=== PATIENT | female | born 1965 | race Two or more races ===

== ENCOUNTER → 2020-05-25 10:06 | Outpatient (BNVA) | payer OTHER, SELFPAY | PROVIDERS: PCP Internal Medicine; Visit Provider Internal Medicine | DX: Z95.2 Presence of prosthetic heart valve (principal); Z51.81 Encounter for therapeutic drug level monitoring; Z79.01 Long term (current) use of anticoagulants | CPT/HCPCS: 85610; 99211 ==

== ENCOUNTER → 2020-06-15 10:48 | Outpatient (BNVA) | payer OTHER, SELFPAY | PROVIDERS: PCP Internal Medicine; Visit Provider Internal Medicine | DX: Z95.2 Presence of prosthetic heart valve (principal); Z51.81 Encounter for therapeutic drug level monitoring; Z79.01 Long term (current) use of anticoagulants | CPT/HCPCS: 85610; 99211 ==

== ENCOUNTER → 2020-07-06 10:58 | Outpatient (BNVA) | payer OTHER, SELFPAY | PROVIDERS: PCP Internal Medicine; Visit Provider Internal Medicine | DX: Z95.2 Presence of prosthetic heart valve (principal); Z51.81 Encounter for therapeutic drug level monitoring; Z79.01 Long term (current) use of anticoagulants | CPT/HCPCS: 85610; 99211 ==

== ENCOUNTER → 2020-07-21 11:15 | Outpatient (BNVA) | payer OTHER, SELFPAY | PROVIDERS: PCP Internal Medicine; Visit Provider Internal Medicine | DX: Z95.2 Presence of prosthetic heart valve (principal); Z51.81 Encounter for therapeutic drug level monitoring; Z79.01 Long term (current) use of anticoagulants | CPT/HCPCS: 85610; 99211 ==

== ENCOUNTER → 2020-08-11 11:09 | Outpatient (BNVA) | payer OTHER, SELFPAY | PROVIDERS: PCP Internal Medicine; Visit Provider Internal Medicine | DX: Z95.2 Presence of prosthetic heart valve (principal); Z51.81 Encounter for therapeutic drug level monitoring; Z79.01 Long term (current) use of anticoagulants | CPT/HCPCS: 85610; 99211 ==

== ENCOUNTER → 2020-09-01 11:08 | Outpatient (BNVA) | payer OTHER, SELFPAY | PROVIDERS: PCP Internal Medicine; Visit Provider Internal Medicine | DX: Z95.2 Presence of prosthetic heart valve (principal); Z79.01 Long term (current) use of anticoagulants; Z51.81 Encounter for therapeutic drug level monitoring | CPT/HCPCS: 85610; 99211 ==

== ENCOUNTER → 2020-09-10 12:54 | Outpatient (BNVA) | payer OTHER, SELFPAY | PROVIDERS: PCP Internal Medicine; Visit Provider Internal Medicine | DX: E66.01 Morbid (severe) obesity due to excess calories (principal); G47.33 Obstructive sleep apnea (adult) (pediatric); J44.9 Chronic obstructive pulmonary disease, unspecified; J98.4 Other disorders of lung; Z99.89 Dependence on other enabling machines and devices | CPT/HCPCS: 99212 ==

== ENCOUNTER → 2020-09-11 09:11 | Outpatient (BNV) | payer OTHER, SELFPAY | PROVIDERS: PCP Internal Medicine; Visit Provider Internal Medicine Medical Oncology | DX: C50.912 Malignant neoplasm of unspecified site of left female breast (principal) | CPT/HCPCS: 99212; 99213; 99214 ==

== ENCOUNTER 2020-09-18 13:06 | Outpatient (REF) | payer OTHER, SELFPAY ==
--- NOTE | 2020-09-18 13:11 | MM_ITS ---
EXAMINATION: MM SCREENING DIGITAL BREAST TOMOSYNTHESIS, BILATERAL CLINICAL INFORMATION: Screening. Asymptomatic. Status post left breast lumpectomy. COMPARISON: Mammography: 05/08/2018 and studies dating back to 06/26/2014 TECHNIQUE: Digital breast tomosynthesis is performed in both the craniocaudal and mediolateral oblique views along with computer-aided detection (CAD). Synthesized 2D images are generated from the tomosynthesis. FINDINGS: There are scattered areas of fibroglandular density (ACR BI-RADS breast composition Category b). Stable architectural distortion from previous left breast lumpectomy is present. Pacemaker powerpack is seen within the left axilla. Within the superior aspect of the right breast, approximately 8 cm from the nipple, there is a somewhat irregularly marginated density which was not evident prior to study of 05/08/2018 and was smaller at that time. There is also noted to be some retroareolar densities not previously noted with question of calcification. Recommend spot magnification views of the right breast in craniocaudal and 90 degree mediolateral views. MM/MM tomosynthesis screening BI IMPRESSION: Right breast findings as described for further evaluation. ASSESSMENT: BI-RADS 0: Incomplete - Need Additional Imaging Evaluation RECOMMENDATION: 1. Additional views of the right breast. 2. Targeted ultrasound if warranted after review of the additional views. 3. Radiology department staff will contact the patient for additional imaging. This patient's information was entered into a reminder system with a target due date for their next mammogram.
--- NOTE | 2020-09-18 13:11 | MM_ITS ---
EXAMINATION: BONE DENSITOMETRY CLINICAL INDICATION: Osteoporosis. Breast cancer COMPARISON: Previous BD dated 05/08/2018 and baseline BD dated 05/19/2008. TECHNIQUE: Using a Two[employer] DXA System (software version: 13.1) manufactured by [employer], dual-energy x-ray absorptiometry was performed of the lumbar spine and left hip. The images are of good technical quality. Summary results are attached. FINDINGS: AP SPINE L1-L4: Current: BMD 0.869 g/cm2, Z-score -2.8, T-score -2.6, osteoporosis, 0.1% decrease from previous, 9.7% decrease from baseline (<5% change is not significant). Prior: BMD 0.870 g/cm2. Baseline: BMD 0.962 g/cm2. LEFT FEMUR, NECK: Current: BMD 0.671 g/cm2, Z-score -2.3, T-score -2.6, osteoporosis. Prior: BMD 0.694 g/cm2. Baseline: BMD 0.736 g/cm2. LEFT FEMUR, TOTAL: Current: BMD 0.757 g/cm2, Z-score -2.1, T-score -2.0, osteopenia, 2.8% decrease from previous, 15.1% decrease from baseline (<5% change is not significant). Prior: BMD 0.779 g/cm2. Baseline: BMD 0.892 g/cm2. IDENTIFIED RISK FACTORS: Early menopause, secondary osteoporosis. HISTORY OF FRACTURE: None listed. MEDICATIONS: Calcium/multivitamin. MM/XR DEXA axial skeleton IMPRESSION: 1. DIAGNOSIS: Osteoporosis based on the lowest T-score value of -2.6 in the femur neck and lumbar spine applying World Health Organization criteria. 2. 10-YEAR FRACTURE RISK PREDICTION, FRAX: Major osteoporotic fracture (clinical spine, forearm, hip or shoulder) 4.4%. Hip fracture 0.8%. 3. Treatment Recommendations: NOF guidelines recommend consideration for treatment in postmenopausal women and men age 50 and older presenting with the following: -A hip or vertebral (clinical or morphometric) fracture. -T-score less than or equal to -2.5 at the femoral neck or spine after appropriate evaluation to exclude secondary causes. -Low bone mass at the hip or spine and a 10-year fracture probability by FRAX of greater than or equal to 3% for hip fracture or greater than or equal to 20% for major osteoporotic fracture based on the [place] adapted WHO algorithm. 4. Other Recommendations: All treatment decisions require clinical judgment and consideration of individual patient factors, including patient preferences, comorbidities, previous drug use, risk factors not captured in the FRAX model (e.g. frailty, falls, vitamin D deficiency, increased bone turnover, interval significant decline in bone density) and possible under or overestimation of fracture risk by FRAX. Additional medical evaluation for secondary cause of low bone mineral density may be appropriate. FUTURE SCAN RECOMMENDATION: People with diagnosed cases of osteoporosis or at high risk for fracture should have regular bone mineral density tests. For patients eligible for Medicare, routine testing is allowed once every 2 years. The testing frequency can be increased to one year for patients who have rapidly progressing disease, those who are receiving or discontinuing medical therapy to restore bone mass, or have additional risk factors.
== END 2020-09-18 13:07 | disposition home or self-care (01) ==
LOC: HO.MAMMO 13:06
PROVIDERS: PCP Internal Medicine; Visit Provider Internal Medicine
DX: C50.912 Malignant neoplasm of unspecified site of left female breast (principal); M81.0 Age-related osteoporosis without current pathological fracture; Z78.0 Asymptomatic menopausal state; Z79.899 Other long term (current) drug therapy
CPT/HCPCS: 77063; 77067; 77080

== ENCOUNTER → 2020-09-23 10:59 | Outpatient (BNVA) | payer OTHER, SELFPAY | PROVIDERS: PCP Internal Medicine; Visit Provider Internal Medicine | DX: Z95.2 Presence of prosthetic heart valve (principal); Z51.81 Encounter for therapeutic drug level monitoring; Z79.01 Long term (current) use of anticoagulants | CPT/HCPCS: 85610; 99211 ==

== ENCOUNTER 2020-10-21 08:37 | Outpatient (REF) | payer OTHER, SELFPAY ==
--- NOTE | ~2020-10-21 | MM_ITS ---
EXAMINATION: MM DIAGNOSTIC DIGITAL MAMMOGRAPHY, RIGHT CLINICAL INFORMATION: Recall from screening for question of developing density and calcifications right breast. COMPARISON: Mammography: 09/18/2020, 05/08/2018 TECHNIQUE: Digital mammography is performed in the following views: Spot magnification CC, magnification ML x2 FINDINGS: The breasts are almost entirely fatty (ACR BI-RADS breast composition Category a). There are shifting stable background stromal and fibroglandular densities in the areas of recent mammographic interest similar to prior mammography 2018. There is no developing density or interval mass or architectural abnormality. No abnormal calcifications. No significant changes. Results are discussed with the patient at time of visit. MM/MM added views RT IMPRESSION: Additional views show no developing density, mass, or or abnormal calcifications. No significant changes from mammography 2018. ASSESSMENT: BI-RADS 2: Benign RECOMMENDATION: Routine annual mammography screening. This patient's information was entered into a reminder system with a target due date for their next mammogram.
== END 2020-10-21 08:38 | disposition home or self-care (01) ==
LOC: HO.MAMMO 08:37
PROVIDERS: PCP Internal Medicine; Visit Provider Internal Medicine Medical Oncology
DX: R92.2 Inconclusive mammogram (principal); R92.1 Mammographic calcification found on diagnostic imaging of breast
CPT/HCPCS: 77065

== ENCOUNTER → 2020-10-22 14:07 | Outpatient (BNVA) | payer OTHER, SELFPAY | PROVIDERS: PCP Internal Medicine; Visit Provider Internal Medicine | DX: Z95.2 Presence of prosthetic heart valve (principal); Z51.81 Encounter for therapeutic drug level monitoring; Z79.01 Long term (current) use of anticoagulants | CPT/HCPCS: 85610; 99211 ==

== ENCOUNTER → 2020-10-26 10:40 | Outpatient (BNVA) | payer OTHER, SELFPAY | PROVIDERS: PCP Internal Medicine; Visit Provider Internal Medicine | DX: Z95.2 Presence of prosthetic heart valve (principal); Z51.81 Encounter for therapeutic drug level monitoring; Z79.01 Long term (current) use of anticoagulants | CPT/HCPCS: 85610; 99211 ==

== ENCOUNTER → 2020-11-02 11:04 | Outpatient (BNVA) | payer OTHER, SELFPAY | PROVIDERS: PCP Internal Medicine; Visit Provider Internal Medicine | DX: Z95.2 Presence of prosthetic heart valve (principal); Z51.81 Encounter for therapeutic drug level monitoring; Z79.01 Long term (current) use of anticoagulants | CPT/HCPCS: 85610; 99211 ==

== ENCOUNTER → 2020-11-16 10:35 | Outpatient (BNVA) | payer OTHER, SELFPAY | PROVIDERS: PCP Internal Medicine; Visit Provider Internal Medicine | DX: Z95.2 Presence of prosthetic heart valve (principal); Z51.81 Encounter for therapeutic drug level monitoring; Z79.01 Long term (current) use of anticoagulants | CPT/HCPCS: 85610; 99211 ==

== ENCOUNTER → 2020-11-20 14:03 | Outpatient (BNVA) | payer OTHER, SELFPAY | PROVIDERS: PCP Internal Medicine; Visit Provider Internal Medicine | DX: Z95.2 Presence of prosthetic heart valve (principal); Z79.01 Long term (current) use of anticoagulants; Z51.81 Encounter for therapeutic drug level monitoring | CPT/HCPCS: 85610; 99211 ==

== ENCOUNTER → 2020-11-26 10:07 | Outpatient (BNVA) | payer OTHER, SELFPAY | PROVIDERS: PCP Internal Medicine; Visit Provider Internal Medicine | DX: Z95.2 Presence of prosthetic heart valve (principal); Z79.01 Long term (current) use of anticoagulants; Z51.81 Encounter for therapeutic drug level monitoring | CPT/HCPCS: 85610; 99211 ==

== ENCOUNTER → 2020-12-03 13:42 | Outpatient (BNVA) | payer OTHER, SELFPAY | PROVIDERS: PCP Internal Medicine; Visit Provider Internal Medicine | DX: Z95.2 Presence of prosthetic heart valve (principal); Z79.01 Long term (current) use of anticoagulants; Z51.81 Encounter for therapeutic drug level monitoring | CPT/HCPCS: 85610; 99211 ==

== ENCOUNTER → 2020-12-11 14:12 | Outpatient (BNVA) | payer OTHER, SELFPAY | PROVIDERS: PCP Internal Medicine; Visit Provider Internal Medicine | DX: Z95.2 Presence of prosthetic heart valve (principal); Z79.01 Long term (current) use of anticoagulants; Z51.81 Encounter for therapeutic drug level monitoring | CPT/HCPCS: 85610; 99211 ==

== ENCOUNTER 2020-12-18 16:04 | Emergency (ER) | payer OTHER, SELFPAY ==
--- NOTE | 2020-12-18 15:00 | CA_ITS ---
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 Moderately dilated left ventricle with markedly reduced LV ejection fraction with LVEF of less than 10% with grade 2 diastolic dysfunction 2. Normally functioning mechanical mitral valve with mean gradient of 1.5 mm of mercury 3. No gross pericardial effusion Findings Left Ventricle Moderately increased left ventricular cavity size. There is normal left ventricular wall thickness. The left ventricular systolic function is severely decreased. The visually estimated ejection fraction is <10%. There is severe global hypokinesis. Spectral Doppler is indicative of a restrictive filling pattern. E/E prime ratio is >15, consistent with elevated filling pressures. Evidence suggests grade III (severe) diastolic dysfunction. Right Ventricle Normal right ventricular cavity size. There is borderline right ventricular systolic function. There is an ICD wire seen in the right ventricle. Atria The left atrium was not well visualized. Interatrial shunt cannot be excluded. The right atrium is normal in size. Aortic Valve Normal aortic valve structure and function. There is no aortic valve stenosis. There is no aortic valve regurgitation. Mitral Valve A mechanical prosthetic mitral valve is present. The prosthetic mitral valve appears to be functioning normally. The mean mitral valve gradient is 1.40 mmHg. Pulmonic Valve The pulmonic valve was not well visualized. Tricuspid Valve Likely normal tricuspid valve structure and function. The right ventricular systolic pressure is not calculated. Great Vessels All visible segments of the aorta are normal in size. The pulmonary artery was not well visualized. Venous The inferior vena cava was not well visualized. The inferior vena cava collapses greater than 50% with inspiration. Pericardium/Pleural There is no evidence of pericardial effusion. Prior Study Comparison Changes noted compared to prior study dated: 12/25/2019. LV systolic function appears to be further reduced Measurements M-Mode Liner Measurements Normals - Women/Men AOV Cusps: 1.70 1.5-2.6 cm/m2 2D Linear Measurements IVSd: 0.66 0.6-0.9/0.6-1.0 cm LVIDd: 6.25 3.9-5.3/4.2-5.9 cm LVIDd Index: 3.51 2.4-3.2/2.2-3.1 cm/m2 LVIDs: 6.30 2.0-3.6 cm LVPWd: 0.64 0.7-1.1 cm Ao Root: 2.50 2.1-3.5 cm LA Diam: 4.20 2.7-3.8/3.0-4.0 cm LAIDs Index: 2.36 1.5-2.3 cm/m2 LV Mass: 193.14 67-162/88-224 g LV Mass Index: 108.51 43-95/49-115 g/m2 LVOT Diam: 1.40 3.0+(-)1.3 cm 2D Systolic Function EF 4C: 10.90 >55% EF 2C: 4.55 >55% EF BiP: 9.55 >55% Mitral Valve MV Pk E: 1.28 MV Decel Time: 179.00 E'Lateral: 3.81 E'Medial: 4.79 E/E' Med: 26.70 E/E' Lat: 33.60 PHT: 52.00 MVA PHT: 4.23 Decel Harris: 7.16 Aortic Valve AoV Pk Jayson: 1.64 AoV Mn Jayson: 1.21 AoV VTI: 0.31 AoV Pk Grad: 11.00 Aov Mn Grad: 6.00 TRAVIS Cont.VTI: 0.31 LVOT LVOT Pk Jayson: 0.37 LVOT Mn Jayson: 0.26 LVOT VTI: 0.06 LVOT Pk Grad: 1.00 LVOT Mn Grad: 0.00 LVOT Diam: 1.40 LVOT Area: 1.54 Diastolic Function MV Pk E: 1.28 E'Medial: 4.79 E/E' Med: 26.70 E' Laterial: 3.81 E/E' Lat: 33.60 Great Vessels Aorta Ao Root-2D: 2.50 2.0-3.7 cm Ao Asc: 2.60 2.1-3.4 cm Ao Arch: 2.10 Pulmonary Valve PV Pk Jayson: 1.26 Peak PV Grad: 6.00 Updated in Other Vendor System with Status of Final Cholo Delgadillo MD electronically signed on 12/19/2020 11:47:52 AM with status of Final
[2020-12-18 16:17] VITALS: BP 122/88; PULSE 71; RESP 22; TEMP 36.8; O2SAT 97
[2020-12-18 16:51] VITALS: BP 116/63; PULSE 72; RESP 16; TEMP 36.8; O2SAT 96; BMI 51.3
--- NOTE | 2020-12-18 16:55 | ED_ITS ---
HPI - General Adult General Chief complaint: Dizziness Stated complaint: sent from cardiology Time Seen by Provider: 12/18/20 16:54 Source: patient Mode of arrival: ambulatory Limitations: no limitations History of Present Illness HPI narrative: Patient's history of COPD obstructive sleep apnea on CPAP morbid obesity ischemic cardiomyopathy, CHF ejection fraction 15-20% was at cardiology office getting alk echo done which showed 15-20% ejection fraction while getting up from the table patient felt dizzy lightheaded, Slightly off balance sat down and felt better patient does have his dizziness off and on in the past. No chest pain no palpitation no shortness of breath this time patient denies any complaints no headache no nausea no vomiting no tinnitus Related Data Home Medications Medication Instructions Recorded Confirmed ascorbic acid (vitamin C) 500 mg 250 mg PO BID cap 09/10/20 11/20/20 capsule calcium carbonate 500 mg calcium 600 mg PO BID tab 09/10/20 11/20/20 (1,250 mg) tablet carvedilol 3.125 mg tablet 3.125 mg PO BID 09/10/20 11/20/20 ferrous sulfate 325 mg (65 mg 325 mg PO BID 09/10/20 11/20/20 iron) tablet furosemide 40 mg tablet 40 mg PO BID 09/10/20 11/20/20 sacubitril 24 mg-valsartan 26 mg 1 tab PO BID 09/10/20 11/20/20 tablet aspirin 81 mg tablet,delayed 81 mg PO DAILY 09/23/20 11/20/20 release atorvastatin 20 mg tablet 20 mg PO QAM 09/23/20 11/20/20 metolazone 2.5 mg tablet 2.5 mg PO DAILY 09/23/20 11/20/20 albuterol sulfate 90 mcg/actuation 0 mcg INHALATION 11/20/20 11/20/20 aerosol inhaler fluoxetine 20 mg capsule 20 mg PO DAILY 11/20/20 11/20/20 fluticasone 500 mcg-salmeterol 50 1 ea INHALATION BID 11/20/20 11/20/20 mcg/dose blistr powdr for inhalation ipratropium 0.5 mg-albuterol 3 mg ml INHALATION 11/20/20 11/20/20 (2.5 mg base)/3 mL nebulization soln mexiletine 150 mg capsule 0 mg PO 11/20/20 11/20/20 montelukast 10 mg tablet 10 mg PO BEDTIME 11/20/20 11/20/20 spironolactone 25 mg tablet 25 mg PO QAM 11/20/20 11/20/20 Previous Rx's Medication Instructions Recorded warfarin 2.5 mg tablet See Rx Instructions .ROUTE 05/25/20 .COMPLEX #90 tab Allergies Allergy/AdvReac Type Severity Reaction Status Date / Time codeine Allergy Mild RASH Verified 12/11/20 14:36 Review of Systems Review of Systems: Constitutional : No Weight loss, No Fever, No Chills ENT/Mouth : No sore throat, No Rhinorrhea Eyes: No Eye Pain, No Swelling Cardiovascular : No Chest Pain, no palpitations Respiratory : No Cough, No Sputum, no shortness of breath Gastrointestinal : no Nausea, No Vomiting, No Diarrhea, No abdominal Pain, no black stools Genitourinary : No Dysuria, No Urinary Frequency Musculoskeletal : No joint pain, No Myalgias, No Joint Swelling Skin : No Skin Lesions, No rash Neuro : No Weakness, No Numbness, + Dizziness, No Headache Psych : No Anxiety/Panic, No Depression Heme/Lymph: No Bruising, No Lymphadenopathy Endocrine : No Polyuria, No Polydipsia All other systems reviewed and are negative [facility] Past Medical History Medical History COPD (chronic obstructive pulmonary disease) Current use of anticoagulant therapy Morbid obesity HANS on CPAP Pacemaker Restrictive lung disease Surgical History History of prosthetic mitral valve Hx of section Hx of heart bypass surgery Family History Family History Mother Diabetes Heart disease Father Diabetes Heart attack Maternal Aunt Diabetes Maternal Uncle Diabetes Maternal Grandfather Diabetes Maternal Grandmother Diabetes Paternal Grandfather Heart disease Paternal Grandmother Heart disease Daughter Bipolar 1 disorder Social History Social History Alcohol intake: never Smoking Status: Former smoker Packs Per Day: 1 Smoked in Last 30 Days: No Use of substances other than those prescribed or required for medical reasons: No Physical Exam Vital Signs: Vital Signs: Last Vital Signs Temp 98.2 F 12/18/20 16:51 Pulse 80 12/18/20 17:37 Resp 16 12/18/20 16:51 BP 135/91 H 12/18/20 17:37 Pulse Ox 96 12/18/20 16:51 Body Mass Index 51.3 Appearance: Alert. Oriented X3. No acute distress. Eyes: PERRLA, No Nystagmus ENT: Pharynx normal. Oral Mucosa moist Neck: Normal inspection. Neck supple. CVS: Normal heart rate and rhythm. Pulses normal. Respiratory: No respiratory distress. Equal air entry bilateral, no wheezing/rales/rhonchi Abdomen: Soft and nontender. Bowel sounds are present, no mass palpable, no CVA tenderness Skin: Skin warm and dry. Normal skin color. Normal skin turgor. Extremities: No lower extremity edema. No calf tenderness Neuro: Oriented X 3. No motor deficit. 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, symptoms likely from vasovagal near-syncope Discharge Plan Discharge Clinical Impression: Vasovagal near syncope Patient Disposition: Home, Self-Care Instructions: Lightheadedness (ED) Additional Instructions: Continue your medications and follow up with your PCP Prescriptions: No Action warfarin 2.5 mg tablet See Rx Instructions mg .ROUTE .COMPLEX Qty: 90 RF: 0 furosemide 40 mg tablet 40 mg PO BID RF: 0 Entresto 24-26 mg tablet 1 tab PO BID RF: 0 carvedilol 3.125 mg tablet 3.125 mg PO BID RF: 0 ferrous sulfate 325 mg (65 mg iron) tablet 325 mg PO BID RF: 0 ascorbic acid (vitamin C) 500 mg capsule 250 mg PO BID RF: 0 calcium carbonate [Calcium 500] 500 mg calcium (1,250 mg) tablet 600 mg PO BID RF: 0 metolazone 2.5 mg tablet 2.5 mg PO DAILY RF: 0 aspirin 81 mg tablet,delayed release (DR/EC) 81 mg PO DAILY RF: 0 atorvastatin 20 mg tablet 20 mg PO QAM RF: 0 albuterol sulfate 90 mcg/actuation HFA aerosol inhaler 0 mcg inhalation RF: 0 ipratropium-albuterol 0.5 mg-3 mg(2.5 mg base)/3 mL solution for nebulization inhalation RF: 0 mexiletine 150 mg capsule 0 mg PO RF: 0 fluoxetine 20 mg capsule 20 mg PO DAILY RF: 0 montelukast 10 mg tablet 10 mg PO BEDTIME RF: 0 fluticasone propion-salmeterol 500-50 mcg/dose blister with device 1 ea inhalation BID RF: 0 spironolactone 25 mg tablet 25 mg PO QAM RF: 0 Interventions: ED Discharge Assessment Last Done: 12/18/20 17:53 Discharge Date/Time: 12/18/20 17:54
[2020-12-18 17:28] VITALS: BP 113/67; PULSE 69
[2020-12-18 17:36] VITALS: BP 119/81; PULSE 78
[2020-12-18 17:37] VITALS: BP 135/91; PULSE 80
== END 2020-12-18 17:54 | disposition home or self-care (01) ==
LOC: HO.ED 16:04
PROVIDERS: Emergency Provider Internal Medicine; Visit Provider Internal Medicine Cardiovascular Disease
DX: R55 Syncope and collapse (principal); E66.01 Morbid (severe) obesity due to excess calories; J44.9 Chronic obstructive pulmonary disease, unspecified; I50.9 Heart failure, unspecified; Z95.0 Presence of cardiac pacemaker; Z79.01 Long term (current) use of anticoagulants; Z79.02 Long term (current) use of antithrombotics/antiplatelets; Z79.82 Long term (current) use of aspirin; Z79.899 Other long term (current) drug therapy; Z85.3 Personal history of malignant neoplasm of breast
CPT/HCPCS: 93306; 99283; 99284; 99285; Q9957

== ENCOUNTER → 2020-12-25 14:21 | Outpatient (BNVA) | payer OTHER, SELFPAY | PROVIDERS: PCP Internal Medicine; Visit Provider Internal Medicine | DX: Z95.2 Presence of prosthetic heart valve (principal); Z79.01 Long term (current) use of anticoagulants; Z51.81 Encounter for therapeutic drug level monitoring | CPT/HCPCS: 85610; 99211 ==

== ENCOUNTER → 2020-12-31 14:16 | Outpatient (BNVA) | payer OTHER, SELFPAY | PROVIDERS: PCP Internal Medicine; Visit Provider Internal Medicine | DX: Z95.2 Presence of prosthetic heart valve (principal); Z51.81 Encounter for therapeutic drug level monitoring; Z79.01 Long term (current) use of anticoagulants | CPT/HCPCS: 85610; 99211 ==

== ENCOUNTER → 2021-01-07 09:47 | Outpatient (BNVA) | payer OTHER, SELFPAY | PROVIDERS: PCP Internal Medicine; Visit Provider Internal Medicine | DX: Z95.2 Presence of prosthetic heart valve (principal); Z51.81 Encounter for therapeutic drug level monitoring; Z79.01 Long term (current) use of anticoagulants | CPT/HCPCS: 85610; 99211 ==

== ENCOUNTER → 2021-01-11 10:48 | Outpatient (BNVA) | payer OTHER, SELFPAY | PROVIDERS: PCP Internal Medicine; Visit Provider Internal Medicine | DX: Z95.2 Presence of prosthetic heart valve (principal); Z51.81 Encounter for therapeutic drug level monitoring; Z79.01 Long term (current) use of anticoagulants | CPT/HCPCS: 85610; 99211 ==

== ENCOUNTER → 2021-01-21 11:08 | Outpatient (BNVA) | payer OTHER, SELFPAY | PROVIDERS: PCP Internal Medicine; Visit Provider Internal Medicine | DX: Z95.2 Presence of prosthetic heart valve (principal); Z51.81 Encounter for therapeutic drug level monitoring; Z79.01 Long term (current) use of anticoagulants | CPT/HCPCS: 85610; 99211 ==

== ENCOUNTER → 2021-02-04 14:27 | Outpatient (BNVA) | payer OTHER, SELFPAY | PROVIDERS: PCP Internal Medicine; Visit Provider Internal Medicine | DX: Z95.2 Presence of prosthetic heart valve (principal); Z51.81 Encounter for therapeutic drug level monitoring; Z79.01 Long term (current) use of anticoagulants | CPT/HCPCS: 85610; 99211 ==

== ENCOUNTER → 2021-02-12 14:20 | Outpatient (BNVA) | payer OTHER, SELFPAY | PROVIDERS: PCP Internal Medicine; Visit Provider Internal Medicine | DX: Z95.2 Presence of prosthetic heart valve (principal); Z51.81 Encounter for therapeutic drug level monitoring; Z79.01 Long term (current) use of anticoagulants | CPT/HCPCS: 85610; 99211 ==

== ENCOUNTER 2021-02-23 21:07 | Emergency (ER) | payer OTHER, SELFPAY ==
--- NOTE | ~2021-02-23 | CT_ITS ---
EXAMINATION: CT ABDOMEN AND PELVIS WITHOUT CONTRAST CLINICAL INFORMATION: Left flank pain COMPARISON: 03/03/2019 TECHNIQUE: Multidetector volumetric imaging was performed from the superior aspect of the liver through the pubic symphysis. Sagittal and coronal reformatted images were obtained on the technologist's workstation. This CT examination was performed using dose optimization techniques as appropriate, variously including the following: *Automated exposure control *Adjustment of mA and/or kV according to patient size (this includes techniques or standardized protocols for targeted exams where dose is matched to indication/reason for exam; i.e. extremities or head) *Use of iterative reconstruction technique DLP: 762 mGy-cm FINDINGS: LUNG BASES: The visualized lung bases are unremarkable. LIVER, GALLBLADDER, AND BILIARY TREE: Liver normal in size, contour and morphology. Mild diffuse hepatic steatosis. No focal liver lesions. Cholelithiasis present, including a 4.0 cm stone within the gallbladder neck. Gallbladder distended to 10 cm. Mild pericholecystic fat stranding. PANCREAS: Unremarkable. SPLEEN: Unremarkable. ADRENAL GLANDS: Unremarkable. KIDNEYS AND URETERS: The kidneys are normal in size, shape, and attenuation. No hydronephrosis, hydroureter, or calculi seen. There is a 1.0 cm simple cyst lower pole right kidney. No perinephric stranding. BLADDER: Unremarkable. GASTROINTESTINAL TRACT: The small and large bowel are unremarkable. The appendix is unremarkable. ABDOMINAL WALL: No significant hernia is appreciated. LYMPH NODES: Normal. VASCULAR: Unremarkable. PELVIC VISCERA: Uterus and ovaries unremarkable. OSSEOUS STRUCTURES: No acute or suspicious osseous abnormalities. CT/CT abdomen pelvis wo con IMPRESSION: * There is cholelithiasis including a 4 cm stone within the gallbladder neck, associated with gallbladder distention and mild pericholecystic fat stranding. These findings could be compatible with acute cholecystitis. Recommend right upper quadrant ultrasound for further evaluation. * Minimal hepatic steatosis.
[2021-02-23 21:13] VITALS: BP 96/58; PULSE 74; RESP 16; TEMP 36.9; O2SAT 94; BMI 52.0
[2021-02-23 22:00] VITALS: BP 104/62; PULSE 74; RESP 16; TEMP 36.9; O2SAT 95
--- NOTE | 2021-02-23 22:25 | ED.ABDPAIN ---
HPI - Abdominal Pain General Chief Complaint: Abdominal Pain Stated Complaint: left flank pain Time Seen by Provider: 02/23/21 22:00 Source: patient Mode of arrival: EMS Limitations: no limitations History of Present Illness HPI narrative: patient comes emergency room complaining of left-sided flank pain. Patient states she has been having left flank pain for several months, but starting hurting more approximately 1 week ago. Patient denies dysuria or hematuria, complaining of nausea, no vomiting or diarrhea, denies chest pain, no shortness of breath. Patient states she went to see her primary care physician this week, and that she was giving a suppository to treat muscle spasms Related Data Home Medications Medication Instructions Recorded Confirmed ascorbic acid (vitamin C) 500 mg 250 mg PO BID cap 09/10/20 02/12/21 capsule calcium carbonate 500 mg calcium 600 mg PO BID tab 09/10/20 02/12/21 (1,250 mg) tablet carvedilol 3.125 mg tablet 3.125 mg PO BID 09/10/20 02/12/21 ferrous sulfate 325 mg (65 mg 325 mg PO BID 09/10/20 02/12/21 iron) tablet furosemide 40 mg tablet 40 mg PO BID 09/10/20 02/12/21 sacubitril 24 mg-valsartan 26 mg 1 tab PO BID 09/10/20 02/12/21 tablet aspirin 81 mg tablet,delayed 81 mg PO DAILY 09/23/20 02/12/21 release atorvastatin 20 mg tablet 20 mg PO QAM 09/23/20 02/12/21 metolazone 2.5 mg tablet 2.5 mg PO DAILY 09/23/20 02/12/21 albuterol sulfate 90 mcg/actuation 0 mcg INHALATION 11/20/20 02/12/21 aerosol inhaler fluoxetine 20 mg capsule 20 mg PO DAILY 11/20/20 02/12/21 fluticasone 500 mcg-salmeterol 50 1 ea INHALATION BID 11/20/20 02/12/21 mcg/dose blistr powdr for inhalation ipratropium 0.5 mg-albuterol 3 mg ml INHALATION 11/20/20 02/12/21 (2.5 mg base)/3 mL nebulization soln mexiletine 150 mg capsule 0 mg PO 11/20/20 02/12/21 montelukast 10 mg tablet 10 mg PO BEDTIME 11/20/20 02/12/21 spironolactone 25 mg tablet 25 mg PO QAM 11/20/20 02/12/21 ascorbic acid (vitamin C) 250 mg 0 mg PO 12/31/20 02/12/21 tablet calcium carbonate 600 mg calcium 600 mg PO BID 12/31/20 02/12/21 (1,500 mg) tablet docusate sodium 100 mg capsule 100 mg PO BID 12/31/20 02/12/21 Previous Rx's Medication Instructions Recorded warfarin 2.5 mg tablet See Rx Instructions .ROUTE 05/25/20 .COMPLEX #90 tab Allergies Allergy/AdvReac Type Severity Reaction Status Date / Time codeine Allergy Mild RASH Verified 02/04/21 14:38 Review of Systems Review of Systems Constitutional : No Weight loss, No Fever, No Chills, No Night Sweats, No Fatigue, No Malaise ENT/Mouth : No Hearing loss, No Ear Pain, No Nasal Congestion, No Sinus Pain, No Hoarseness, No sore throat, No Rhinorrhea, No Swallowing Difficulty Eyes: No Eye Pain, No Swelling, No Redness, No Foreign Body, No Discharge, No Vision Changes Cardiovascular : No Chest Pain, No SOB, No Dyspnea on Exertion, No Orthopnea, No Edema, No Palpitations Respiratory : No Cough, No Sputum, No Wheezing, No Smoke Exposure, No Dyspnea Gastrointestinal : Complaining of mild Nausea, No Vomiting, No Diarrhea, No Constipation, complaining of left abdominal pain, radiating from the left flank, No Hematochezia, No Melena Genitourinary : no irregular bleeding, No Dysuria, No Urinary Frequency, No Hematuria, No Urinary Incontinence, No Urgency, No Flank Pain, No Urinary Flow Changes, No Hesitancy Musculoskeletal : No joint pain, No Myalgias, No Joint Swelling Skin : No Skin Lesions, No rash Neuro : No Weakness, No Numbness, No Paresthesias, No Loss of Consciousness, No Dizziness, No Headache Psych : No Anxiety/Panic, No Depression, No SI/HI/AH/VH, No Social Issues, Heme/Lymph: No Bruising, No Bleeding,No Lymphadenopathy Endocrine : No Polyuria, No Polydipsia, No Temperature Intolerance Physical Exam Vital Signs: Vital Signs: Last Vital Signs Temp 98.4 F 02/23/21 22:00 Pulse 74 02/23/21 22:00 Resp 16 02/23/21 22:00 BP 104/62 02/23/21 22:00 Pulse Ox 95 02/23/21 22:00 Body Mass Index 52.0 Appearance: Alert. Oriented X3. No acute distress. Eyes: Pupils equal, round and reactive to light. ENT: Pharynx normal. Neck: Normal inspection. Neck supple. No lymph nodes noted. No crepitus CVS: Normal heart rate and rhythm. Pulses normal. Normal S1 and S2 Respiratory: No respiratory distress. Breath sounds normal. No Wheezing. No rales Abdomen: Soft , no rigidity, mild distension, discomfort to palpation over the left lower quadrant and left flank Skin: Skin warm and dry. Normal skin color. Normal skin turgor. Extremities: No lower extremity edema. No lower extremity edema. No Lacerations. No Rash Neuro: Oriented X 3. No motor deficit. No sensory deficit. Moving all extermities. No slurred speech. Course Course Course Narrative: patient has left flank pain is likely musculoskeletal, no renal stones or ureterolithiasis identified. Incidentally, patient does have a large 4 cm gallbladder stone. However, the patient has not had any pain in the right upper quadrant , epigastric or right flank, does not have any discomfort with meals, no nausea vomiting, LFTs are within normal limits. At this time, acute cholecystitis is not suspected. the above findings are incidental. Patient will be given a referral for outpatient surgery. I re-evaluated the patient multiple times, did several abdominal checks, patient does not have any abdominal pain I also discussed with the patient that she has blood in the urine, seems to be chronic. Patient states she is aware. Patient was giving a referral for Urology. Also discussed the patient's blood pressure, patient states that she is not to have low blood pressure, as low as 80s sometimes. Patient is asymptomatic. Patient states she has a cardiology appointment in 2 days. Patient denies chest pain, no shortness of breath. also discussed with the patient that her INR is 4.0, instructed to skip a dose of her medication, and call her primary care physician Or the INR clinic MDM - Abdominal Pain Lab Data Result diagrams: 02/23/21 23:34 02/23/21 23:34 Labs: Lab Results 02/23/21 02/23/21 02/23/21 Range/Units 23:34 23:34 23:34 WBC 11.7 H (4.8-10.8) X10*3/uL RBC 4.85 (4.20-5.50) X10*6/uL Hgb 14.6 (12.0-16.0) g/dl Hct 43.8 (37-47) % MCV 90.3 (80-98) fL MCH 30.1 (27.0-33.0) pg MCHC 33.3 (31.0-35.0) g/dl RDW 13.5 (11.0-16.0) % Plt Count 312 (160-400) X10*3/uL MPV 10.7 (9.4-12.3) fL Immature Gran % (Auto) 0.4 (0.0-0.4) % Neut % (Auto) 80.1 H (45-73) % Lymph % (Auto) 10.0 L (20-40) % [place] % (Auto) 7.6 (2-11) % Eos % (Auto) 1.4 (0-4) % Baso % (Auto) 0.5 (0-2) % Lymph # (Auto) 1.2 (1.2-4.9) X10*3/uL [place] # (Auto) 0.9 (0.1-1.2) X10*3/uL Eos # (Auto) 0.2 (0.0-0.4) X10*3/uL Baso # (Auto) 0.1 (0.0-0.2) X10*3/uL Abs Immat Gran (auto) 0.05 H (0.00-0.03) X10*3/uL Absolute Neuts (auto) 9.3 H (2.0-8.3) X10*3/uL Absolute Nucleated RBC 0.000 (0.0-0.012) X10*3/uL Nucleated RBC % (auto) 0.0 (0.0-0.2) /100WBC PT 46.5 H (9.9-13.0) SEC INR 4.0 H (0.9-1.1) Sodium 138 (135-145) mmol/L Potassium 4.2 (3.3-5.1) mmol/L Chloride 98 (96-108) mmol/L Carbon Dioxide 30 H (22-29) mmol/L Anion Gap 14 (12-20) BUN 15 (9-16) mg/dL Creatinine 1.12 (0.5-1.4) mg/dL Estim Creat Clear Calc 52.1 Estimated GFR 51 Random Glucose 121 H (60-115) mg/dL Calcium 9.1 (8.4-10.2) mg/dL Total Bilirubin 0.5 (0.0-1.0) mg/dL Direct Bilirubin 0.2 (0.0-0.5) mg/dL AST 19 (5-31) U/L ALT 17 (0-31) U/L Alkaline Phosphatase 113 (39-117) U/L Total Protein 7.7 (6.5-8.0) g/dL Albumin 3.9 (3.5-5.0) g/dL Lipase 15 (8-78) U/L Urine Color Urine Appearance Urine pH (5.0-8.0) Ur Specific [place] (1.005-1.025) Urine Protein (NEG-TRACE) MG/DL Urine Glucose (UA) (NEG) MG/DL Urine Ketones (NEG) MG/DL Urine Blood (NEG) Urine Nitrite (NEG) Ur Leukocyte Esterase (NEG) Urine RBC (0) /HPF Urine WBC (0-4) /HPF Ur Squamous Epith Cells /LPF Urine Bacteria /LPF Urine Mucus /LPF /02/08 Range/Units 23:44 WBC (4.8-10.8) X10*3/uL RBC (4.20-5.50) X10*6/uL Hgb (12.0-16.0) g/dl Hct (37-47) % MCV (80-98) fL MCH (27.0-33.0) pg MCHC (31.0-35.0) g/dl RDW (11.0-16.0) % Plt Count (160-400) X10*3/uL MPV (9.4-12.3) fL Immature Gran % (Auto) (0.0-0.4) % Neut % (Auto) (45-73) % Lymph % (Auto) (20-40) % [place] % (Auto) (2-11) % Eos % (Auto) (0-4) % Baso % (Auto) (0-2) % Lymph # (Auto) (1.2-4.9) X10*3/uL [place] # (Auto) (0.1-1.2) X10*3/uL Eos # (Auto) (0.0-0.4) X10*3/uL Baso # (Auto) (0.0-0.2) X10*3/uL Abs Immat Gran (auto) (0.00-0.03) X10*3/uL Absolute Neuts (auto) (2.0-8.3) X10*3/uL Absolute Nucleated RBC (0.0-0.012) X10*3/uL Nucleated RBC % (auto) (0.0-0.2) /100WBC PT (9.9-13.0) SEC INR (0.9-1.1) Sodium (135-145) mmol/L Potassium (3.3-5.1) mmol/L Chloride (96-108) mmol/L Carbon Dioxide (22-29) mmol/L Anion Gap (12-20) BUN (9-16) mg/dL Creatinine (0.5-1.4) mg/dL Estim Creat Clear Calc Estimated GFR Random Glucose (60-115) mg/dL Calcium (8.4-10.2) mg/dL Total Bilirubin (0.0-1.0) mg/dL Direct Bilirubin (0.0-0.5) mg/dL AST (5-31) U/L ALT (0-31) U/L Alkaline Phosphatase (39-117) U/L Total Protein (6.5-8.0) g/dL Albumin (3.5-5.0) g/dL Lipase (8-78) U/L Urine Color YELLOW Urine Appearance CLEAR Urine pH 6.0 (5.0-8.0) Ur Specific [place] 1.015 (1.005-1.025) Urine Protein TRACE (NEG-TRACE) MG/DL Urine Glucose (UA) NEG (NEG) MG/DL Urine Ketones NEG (NEG) MG/DL Urine Blood 2+ H (NEG) Urine Nitrite NEG (NEG) Ur Leukocyte Esterase NEG (NEG) Urine RBC 5-9 H (0) /HPF Urine WBC 0-2 (0-4) /HPF Ur Squamous Epith Cells 2+ /LPF Urine Bacteria 1+ /LPF Urine Mucus TRACE /LPF Imaging Data CT scan - abdomen: Radiologist's impression: FINDINGS: LUNG BASES: The visualized lung bases are unremarkable. LIVER, GALLBLADDER, AND BILIARY TREE: Liver normal in size, contour and morphology. Mild diffuse hepatic steatosis. No focal liver lesions. Cholelithiasis present, including a 4.0 cm stone within the gallbladder neck. Gallbladder distended to 10 cm. Mild pericholecystic fat stranding. PANCREAS: Unremarkable. SPLEEN: Unremarkable. ADRENAL GLANDS: Unremarkable. KIDNEYS AND URETERS: The kidneys are normal in size, shape, and attenuation. No hydronephrosis, hydroureter, or calculi seen. There is a 1.0 cm simple cyst lower pole right kidney. No perinephric stranding. BLADDER: Unremarkable. GASTROINTESTINAL TRACT: The small and large bowel are unremarkable. The appendix is unremarkable. ABDOMINAL WALL: No significant hernia is appreciated. LYMPH NODES: Normal. VASCULAR: Unremarkable. PELVIC VISCERA: Uterus and ovaries unremarkable. OSSEOUS STRUCTURES: No acute or suspicious osseous abnormalities. CT/CT abdomen pelvis wo con IMPRESSION: * There is cholelithiasis including a 4 cm stone within the gallbladder neck, associated with gallbladder distention and mild pericholecystic fat stranding. These findings could be compatible with acute cholecystitis. Recommend right upper quadrant ultrasound for further evaluation. * Minimal hepatic steatosis. ECG Data Attestation: I personally reviewed and interpreted this ECG as follows: ( heart rate 81, [address] segment elevation in lead 3 and AVF, atrial paced, QTC 557, no EKG changes since August 2019) Discharge Plan Discharge Clinical Impression: Acute left flank pain Cholelithiasis Qualifiers: Cholelithiasis location: gallbladder Cholecystitis acuity: unspecified acuity Biliary obstruction: without biliary obstruction Patient Disposition: Home, Self-Care Instructions: Flank Pain (ED) Additional Instructions: please skip 1 dose of Coumadin and follow up with her primary care physician and your INR clinic. Please follow-up with your primary care physician tomorrow. If you have any worsening or new symptoms, please return to the emergency room or call 911 Prescriptions: No Action warfarin 2.5 mg tablet See Rx Instructions mg .ROUTE .COMPLEX Qty: 90 RF: 0 furosemide 40 mg tablet 40 mg PO BID RF: 0 Entresto 24-26 mg tablet 1 tab PO BID RF: 0 carvedilol 3.125 mg tablet 3.125 mg PO BID RF: 0 ferrous sulfate 325 mg (65 mg iron) tablet 325 mg PO BID RF: 0 ascorbic acid (vitamin C) 500 mg capsule 250 mg PO BID RF: 0 calcium carbonate [Calcium 500] 500 mg calcium (1,250 mg) tablet 600 mg PO BID RF: 0 docusate sodium 100 mg capsule 100 mg PO BID RF: 0 ascorbic acid (vitamin C) 250 mg tablet 0 mg PO RF: 0 calcium carbonate 600 mg calcium (1,500 mg) tablet 600 mg PO BID RF: 0 metolazone 2.5 mg tablet 2.5 mg PO DAILY RF: 0 aspirin 81 mg tablet,delayed release (DR/EC) 81 mg PO DAILY RF: 0 atorvastatin 20 mg tablet 20 mg PO QAM RF: 0 albuterol sulfate 90 mcg/actuation HFA aerosol inhaler 0 mcg inhalation RF: 0 ipratropium-albuterol 0.5 mg-3 mg(2.5 mg base)/3 mL solution for nebulization inhalation RF: 0 mexiletine 150 mg capsule 0 mg PO RF: 0 fluoxetine 20 mg capsule 20 mg PO DAILY RF: 0 montelukast 10 mg tablet 10 mg PO BEDTIME RF: 0 fluticasone propion-salmeterol 500-50 mcg/dose blister with device 1 ea inhalation BID RF: 0 spironolactone 25 mg tablet 25 mg PO QAM RF: 0 Referrals: Ady Fernandez MD [Physician] - 2 days Elijah Mcdonald MD [Physician] - 1 day [facility] Past Medical History Medical History COPD (chronic obstructive pulmonary disease) Current use of anticoagulant therapy Morbid obesity HANS on CPAP Pacemaker Restrictive lung disease Surgical History History of prosthetic mitral valve Hx of section Hx of heart bypass surgery Family History Family History Mother Diabetes Heart disease Father Diabetes Heart attack Maternal Aunt Diabetes Maternal Uncle Diabetes Maternal Grandfather Diabetes Maternal Grandmother Diabetes Paternal Grandfather Heart disease Paternal Grandmother Heart disease Daughter Bipolar 1 disorder Social History Social History Alcohol intake: never Cigarette Packs Per Day: 1 Advance Directives: No Advance Directives Information Provided: Yes Patient : No
--- NOTE | 2021-02-23 22:28 | ECG_ITS ---
Test Reason : PAIN Blood Pressure : / mmHG Vent. Rate : 081 BPM Atrial Rate : 076 BPM P-R Int : 192 ms QRS Dur : 156 ms QT Int : 480 ms P-R-T Axes : 049 235 086 degrees QTc Int : 557 ms Normal sinus rhythm Non-specific intra-ventricular conduction block Ventricular-paced rhythm in parts of EKG Abnormal ECG When compared with ECG of 02-SEP-2019 09:40, Rhythm change Referred By: Nubia Whipple Electronically Signed By:ROSIE KEENAN
[2021-02-23] MEDS: Acetaminophen 325 MG TABLET 650 MG PO (22:52)
[2021-02-23 23:38] LABS: Basophils Absolute Auto 0.1 X10*3/uL (0.0-0.2); Basophils Percent Auto 0.5 % (0-2); Eosinophils Absolute Auto 0.2 X10*3/uL (0.0-0.4); Eosinophils Percent Auto 1.4 % (0-4); Hematocrit 43.8 % (37-47); Hemoglobin 14.6 g/dl (12.0-16.0); Imm Gran Abs Auto 0.05 X10*3/uL (0.00-0.03); Imm Gran Pct Auto 0.4 % (0.0-0.4); Lymphocytes Absolute Auto 1.2 X10*3/uL (1.2-4.9); MANUAL DIFF FLAG NO; Mean Corpuscular HGB Conc 33.3 g/dl (31.0-35.0); Mean Corpuscular Hemoglobin 30.1 pg (27.0-33.0); Mean Corpuscular Volume 90.3 fL (80-98); Mean Platelet Volume 10.7 fL (9.4-12.3); Monocytes Absolute Auto 0.9 X10*3/uL (0.1-1.2); Monocytes Percent Auto 7.6 % (2-11); Neutrophils Absolute Auto 9.3 X10*3/uL (2.0-8.3); Neutrophils Percent Auto 80.1 % (45-73); Platelet Count 312 X10*3/uL (160-400); Red Blood Count 4.85 X10*6/uL (4.20-5.50); Red Cell Distribution Width 13.5 % (11.0-16.0); White Blood Count 11.7 X10*3/uL (4.8-10.8)
[2021-02-23 23:43] LABS: Prothrombin Time 46.5 SEC (9.9-13.0)
[2021-02-24 00:23] LABS: Alanine Aminotransferase 17 U/L (0-31); Albumin Level 3.9 g/dL (3.5-5.0); Alkaline Phosphatase 113 U/L (39-117); Anion Gap 14 (12-20); Aspartate Amino Transferase 19 U/L (5-31); Bilirubin Direct 0.2 mg/dL (0.0-0.5); Bilirubin Total 0.5 mg/dL (0.0-1.0); Blood Urea Nitrogen 15 mg/dL (9-16); Calcium 9.1 mg/dL (8.4-10.2); Carbon Dioxide 30 mmol/L (22-29); Chloride 98 mmol/L (96-108); Creatinine Clr Calc Pharmacy 52.1; Estimated Glomerular Filt Rate 51; Glucose Random 121 mg/dL (60-115); Lipase 15 U/L (8-78); Potassium 4.2 mmol/L (3.3-5.1); Sodium 138 mmol/L (135-145); Total Protein 7.7 g/dL (6.5-8.0)
[2021-02-24 00:32] LABS: Glucose Urine UA NEG (NEG); Leukocyte Esterase Urine NEG (NEG); Nitrite Urine NEG (NEG); Specific Gravity - Urine 1.015 (1.005-1.025); Urine Blood 2+ (NEG); Urine Ketones NEG (NEG); Urine Protein TRACE MG/DL (NEG-TRACE)
[2021-02-24 00:33] LABS: Appearance Urine CLEAR; Color Urine YELLOW
[2021-02-24 00:40] LABS: Bacteria Urine 1+ /LPF; Squamous Epithelial Cell Urine 2+ /LPF; WBC Urine 0-2 /HPF (0-4)
[2021-02-24 00:41] LABS: Mucus Urine TRACE /LPF
== END 2021-02-24 01:34 | disposition home or self-care (01) ==
PROVIDERS: Emergency Provider Emergency Medicine; PCP Internal Medicine
DX: R10.9 Unspecified abdominal pain (principal); K80.20 Calculus of gallbladder without cholecystitis without obstruction; J44.9 Chronic obstructive pulmonary disease, unspecified; Z79.01 Long term (current) use of anticoagulants; Z79.899 Other long term (current) drug therapy; Z95.0 Presence of cardiac pacemaker; Z95.2 Presence of prosthetic heart valve
CPT/HCPCS: 36415; 74176; 80048; 80076; 81001; 83690; 85025; 85610; 93005; 99284

== ENCOUNTER → 2021-02-26 14:14 | Outpatient (BNVA) | payer OTHER, SELFPAY | PROVIDERS: PCP Internal Medicine; Visit Provider Internal Medicine | DX: Z95.2 Presence of prosthetic heart valve (principal); Z51.81 Encounter for therapeutic drug level monitoring; Z79.01 Long term (current) use of anticoagulants | CPT/HCPCS: 85610; 99211 ==

== ENCOUNTER 2021-03-03 09:46 | Outpatient (REF) | payer OTHER, SELFPAY ==
--- NOTE | ~2021-03-03 | US_ITS ---
EXAMINATION: US ABDOMEN COMPLETE CLINICAL INFORMATION: Abdominal pain. COMPARISON: CT abdomen and pelvis 02/23/2021. TECHNIQUE: Real-time imaging of the abdominal viscera. Technically difficult study secondary to body habitus. FINDINGS: PANCREAS: The pancreas is obscured by overlying gas. ABDOMINAL AORTA: The abdominal aorta is not visualized due to overlying gas. INFERIOR VENA CAVA: Visualized portions are normal. LIVER: The liver is normal in size. The liver contour is normal. The liver is diffusely echogenic No focal hepatic lesion. There is no intrahepatic biliary duct dilatation seen. GALLBLADDER: The gallbladder wall thickness is 0.26 cm. The gallbladder is physiologically distended. Multiple mobile gallstones are present. The largest echogenic stone is 4 cm. No evidence of gallbladder wall thickening or pericholecystic fluid. COMMON BILE DUCT: Normal in caliber measuring 0.3 cm in diameter. RIGHT KIDNEY: Normal. No hydronephrosis. No renal calculi or focal parenchymal lesions. The kidney measures 10.5 cm in maximum dimension. LEFT KIDNEY: Normal. No hydronephrosis. No renal calculi or focal parenchymal lesions. The kidney measures 9.5 cm in maximum dimension. SPLEEN: Normal. The spleen measures 8.8 cm in maximum dimension. FREE FLUID: None. US/US abdomen complete IMPRESSION: Multiple echogenic gallstones with shadowing. The largest stone measures 4 cm. No gallbladder wall thickening seen. Diffusely echogenic liver. No focal lesion seen. The pancreas and abdominal aorta are not visualized due to overlying gas.
== END 2021-03-03 09:47 | disposition home or self-care (01) ==
LOC: HO.US 09:46
PROVIDERS: PCP Internal Medicine; Visit Provider Registered Nurse
DX: R10.9 Unspecified abdominal pain (principal)
CPT/HCPCS: 76700

== ENCOUNTER → 2021-03-05 14:14 | Outpatient (BNVA) | payer OTHER, SELFPAY | PROVIDERS: PCP Internal Medicine; Visit Provider Internal Medicine | DX: Z95.2 Presence of prosthetic heart valve (principal); Z51.81 Encounter for therapeutic drug level monitoring; Z79.01 Long term (current) use of anticoagulants | CPT/HCPCS: 85610; 99211 ==

== ENCOUNTER → 2021-03-12 13:56 | Outpatient (BNVA) | payer OTHER, SELFPAY | PROVIDERS: PCP Internal Medicine; Visit Provider Internal Medicine | DX: Z95.2 Presence of prosthetic heart valve (principal); Z51.81 Encounter for therapeutic drug level monitoring; Z79.01 Long term (current) use of anticoagulants | CPT/HCPCS: 85610; 99211 ==

== ENCOUNTER → 2021-03-15 14:50 | Outpatient (BNVA) | payer OTHER, SELFPAY | PROVIDERS: PCP Internal Medicine; Visit Provider Internal Medicine | DX: J44.9 Chronic obstructive pulmonary disease, unspecified (principal); J98.4 Other disorders of lung; G47.33 Obstructive sleep apnea (adult) (pediatric); E66.01 Morbid (severe) obesity due to excess calories; Z99.89 Dependence on other enabling machines and devices; Z68.43 Body mass index [BMI] 50.0-59.9, adult; Z71.3 Dietary counseling and surveillance; Z79.899 Other long term (current) drug therapy | CPT/HCPCS: 99212 ==

== ENCOUNTER → 2021-03-19 10:05 | Outpatient (BNVA) | payer OTHER, SELFPAY | PROVIDERS: PCP Internal Medicine; Visit Provider Internal Medicine | DX: Z95.2 Presence of prosthetic heart valve (principal); Z51.81 Encounter for therapeutic drug level monitoring; Z79.01 Long term (current) use of anticoagulants | CPT/HCPCS: 85610; 99211 ==

== ENCOUNTER → 2021-03-25 14:32 | Outpatient (BNVA) | payer OTHER, SELFPAY | PROVIDERS: PCP Internal Medicine; Referring Provider Internal Medicine; Visit Provider Surgery | DX: K80.20 Calculus of gallbladder without cholecystitis without obstruction (principal); K59.00 Constipation, unspecified; K62.5 Hemorrhage of anus and rectum | CPT/HCPCS: 99202 ==

== ENCOUNTER → 2021-04-02 13:33 | Outpatient (BNVA) | payer OTHER, SELFPAY | PROVIDERS: PCP Internal Medicine; Visit Provider Internal Medicine | DX: Z95.2 Presence of prosthetic heart valve (principal); Z51.81 Encounter for therapeutic drug level monitoring; Z79.01 Long term (current) use of anticoagulants | CPT/HCPCS: 85610; 99211 ==

== ENCOUNTER → 2021-04-16 14:50 | Outpatient (BNVA) | payer OTHER, SELFPAY | PROVIDERS: PCP Internal Medicine; Visit Provider Internal Medicine | DX: Z95.2 Presence of prosthetic heart valve (principal); Z51.81 Encounter for therapeutic drug level monitoring; Z79.01 Long term (current) use of anticoagulants | CPT/HCPCS: 85610; 99211 ==

== ENCOUNTER → 2021-05-07 14:35 | Outpatient (BNVA) | payer OTHER, SELFPAY | PROVIDERS: PCP Internal Medicine; Visit Provider Internal Medicine | DX: Z95.2 Presence of prosthetic heart valve (principal); Z51.81 Encounter for therapeutic drug level monitoring; Z79.1 Long term (current) use of non-steroidal anti-inflammatories (NSAID) | CPT/HCPCS: 85610; 99211 ==

== ENCOUNTER → 2021-05-11 14:26 | Outpatient (BNVA) | payer OTHER, SELFPAY | PROVIDERS: PCP Internal Medicine; Visit Provider Internal Medicine | DX: Z95.2 Presence of prosthetic heart valve (principal); Z51.81 Encounter for therapeutic drug level monitoring; Z79.01 Long term (current) use of anticoagulants | CPT/HCPCS: 85610; 99211 ==

== ENCOUNTER → 2021-05-20 14:26 | Outpatient (BNVA) | payer OTHER, SELFPAY | PROVIDERS: PCP Internal Medicine; Visit Provider Internal Medicine | DX: Z95.2 Presence of prosthetic heart valve (principal); Z51.81 Encounter for therapeutic drug level monitoring; Z79.01 Long term (current) use of anticoagulants | CPT/HCPCS: 85610; 99211 ==

== ENCOUNTER → 2021-06-03 14:29 | Outpatient (BNVA) | payer OTHER, SELFPAY | PROVIDERS: PCP Internal Medicine; Visit Provider Internal Medicine | DX: Z95.2 Presence of prosthetic heart valve (principal); Z51.81 Encounter for therapeutic drug level monitoring; Z79.01 Long term (current) use of anticoagulants | CPT/HCPCS: 85610; 99212 ==

== ENCOUNTER → 2021-06-11 14:28 | Outpatient (BNVA) | payer OTHER, SELFPAY | PROVIDERS: PCP Internal Medicine; Visit Provider Internal Medicine | DX: Z95.2 Presence of prosthetic heart valve (principal); Z51.81 Encounter for therapeutic drug level monitoring; Z79.01 Long term (current) use of anticoagulants | CPT/HCPCS: 85610; 99211 ==

== ENCOUNTER → 2021-06-18 14:48 | Outpatient (BNVA) | payer OTHER, SELFPAY | PROVIDERS: PCP Internal Medicine; Visit Provider Internal Medicine | DX: Z95.2 Presence of prosthetic heart valve (principal); Z51.81 Encounter for therapeutic drug level monitoring; Z79.01 Long term (current) use of anticoagulants | CPT/HCPCS: 85610; 99211 ==

== ENCOUNTER → 2021-07-02 09:39 | Outpatient (BNVA) | payer OTHER, SELFPAY | PROVIDERS: PCP Internal Medicine; Visit Provider Internal Medicine | DX: Z95.2 Presence of prosthetic heart valve (principal); Z51.81 Encounter for therapeutic drug level monitoring; Z79.01 Long term (current) use of anticoagulants | CPT/HCPCS: 85610; 99211 ==

== ENCOUNTER → 2021-07-05 09:35 | Outpatient (BNVA) | payer OTHER, SELFPAY | PROVIDERS: PCP Internal Medicine; Referring Provider Internal Medicine; Visit Provider Nurse Practitioner Family | DX: Z01.810 Encounter for preprocedural cardiovascular examination (principal); K62.5 Hemorrhage of anus and rectum; K59.04 Chronic idiopathic constipation; R14.0 Abdominal distension (gaseous); R10.33 Periumbilical pain; I10 Essential (primary) hypertension; E78.5 Hyperlipidemia, unspecified; E66.01 Morbid (severe) obesity due to excess calories; D64.9 Anemia, unspecified; J44.9 Chronic obstructive pulmonary disease, unspecified; G47.33 Obstructive sleep apnea (adult) (pediatric); F17.210 Nicotine dependence, cigarettes, uncomplicated; Z68.43 Body mass index [BMI] 50.0-59.9, adult; Z95.0 Presence of cardiac pacemaker; Z95.2 Presence of prosthetic heart valve; Z83.3 Family history of diabetes mellitus; Z82.49 Family history of ischemic heart disease and other diseases of the circulatory system; Z88.6 Allergy status to analgesic agent; Z99.89 Dependence on other enabling machines and devices; Z79.01 Long term (current) use of anticoagulants | CPT/HCPCS: 99202 ==

== ENCOUNTER → 2021-07-19 13:58 | Outpatient (BNVA) | payer OTHER, SELFPAY | PROVIDERS: PCP Internal Medicine; Visit Provider Internal Medicine | DX: Z95.2 Presence of prosthetic heart valve (principal); Z51.81 Encounter for therapeutic drug level monitoring; Z79.01 Long term (current) use of anticoagulants | CPT/HCPCS: 85610; 99211 ==

== ENCOUNTER → 2021-08-03 14:39 | Outpatient (BNVA) | payer OTHER, SELFPAY | PROVIDERS: PCP Internal Medicine; Visit Provider Internal Medicine | DX: Z95.2 Presence of prosthetic heart valve (principal); Z51.81 Encounter for therapeutic drug level monitoring; Z79.01 Long term (current) use of anticoagulants | CPT/HCPCS: 85610; 99211 ==

== ENCOUNTER → 2021-08-24 09:38 | Outpatient (BNVA) | payer OTHER, SELFPAY | PROVIDERS: PCP Internal Medicine; Visit Provider Internal Medicine | DX: Z95.2 Presence of prosthetic heart valve (principal); Z51.81 Encounter for therapeutic drug level monitoring; Z79.01 Long term (current) use of anticoagulants | CPT/HCPCS: 85610; 99211 ==

== ENCOUNTER → 2021-09-14 09:50 | Outpatient (BNVA) | payer OTHER, SELFPAY | PROVIDERS: PCP Internal Medicine; Visit Provider Internal Medicine | DX: Z95.2 Presence of prosthetic heart valve (principal); Z51.81 Encounter for therapeutic drug level monitoring; Z79.01 Long term (current) use of anticoagulants | CPT/HCPCS: 85610; 99211 ==

== ENCOUNTER → 2021-10-05 10:09 | Outpatient (BNVA) | payer OTHER, SELFPAY | PROVIDERS: PCP Internal Medicine; Visit Provider Internal Medicine | DX: Z95.2 Presence of prosthetic heart valve (principal); Z51.81 Encounter for therapeutic drug level monitoring; Z79.01 Long term (current) use of anticoagulants | CPT/HCPCS: 85610; 99211 ==

== ENCOUNTER → 2021-10-13 09:43 | Outpatient (BNVA) | payer OTHER, SELFPAY | PROVIDERS: PCP Internal Medicine; Visit Provider Internal Medicine | DX: J44.9 Chronic obstructive pulmonary disease, unspecified (principal); J98.4 Other disorders of lung; J30.9 Allergic rhinitis, unspecified; G47.33 Obstructive sleep apnea (adult) (pediatric); E66.01 Morbid (severe) obesity due to excess calories; Z99.89 Dependence on other enabling machines and devices; Z68.43 Body mass index [BMI] 50.0-59.9, adult | CPT/HCPCS: 99212 ==

== ENCOUNTER → 2021-10-26 10:13 | Outpatient (BNVA) | payer OTHER, SELFPAY | PROVIDERS: PCP Internal Medicine; Visit Provider Internal Medicine | DX: Z95.2 Presence of prosthetic heart valve (principal); Z51.81 Encounter for therapeutic drug level monitoring; Z79.01 Long term (current) use of anticoagulants | CPT/HCPCS: 85610; 99211; Q3014 ==

== ENCOUNTER 2021-11-15 09:52 | Outpatient (REF) | payer OTHER, SELFPAY ==
--- NOTE | 2021-11-15 13:55 | PFT_ITS ---
Forced vital capacity is 46%, FEV1 47%. FEV1/FVC ratio is 80. [id number] 35% and MVV 44%. After bronchodilator therapy, there is a slight positive response in [id number]. Total lung capacity 71%. Residual volume 93%. Diffusion capacity 81% CONCLUSION: Mild restrictive pulmonary disorder. The patient probably has [id number] obstructive airway disorder with only minimal positive response to bronchodilator therapy. Clinical correlation is recommended. MD JAMIE Anne/MODL / [id number]
== END 2021-11-15 09:53 | disposition home or self-care (01) ==
LOC: HO.RESP 09:52
PROVIDERS: PCP Internal Medicine; Visit Provider Internal Medicine
DX: J44.9 Chronic obstructive pulmonary disease, unspecified (principal); J98.4 Other disorders of lung; E66.01 Morbid (severe) obesity due to excess calories; G47.33 Obstructive sleep apnea (adult) (pediatric); J30.9 Allergic rhinitis, unspecified; Z99.89 Dependence on other enabling machines and devices; Z87.891 Personal history of nicotine dependence
CPT/HCPCS: 94060; 94727; 94729; 99212

== ENCOUNTER → 2021-11-16 09:48 | Outpatient (BNVA) | payer OTHER, SELFPAY | PROVIDERS: PCP Internal Medicine; Visit Provider Internal Medicine | DX: Z95.2 Presence of prosthetic heart valve (principal); Z51.81 Encounter for therapeutic drug level monitoring; Z79.01 Long term (current) use of anticoagulants | CPT/HCPCS: 85610; 99211 ==

== ENCOUNTER → 2021-12-01 09:51 | Outpatient (BNVA) | payer OTHER, SELFPAY | PROVIDERS: PCP Internal Medicine; Visit Provider Internal Medicine | DX: Z95.2 Presence of prosthetic heart valve (principal); Z79.01 Long term (current) use of anticoagulants; Z51.81 Encounter for therapeutic drug level monitoring | CPT/HCPCS: 85610; 99211 ==

== ENCOUNTER → 2021-12-21 09:55 | Outpatient (REF) | payer OTHER, SELFPAY | LOC: HO.SL 09:55 | PROVIDERS: PCP Internal Medicine; Visit Provider Internal Medicine | DX: Z13.89 Encounter for screening for other disorder (principal) ==

== ENCOUNTER → 2021-12-22 10:22 | Outpatient (BNVA) | payer OTHER, SELFPAY | PROVIDERS: PCP Internal Medicine; Visit Provider Internal Medicine | DX: Z95.2 Presence of prosthetic heart valve (principal); Z79.01 Long term (current) use of anticoagulants; Z51.81 Encounter for therapeutic drug level monitoring | CPT/HCPCS: 85610; 99211 ==

== ENCOUNTER → 2021-12-31 09:49 | Outpatient (BNVA) | payer OTHER, SELFPAY | PROVIDERS: PCP Internal Medicine; Visit Provider Internal Medicine | DX: Z95.2 Presence of prosthetic heart valve (principal); Z79.01 Long term (current) use of anticoagulants; Z51.81 Encounter for therapeutic drug level monitoring | CPT/HCPCS: 85610; 99211 ==

== ENCOUNTER → 2022-01-11 14:19 | Outpatient (REF) | payer OTHER, SELFPAY | LOC: HO.SL 14:19 | PROVIDERS: PCP Internal Medicine; Visit Provider Internal Medicine | DX: G47.33 Obstructive sleep apnea (adult) (pediatric) (principal); E66.01 Morbid (severe) obesity due to excess calories; Z99.89 Dependence on other enabling machines and devices | CPT/HCPCS: 95806 ==

== ENCOUNTER → 2022-01-14 09:31 | Outpatient (BNVA) | payer OTHER, SELFPAY | PROVIDERS: PCP Internal Medicine; Visit Provider Internal Medicine | DX: Z95.2 Presence of prosthetic heart valve (principal); Z79.01 Long term (current) use of anticoagulants; Z51.81 Encounter for therapeutic drug level monitoring | CPT/HCPCS: 85610; 99211 ==

== ENCOUNTER → 2022-01-20 10:23 | Outpatient (BNVA) | payer OTHER, SELFPAY | PROVIDERS: PCP Internal Medicine; Visit Provider Internal Medicine | DX: J44.9 Chronic obstructive pulmonary disease, unspecified (principal); J98.4 Other disorders of lung; G47.33 Obstructive sleep apnea (adult) (pediatric); E66.01 Morbid (severe) obesity due to excess calories; Z68.43 Body mass index [BMI] 50.0-59.9, adult | CPT/HCPCS: 99212 ==

== ENCOUNTER → 2022-02-01 10:10 | Outpatient (BNVA) | payer OTHER, SELFPAY | PROVIDERS: PCP Internal Medicine; Visit Provider Internal Medicine | DX: Z95.2 Presence of prosthetic heart valve (principal); Z79.01 Long term (current) use of anticoagulants; Z51.81 Encounter for therapeutic drug level monitoring | CPT/HCPCS: 85610; 99211 ==

== ENCOUNTER → 2022-02-11 09:56 | Outpatient (BNVA) | payer OTHER, SELFPAY | PROVIDERS: PCP Internal Medicine; Visit Provider Internal Medicine | DX: Z95.2 Presence of prosthetic heart valve (principal); Z79.01 Long term (current) use of anticoagulants; Z51.81 Encounter for therapeutic drug level monitoring | CPT/HCPCS: 85610; 99211 ==

== ENCOUNTER → 2022-02-16 09:36 | Outpatient (BNVA) | payer OTHER, SELFPAY | PROVIDERS: PCP Internal Medicine; Visit Provider Internal Medicine | DX: Z95.2 Presence of prosthetic heart valve (principal); Z79.01 Long term (current) use of anticoagulants; Z51.81 Encounter for therapeutic drug level monitoring | CPT/HCPCS: 85610; 99211 ==

== ENCOUNTER 2022-02-17 10:28 | Outpatient (REF) | payer OTHER, SELFPAY ==
--- NOTE | ~2022-02-17 | US_ITS ---
EXAMINATION: US PELVIS CLINICAL INFORMATION: Postmenopausal bleeding. COMPARISON: None TECHNIQUE: Ultrasound of the pelvis is performed using both transabdominal and transvaginal transducers along with Doppler. Transvaginal imaging is performed due to inadequate visualization transabdominally. FINDINGS: The transabdominal exam is limited, as the bladder is not full. Transvaginal exam is limited due to patient's body habitus. Uterus: The uterus is anteverted and measures 8.5 cm in length, 3.6 cm in AP, and 5.1 cm in transverse dimension. The double wall endometrial thickness is 0.8 cm. The uterus is smooth in contour and has normal myometrial echogenicity. No visible fibroid. Adnexa: Right ovary is visualized on transabdominal view only. There is normal color flow to the adnexa. There is no ovarian torsion. There is no pelvic ascites or fluid collection. Right ovary measures 2.0 x 1.2 x 1.0 cm and volume 1.3 mL. No focal lesion seen. Previously right ovary measured 3.1 x 1.0 x 1.5 cm. Left ovary is not visualized. US/US pelvic and transvaginal IMPRESSION: Unremarkable uterus and right ovary.
== END 2022-02-17 10:29 | disposition home or self-care (01) ==
LOC: HO.US 10:28
PROVIDERS: Visit Provider Advanced Practice Midwife
DX: N95.0 Postmenopausal bleeding (principal)
CPT/HCPCS: 76830; 76856

== ENCOUNTER → 2022-02-28 09:52 | Outpatient (BNVA) | payer OTHER, SELFPAY | PROVIDERS: PCP Internal Medicine; Visit Provider Internal Medicine | DX: Z95.2 Presence of prosthetic heart valve (principal); Z79.01 Long term (current) use of anticoagulants; Z51.81 Encounter for therapeutic drug level monitoring | CPT/HCPCS: 85610; 99211 ==

== ENCOUNTER → 2022-03-11 10:02 | Outpatient (BNVA) | payer OTHER, SELFPAY | PROVIDERS: PCP Internal Medicine; Visit Provider Internal Medicine | DX: Z95.2 Presence of prosthetic heart valve (principal); Z79.01 Long term (current) use of anticoagulants; Z51.81 Encounter for therapeutic drug level monitoring | CPT/HCPCS: 85610; 99211 ==

== ENCOUNTER → 2022-03-21 09:08 | Outpatient (BNVA) | payer OTHER, SELFPAY | PROVIDERS: PCP Internal Medicine; Visit Provider Internal Medicine | DX: J44.9 Chronic obstructive pulmonary disease, unspecified (principal); G47.33 Obstructive sleep apnea (adult) (pediatric); J98.4 Other disorders of lung; E66.01 Morbid (severe) obesity due to excess calories; Z68.42 Body mass index [BMI] 45.0-49.9, adult | CPT/HCPCS: 99212 ==

== ENCOUNTER 2022-03-22 09:22 | Outpatient (REF) | payer OTHER, SELFPAY ==
--- NOTE | ~2022-03-22 | MM_ITS ---
EXAMINATION: MM SCREENING DIGITAL BREAST TOMOSYNTHESIS, BILATERAL CLINICAL INFORMATION: Screening. Asymptomatic. Left lumpectomy for breast cancer, 2006. COMPARISON: Mammography: 10/21/2020, 09/18/2020, 05/08/2018, 04/26/2017 TECHNIQUE: Digital breast tomosynthesis is performed in both the craniocaudal and mediolateral oblique views along with computer-aided detection (CAD). Synthesized 2D images are generated from the tomosynthesis. Additional bilateral MLO views and left cleavage view are provided. FINDINGS: The breasts are almost entirely fatty (ACR BI-RADS breast composition Category a). Background stromal and fibroglandular densities are similar to prior studies. There is no interval mass or architectural abnormality or developing density. There are again post therapy changes on the left with reduced breast size and scarring and dystrophic calcification in the scar. Pacemaker general overlies and partly obscures the left axilla on MLO view. No significant changes. MM/MM tomosynthesis screening BI IMPRESSION: -No mammographic evidence of malignancy. -Post therapy changes left breast. ASSESSMENT: BI-RADS 2: Benign RECOMMENDATION: Routine annual mammography screening. This patient's information was entered into a reminder system with a target due date for their next mammogram.
== END 2022-03-22 09:23 | disposition home or self-care (01) ==
LOC: HO.MAMMO 09:22
PROVIDERS: Visit Provider Internal Medicine Medical Oncology
DX: Z12.31 Encounter for screening mammogram for malignant neoplasm of breast (principal)
CPT/HCPCS: 77063; 77067

== ENCOUNTER → 2022-03-25 09:49 | Outpatient (BNVA) | payer OTHER, SELFPAY | PROVIDERS: PCP Internal Medicine; Visit Provider Internal Medicine | DX: Z95.2 Presence of prosthetic heart valve (principal); Z79.01 Long term (current) use of anticoagulants; Z51.81 Encounter for therapeutic drug level monitoring | CPT/HCPCS: 85610; 99211 ==

== ENCOUNTER → 2022-04-08 09:43 | Outpatient (BNVA) | payer OTHER, SELFPAY | PROVIDERS: PCP Internal Medicine; Visit Provider Internal Medicine | DX: Z95.2 Presence of prosthetic heart valve (principal); Z79.01 Long term (current) use of anticoagulants; Z51.81 Encounter for therapeutic drug level monitoring | CPT/HCPCS: 85610; 99211 ==

== ENCOUNTER → 2022-04-13 10:13 | Outpatient (BNVA) | payer OTHER, SELFPAY | PROVIDERS: PCP Internal Medicine; Visit Provider Internal Medicine | DX: Z95.2 Presence of prosthetic heart valve (principal); Z79.01 Long term (current) use of anticoagulants; Z51.81 Encounter for therapeutic drug level monitoring | CPT/HCPCS: 85610; 99211 ==

== ENCOUNTER → 2022-04-28 09:55 | Outpatient (BNVA) | payer OTHER, SELFPAY | PROVIDERS: PCP Internal Medicine; Visit Provider Internal Medicine | DX: Z95.2 Presence of prosthetic heart valve (principal); Z79.01 Long term (current) use of anticoagulants; Z51.81 Encounter for therapeutic drug level monitoring | CPT/HCPCS: 85610; 99211 ==

== ENCOUNTER 2022-05-11 14:01 | Emergency (ER) | payer OTHER, SELFPAY ==
--- NOTE | ~2022-05-11 | XR_ITS ---
EXAMINATION: XR CHEST CLINICAL INFORMATION: Cough and pain. COMPARISON: Chest radiograph dated from 09/02/2019. TECHNIQUE: 2 views of the chest were obtained. FINDINGS: Left-sided pacer/AICD with leads in similar positioning to prior. Sternal wires. Mitral annuloplasty ring. Stable prominence of the cardiomediastinal silhouette. No new focal airspace opacities, pleural effusions or pneumothorax. No acute osseous abnormalities. XR/XR chest 2V IMPRESSION: No acute cardiopulmonary findings.
[2022-05-11 14:12] VITALS: BP 88/55; PULSE 73; RESP 18; TEMP 36.1; O2SAT 95; BMI 49.4
[2022-05-11 14:51] LABS: MANUAL DIFF FLAG NO
[2022-05-11 14:56] LABS: Basophils Percent Auto 0.6 % (0-2); Eosinophils Absolute Auto 0.2 X10*3/uL (0.0-0.4); Hematocrit 45.6 % (37.0-47.0); Hemoglobin 15.1 g/dl (12.0-16.0); Imm Gran Abs Auto 0.03 X10*3/uL (0.00-0.03); Imm Gran Pct Auto 0.5 % (0.0-0.4); Lymphocytes Absolute Auto 1.2 X10*3/uL (1.2-4.9); Lymphocytes Percent Auto 18.1 % (20-40); Mean Corpuscular HGB Conc 33.1 g/dl (31.0-35.0); Mean Corpuscular Hemoglobin 29.9 pg (27.0-33.0); Mean Corpuscular Volume 90.3 fL (80.0-98.0); Monocytes Absolute Auto 0.9 X10*3/uL (0.1-1.2); Monocytes Percent Auto 12.8 % (2-11); Neutrophils Absolute Auto 4.3 x10*3/uL (2.0-8.3); Platelet Count 283 X10*3/uL (160-400); Red Blood Count 5.05 X10*6/uL (4.20-5.50); Red Cell Distribution Width 13.7 % (11.0-16.0); White Blood Count 6.6 X10*3/uL (4.8-10.8)
[2022-05-11 15:06] LABS: COVID-19 Test Positive (Negative); IDNOW Serial# 9DB6401D
[2022-05-11 15:09] LABS: Alanine Aminotransferase 26 U/L (0-31); Albumin Level 4.1 g/dL (3.5-5.0); Alkaline Phosphatase 88 U/L (39-117); Anion Gap 16 (12-20); Aspartate Amino Transferase 23 U/L (5-31); Bilirubin Total 0.5 mg/dL (0.0-1.0); Blood Urea Nitrogen 13 mg/dL (9-16); Calcium 9.1 mg/dL (8.4-10.2); Carbon Dioxide 33 mmol/L (22-29); Chloride 96 mmol/L (96-108); Estimated Glomerular Filt Rate > 60; Glucose Random 113 mg/dL (60-115); Potassium 4.1 mmol/L (3.3-5.1); Sodium 141 mmol/L (135-145); Total Protein 7.6 g/dL (6.5-8.0)
[2022-05-11 16:07] VITALS: BP 102/59; PULSE 71; RESP 22; TEMP 36.7; O2SAT 97
--- NOTE | 2022-05-11 16:28 | ED.URI ---
HPI - URI/Sore Throat General Chief Complaint: Upper Respiratory Symptoms Stated Complaint: lung pain Time Seen by Provider: 05/11/22 15:49 Source: patient Mode of arrival: ambulatory Limitations: no limitations History of Present Illness HPI Narrative: Patient comes to the emergency room complaining of long pain. It has been 3 days the patient has been coughing cough all meds. Patient is here to chest. Denies shortness of breath, chest pain, nausea vomiting or diarrhea, fever. Patient has no known sick contacts. Patient is not immunized for COVID-19. Patient has no lower extremity edema, no calf pain Related Data Home Medications Medication Instructions Recorded Confirmed carvedilol 3.125 mg tablet 3.125 mg PO BID 09/10/20 04/28/22 furosemide 40 mg tablet 40 mg PO BID 09/10/20 04/28/22 sacubitril 24 mg-valsartan 26 mg 1 tab PO BID 09/10/20 04/28/22 tablet (Entresto) aspirin 81 mg tablet,delayed 81 mg PO DAILY 09/23/20 04/28/22 release atorvastatin 20 mg tablet 20 mg PO QAM 09/23/20 04/28/22 fluoxetine 20 mg capsule 20 mg PO DAILY 11/20/20 04/28/22 ipratropium 0.5 mg-albuterol 3 mg 3 ml inhalation BEDTIME 11/20/20 04/28/22 (2.5 mg base)/3 mL nebulization soln montelukast 10 mg tablet 10 mg PO BEDTIME 11/20/20 04/28/22 (Singulair) ascorbic acid (vitamin C) 250 mg 250 mg PO DAILY 12/31/20 04/28/22 tablet calcium carbonate 600 mg calcium 600 mg PO BID 12/31/20 04/28/22 (1,500 mg) tablet nebulizers (Sidestream misc) #1 ea 10/05/21 03/10/22 ferrous sulfate 325 mg (65 mg 325 mg PO DAILY 12/22/21 04/28/22 iron) tablet (FeroSul) Previous Rx's Medication Instructions Recorded warfarin 2.5 mg tablet See Rx Instructions .Route 05/25/20 .COMPLEX #90 tabs albuterol sulfate 90 mcg/actuation 2 puff inhalation Q4-6H PRN 03/15/21 aerosol inhaler (ProAir HFA) shortness of breath or wheezing 30 days #8.5 grams cholecalciferol (vitamin D3) 50 50 mcg PO DAILY #90 caps 09/10/21 mcg (2,000 unit) capsule (Vitamin D3) fluticasone 250 mcg-salmeterol 50 1 inh inhalation BID COPD 30 days 11/15/21 mcg/dose blistr powdr for #60 ea inhalation (Advair Diskus) Allergies Allergy/AdvReac Type Severity Reaction Status Date / Time codeine Allergy Mild RASH Verified 04/28/22 09:57 Review of Systems Review of Systems: Constitutional : No Weight loss, No Fever, No Chills, No Night Sweats, No Fatigue, No Malaise ENT/Mouth : No Hearing loss, No Ear Pain, No Nasal Congestion, No Sinus Pain, No Hoarseness, No sore throat, No Rhinorrhea, No Swallowing Difficulty Eyes: No Eye Pain, No Swelling, No Redness, No Foreign Body, No Discharge, No Vision Changes Cardiovascular : No Chest Pain, No SOB, No Dyspnea on Exertion, No Orthopnea, No Edema, No Palpitations Respiratory : Complaining of cough, burning sensation in the lungs, no dyspnea Gastrointestinal : No Nausea, No Vomiting, No Diarrhea, No Constipation, No abdominal Pain, No Hematochezia, No Melena Genitourinary : no irregular bleeding, No Dysuria, No Urinary Frequency, No Hematuria, No Urinary Incontinence, No Urgency, No Flank Pain, No Urinary Flow Changes, No Hesitancy Musculoskeletal : No joint pain, No Myalgias, No Joint Swelling Skin : No Skin Lesions, No rash Neuro : No Weakness, No Numbness, No Paresthesias, No Loss of Consciousness, No Dizziness, No Headache Psych : No Anxiety/Panic, No Depression, No SI/HI/AH/VH, No Social Issues, Heme/Lymph: No Bruising, No Bleeding,No Lymphadenopathy Endocrine : No Polyuria, No Polydipsia, No Temperature Intolerance [facility] Past Medical History Medical History COPD (chronic obstructive pulmonary disease) Current use of anticoagulant therapy Morbid obesity HANS (obstructive sleep apnea) HANS on CPAP Pacemaker Restrictive lung disease Surgical History History of prosthetic mitral valve Hx of section Hx of heart bypass surgery Family History Family History Mother Diabetes Heart disease Father Diabetes Heart attack Maternal Aunt Diabetes Maternal Uncle Diabetes Maternal Grandfather Diabetes Maternal Grandmother Diabetes Paternal Grandfather Heart disease Paternal Grandmother Heart disease Daughter Bipolar 1 disorder Brother Lung cancer Maternal Uncle Lung cancer Social History Social History Household Members: Family Housing: Apartment Are you a primary caregivers homecare to a significant other at home: Yes (Grandkids) Do you presently have visiting nurse or other home services: Yes (cone machine feeder) Alcohol intake: never Patient Tobacco Use Status: Former Tobacco user Cigarette Packs Per Day: 1 Advance Directives: No Advance Directives Information Provided: No service: No Current occupational status: retired and disabled Physical Exam Vital Signs: Vital Signs: Last Vital Signs Temp 98.1 F 05/11/22 16:07 Pulse 77 05/11/22 16:39 Resp 22 H 05/11/22 16:07 BP 110/61 05/11/22 16:39 Pulse Ox 98 05/11/22 16:36 O2 Del Method 05/11/22 16:36 BMI result Body Mass Index 49.4 Const: Other: Appearance: Alert. Oriented X3. No acute distress. Well-appearing Eyes: Pupils equal, round and reactive to light. ENT: Pharynx normal. Neck: Normal inspection. Neck supple. No lymph nodes noted. No crepitus CVS: Normal heart rate and rhythm. Pulses normal. Normal S1 and S2 Respiratory: No respiratory distress. Breath sounds normal. No Wheezing. No rales Abdomen: Soft and nontender. No rigidity. No distention. Skin: Skin warm and dry. Normal skin color. Normal skin turgor. Extremities: No lower extremity edema. No Lacerations. No Rash Neuro: Oriented X 3. No motor deficit. No sensory deficit. Moving all extremities. No slurred speech. CN 2 through 12 grossly intact Psych: calm, cooperative, normal affect Course Course Course Narrative: Patient tested positive for COVID-19. On physical exam, patient has no wheezing, no respiratory distress, oxygen saturation 98% on room air, orthostatic vitals negative. Reviewing patient's records, patient runs low blood pressures in the 90s. Currently, blood pressure is 110/61 Patient able to ambulate in her room, no shortness of breath, no chest pain. I discussed with the patient that due to her comorbidities, she qualifies for the monoclonal antibody treatment. Patient agrees. Referral has been sent MDM - URI/Sore Throat Lab Data Result diagrams: 05/11/22 14:47 05/11/22 14:47 Labs: Lab Results 05/11/22 05/11/22 05/11/22 Range/Units 14:47 14:47 14:47 WBC 6.6 (4.8-10.8) X10*3/uL RBC 5.05 (4.20-5.50) X10*6/uL Hgb 15.1 (12.0-16.0) g/dl Hct 45.6 (37.0-47.0) % MCV 90.3 (80.0-98.0) fL MCH 29.9 (27.0-33.0) pg MCHC 33.1 (31.0-35.0) g/dl RDW 13.7 (11.0-16.0) % Plt Count 283 (160-400) X10*3/uL MPV 11.0 (9.4-12.3) fL Immature Gran % (Auto) 0.5 H (0.0-0.4) % Neut % (Auto) 65.0 (45-73) % Lymph % (Auto) 18.1 L (20-40) % Woodson % (Auto) 12.8 H (2-11) % Eos % (Auto) 3.0 (0-4) % Baso % (Auto) 0.6 (0-2) % Lymph # (Auto) 1.2 (1.2-4.9) X10*3/uL Woodson # (Auto) 0.9 (0.1-1.2) X10*3/uL Eos # (Auto) 0.2 (0.0-0.4) X10*3/uL Baso # (Auto) 0.0 (0.0-0.2) X10*3/uL Abs Immat Gran (auto) 0.03 (0.00-0.03) X10*3/uL Absolute Neuts (auto) 4.3 (2.0-8.3) x10*3/uL Absolute Nucleated RBC 0.000 (0.0-0.012) X10*3/uL Nucleated RBC % (auto) 0.0 (0.0-0.2) /100WBC Sodium 141 (135-145) mmol/L Potassium 4.1 D (3.3-5.1) mmol/L Chloride 96 (96-108) mmol/L Carbon Dioxide 33 H (22-29) mmol/L Anion Gap 16 (12-20) BUN 13 (9-16) mg/dL Creatinine 0.87 (0.5-1.4) mg/dL Estim Creat Clear Calc 64.0 Estimated GFR > 60 Random Glucose 113 (60-115) mg/dL Calcium 9.1 (8.4-10.2) mg/dL Total Bilirubin 0.5 (0.0-1.0) mg/dL AST 23 (5-31) U/L ALT 26 (0-31) U/L Alkaline Phosphatase 88 (39-117) U/L Total Protein 7.6 (6.5-8.0) g/dL Albumin 4.1 (3.5-5.0) g/dL COVID-19 (STEPHEN) Positive A (Negative) COVID-19 Clin Com See Note Discharge Plan Discharge Clinical Impression: COVID-19 Patient Disposition: Home, Self-Care Instructions: COVID-19 (Coronavirus Disease 2019) (ED) Additional Instructions: You will receive a phone call from [facility], they will inform you when your monoclonal antibody appointment is. Please follow-up with your primary care physician tomorrow. If you have any worsening or new symptoms, please return to the emergency room or call 911 Prescriptions: No Action cholecalciferol (vitamin D3) [Vitamin D3] 50 mcg (2,000 unit) Capsule 50 mcg PO DAILY Qty: 90 4RF warfarin 2.5 mg tablet See Rx Instructions .ROUTE .COMPLEX Qty: 90 0RF Protocol: Dose Management Condition: Monday (Week One) Dose/Route: 5 mg Instruction: 2 x 2.5 mg tablets Condition: Monday Dose/Route: 3.75 mg Instruction: 1.5 x 2.5 mg tablets Condition: Monday Dose/Route: 3.75 mg Instruction: 1.5 x 2.5 mg tablets Condition: Monday Dose/Route: 3.75 mg Instruction: 1.5 x 2.5 mg tablets Condition: Dose/Route: 3.75 mg Instruction: 1.5 x 2.5 mg tablets Condition: Monday Dose/Route: 3.75 mg Instruction: 1.5 x 2.5 mg tablets Condition: Monday Dose/Route: 3.75 mg Instruction: 1.5 x 2.5 mg tablets Condition: Monday (Week Two) Dose/Route: 5 mg Instruction: 2 x 2.5 mg tablets Condition: Monday Dose/Route: 3.75 mg Instruction: 1.5 x 2.5 mg tablets Condition: Monday Dose/Route: 3.75 mg Instruction: 1.5 x 2.5 mg tablets Condition: Monday Dose/Route: 3.75 mg Instruction: 1.5 x 2.5 mg tablets Condition: Dose/Route: 3.75 mg Instruction: 1.5 x 2.5 mg tablets Condition: Monday Dose/Route: 3.75 mg Instruction: 1.5 x 2.5 mg tablets Condition: Monday Dose/Route: 3.75 mg Instruction: 1.5 x 2.5 mg tablets Protocol Text: Adjustment Start Date: 04/28/22 INR Value: 3.7 INR Date: 04/28/22 Recheck Date: 05/12/22 Additional Instructions: INR is just above your range continue same dosing for now add dark leafy greens today and tomorrow to lower then balance greens and reds in diet Rx Instructions: 2.5MG X2DAYS/ 3.75MG X5DAYS; furosemide 40 mg tablet 40 mg PO BID Entresto 24-26 mg tablet 1 tab PO BID carvedilol 3.125 mg tablet 3.125 mg PO BID Rx Instructions: must administer with a meal/food ascorbic acid (vitamin C) 250 mg tablet 250 mg PO DAILY calcium carbonate 600 mg calcium (1,500 mg) tablet 600 mg PO BID aspirin 81 mg tablet,delayed release (DR/EC) 81 mg PO DAILY atorvastatin 20 mg tablet 20 mg PO QAM ipratropium-albuterol 0.5 mg-3 mg(2.5 mg base)/3 mL solution for nebulization 3 ml inhalation BEDTIME fluoxetine 20 mg capsule 20 mg PO DAILY montelukast [Singulair] 10 mg tablet 10 mg PO BEDTIME albuterol sulfate [ProAir HFA] 90 mcg/actuation HFA aerosol inhaler 2 puff inhalation Q4-6H PRN (Reason: shortness of breath or wheezing) 30 Days Qty: 8.5 3RF (DME) Sidestream Misc See Rx Instructions .ROUTE DIRECTED Qty: 1 Rx Instructions: As directed fluticasone propion-salmeterol [Advair Diskus] 250-50 mcg/dose blister with device 1 inh inhalation BID 30 Days Qty: 60 5RF ferrous sulfate [FeroSul] 325 mg (65 mg iron) tablet 325 mg PO DAILY
[2022-05-11] MEDS: 0.9 % Sodium Chloride 1,000 ML 999 ML IVCONT (16:32)
[2022-05-11 16:36] VITALS: O2SAT 98
[2022-05-11 16:37] VITALS: BP 103/63; BP 96/65; PULSE 73; PULSE 76
[2022-05-11 16:39] VITALS: BP 110/61; PULSE 77
== END 2022-05-11 17:44 | disposition home or self-care (01) ==
PROVIDERS: Emergency Provider Emergency Medicine; PCP Internal Medicine
DX: U07.1 COVID-19 (principal); E66.01 Morbid (severe) obesity due to excess calories; Z68.42 Body mass index [BMI] 45.0-49.9, adult; Z95.0 Presence of cardiac pacemaker; Z87.891 Personal history of nicotine dependence; Z79.82 Long term (current) use of aspirin; Z79.899 Other long term (current) drug therapy; Z79.01 Long term (current) use of anticoagulants
CPT/HCPCS: 36415; 71046; 80053; 85025; 87635; 99283; 99284

== ENCOUNTER 2022-05-16 11:24 | Outpatient (REF) | payer OTHER, SELFPAY ==
[2022-05-20 03:52] LABS: HPV mRNA E6/E7 rflx Not Detected (Not Detected)
== END 2022-05-16 11:25 | disposition home or self-care (01) ==
LOC: HO.LNP 11:24
PROVIDERS: PCP Internal Medicine; Visit Provider Obstetrics & Gynecology
DX: N95.0 Postmenopausal bleeding (principal); R31.29 Other microscopic hematuria
CPT/HCPCS: 58100; 87086; 87624; 88142; 88305; 99202

== ENCOUNTER → 2022-05-19 09:44 | Outpatient (BNVA) | payer OTHER, SELFPAY | PROVIDERS: PCP Internal Medicine; Visit Provider Internal Medicine | DX: Z95.2 Presence of prosthetic heart valve (principal); Z51.81 Encounter for therapeutic drug level monitoring; Z79.01 Long term (current) use of anticoagulants | CPT/HCPCS: 85610; 99211 ==

== ENCOUNTER 2022-05-29 10:32 | Emergency (ER) | payer OTHER, SELFPAY ==
--- NOTE | 2022-05-29 10:45 | ECG_ITS ---
Test Reason : CP Blood Pressure : / mmHG Vent. Rate : 073 BPM Atrial Rate : 073 BPM P-R Int : 188 ms QRS Dur : 122 ms QT Int : 458 ms P-R-T Axes : 067 -86 080 degrees QTc Int : 504 ms Atrial-sensed ventricular-paced rhythm Abnormal ECG When compared with ECG of 24-FEB-2021 00:43, Vent. rate has decreased BY 8 BPM Referred By: Generic ED Physician Electronically Signed By:LEANDRO SEYMOUR MD
[2022-05-29 10:47] VITALS: BP 103/75; PULSE 77; RESP 18; TEMP 36.2; O2SAT 96; BMI 49.6
--- NOTE | 2022-05-29 11:04 | ED_ITS ---
HPI - Chest Pain General Chief Complaint: Chest Pain Stated Complaint: Chest pain 3x days Time Seen by Provider: 05/29/22 11:00 Source: patient Mode of arrival: ambulatory Limitations: no limitations History of Present Illness HPI narrative: This is a 56-year-old female past medical history significant for COPD, breast cancer, osteoporosis, current use of anticoagulation (warfarin) presenting to the emergency department with complaints of chest pain and body aches and pains. Patient tells me chest pain has been going on since Monday, 3 days ago, reports substernal nonradiating chest pain reports that the pain is intermittent in nature, stabbing. She also reports diffuse body aches and pains have been wors ening over the past few weeks. And she reports left elbow pain worse with hyperextension of elbow. Patient denies numbness or tingling. Denies shortness of breath, fevers, chills, upper respiratory symptoms, changes in bowel habits, headache, vision changes, dizziness. Patient tells me that she is currently on warfarin because she has a problem with her heart, unable to elaborate what issue she has. Related Data Home Medications Medication Instructions Recorded Confirmed carvedilol 3.125 mg tablet 3.125 mg PO BID 09/10/20 05/19/22 furosemide 40 mg tablet 40 mg PO BID 09/10/20 05/19/22 sacubitril 24 mg-valsartan 26 mg 1 tab PO BID 09/10/20 05/19/22 tablet (Entresto) aspirin 81 mg tablet,delayed 81 mg PO DAILY 09/23/20 05/19/22 release atorvastatin 20 mg tablet 20 mg PO QAM 09/23/20 05/19/22 fluoxetine 20 mg capsule 20 mg PO DAILY 11/20/20 05/19/22 ipratropium 0.5 mg-albuterol 3 mg 3 ml inhalation BEDTIME 11/20/20 05/19/22 (2.5 mg base)/3 mL nebulization soln montelukast 10 mg tablet 10 mg PO BEDTIME 11/20/20 05/19/22 (Singulair) ascorbic acid (vitamin C) 250 mg 250 mg PO DAILY 12/31/20 05/19/22 tablet calcium carbonate 600 mg calcium 600 mg PO BID 12/31/20 05/19/22 (1,500 mg) tablet nebulizers ([facility]estream [facility] [place] #1 ea 10/05/21 05/19/22 ferrous sulfate 325 mg (65 mg 325 mg PO DAILY 12/22/21 05/19/22 iron) tablet (FeroSul) Previous Rx's Medication Instructions Recorded warfarin 2.5 mg tablet See Rx Instructions .Route 05/25/20 .COMPLEX #90 tabs albuterol sulfate 90 mcg/actuation 2 puff inhalation Q4-6H PRN 03/15/21 aerosol inhaler (ProAir HFA) shortness of breath or wheezing 30 days #8.5 grams cholecalciferol (vitamin D3) 50 50 mcg PO DAILY #90 caps 09/10/21 mcg (2,000 unit) capsule (Vitamin D3) fluticasone 250 mcg-salmeterol 50 1 inh inhalation BID COPD 30 days 11/15/21 mcg/dose blistr powdr for #60 ea inhalation (Advair Diskus) Allergies Allergy/AdvReac Type Severity Reaction Status Date / Time codeine Allergy Mild RASH Verified 05/19/22 09:47 Review of Systems Review of Systems: Constitutional : No Weight loss, No Fever, No Chills, + Fatigue, No Malaise ENT/Mouth : No sore throat, No Rhinorrhea Eyes: No Eye Pain, No Swelling, No Redness Cardiovascular : + Chest Pain, No SOB, No Dyspnea on Exertion, No Orthopnea, No Edema, No Palpitations Respiratory : No Cough, No Sputum, No Wheezing Gastrointestinal : No Nausea, No Vomiting, No Diarrhea, No Constipation, No abdominal Pain, No Hematochezia, No Melena Genitourinary : No Dysuria, No Urinary Frequency, No Hematuria, Musculoskeletal : No joint pain, + Myalgias, No Joint Swelling Skin : No Skin Lesions, No rash All other systems reviewed and are negative Yes all other systems are reviewed and are negative [facility] Past Medical History Attestation statement: The following information was validated with the patient. Source: old records reviewed and nursing notes reviewed Medical History COPD (chronic obstructive pulmonary disease) Current use of anticoagulant therapy Morbid obesity HANS (obstructive sleep apnea) HANS on CPAP Pacemaker Restrictive lung disease Surgical History History of prosthetic mitral valve Hx of section Hx of heart bypass surgery Family History Family History Mother Diabetes Heart disease Father Diabetes Heart attack Maternal Aunt Diabetes Maternal Uncle Diabetes Maternal Grandfather Diabetes Maternal Grandmother Diabetes Paternal Grandfather Heart disease Paternal Grandmother Heart disease Daughter Bipolar 1 disorder Brother Lung cancer Maternal Uncle Lung cancer Social History Social History Household Members: Family Housing: Apartment Are you a primary grounds caretaker to a significant other at home: Yes (Grandkids) 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 Oriented X3.? No acute distress.? Head: Normocephalic, atraumatic, no step-offs or deformities Eyes: Pupils equal, round and reactive to light.? ENT: Pharynx normal.? Neck: Normal inspection.? Neck supple.? CVS: Normal heart rate and rhythm.? Pulses normal.? Respiratory: No respiratory distress.? Breath sounds normal.? Abdomen: Soft and nontender.? Skin: Skin warm and dry.? Normal skin color.? Normal skin turgor.? Extremities: No lower extremity edema.? No calf ttp. 5/5 strength to bilateral upper and lower extremities Full ROM to shouloder, elbow and wrist b/l. 2+ radi al pulses equal and b/l. Neuro: Oriented X 3.? No motor deficit.? No sensory deficit. CN 2-12 intact Course Reevaluation(s) Reevaluation #1: CBC within normal limits. PT and INR appear to be at patient's baseline. Chemistry within normal limits, troponin negative, EKG nonischemic unlikely ACS however will obtain 2nd trop. Chest x-ray with no acute findings, stable cardiac silhouette. Pending 2nd trop, BNP. Time: 12:32 Reevaluation #2: Second troponin negative, again EKG nonischemic, low suspicion for ACS. Patient anticoagulated unlikely that this is PE. BNP within normal limits, no signs of CHF. At this time patient will be discharged home. Advised to return with new or worsening symptoms. Educated on worrisome signs and symptoms and when to return. Time: 18:18 MDM - Chest Pain MDM Narrative Medical decision making narrative: 1115 56-year-old female presents with body aches and pains, left elbow pain, substernal nonradiating chest pain. Patient anticoagulated on warfarin. Denies trauma. Physical examination benign. No acute findings. Vital signs stable. Patient appear comfortable and in no acute distress Will rule out ACS although unlikely a suspect noncardiac related chest pain or musculoskeletal pain. Unlikely PE as patient is currently anticoagulated on warfarin, does not have a history of PE or DVT. Will rule out COVID, electrolyte abnormalities that could be contributing to patient's body aches and pains. I do not suspect rhabdo on this patient. Left elbow pain likely osteoarthritis, full range of motion, neurovascular status, no trauma, no need for imaging at this time. Unlikely fracture dislocation Plan at this time is basic labs, imaging, troponin, EKG, INR, cpk Medical Records Data Attestation: I reviewed the patient's medical records. Lab Data Attestation: I reviewed the patient's lab results. Result diagrams: 05/29/22 12:02 05/29/22 12:31 Labs: Lab Results 05/29/22 05/29/22 05/29/22 Range/Units 12:02 12:02 12:02 WBC 8.3 (4.8-10.8) X10*3/uL RBC 5.11 (4.20-5.50) X10*6/uL Hgb 15.2 (12.0-16.0) g/dl Hct 45.5 (37.0-47.0) % MCV 89.0 (80.0-98.0) fL MCH 29.7 (27.0-33.0) pg MCHC 33.4 (31.0-35.0) g/dl RDW 13.4 (11.0-16.0) % Plt Count 267 (160-400) X10*3/uL MPV 10.9 (9.4-12.3) fL Immature Gran % (Auto) 0.4 (0.0-0.4) % Neut % (Auto) 79.8 H (45-73) % Lymph % (Auto) 10.4 L (20-40) % Rolette % (Auto) 7.2 (2-11) % Eos % (Auto) 1.6 (0-4) % Baso % (Auto) 0.6 (0-2) % Lymph # (Auto) 0.9 L (1.2-4.9) X10*3/uL Rolette # (Auto) 0.6 (0.1-1.2) X10*3/uL Eos # (Auto) 0.1 (0.0-0.4) X10*3/uL Baso # (Auto) 0.1 (0.0-0.2) X10*3/uL Abs Immat Gran (auto) 0.03 (0.00-0.03) X10*3/uL Absolute Neuts (auto) 6.6 (2.0-8.3) x10*3/uL Absolute Nucleated RBC 0.000 (0.0-0.012) X10*3/uL Nucleated RBC % (auto) 0.0 (0.0-0.2) /100WBC PT 43.7 H (10.0-13.1) SEC INR 3.6 H (0.9-1.1) Sodium (135-145) mmol/L Potassium (3.3-5.1) mmol/L Chloride (96-108) mmol/L Carbon Dioxide (22-29) mmol/L Anion Gap (12-20) BUN (9-16) mg/dL Creatinine (0.5-1.4) mg/dL Estim Creat Clear Calc Estimated GFR Random Glucose (60-115) mg/dL Calcium (8.4-10.2) mg/dL Total Bilirubin (0.0-1.0) mg/dL Direct Bilirubin (0.0-0.5) mg/dL AST (5-31) U/L ALT (0-31) U/L Alkaline Phosphatase (39-117) U/L Total Creatine Kinase (26-140) U/L Troponin I High Sens 6.8 (<3.5-17.0) ng/L B-Natriuretic Peptide (<100) pg/mL Total Protein (6.5-8.0) g/dL Albumin (3.5-5.0) g/dL Lipase (8-78) U/L COVID-19 (STEPHEN) (Negative) COVID-19 Clin Com 05/29/22 05/29/22 05/29/22 Range/Units 12:02 12:31 17:47 WBC (4.8-10.8) X10*3/uL RBC (4.20-5.50) X10*6/uL Hgb (12.0-16.0) g/dl Hct (37.0-47.0) % MCV (80.0-98.0) fL MCH (27.0-33.0) pg MCHC (31.0-35.0) g/dl RDW (11.0-16.0) % Plt Count (160-400) X10*3/uL MPV (9.4-12.3) fL Immature Gran % (Auto) (0.0-0.4) % Neut % (Auto) (45-73) % Lymph % (Auto) (20-40) % Rolette % (Auto) (2-11) % Eos % (Auto) (0-4) % Baso % (Auto) (0-2) % Lymph # (Auto) (1.2-4.9) X10*3/uL Rolette # (Auto) (0.1-1.2) X10*3/uL Eos # (Auto) (0.0-0.4) X10*3/uL Baso # (Auto) (0.0-0.2) X10*3/uL Abs Immat Gran (auto) (0.00-0.03) X10*3/uL Absolute Neuts (auto) (2.0-8.3) x10*3/uL Absolute Nucleated RBC (0.0-0.012) X10*3/uL Nucleated RBC % (auto) (0.0-0.2) /100WBC PT (10.0-13.1) SEC INR (0.9-1.1) Sodium 137 (135-145) mmol/L Potassium 4.2 (3.3-5.1) mmol/L Chloride 98 (96-108) mmol/L Carbon Dioxide 29 (22-29) mmol/L Anion Gap 14 (12-20) BUN 13 (9-16) mg/dL Creatinine 0.77 (0.5-1.4) mg/dL Estim Creat Clear Calc 72.6 Estimated GFR > 60 Random Glucose 115 (60-115) mg/dL Calcium 8.9 (8.4-10.2) mg/dL Total Bilirubin 0.5 (0.0-1.0) mg/dL Direct Bilirubin 0.2 (0.0-0.5) mg/dL AST 22 (5-31) U/L ALT 25 (0-31) U/L Alkaline Phosphatase 95 (39-117) U/L Total Creatine Kinase 59 (26-140) U/L Troponin I High Sens 7.4 (<3.5-17.0) ng/L B-Natriuretic Peptide 84 (<100) pg/mL Total Protein 7.1 (6.5-8.0) g/dL Albumin 3.9 (3.5-5.0) g/dL Lipase 11 (8-78) U/L COVID-19 ([facility]PHEN) Negative (Negative) COVID-19 Clin Com See Note ECG Data ECG #1: Attestation: I personally reviewed and interpreted this ECG as follows: ECG interpretation date: 05/29/22 ECG interpretation time: 11:46 Prior ECG tracings: available for review Interpretation: Ventricular rate of 73, IN normal, QRS normal, QT/QTC normal. EKG showing an atrial sensed ventricular paced rhythm. No ST elevations or inversions concerning for ischemia. No significant changes when compared to previous Critical Care Time Critical Care Time Critical Care Time: No Discharge Plan Discharge Clinical Impression: Myalgia, Chest pain, Elbow pain Patient Disposition: Still a Patient Instructions: Chest Pain (ED), Musculoskeletal Pain (ED), Chest Wall Pain (ED), Arm Pain (ED) Additional Instructions: Take your medications as prescribed. If you were prescribed antibiotics today, it is important that you take your medication to their entirety, do not skip any doses, do not finish them early. Follow-up with your primary care provider this week. Return to the emergency department with new or worsening symptoms. Such as fevers, chills, chest pain, shortness of breath, nausea, vomiting, dizziness, headache, vision changes, lethargy In case of emergency call 911 Prescriptions: No Action cholecalciferol (vitamin D3) [Vitamin D3] 50 mcg (2,000 unit) Capsule 50 mcg PO DAILY Qty: 90 4RF warfarin 2.5 mg tablet See Rx Instructions .ROUTE .COMPLEX Qty: 90 0RF Protocol: Dose Management Condition: Monday (Week One) Dose/Route: 3.75 mg Instruction: 1.5 x 2.5 mg tablets Condition: Monday Dose/Route: 3.75 mg Instruction: 1.5 x 2.5 mg tablets Condition: Monday Dose/Route: 3.75 mg Instruction: 1.5 x 2.5 mg tablets Condition: Monday Dose/Route: 3.75 mg Instruction: 1.5 x 2.5 mg tablets Condition: Dose/Route: 2.5 mg Instruction: 1 x 2.5 mg tablet Condition: Monday Dose/Route: 3.75 mg Instruction: 1.5 x 2.5 mg tablets Condition: Monday Dose/Route: 3.75 mg Instruction: 1.5 x 2.5 mg tablets Condition: Monday (Week Two) Dose/Route: 3.75 mg Instruction: 1.5 x 2.5 mg tablets Condition: Monday Dose/Route: 3.75 mg Instruction: 1.5 x 2.5 mg tablets Condition: Monday Dose/Route: 3.75 mg Instruction: 1.5 x 2.5 mg tablets Condition: Monday Dose/Route: 3.75 mg Instruction: 1.5 x 2.5 mg tablets Condition: Dose/Route: 3.75 mg Instruction: 1.5 x 2.5 mg tablets Condition: Monday Dose/Route: 3.75 mg Instruction: 1.5 x 2.5 mg tablets Condition: Monday Dose/Route: 3.75 mg Instruction: 1.5 x 2.5 mg tablets Protocol Text: Adjustment Start Date: 05/19/22 INR Value: 3.8 INR Date: 05/19/22 Recheck Date: 06/02/22 Additional Instructions: INR is above range decrease dose today to 2.5 and then will take 3.75mg everyday ok for a green then balance greens and reds in diet Rx Instructions: 2.5MG X2DAYS/ 3.75MG X5DAYS; furosemide 40 mg tablet 40 mg PO BID Entresto 24-26 mg tablet 1 tab PO BID carvedilol 3.125 mg tablet 3.125 mg PO BID Rx Instructions: must administer with a meal/food ascorbic acid (vitamin C) 250 mg tablet 250 mg PO DAILY calcium carbonate 600 mg calcium (1,500 mg) tablet 600 mg PO BID aspirin 81 mg tablet,delayed release (DR/EC) 81 mg PO DAILY atorvastatin 20 mg tablet 20 mg PO QAM ipratropium-albuterol 0.5 mg-3 mg(2.5 mg base)/3 mL solution for nebulization 3 ml inhalation BEDTIME fluoxetine 20 mg capsule 20 mg PO DAILY montelukast [Singulair] 10 mg tablet 10 mg PO BEDTIME albuterol sulfate [ProAir HFA] 90 mcg/actuation HFA aerosol inhaler 2 puff inhalation Q4-6H PRN (Reason: shortness of breath or wheezing) 30 Days Qty: 8.5 3RF (DME) Sidestream Misc See Rx Instructions .ROUTE DIRECTED Qty: 1 Rx Instructions: As directed fluticasone propion-salmeterol [Advair Diskus] 250-50 mcg/dose blister with device 1 inh inhalation BID 30 Days Qty: 60 5RF ferrous sulfate [FeroSul] 325 mg (65 mg iron) tablet 325 mg PO DAILY Referrals: Mal De Dios MD [Primary Care Provider] - 2 days
[2022-05-29 11:29] VITALS: BP 91/43; PULSE 70; RESP 20; TEMP 36.9; O2SAT 97
[2022-05-29 12:06] LABS: MANUAL DIFF FLAG NO
--- NOTE | 2022-05-29 12:07 | PC.NURSE ---
Pt BP is low for her normal, Pt lung sounds on the lower lobes in auscultation were fine crackles. Pt has no lower extremities edema, capillary refill < 2/ and + skin turgor. Pt was connected to the telemetry and it shoes AV- paced, pt reports pacemakers was inserted 5 years ago. Pt reports having abd pain and chest pain 2/10. IV was inserted on RAC 20G and labs were drawn. will continue to monitor.
[2022-05-29 12:09] LABS: Basophils Absolute Auto 0.1 X10*3/uL (0.0-0.2); Basophils Percent Auto 0.6 % (0-2); Eosinophils Absolute Auto 0.1 X10*3/uL (0.0-0.4); Eosinophils Percent Auto 1.6 % (0-4); Hematocrit 45.5 % (37.0-47.0); Hemoglobin 15.2 g/dl (12.0-16.0); Imm Gran Abs Auto 0.03 X10*3/uL (0.00-0.03); Imm Gran Pct Auto 0.4 % (0.0-0.4); Lymphocytes Absolute Auto 0.9 X10*3/uL (1.2-4.9); Lymphocytes Percent Auto 10.4 % (20-40); Mean Corpuscular HGB Conc 33.4 g/dl (31.0-35.0); Mean Corpuscular Hemoglobin 29.7 pg (27.0-33.0); Mean Platelet Volume 10.9 fL (9.4-12.3); Monocytes Absolute Auto 0.6 X10*3/uL (0.1-1.2); Monocytes Percent Auto 7.2 % (2-11); Neutrophils Absolute Auto 6.6 x10*3/uL (2.0-8.3); Neutrophils Percent Auto 79.8 % (45-73); Platelet Count 267 X10*3/uL (160-400); Red Blood Count 5.11 X10*6/uL (4.20-5.50); Red Cell Distribution Width 13.4 % (11.0-16.0); White Blood Count 8.3 X10*3/uL (4.8-10.8)
[2022-05-29 12:20] LABS: INTERNATIONAL NORM RATIO 3.6 (0.9-1.1); Prothrombin Time 43.7 SEC (10.0-13.1)
[2022-05-29 12:23] LABS: COVID-19 Test Negative (Negative); IDNOW Serial# 55D5AD1C
[2022-05-29 12:35] LABS: Troponin-I High Sensitivity 6.8 ng/L (<3.5-17.0)
[2022-05-29] MEDS: 0.9 % Sodium Chloride 1,000 ML 999 ML IV (12:37)
--- NOTE | 2022-05-29 12:38 | PC.NURSE ---
Pt IVF are running as order by the provider.
[2022-05-29 12:59] LABS: Alanine Aminotransferase 25 U/L (0-31); Albumin Level 3.9 g/dL (3.5-5.0); Alkaline Phosphatase 95 U/L (39-117); Anion Gap 14 (12-20); Aspartate Amino Transferase 22 U/L (5-31); Bilirubin Direct 0.2 mg/dL (0.0-0.5); Bilirubin Total 0.5 mg/dL (0.0-1.0); Blood Urea Nitrogen 13 mg/dL (9-16); Calcium 8.9 mg/dL (8.4-10.2); Carbon Dioxide 29 mmol/L (22-29); Chloride 98 mmol/L (96-108); Creatinine Clr Calc Pharmacy 72.6; Estimated Glomerular Filt Rate > 60; Glucose Random 115 mg/dL (60-115); Lipase 11 U/L (8-78); Potassium 4.2 mmol/L (3.3-5.1); Sodium 137 mmol/L (135-145); Total Protein 7.1 g/dL (6.5-8.0)
[2022-05-29 14:36] VITALS: BP 97/53; PULSE 82; RESP 19; TEMP 37; O2SAT 96
[2022-05-29] MEDS: Acetaminophen 325 MG TABLET 650 MG PO (14:38)
--- NOTE | 2022-05-29 14:39 | PC.NURSE ---
Pt BP is lower than her normal, Pt pain meds were administer as order.
[2022-05-29 18:13] LABS: B Type Natriuretic Peptide 84 pg/mL (<100); Troponin-I High Sensitivity 7.4 ng/L (<3.5-17.0)
[2022-05-29 18:25] LABS: Appearance Urine Clear; Color Urine Yellow; Glucose Urine UA Negative (Negative); Leukocyte Esterase Urine Negative (Negative); Nitrite Urine Negative (Negative); PH 5.5 (5.0-9.0); UMIC TRIGGER UACC YES; Urine Blood Trace (Negative); Urine Ketones Negative (Negative); Urine Protein Negative (Neg-Trace)
[2022-05-29 18:28] VITALS: BP 91/64; PULSE 71; RESP 20; TEMP 36.7; O2SAT 96
[2022-05-29 18:30] LABS: Bacteria Urine None Seen (None Seen); Hyaline Casts Urine 0-2 /LPF (0-2); RBC Urine 0-2 /HPF (0-2); WBC Urine 0-5 /HPF (0-5)
== END 2022-05-29 18:38 | disposition still patient (30) ==
PROVIDERS: Physician Assistant; Emergency Provider Emergency Medicine; PCP Internal Medicine
DX: R07.89 Other chest pain (principal); M79.10 Myalgia, unspecified site; R06.02 Shortness of breath; Z20.822 Contact with and (suspected) exposure to COVID-19; Z79.01 Long term (current) use of anticoagulants; Z79.899 Other long term (current) drug therapy; Z87.891 Personal history of nicotine dependence
CPT/HCPCS: 36415; 71045; 80048; 80076; 81001; 82550; 83690; 83880; 84484; 85025; 85610; 87635; 93005; 99285

== ENCOUNTER → 2022-06-02 09:56 | Outpatient (BNVA) | payer OTHER, SELFPAY | PROVIDERS: PCP Internal Medicine; Visit Provider Internal Medicine | DX: Z95.2 Presence of prosthetic heart valve (principal); Z79.01 Long term (current) use of anticoagulants; Z51.81 Encounter for therapeutic drug level monitoring | CPT/HCPCS: 85610; 99211 ==

== ENCOUNTER → 2022-06-17 11:18 | Outpatient (BNVA) | payer OTHER, SELFPAY | PROVIDERS: PCP Internal Medicine; Visit Provider Internal Medicine | DX: Z95.2 Presence of prosthetic heart valve (principal); Z79.01 Long term (current) use of anticoagulants; Z51.81 Encounter for therapeutic drug level monitoring | CPT/HCPCS: 85610; 99211 ==

== ENCOUNTER → 2022-07-01 09:28 | Outpatient (BNVA) | payer OTHER, SELFPAY | PROVIDERS: PCP Internal Medicine; Visit Provider Internal Medicine | DX: Z95.2 Presence of prosthetic heart valve (principal); Z79.01 Long term (current) use of anticoagulants; Z51.81 Encounter for therapeutic drug level monitoring | CPT/HCPCS: 85610; 99211 ==

== ENCOUNTER → 2022-07-21 09:33 | Outpatient (BNVA) | payer OTHER, SELFPAY | PROVIDERS: PCP Internal Medicine; Visit Provider Internal Medicine | DX: Z95.2 Presence of prosthetic heart valve (principal); Z79.01 Long term (current) use of anticoagulants; Z51.81 Encounter for therapeutic drug level monitoring | CPT/HCPCS: 85610; 99211 ==

== ENCOUNTER → 2022-07-28 15:14 | Outpatient (BNVA) | payer OTHER, SELFPAY | PROVIDERS: Visit Provider Obstetrics & Gynecology | DX: N95.0 Postmenopausal bleeding (principal) | CPT/HCPCS: Q3014 ==

== ENCOUNTER → 2022-08-05 10:30 | Outpatient (BNVA) | payer OTHER, SELFPAY | PROVIDERS: PCP Internal Medicine; Visit Provider Internal Medicine | DX: Z95.2 Presence of prosthetic heart valve (principal); Z79.01 Long term (current) use of anticoagulants; Z51.81 Encounter for therapeutic drug level monitoring | CPT/HCPCS: 85610; 99211 ==

== ENCOUNTER → 2022-08-18 09:59 | Outpatient (BNVA) | payer OTHER, SELFPAY | PROVIDERS: PCP Internal Medicine; Visit Provider Internal Medicine | DX: Z95.2 Presence of prosthetic heart valve (principal); Z79.01 Long term (current) use of anticoagulants; Z51.81 Encounter for therapeutic drug level monitoring | CPT/HCPCS: 85610; 99212 ==

== ENCOUNTER → 2022-08-26 10:03 | Outpatient (BNVA) | payer OTHER, SELFPAY | PROVIDERS: PCP Internal Medicine; Visit Provider Internal Medicine | DX: Z95.2 Presence of prosthetic heart valve (principal); Z79.01 Long term (current) use of anticoagulants; Z51.81 Encounter for therapeutic drug level monitoring | CPT/HCPCS: 85610; 99211 ==

== ENCOUNTER → 2022-09-02 10:02 | Outpatient (BNVA) | payer OTHER, SELFPAY | PROVIDERS: PCP Internal Medicine; Visit Provider Nurse Practitioner Family | DX: K59.04 Chronic idiopathic constipation (principal); K58.2 Mixed irritable bowel syndrome; Z95.2 Presence of prosthetic heart valve; Z51.81 Encounter for therapeutic drug level monitoring; Z79.01 Long term (current) use of anticoagulants | CPT/HCPCS: 85610; 99211; 99212 ==

== ENCOUNTER → 2022-09-14 12:04 | Outpatient (BNVA) | payer OTHER, SELFPAY | PROVIDERS: PCP Internal Medicine; Visit Provider Internal Medicine | DX: Z79.01 Long term (current) use of anticoagulants (principal) ==

== ENCOUNTER → 2022-09-16 10:22 | Outpatient (BNVA) | payer OTHER, SELFPAY | PROVIDERS: PCP Internal Medicine; Visit Provider Internal Medicine | DX: Z95.2 Presence of prosthetic heart valve (principal); Z79.01 Long term (current) use of anticoagulants; Z51.81 Encounter for therapeutic drug level monitoring | CPT/HCPCS: 85610; 99211 ==

== ENCOUNTER → 2022-09-23 09:48 | Outpatient (BNVA) | payer OTHER, SELFPAY | PROVIDERS: PCP Internal Medicine; Visit Provider Internal Medicine | DX: Z95.2 Presence of prosthetic heart valve (principal); Z79.01 Long term (current) use of anticoagulants; Z51.81 Encounter for therapeutic drug level monitoring | CPT/HCPCS: 85610; 99211 ==

== ENCOUNTER → 2022-10-07 09:46 | Outpatient (BNVA) | payer OTHER, SELFPAY | PROVIDERS: PCP Internal Medicine; Visit Provider Internal Medicine | DX: Z95.2 Presence of prosthetic heart valve (principal); Z79.01 Long term (current) use of anticoagulants; Z51.81 Encounter for therapeutic drug level monitoring | CPT/HCPCS: 85610; 99211 ==

== ENCOUNTER 2022-10-09 09:32 | Observation (INO) | payer OTHER, SELFPAY ==
[2022-10-09] VITALS (10 sets, daily range): BP systolic 100–113; BP diastolic 53–62; PULSE 74–88; RESP 12–24; TEMP 36.1–36.8; O2SAT 90–100; BMI 49.4
--- NOTE | ~2022-10-09 | XR_ITS ---
EXAMINATION: XR CHEST CLINICAL INFORMATION: Reason for Exam cough/SOB COMPARISON: Chest radiograph 05/29/2022 TECHNIQUE: One view of the chest FINDINGS: Left chest wall 3-lead cardiac pacemaker/AICD. Cardiac valve prosthesis. Median sternotomy wires. Right infrahilar opacity may reflect atelectasis, aspiration or infection. No pneumothorax or pleural effusion. Unchanged cardiomediastinal silhouette. XR/XR chest 1V IMPRESSION: Right infrahilar opacity may reflect atelectasis, aspiration or infection. Recommend follow-up radiographs to ensure resolution.
--- NOTE | 2022-10-09 10:05 | ECG_ITS ---
Test Reason : DYSPNEA Blood Pressure : / mmHG Vent. Rate : 075 BPM Atrial Rate : 075 BPM P-R Int : 194 ms QRS Dur : 116 ms QT Int : 456 ms P-R-T Axes : 055 121 077 degrees QTc Int : 509 ms Atrial-sensed ventricular-paced rhythm Abnormal ECG When compared with ECG of 29-MAY-2022 10:51, No significant changes seen Referred By: Kalen Arango Electronically Signed By:ROSIE KEENAN
--- NOTE | 2022-10-09 10:10 | ED_ITS ---
HPI - SOB/Dyspnea General Chief Complaint: Dyspnea Stated Complaint: sob Time Seen by Provider: 10/09/22 09:47 Source: patient and EMS Mode of arrival: EMS History of Present Illness HPI Narrative: This is a 57 years old female brought in by ambulance with chief complaint of shortness of breath she has history of COPD, she has history of coronary artery disease, she is anticoagulated with warfarin. Denies any fever MD elicited complaint: shortness of breath and cough Pertinent past history: COPD Onset (ago): day(s) (3) Timing: constant Exacerbating factors: nothing Related Data Home Medications Medication Instructions Recorded Confirmed furosemide 40 mg tablet 40 mg PO BID 09/10/20 10/09/22 aspirin 81 mg tablet,delayed 81 mg PO DAILY 09/23/20 10/09/22 release atorvastatin 20 mg tablet 20 mg PO QAM 09/23/20 10/09/22 fluoxetine 20 mg capsule 20 mg PO DAILY 11/20/20 10/09/22 ipratropium 0.5 mg-albuterol 3 mg 3 ml inhalation QID PRN Shortness 11/20/20 10/09/22 (2.5 mg base)/3 mL nebulization Of Breath Or Wheezing soln montelukast 10 mg tablet 10 mg PO BEDTIME 11/20/20 10/09/22 (Singulair) ascorbic acid (vitamin C) 250 mg 250 mg PO DAILY 12/31/20 10/09/22 tablet nebulizers (Sidestream misc) #1 ea 10/05/21 10/07/22 ferrous sulfate 325 mg (65 mg 325 mg PO DAILY 12/22/21 10/09/22 iron) tablet (FeroSul) mexiletine 150 mg capsule 150 mg PO BID 09/02/22 10/09/22 spironolactone 25 mg tablet 25 mg PO DAILY 09/02/22 10/09/22 calcium carbonate 200 mg calcium 500 mg PO DAILY 10/07/22 10/09/22 (500 mg) chewable tablet (Calcium Antacid) empagliflozin 10 mg tablet 10 mg PO DAILY 10/07/22 10/09/22 (Jardiance) lisinopril 10 mg tablet 10 mg PO DAILY 10/07/22 10/09/22 metoprolol succinate 50 mg 50 mg PO DAILY 10/07/22 10/09/22 tablet,extended release 24 hr albuterol sulfate 90 mcg/actuation 2 puff inhalation Q4H PRN 10/09/22 10/09/22 aerosol inhaler (ProAir HFA) shortness of breath or wheezing fluticasone 250 mcg-salmeterol 50 1 inh PO BID 10/09/22 10/09/22 mcg/dose blistr powdr for inhalation warfarin 2.5 mg tablet 3.75 mg PO DAILY@1800 10/09/22 10/09/22 Previous Rx's Medication Instructions Recorded cholecalciferol (vitamin D3) 50 50 mcg PO DAILY #90 caps 09/10/21 mcg (2,000 unit) capsule (Vitamin D3) sennosides 8.6 mg tablet (Natural 8.6 mg PO BEDTIME constipation #90 09/02/22 Senna Laxative) tabs Allergies Allergy/AdvReac Type Severity Reaction Status Date / Time codeine Allergy Mild RASH Verified 10/07/22 10:03 Review of Systems Constitutional: Constitutional: Reports no additional constitutional complaints Cardiovascular: Cardiovascular: Reports no additional cardiovascular complaints Gastrointestinal: Gastrointestinal: Reports no additional gastrointestinal complaints [facility] Past Medical History Medical History (Updated 10/09/22 @ 14:45 by Lindsey Burgos NP) COPD (chronic obstructive pulmonary disease) Morbid obesity HANS (obstructive sleep apnea) Pacemaker Restrictive lung disease Surgical History History of prosthetic mitral valve Hx of section Hx of heart bypass surgery Family History Family History Mother Diabetes Heart disease Father Diabetes Heart attack Maternal Aunt Diabetes Maternal Uncle Diabetes Maternal Grandfather Diabetes Maternal Grandmother Diabetes Paternal Grandfather Heart disease Paternal Grandmother Heart disease Daughter Bipolar 1 disorder Brother Lung cancer Maternal Uncle Lung cancer Social History Social History Household Members: Family Housing: Apartment Are you a primary wound care technician to a significant other at home: Yes (Grandkids) Do you presently have 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) Alcohol intake: former Patient Tobacco Use Status: Former Tobacco user Cigarette Packs Per Day: 1 Smoked in Last 30 Days: No Advance Directives: No Advance Directives Information Provided: Yes service: No Current occupational status: retired and disabled Physical Exam Vital Signs: Vital Signs: Last Vital Signs Temp 98.2 F 10/09/22 09:44 Pulse 85 10/09/22 14:11 Resp 24 H 10/09/22 14:11 BP 102/53 L 10/09/22 14:11 Pulse Ox 91 L 10/09/22 14:11 O2 Del Method 10/09/22 14:11 BMI result Body Mass Index 49.4 Const: General: cooperative Nutritional Appearance: average body habitus Orientation/consciousness: patient oriented x3 HEENT: Head: Yes normal to inspection General nose exam: Normal external nose present Face and sinus: Yes normal facial exam Mouth: Normal oral and palatal mucosa present Throat: Yes posterior oropharynx normal Neck: Neck: Yes normal visual inspection Chest: Chest palpation & inspection: normal inspection of the chest Resp: Auscultation: rhonchi and wheezes Cardio: Rate: regular rate Rhythm: regular rhythm GI: Inspection: Yes normal to inspection Palpation (GI): Soft to palpation, not firm, nontender and no guarding Skin: General skin exam: no rashes or lesions noted Neuro: General: patient oriented x3 Course Reevaluation(s) Reevaluation #1: Continue to complain of shortness of breath despite nebs will admit Medications Administered Generic Name Dose Route Start Last Admin Trade Name Freq PRN Reason Stop Dose Admin Doxycycline Hyclate 100 mg/ 250 mls @ 166.67 mls/hr 10/09/22 14:45 10/09/22 16:03 Sodium Chloride IV Not Given Q12H BOBO Sodium Chloride 3 ml 10/09/22 16:00 10/09/22 16:03 0.9 % Sodium Chloride Flush 3 Ml Syringe IVFLUSH Not Given QSHIFT BOBO Discontinued Medications Generic Name Dose Route Start Last Admin Trade Name Freq PRN Reason Stop Dose Admin Albuterol Sulfate 7.5 mg 10/09/22 10:06 10/09/22 10:20 Albuterol Sulfate (0.083%) 2.5 Mg/3 Ml Vial.Neb INHALE 10/09/22 10:07 7.5 mg ONCE ONE Administration Doxycycline Hyclate 100 mg/ 250 mls @ 166.67 mls/hr 10/09/22 12:45 10/09/22 14:16 Sodium Chloride IV 10/09/22 14:14 166.67 mls/hr ONCE ONE Administration Methylprednisolone Sodium Succinate 125 mg 10/09/22 10:06 10/09/22 10:39 Methylprednisolone Sod Succ 125 Mg/2 Ml Vial IVPUSH 10/09/22 10:07 125 mg ONCE ONE Administration Medical Decision Making Medical Decision Making [facility] Narrative: Patient presented with shortness of breath history of COPD, will do chest x-ray labs assessed 16:00 radiology read the chest x-ray as a question of a right lower lobe infiltrate we will go ahead and treat with antibiotic Differential Diagnosis Differential Diagnoses: The differential diagnosis associated with the presentation includes Pneumonia/COPD/pneumothorax Admission/Observation Consideration of admission/observation: Escalation of care including admission/observation considered Consult Healthcare Provider Management of the patient was discussed with: Hospitalist Lab Data [facility] Lab Attestation statement: I reviewed the patient's lab results. 10/09/22 10:20 10/09/22 11:01 Labs: Lab Results 10/09/22 10/09/22 10/09/22 Range/Units 10:20 10:20 10:20 WBC 7.2 (4.8-10.8) X10*3/uL RBC 4.98 (4.20-5.50) X10*6/uL Hgb 14.6 (12.0-16.0) g/dl Hct 44.4 (37.0-47.0) % MCV 89.2 (80.0-98.0) fL MCH 29.3 (27.0-33.0) pg MCHC 32.9 (31.0-35.0) g/dl RDW 13.2 (11.0-16.0) % Plt Count 206 (160-400) X10*3/uL MPV 10.9 (9.4-12.3) fL Immature Gran % (Auto) 0.3 (0.0-0.4) % Neut % (Auto) 74.3 H (45-73) % Lymph % (Auto) 12.7 L (20-40) % [place] % (Auto) 10.3 (2-11) % Eos % (Auto) 2.0 (0-4) % Baso % (Auto) 0.4 (0-2) % Lymph # (Auto) 0.9 L (1.2-4.9) X10*3/uL [place] # (Auto) 0.7 (0.1-1.2) X10*3/uL Eos # (Auto) 0.1 (0.0-0.4) X10*3/uL Baso # (Auto) 0.0 (0.0-0.2) X10*3/uL Abs Immat Gran (auto) 0.02 (0.00-0.03) X10*3/uL Absolute Neuts (auto) 5.3 (2.0-8.3) x10*3/uL Absolute Nucleated RBC 0.000 (0.0-0.012) X10*3/uL Nucleated RBC % (auto) 0.0 (0.0-0.2) /100WBC Sodium (135-145) mmol/L Potassium (3.3-5.1) mmol/L Chloride (96-108) mmol/L Carbon Dioxide (22-29) mmol/L Anion Gap (12-20) BUN (9-16) mg/dL Creatinine (0.5-1.4) mg/dL Estim Creat Clear Calc Estimated GFR Random Glucose (60-115) mg/dL Calcium (8.4-10.2) mg/dL Total Bilirubin (0.0-1.0) mg/dL AST (5-31) U/L ALT (0-31) U/L Alkaline Phosphatase (39-117) U/L Troponin I High Sens 22.1 H (<3.5-17.0) ng/L B-Natriuretic Peptide 163 H (<100) pg/mL Total Protein (6.5-8.0) g/dL Albumin (3.5-5.0) g/dL COVID-19 (STEPHEN) (Negative) COVID-19 Clin Com 10/09/22 10/09/22 Range/Units 10:20 11:01 WBC (4.8-10.8) X10*3/uL RBC (4.20-5.50) X10*6/uL Hgb (12.0-16.0) g/dl Hct (37.0-47.0) % MCV (80.0-98.0) fL MCH (27.0-33.0) pg MCHC (31.0-35.0) g/dl RDW (11.0-16.0) % Plt Count (160-400) X10*3/uL MPV (9.4-12.3) fL Immature Gran % (Auto) (0.0-0.4) % Neut % (Auto) (45-73) % Lymph % (Auto) (20-40) % [place] % (Auto) (2-11) % Eos % (Auto) (0-4) % Baso % (Auto) (0-2) % Lymph # (Auto) (1.2-4.9) X10*3/uL [place] # (Auto) (0.1-1.2) X10*3/uL Eos # (Auto) (0.0-0.4) X10*3/uL Baso # (Auto) (0.0-0.2) X10*3/uL Abs Immat Gran (auto) (0.00-0.03) X10*3/uL Absolute Neuts (auto) (2.0-8.3) x10*3/uL Absolute Nucleated RBC (0.0-0.012) X10*3/uL Nucleated RBC % (auto) (0.0-0.2) /100WBC Sodium 141 (135-145) mmol/L Potassium 3.6 (3.3-5.1) mmol/L Chloride 98 (96-108) mmol/L Carbon Dioxide 31 H (22-29) mmol/L Anion Gap 16 (12-20) BUN 13 (9-16) mg/dL Creatinine 0.85 (0.5-1.4) mg/dL Estim Creat Clear Calc 64.8 Estimated GFR > 60 Random Glucose 123 H (60-115) mg/dL Calcium 8.7 (8.4-10.2) mg/dL Total Bilirubin 0.7 (0.0-1.0) mg/dL AST 18 (5-31) U/L ALT 18 (0-31) U/L Alkaline Phosphatase 83 (39-117) U/L Troponin I High Sens (<3.5-17.0) ng/L B-Natriuretic Peptide (<100) pg/mL Total Protein 6.9 (6.5-8.0) g/dL Albumin 3.8 (3.5-5.0) g/dL COVID-19 (STEPHEN) Negative (Negative) COVID-19 Clin Com See Note Independent Interpretation I performed an independent interpretation of an: Plain X-Ray Interpretation: No pneumonia Radiology Impression Discussion of test interpretation with radiology: I have reviewed the radiologist's reading. Radiologist Impression: FINDINGS: Left chest wall 3-lead cardiac pacemaker/AICD. Cardiac valve prosthesis. Median sternotomy wires. ?Right infrahilar opacity may reflect atelectasis, aspiration or infection. No pneumothorax or pleural effusion. Unchanged cardiomediastinal silhouette. XR/XR chest 1V IMPRESSION: Right infrahilar opacity may reflect atelectasis, aspiration or infection. Recommend follow-up radiographs to ensure resolution. ? Dictated By: Sade Feliz MD Discharge Plan Discharge Clinical Impression: Acute exacerbation of chronic obstructive pulmonary disease Patient Disposition: Admitted As Inpatient
[2022-10-09] MEDS: Albuterol Sulfate (0.083%) 2.5 MG/3 ML VIAL.NEB 7.5 MG INHALE (10:20)
[2022-10-09 10:25] LABS: MANUAL DIFF FLAG NO
[2022-10-09 10:26] LABS: Basophils Percent Auto 0.4 % (0-2); Eosinophils Absolute Auto 0.1 X10*3/uL (0.0-0.4); Hematocrit 44.4 % (37.0-47.0); Hemoglobin 14.6 g/dl (12.0-16.0); Imm Gran Abs Auto 0.02 X10*3/uL (0.00-0.03); Imm Gran Pct Auto 0.3 % (0.0-0.4); Lymphocytes Absolute Auto 0.9 X10*3/uL (1.2-4.9); Lymphocytes Percent Auto 12.7 % (20-40); Mean Corpuscular HGB Conc 32.9 g/dl (31.0-35.0); Mean Corpuscular Hemoglobin 29.3 pg (27.0-33.0); Mean Corpuscular Volume 89.2 fL (80.0-98.0); Mean Platelet Volume 10.9 fL (9.4-12.3); Monocytes Absolute Auto 0.7 X10*3/uL (0.1-1.2); Monocytes Percent Auto 10.3 % (2-11); Neutrophils Absolute Auto 5.3 x10*3/uL (2.0-8.3); Neutrophils Percent Auto 74.3 % (45-73); Platelet Count 206 X10*3/uL (160-400); Red Blood Count 4.98 X10*6/uL (4.20-5.50); Red Cell Distribution Width 13.2 % (11.0-16.0); White Blood Count 7.2 X10*3/uL (4.8-10.8)
[2022-10-09] MEDS: methylPREDNISolone Sod Succ 125 MG/2 ML VIAL IVPUSH (10:39)
[2022-10-09 10:48] LABS: B Type Natriuretic Peptide 163 pg/mL (<100); Troponin-I High Sensitivity 22.1 ng/L (<3.5-17.0)
[2022-10-09 10:52] LABS: COVID-19 Test Negative (Negative); IDNOW Serial# 55D5AD1C
--- NOTE | 2022-10-09 11:18 | PC.NURSE ---
Alert and oriented, resp even and unlabored. Coming from home where she has been feeling sick for the past two days. States she's been using inhalers and duonebs with little relief. Audibly wheezing. IV established, medicated per the OCT.
[2022-10-09 11:37] LABS: Alanine Aminotransferase 18 U/L (0-31); Albumin Level 3.8 g/dL (3.5-5.0); Alkaline Phosphatase 83 U/L (39-117); Anion Gap 16 (12-20); Aspartate Amino Transferase 18 U/L (5-31); Bilirubin Total 0.7 mg/dL (0.0-1.0); Blood Urea Nitrogen 13 mg/dL (9-16); Calcium 8.7 mg/dL (8.4-10.2); Carbon Dioxide 31 mmol/L (22-29); Chloride 98 mmol/L (96-108); Creatinine Clr Calc Pharmacy 64.8; Estimated Glomerular Filt Rate > 60; Glucose Random 123 mg/dL (60-115); Potassium 3.6 mmol/L (3.3-5.1); Sodium 141 mmol/L (135-145); Total Protein 6.9 g/dL (6.5-8.0)
[2022-10-09] MEDS: Doxycycline Hyclate 100 MG in 0.9 % Sodium Chloride 250 ML 166.67 MG IV (14:16)
--- NOTE | 2022-10-09 14:38 | P.HPHOSP_ITS ---
History of Present Illness Date of Service: 10/09/22 Attending physician on admission: Nicolas Ahuja Chief Complaint: Shortness breath 57-year-old woman presented to the ER with complaints of worsening shortness of breath. She reports 2 days ago she started having cold-like symptoms including dry cough and stuffy nose and started having worsening shortness of breath and wheezing. She reported that her COPD has been under control and has not been hospitalized for about 2 years. She denies any recent travel, sick contacts. She did report increased shortness of breath wheezing and dry cough. She denied fever, chills, nausea, vomiting, diarrhea. She had been using her inhalers with no affect. ER chest x-ray showed possible opacity versus atelectasis. No hypoxia noted. All labs within acceptable limits. The ER she received IV steroids, DuoNebs and a dose of doxycycline. She will be placed on observation for COPD exacerbation. Review of Systems Review of Systems: Denies any recent fever chills or decrease in appetite respiratory see HPI cardiovascular denied chest pain gastrointestinal denies any dysphagia abdominal pain nausea vomiting or diarrhea genitourinary denies any dysuria frequency or hematuria musculoskeletal denies any joint pain or swelling neuropsych denies any weakness or seizures all other systems reviewed are negative [facility] Medical History (Updated 10/09/22 @ 14:45 by Lindsey Burgos NP) COPD (chronic obstructive pulmonary disease) Morbid obesity HANS (obstructive sleep apnea) Pacemaker Restrictive lung disease Family History Mother Diabetes Heart disease Father Diabetes Heart attack Maternal Aunt Diabetes Maternal Uncle Diabetes Maternal Grandfather Diabetes Maternal Grandmother Diabetes Paternal Grandfather Heart disease Paternal Grandmother Heart disease Daughter Bipolar 1 disorder Brother Lung cancer Maternal Uncle Lung cancer Surgical History History of prosthetic mitral valve Hx of section Hx of heart bypass surgery Social History Household Members: Family Housing: Apartment Are you a primary dialysis patient care technician to a significant other at home: Yes (Grandkids) Do you presently have 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) Alcohol intake: former Patient Tobacco Use Status: Former Tobacco user Cigarette Packs Per Day: 1 Smoked in Last 30 Days: No Advance Directives: No Advance Directives Information Provided: Yes service: No Current occupational status: retired and disabled Meds Allergies Allergy/AdvReac Type Severity Reaction Status Date / Time codeine Allergy Mild RASH Verified 10/07/22 10:03 Active Medications: Current Medications Acetaminophen (Acetaminophen 325 Mg Tablet) 650 mg PO Q6H PRN PRN Reason: Pain, Mild (Pain Scale 1-3) Albuterol Sulfate (Albuterol Sulfate (0.083%) 2.5 Mg/3 Ml Vial.Neb) 2.5 mg INHALE RQ4H WHILE AWAKE BOBO Enoxaparin Sodium (Enoxaparin Sodium 40 Mg/0.4 Ml Syringe) 40 mg SUBCUT Q24H SC H Doxycycline Hyclate 100 mg/ (Sodium Chloride) 250 mls @ 166.67 mls/hr IV Q12H BOBO Magnesium Hydroxide (Milk Of Magnesia 30 Ml Oral.Susp) 30 ml PO DAILY PRN PRN Reason: Constipation Methylprednisolone Sodium Succinate (Methylprednisolone Sod Succ 40 Mg/Ml Vial) 40 mg IVPUSH Q8H BOBO Ondansetron HCl (Ondansetron Hcl 4 Mg/2 Ml Vial) 4 mg IVPUSH Q8H PRN PRN Reason: Nausea and Vomiting Pharmacy Consult (Consult Rx Perform Med Rec) 1 each MISCELLANE ONCE PRN PRN Reason: Consult order Sodium Chloride (0.9 % Sodium Chloride Flush 3 Ml Syringe) 3 ml IVFLUSH QSHIFT [facility] Home Medications Medication Instructions Recorded Confirmed Last Taken Type furosemide 40 mg tablet 40 mg PO BID 09/10/20 10/07/22 Unknown History aspirin 81 mg tablet,delayed 81 mg PO DAILY 09/23/20 10/07/22 Unknown History release atorvastatin 20 mg tablet 20 mg PO QAM 09/23/20 10/07/22 Unknown History fluoxetine 20 mg capsule 20 mg PO DAILY 11/20/20 10/07/22 Unknown History ipratropium 0.5 mg-albuterol 3 mg 3 ml inhalation QID 11/20/20 10/07/22 Unknown History (2.5 mg base)/3 mL nebulization soln montelukast 10 mg tablet 10 mg PO BEDTIME 11/20/20 10/07/22 Unknown History (Singulair) ascorbic acid (vitamin C) 250 mg 250 mg PO DAILY 12/31/20 10/07/22 Unknown His tory tablet nebulizers (Sidestream misc) #1 ea 10/05/21 10/07/22 Unknown History ferrous sulfate 325 mg (65 mg 325 mg PO DAILY 12/22/21 10/07/22 Unknown History iron) tablet (FeroSul) mexiletine 150 mg capsule 150 mg PO BID 09/02/22 10/07/22 Unknown History spironolactone 25 mg tablet 25 mg PO DAILY 09/02/22 10/07/22 Unknown History calcium carbonate 200 mg calcium 0 mg PO 10/07/22 10/07/22 Unknown History (500 mg) chewable tablet (Calcium Antacid) empagliflozin 10 mg tablet 10 mg PO DAILY 10/07/22 10/07/22 Unknown History (Jardiance) lisinopril 10 mg tablet 10 mg PO DAILY 10/07/22 10/07/22 Unknown History metoprolol succinate 50 mg 50 mg PO DAILY 10/07/22 10/07/22 Unknown History tablet,extended release 24 hr albuterol sulfate 90 mcg/actuation 2 puff inhalation Q4H PRN 10/09/22 10/09/22 10/09/22 History aerosol inhaler (ProAir HFA) shortness of breath or wheezing fluticasone 250 mcg-salmeterol 50 1 inh PO BID 10/09/22 10/09/22 10/07/22 History mcg/dose blistr powdr for inhalation warfarin 2.5 mg tablet 2.5 mg PO DAILY@1800 10/09/22 Unknown History Physical Exam Vital Signs and Narrative: Vital Signs: Last Vital Signs Temp 98.2 F 10/09/22 09:44 Pulse 85 10/09/22 14:11 Resp 24 H 10/09/22 14:11 BP 102/53 L 10/09/22 14:11 Pulse Ox 91 L 10/09/22 14:11 O2 Del Method 10/09/22 14:11 BMI result Body Mass Index 49.4 Appearing in no acute distress head is normocephalic atraumatic eyes pupils are PERRLA sclera is anicteric mouth throat mucous membranes are intact and moist neck is supple no lymphadenopathy, no JVD noted lung sounds expiratory wheezing heart regular rate rhythm, clear S1, S2 positive bowel sounds, abdomen is soft, nontender neuro patient is alert x3, no focal deficits Results Labs 10/09/22 10:20 02/19/23 11:01 Labs: Laboratory Results - last 24 hr 10/09/22 10/09/22 10/09/22 10:20 10:20 10:20 MCV 89.2 MCH 29.3 MCHC 32.9 RDW 13.2 Plt Count 206 MPV 10.9 Immature Gran % (Auto) 0.3 Neut % (Auto) 74.3 H Lymph % (Auto) 12.7 L [place] % (Auto) 10.3 Eos % (Auto) 2.0 Baso % (Auto) 0.4 Lymph # (Auto) 0.9 L [place] # (Auto) 0.7 Eos # (Auto) 0.1 Baso # (Auto) 0.0 Abs Immat Gran (auto) 0.02 Absolute Neuts (auto) 5.3 Absolute Nucleated RBC 0.000 Nucleated RBC % (auto) 0.0 Anion Gap Estim Creat Clear Calc Estimated GFR Random Glucose Calcium Total Bilirubin AST ALT Alkaline Phosphatase Troponin I High Sens 22.1 H B-Natriuretic Peptide 163 H Total Protein Albumin COVID-19 (STEPHEN) COVID-Dispatch Com 10/09/22 10/09/22 10:20 11:01 MCV MCH MCHC RDW Plt Count MPV Immature Gran % (Auto) Neut % (Auto) Lymph % (Auto) [place] % (Auto) Eos % (Auto) Baso % (Auto) Lymph # (Auto) [place] # (Auto) Eos # (Auto) Baso # (Auto) Abs Immat Gran (auto) Absolute Neuts (auto) Absolute Nucleated RBC Nucleated RBC % (auto) Anion Gap 16 Estim Creat Clear Calc 64.8 Estimated GFR > 60 Random Glucose 123 H Calcium 8.7 Total Bilirubin 0.7 AST 18 ALT 18 Alkaline Phosphatase 83 Troponin I High Sens B-Natriuretic Peptide Total Protein 6.9 Albumin 3.8 COVID-19 (STEPHEN) Negative COVID-Telik See Note Imaging Radiologist's Impressions: Impressions Chest X-Ray 10/09/22 10:45 IMPRESSION: Right infrahilar opacity may reflect atelectasis, aspiration or infection. Recommend follow-up radiographs to ensure resolution. Assessment and Plan (1) Acute exacerbation of chronic obstructive pulmonary disease: Status: Acute Plan 57-year-old woman placed on observation for acute COPD exacerbation Acute on chronic COPD exacerbation Solu-Medrol, scheduled DuoNebs Doxycycline for possible bronchitis Supplemental oxygen as needed Hypertension Low blood pressures Hold antihypertensives History of prosthetic mitral valve Check PT INR daily, keep INR between 2.5 in 3.5 Continue warfarin Coronary artery disease Continue aspirin and statin Obstructive sleep apnea Continue CPAP Morbid obesity. BMI 49.9 Discussed importance of weight management as this may be contributing to worsening of other comorbidities Mental health Continue home medications DVT prophylaxis with warfarin Attending Dr. Ahuja Full code Observation Time Spent With Patient Time: Total time managing care of this patient today ____ minutes. Quality Stroke Does the patient have a stroke diagnosis?: No VTE Prior VTE?: No VTE Risk Level:: Medical - moderate - high VTE Device Contraindication: Treatment Not Indicated VTE Drug Contraindication: N/A - Med Ordered
--- NOTE | 2022-10-09 14:42 | PHA.MEDREC ---
Pharmacy Consult ? Medication Reconciliation Pharmacy has completed the medication reconciliation. Patient uses med box program. She had the med box with her so I used it to complete med rec.
[2022-10-09 15:32] LABS: INTERNATIONAL NORM RATIO 2.8 (0.9-1.1); Prothrombin Time 34.1 SEC (10.0-13.1)
[2022-10-09] MEDS: Albuterol Sulfate (0.083%) 2.5 MG/3 ML VIAL.NEB INHALE ×2 (16:54→19:44)
[2022-10-09] MEDS: methylPREDNISolone Sod Succ 40 MG/ML VIAL IVPUSH ×2 (17:16→23:38)
[2022-10-09] MEDS: Montelukast Sodium 10 MG TABLET PO (20:10)
[2022-10-09] MEDS: Warfarin Sodium 1.25 MG HALFTAB 3.75 MG PO (20:10)
[2022-10-09] MEDS: Sennosides 8.6 MG TABLET PO (20:10)
--- NOTE | 2022-10-09 20:16 | PC.NURSE ---
assumed care of patient at 1900 - patient ate all of dinner. resting comfortably on stretcher. 95% O2 RA. no current complaints or apparent distress. bed time meds given. on production control scheduler. will CTM
--- NOTE | 2022-10-09 22:45 | PC.NURSE ---
report called to medical customer service representative
[2022-10-09] MEDS: 0.9 % Sodium Chloride Flush 3 ML SYRINGE IVFLUSH (23:40)
[2022-10-10] MEDS: Albuterol Sulfate (0.083%) 2.5 MG/3 ML VIAL.NEB INHALE ×2 (00:31→10:41)
[2022-10-10 00:32] VITALS: PULSE 78; RESP 24; O2SAT 94
[2022-10-10] MEDS: Doxycycline Hyclate 100 MG in 0.9 % Sodium Chloride 250 ML 166.67 MG IV (02:51)
[2022-10-10 03:49] VITALS: BP 110/56; PULSE 64; RESP 18; TEMP 36.1; O2SAT 93
[2022-10-10] MEDS: methylPREDNISolone Sod Succ 40 MG/ML VIAL IVPUSH (05:29)
[2022-10-10 06:30] LABS: MANUAL DIFF FLAG NO
[2022-10-10 06:33] LABS: Basophils Percent Auto 0.2 % (0-2); Hematocrit 41.6 % (37.0-47.0); Hemoglobin 13.9 g/dl (12.0-16.0); Imm Gran Abs Auto 0.07 X10*3/uL (0.00-0.03); Imm Gran Pct Auto 0.7 % (0.0-0.4); Lymphocytes Absolute Auto 0.7 X10*3/uL (1.2-4.9); Mean Corpuscular HGB Conc 33.4 g/dl (31.0-35.0); Mean Corpuscular Volume 89.8 fL (80.0-98.0); Mean Platelet Volume 11.9 fL (9.4-12.3); Monocytes Absolute Auto 0.2 X10*3/uL (0.1-1.2); Monocytes Percent Auto 2.3 % (2-11); Neutrophils Absolute Auto 9.1 x10*3/uL (2.0-8.3); Neutrophils Percent Auto 89.8 % (45-73); Platelet Count 218 X10*3/uL (160-400); Red Blood Count 4.63 X10*6/uL (4.20-5.50); Red Cell Distribution Width 13.2 % (11.0-16.0); White Blood Count 10.1 X10*3/uL (4.8-10.8)
[2022-10-10 06:52] LABS: INTERNATIONAL NORM RATIO 3.3 (0.9-1.1); Prothrombin Time 40.2 SEC (10.0-13.1)
[2022-10-10 06:58] LABS: Anion Gap 16 (12-20); Blood Urea Nitrogen 13 mg/dL (9-16); Calcium 9.1 mg/dL (8.4-10.2); Carbon Dioxide 26 mmol/L (22-29); Chloride 100 mmol/L (96-108); Creatinine Clr Calc Pharmacy 74.4; Estimated Glomerular Filt Rate > 60; Glucose Random 160 mg/dL (60-115); Potassium 3.8 mmol/L (3.3-5.1); Sodium 138 mmol/L (135-145)
[2022-10-10 07:07] VITALS: BP 98/50; PULSE 61; RESP 18; TEMP 36.6; O2SAT 95
[2022-10-10] MEDS: Metoprolol Succinate ER 50 MG TAB.ER.24H PO (08:48)
[2022-10-10] MEDS: Ferrous Sulfate 324 MG TABLET.DR PO (08:48)
[2022-10-10] MEDS: FLUoxetine HCl 20 MG CAPSULE PO (08:49)
[2022-10-10] MEDS: Empagliflozin 10 MG TABLET PO (08:49)
[2022-10-10] MEDS: Aspirin Enteric Coated 81 MG TABLET.DR PO (08:49)
[2022-10-10] MEDS: 0.9 % Sodium Chloride Flush 3 ML SYRINGE IVFLUSH (08:50)
[2022-10-10] MEDS: Ascorbic Acid 250 MG TABLET PO (08:50)
[2022-10-10] MEDS: Cholecalciferol (Vitamin D3) 25 MCG TABLET 50 MCG PO (08:50)
[2022-10-10] MEDS: Atorvastatin Calcium 20 MG TABLET PO (08:50)
[2022-10-10 09:01] VITALS: O2SAT 95
--- NOTE | 2022-10-10 09:11 | PM.DS ---
DS: Providers Provider Date of Service: 10/10/22 Date of admission: 10/09/22 14:30 Primary care physician: Mal De Dios MD Attending physician on discharge: Jake Damon Discharging clinician: Lindsey Burgos DS: Diagnosis Discharge Diagnosis (1) Acute exacerbation of chronic obstructive pulmonary disease: Status: Acute DS: Summary Hospital Course Hospital Course: 57-year-old woman presented to the ER with complaints of worsening shortness of breath.? She reports 2 days ago she started having cold-like symptoms including dry cough and stuffy nose and started having worsening shortness of breath and wheezing.? She reported that her COPD has been under control and has not been hospitalized for about 2 years.? She denies any recent travel, sick contacts.? She did report increased shortness of breath wheezing and dry cough.? She denied fever, chills, nausea, vomiting, diarrhea.? She had been using her inhalers with no affect.? ER chest x-ray showed possible opacity versus atelectasis.? No hypoxia noted.? All labs within acceptable limits.? The ER she received IV steroids, DuoNebs and a dose of doxycycline.? She will be placed on observation for COPD exacerbation. Acute on chronic COPD exacerbation. Treated with IV Solu-Medrol , DuoNebs and doxycycline. Home with 4 more days of prednisone and doxycycline Hypertension. Blood pressure is on the lower side. Hold blood pressure medications for 2 days and recheck blood pressure medication. Continue home medications as blood pressure allows. Follow-up with primary care provider Prosthetic mitral valve. Continue warfarin Coronary artery disease. Aspirin and statin Obstructive sleep apnea. CPAP Morbid obesity.? BMI 49.9. Discussed importance of weight management as this may be contributing to worsening of other comorbidities Mental health. Continue home medications Time Spent with Patient Time attestation: Total time managing care of this patient today ____ minutes. Discharge coordination time: Greater than 30 minutes Quality: Safe Use of Opioids Does Pt have an Active Cancer Diagnosis on the Problem List?: No Quality: Stroke Does the patient have a stroke diagnosis?: No Physical Exam Vital Signs: Vital Signs: Last Vital Signs Temp 98 F 10/10/22 07:07 Pulse 61 10/10/22 07:07 Resp 18 10/10/22 07:07 BP 98/50 L 10/10/22 07:07 Pulse Ox 95 10/10/22 07:07 O2 Del Method 10/10/22 07:07 BMI result Body Mass Index 49.4 Appearing in no acute distress head is normocephalic atraumatic eyes pupils are PERRLA sclera is anicteric mouth throat mucous membranes are intact and moist neck is supple no lymphadenopathy, no JVD noted lung sounds mild expiratory wheezing heart regular rate rhythm, clear S1, S2 positive bowel sounds, abdomen is soft, nontender neuro patient is alert x3, no focal deficits DS: Data Data Completed and Pending Labs on day of discharge: Laboratory Results - last 24 hr 10/09/22 10/09/22 10/09/22 10:20 10:20 10:20 WBC 7.2 RBC 4.98 Hgb 14.6 Hct 44.4 MCV 89.2 MCH 29.3 MCHC 32.9 RDW 13.2 Plt Count 206 MPV 10.9 Immature Gran % (Auto) 0.3 Neut % (Auto) 74.3 H Lymph % (Auto) 12.7 L Jackson % (Auto) 10.3 Eos % (Auto) 2.0 Baso % (Auto) 0.4 Lymph # (Auto) 0.9 L Jackson # (Auto) 0.7 Eos # (Auto) 0.1 Baso # (Auto) 0.0 Abs Immat Gran (auto) 0.02 Absolute Neuts (auto) 5.3 Absolute Nucleated RBC 0.000 Nucleated RBC % (auto) 0.0 PT INR Sodium Potassium Chloride Carbon Dioxide Anion Gap BUN Creatinine Estim Creat Clear Calc Estimated GFR Random Glucose Calcium Total Bilirubin AST ALT Alkaline Phosphatase Troponin I High Sens 22.1 H B-Natriuretic Peptide 163 H Total Protein Albumin COVID-19 ([facility]) COVID-19 Clin Com 10/09/22 10/09/22 10/09/22 10:20 11:01 15:21 WBC RBC Hgb Hct MCV MCH MCHC RDW Plt Count MPV Immature Gran % (Auto) Neut % (Auto) Lymph % (Auto) Jackson % (Auto) Eos % (Auto) Baso % (Auto) Lymph # (Auto) Jackson # (Auto) Eos # (Auto) Baso # (Auto) Abs Immat Gran (auto) Absolute Neuts (auto) Absolute Nucleated RBC Nucleated RBC % (auto) PT 34.1 H INR 2.8 H Sodium 141 Potassium 3.6 Chloride 98 Carbon Dioxide 31 H Anion Gap 16 BUN 13 Creatinine 0.85 Estim Creat Clear Calc 64.8 Estimated GFR > 60 Random Glucose 123 H Calcium 8.7 Total Bilirubin 0.7 AST 18 ALT 18 Alkaline Phosphatase 83 Troponin I High Sens B-Natriuretic Peptide Total Protein 6.9 Albumin 3.8 COVID-19 ([facility]) Negative COVID-19 Clin Com See Note 10/10/22 10/10/22 10/10/22 05:29 05:29 05:29 WBC 10.1 RBC 4.63 Hgb 13.9 Hct 41.6 MCV 89.8 MCH 30.0 MCHC 33.4 RDW 13.2 Plt Count 218 MPV 11.9 Immature Gran % (Auto) 0.7 H Neut % (Auto) 89.8 H Lymph % (Auto) 7.0 L Jackson % (Auto) 2.3 Eos % (Auto) 0.0 Baso % (Auto) 0.2 Lymph # (Auto) 0.7 L Jackson # (Auto) 0.2 Eos # (Auto) 0.0 Baso # (Auto) 0.0 Abs Immat Gran (auto) 0.07 H Absolute Neuts (auto) 9.1 H Absolute Nucleated RBC 0.000 Nucleated RBC % (auto) 0.0 PT 40.2 H INR 3.3 H Sodium 138 Potassium 3.8 Chloride 100 Carbon Dioxide 26 Anion Gap 16 BUN 13 Creatinine 0.74 Estim Creat Clear Calc 74.4 Estimated GFR > 60 Random Glucose 160 H Calcium 9.1 Total Bilirubin AST ALT Alkaline Phosphatase Troponin I High Sens B-Natriuretic Peptide Total Protein Albumin COVID-19 ([facility]) COVID-19 Clin Com Discharge Plan Discharge Anticipated Discharge Date/Time: 10/10/22 09:02 Patient Disposition: Home, Self-Care Discharge Diagnosis: COPD exacerbation Referrals: Mal De Dios MD [Primary Care Provider] - 1 Week Discharge Medications: New doxycycline hyclate 100 mg tablet 100 mg PO BID Qty: 8 0RF prednisone 10 mg tablet 40 mg PO DIRECTED Qty: 16 0RF Rx Instructions: see taper instructions Continued cholecalciferol (vitamin D3) [Vitamin D3] 50 mcg (2,000 unit) Capsule 50 mcg PO DAILY Qty: 90 4RF warfarin 2.5 mg tablet 3.75 mg PO DAILY@1800 Protocol: Dose Management Condition: Monday (Week One) Dose/Route: 3.75 mg Instruction: 1.5 x 2.5 mg tablets Condition: Monday Dose/Route: 3.75 mg Instruction: 1.5 x 2.5 mg tablets Condition: Monday Dose/Route: 3.75 mg Instruction: 1.5 x 2.5 mg tablets Condition: Monday Dose/Route: 3.75 mg Instruction: 1.5 x 2.5 mg tablets Condition: Dose/Route: 3.75 mg Instruction: 1.5 x 2.5 mg tablets Condition: Monday Dose/Route: 3.75 mg Instruction: 1.5 x 2.5 mg tablets Condition: Monday Dose/Route: 3.75 mg Instruction: 1.5 x 2.5 mg tablets Condition: Monday (Week Two) Dose/Route: 3.75 mg Instruction: 1.5 x 2.5 mg tablets Condition: Monday Dose/Route: 3.75 mg Instruction: 1.5 x 2.5 mg tablets Condition: Monday Dose/Route: 3.75 mg Instruction: 1.5 x 2.5 mg tablets Condition: Monday Dose/Route: 3.75 mg Instruction: 1.5 x 2.5 mg tablets Condition: Dose/Route: 3.75 mg Instruction: 1.5 x 2.5 mg tablets Condition: Monday Dose/Route: 3.75 mg Instruction: 1.5 x 2.5 mg tablets Condition: Monday Dose/Route: 3.75 mg Instruction: 1.5 x 2.5 mg tablets Protocol Text: Adjustment Start Date: Monday10/07/22 INR Value: 3.2 INR Date: 10/07/22 Recheck Date: 10/17/22 Additional Instructions: REMEMBER TO EAT GREENS WEEKLY fluticasone propion-salmeterol 250-50 mcg/dose blister with device 1 inh PO BID albuterol sulfate [ProAir HFA] 90 mcg/actuation HFA aerosol inhaler 2 puff inhalation Q4H PRN (Reason: shortness of breath or wheezing) furosemide 40 mg tablet 40 mg PO BID ascorbic acid (vitamin C) 250 mg tablet 250 mg PO DAILY aspirin 81 mg tablet,delayed release (DR/EC) 81 mg PO DAILY atorvastatin 20 mg tablet 20 mg PO QAM ipratropium-albuterol 0.5 mg-3 mg(2.5 mg base)/3 mL solution for nebulization 3 ml inhalation QID PRN (Reason: Shortness Of Breath Or Wheezing) fluoxetine 20 mg capsule 20 mg PO DAILY montelukast [Singulair] 10 mg tablet 10 mg PO BEDTIME Jardiance 10 mg tablet 10 mg PO DAILY calcium carbonate [Calcium Antacid] 200 mg calcium (500 mg) tablet,chewable 500 mg PO DAILY lisinopril 10 mg tablet 10 mg PO DAILY metoprolol succinate 50 mg tablet extended release 24 hr 50 mg PO DAILY (DME) Sidestream Misc See Rx Instructions .ROUTE DIRECTED Qty: 1 Rx Instructions: As directed ferrous sulfate [FeroSul] 325 mg (65 mg iron) tablet 325 mg PO DAILY sennosides [Natural Senna Laxative] 8.6 mg tablet 8.6 mg PO BEDTIME Qty: 90 3RF mexiletine 150 mg capsule 150 mg PO BID spironolactone 25 mg tablet 25 mg PO DAILY Diet: Advance to usual diet Activity on Discharge: As tolerated Stand Alone Forms: Patient Portal Discharge page Care Plan Goals: complete resolution of symptoms Health Concerns: COPD exacerbation Plan of Treatment: Follow-up with primary care provider as needed Take all medications as prescribed Assessment: see discharge summary
[2022-10-10 10:44] VITALS: PULSE 81; RESP 18; O2SAT 94
== END 2022-10-10 15:01 | disposition home or self-care (01) ==
LOC: HO.ED 12:47 → HO.EDOVER 14:41 → HO.S3 21:54
PROVIDERS: Admitting Provider Nurse Practitioner Acute Care; Emergency Provider Emergency Medicine; PCP Internal Medicine; Visit Provider Nurse Practitioner Acute Care
DX: J44.1 Chronic obstructive pulmonary disease with (acute) exacerbation (principal); I25.10 Atherosclerotic heart disease of native coronary artery without angina pectoris; G47.33 Obstructive sleep apnea (adult) (pediatric); E66.01 Morbid (severe) obesity due to excess calories; Z68.42 Body mass index [BMI] 45.0-49.9, adult; Z95.810 Presence of automatic (implantable) cardiac defibrillator; Z79.01 Long term (current) use of anticoagulants
CPT/HCPCS: 36415; 71045; 80048; 80053; 83880; 84484; 85025; 85610; 87635; 93005; 94640; 96365; 96366; 96375; 96376; 99221; 99285; J2920; J2930

== ENCOUNTER → 2022-10-11 12:12 | Outpatient (BNVA) | payer OTHER, SELFPAY | PROVIDERS: PCP Internal Medicine; Visit Provider Internal Medicine | DX: Z79.01 Long term (current) use of anticoagulants (principal) ==

== ENCOUNTER → 2022-10-17 12:01 | Outpatient (BNVA) | payer OTHER, SELFPAY | PROVIDERS: PCP Internal Medicine; Visit Provider Internal Medicine | DX: Z95.2 Presence of prosthetic heart valve (principal); Z79.01 Long term (current) use of anticoagulants; Z51.81 Encounter for therapeutic drug level monitoring | CPT/HCPCS: 85610; 99211 ==

== ENCOUNTER → 2022-10-21 09:46 | Outpatient (BNVA) | payer OTHER, SELFPAY | PROVIDERS: PCP Internal Medicine; Visit Provider Nurse Practitioner Family | DX: Z12.11 Encounter for screening for malignant neoplasm of colon (principal); K59.04 Chronic idiopathic constipation; K62.5 Hemorrhage of anus and rectum | CPT/HCPCS: 99212 ==

== ENCOUNTER → 2022-10-31 09:43 | Outpatient (BNVA) | payer OTHER, SELFPAY | PROVIDERS: PCP Internal Medicine; Visit Provider Obstetrics & Gynecology | DX: Z95.2 Presence of prosthetic heart valve (principal); Z79.01 Long term (current) use of anticoagulants; Z51.81 Encounter for therapeutic drug level monitoring | CPT/HCPCS: 85610; 99211 ==

== ENCOUNTER → 2022-11-02 08:58 | Outpatient (BNVA) | payer OTHER, SELFPAY | PROVIDERS: PCP Internal Medicine; Visit Provider Internal Medicine | DX: G47.33 Obstructive sleep apnea (adult) (pediatric) (principal); J98.4 Other disorders of lung; J44.9 Chronic obstructive pulmonary disease, unspecified; E66.01 Morbid (severe) obesity due to excess calories | CPT/HCPCS: Q3014 ==

== ENCOUNTER → 2022-11-07 09:50 | Outpatient (BNVA) | payer OTHER, SELFPAY | PROVIDERS: PCP Internal Medicine; Visit Provider Internal Medicine | DX: Z95.2 Presence of prosthetic heart valve (principal); Z79.01 Long term (current) use of anticoagulants; Z51.81 Encounter for therapeutic drug level monitoring | CPT/HCPCS: 85610; 99211 ==

== ENCOUNTER → 2022-11-24 10:08 | Outpatient (BNVA) | payer OTHER, SELFPAY | PROVIDERS: PCP Internal Medicine; Visit Provider Internal Medicine | DX: Z95.2 Presence of prosthetic heart valve (principal); Z79.01 Long term (current) use of anticoagulants; Z51.81 Encounter for therapeutic drug level monitoring | CPT/HCPCS: 85610; 99211 ==

== ENCOUNTER → 2022-12-15 10:11 | Outpatient (BNVA) | payer OTHER, SELFPAY | PROVIDERS: PCP Internal Medicine; Visit Provider Internal Medicine | DX: Z95.2 Presence of prosthetic heart valve (principal); Z79.01 Long term (current) use of anticoagulants; Z51.81 Encounter for therapeutic drug level monitoring | CPT/HCPCS: 85610; 99211 ==

== ENCOUNTER → 2022-12-22 09:59 | Outpatient (BNVA) | payer OTHER, SELFPAY | PROVIDERS: PCP Internal Medicine; Visit Provider Internal Medicine | DX: Z95.2 Presence of prosthetic heart valve (principal); Z79.01 Long term (current) use of anticoagulants; Z51.81 Encounter for therapeutic drug level monitoring | CPT/HCPCS: 85610; 99211 ==

== ENCOUNTER → 2022-12-28 10:22 | Outpatient (BNVA) | payer OTHER, SELFPAY | PROVIDERS: PCP Internal Medicine; Visit Provider Internal Medicine | DX: Z95.2 Presence of prosthetic heart valve (principal); Z79.01 Long term (current) use of anticoagulants; Z51.81 Encounter for therapeutic drug level monitoring | CPT/HCPCS: 85610; 99211 ==

== ENCOUNTER → 2023-01-06 09:46 | Outpatient (BNVA) | payer OTHER, SELFPAY | PROVIDERS: PCP Internal Medicine; Visit Provider Internal Medicine | DX: Z95.2 Presence of prosthetic heart valve (principal); Z79.01 Long term (current) use of anticoagulants; Z51.81 Encounter for therapeutic drug level monitoring | CPT/HCPCS: 85610; 99211 ==

== ENCOUNTER → 2023-01-20 10:17 | Outpatient (BNVA) | payer OTHER, SELFPAY | PROVIDERS: PCP Internal Medicine; Visit Provider Internal Medicine | DX: Z95.2 Presence of prosthetic heart valve (principal); Z79.01 Long term (current) use of anticoagulants; Z51.81 Encounter for therapeutic drug level monitoring | CPT/HCPCS: 85610; 99211 ==

== ENCOUNTER → 2023-02-03 09:52 | Outpatient (BNVA) | payer OTHER, SELFPAY | PROVIDERS: PCP Internal Medicine; Visit Provider Internal Medicine | DX: Z95.2 Presence of prosthetic heart valve (principal); Z79.01 Long term (current) use of anticoagulants; Z51.81 Encounter for therapeutic drug level monitoring | CPT/HCPCS: 85610; 99211 ==

== ENCOUNTER → 2023-02-16 09:54 | Outpatient (BNVA) | payer OTHER, SELFPAY | PROVIDERS: PCP Internal Medicine; Visit Provider Internal Medicine | DX: Z95.2 Presence of prosthetic heart valve (principal); Z79.01 Long term (current) use of anticoagulants; Z51.81 Encounter for therapeutic drug level monitoring | CPT/HCPCS: 85610; 99211 ==

== ENCOUNTER → 2023-02-23 09:42 | Outpatient (BNVA) | payer OTHER, SELFPAY | PROVIDERS: PCP Internal Medicine; Visit Provider Internal Medicine | DX: Z95.2 Presence of prosthetic heart valve (principal); Z79.01 Long term (current) use of anticoagulants; Z51.81 Encounter for therapeutic drug level monitoring | CPT/HCPCS: 85610; 99211 ==

== ENCOUNTER 2023-03-09 10:09 | Outpatient (AMB) | payer OTHER, SELFPAY ==
--- NOTE | 2023-03-09 10:40 | MHC.OFFVISCO ---
Intake Intake Visit Reasons: Anticoagulation Allergies codeine Allergy (Mild, Verified 03/09/23 10:33) RASH Medication List - Last Reconciled 03/09/23 by Sonja López RN albuterol sulfate 90 mcg/actuation (ProAir HFA) 2 puffs inhalation Q4H PRN ascorbic acid (vitamin C) 250 mg PO BID aspirin 81 mg PO DAILY atorvastatin 20 mg PO QAM calcium carbonate (Calcium Antacid) 600 mg PO BID cholecalciferol (vitamin D3) (Vitamin D3) 50 mcg PO DAILY empagliflozin (Jardiance) 10 mg PO DAILY ferrous sulfate (FeroSul) 325 mg PO DAILY fluoxetine 20 mg PO DAILY fluticasone propion-salmeterol 250-50 mcg/dose 1 ea PO BID furosemide 40 mg PO BID ipratropium-albuterol 0.5 mg-3 mg(2.5 mg base)/3 mL 3 mL inhalation QID PRN lisinopril 10 mg PO DAILY methylcellulose (laxative) (Fiber Laxative (methylcellulose)) 0 mg PO metoprolol succinate ER 50 mg PO DAILY mexiletine 150 mg PO BID montelukast (Singulair) 10 mg PO BEDTIME nebulizers (Sidestream misc) As directed sennosides (Natural Senna Laxative) 8.6 mg PO BEDTIME spironolactone 25 mg PO DAILY torsemide 20 mg PO DAILY warfarin 3.75 mg See Protocol PO DAILY@1800 Nursing Note Amb to [facility] using walker, feeling well Medications and supplements reviewed, message given to pt that she needs to call PCP for appointment to continue with follow up here at [facility] she spoke with them yesterday but can't remember when the appt is scheduleld- to call then today No changes in health, diet, medications, or supplements Denies any unusual signs and symptoms of bruising, bleeding Denies any new Chest pain, SOB, or clotting INR: 3.4 now in therapeutic range (after dose decrease as started on Torsemide) Nutritional guidance given: balance greens and reds in diet Dose: continue new dosing;2.5mg x 3 days and 3.75mg x 4 days F/U INR:2 weeks Patient verbalizes understanding of instructions given with accurate read back/ teach back of dosing Anti-Coag Initial Assessment Social Hx Patient Tobacco Use Status: Former Tobacco user Quit Date: 15 Smoking packs per day: 1 alcohol intake: former Alcohol intake frequency: does not drink Coding Level of Care Code Est Patient Level 1 Diagnoses Current use of anticoagulant therapy Z79.01 Time Spent (min) 15 Results AMB INR Fingerstick AMB INR Fingerstick 3.4 Last Edit by Sonja López RN on 03/09/23 10:39 interface failure Assessment & Plan Assessment & Plan (1) Current use of anticoagulant therapy: Code(s): Z79.01 - intermediate (current) use of anticoagulants Category: Medical
[2023-03-09 10:48] LABS: Prothrombin Time Whole Bld POC 40.7 sec (11.1-13.5); ~PT, ~INR - Anti Coag Clinic 3.4 (0.9-1.1)
== END 2023-03-09 11:23 | disposition home or self-care (01) ==
LOC: HO.ACS 10:09
PROVIDERS: PCP Internal Medicine; Visit Provider Internal Medicine
DX: Z79.01 Long term (current) use of anticoagulants (principal)

== ENCOUNTER → 2023-03-09 10:09 | Outpatient (BNVA) | payer OTHER, SELFPAY | PROVIDERS: PCP Internal Medicine; Visit Provider Internal Medicine | DX: Z95.2 Presence of prosthetic heart valve (principal); Z79.01 Long term (current) use of anticoagulants; Z51.81 Encounter for therapeutic drug level monitoring | CPT/HCPCS: 85610; 99211 ==

== ENCOUNTER 2023-03-27 09:43 | Outpatient (AMB) | payer OTHER, SELFPAY ==
--- NOTE | 2023-03-27 10:03 | MHC.OFFVISCO ---
Intake Intake Visit Reasons: Anticoagulation Allergies codeine Allergy (Mild, Verified 03/27/23 09:57) RASH Medication List - Last Reconciled 03/27/23 by Radha Hines RN albuterol sulfate 90 mcg/actuation (ProAir HFA) 2 puffs inhalation Q4H PRN ascorbic acid (vitamin C) 250 mg PO BID aspirin 81 mg PO DAILY atorvastatin 20 mg PO QAM calcium carbonate (Calcium Antacid) 600 mg PO BID cholecalciferol (vitamin D3) (Vitamin D3) 50 mcg PO DAILY empagliflozin (Jardiance) 10 mg PO DAILY ferrous sulfate (FeroSul) 325 mg PO DAILY fluoxetine 20 mg PO DAILY fluticasone propion-salmeterol 250-50 mcg/dose 1 ea PO BID furosemide 40 mg PO BID ipratropium-albuterol 0.5 mg-3 mg(2.5 mg base)/3 mL 3 mL inhalation QID PRN lisinopril 10 mg PO DAILY methylcellulose (laxative) (Fiber Laxative (methylcellulose)) 0 mg PO metoprolol succinate ER 50 mg PO DAILY mexiletine 150 mg PO BID montelukast (Singulair) 10 mg PO BEDTIME nebulizers (Sidestream misc) As directed sennosides (Natural Senna Laxative) 8.6 mg PO BEDTIME spironolactone 25 mg PO DAILY torsemide 10 mg PO DAILY warfarin 3.75 mg See Protocol PO DAILY@1800 Nursing Note INR 4.7-?? out of therapeutic range Medications and supplements reviewed Patient status: pt amb to [facility] with walker, states not going to her program as much. Medications or supplements: states torsemide reduced to 10mg - has not started yet pt states has lost 10 lbs after starting torsemide Diet: appetite less, has not had greens enc to report any signs and symptoms of bleeding or clotting or unusual bruising Bleeding, bruising, clotting discussed- c.o bruising- aware at risk for bleeding, avoid high risk activity Nutritional guidance given: eat greens to lower inr, no reds for 2 days Dose: hold dose today, reduce dose tomm then cont reg dosing- 2.5mg x 3, 3.75mg x 4 F/U INR Date : 1 week?? Patient verbalizing understanding of instructions given. 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
[2023-03-27 10:05] LABS: Prothrombin Time Whole Bld POC 56.8 sec (11.1-13.5); ~PT, ~INR - Anti Coag Clinic 4.7 (0.9-1.1)
== END 2023-03-27 10:18 | disposition home or self-care (01) ==
LOC: HO.ACS 09:43
PROVIDERS: PCP Internal Medicine; Visit Provider Internal Medicine
DX: Z79.01 Long term (current) use of anticoagulants (principal)

== ENCOUNTER → 2023-03-27 09:43 | Outpatient (BNVA) | payer OTHER, SELFPAY | PROVIDERS: PCP Internal Medicine; Visit Provider Internal Medicine | DX: Z95.2 Presence of prosthetic heart valve (principal); Z79.01 Long term (current) use of anticoagulants; Z51.81 Encounter for therapeutic drug level monitoring | CPT/HCPCS: 85610; 99211 ==

== ENCOUNTER 2023-04-03 09:45 | Outpatient (AMB) | payer OTHER, SELFPAY ==
--- NOTE | 2023-04-03 10:14 | MHC.OFFVISCO ---
Intake Intake Visit Reasons: Anticoagulation Allergies codeine Allergy (Mild, Verified 04/03/23 10:09) RASH Medication List - Last Reconciled 04/03/23 by Radha Hines RN albuterol sulfate 90 mcg/actuation (ProAir HFA) 2 puffs inhalation Q4H PRN ascorbic acid (vitamin C) 250 mg PO BID aspirin 81 mg PO DAILY atorvastatin 20 mg PO QAM calcium carbonate (Calcium Antacid) 600 mg PO BID cholecalciferol (vitamin D3) (Vitamin D3) 50 mcg PO DAILY empagliflozin (Jardiance) 10 mg PO DAILY ferrous sulfate (FeroSul) 325 mg PO DAILY fluoxetine 20 mg PO DAILY fluticasone propion-salmeterol 250-50 mcg/dose 1 ea PO BID furosemide 40 mg PO BID ipratropium-albuterol 0.5 mg-3 mg(2.5 mg base)/3 mL 3 mL inhalation QID PRN lisinopril 10 mg PO DAILY methylcellulose (laxative) (Fiber Laxative (methylcellulose)) 0 mg PO metoprolol succinate ER 50 mg PO DAILY mexiletine 150 mg PO BID montelukast (Singulair) 10 mg PO BEDTIME nebulizers (Sidestream misc) As directed sennosides (Natural Senna Laxative) 8.6 mg PO BEDTIME spironolactone 25 mg PO DAILY torsemide 10 mg PO DAILY warfarin 3.75 mg See Protocol PO DAILY@1800 Nursing Note INR: 3.2- in therapeutic range Medications and supplements reviewed- no changes although recent torsemide reduced to 10mg No changes in health, diet, medications, or supplements, Denies any signs and symptoms of bleeding or bruising or clotting. Bleeding, bruising, clotting discussed Nutritional guidance given Dose: 2.5mg x 3, 3.75mg x 4 F/U INR: 1 week Patient verbalizes understanding of instructions given pt amb with walker Anti-Coag Initial Assessment Social Hx Patient Tobacco Use Status: Former Tobacco user Quit Date: 15 Smoking packs per day: 1 alcohol intake: former Alcohol intake frequency: does not drink Coding Level of Care Code Est Patient Level 1 Diagnoses Current use of anticoagulant therapy Z79.01 Results AMB INR Fingerstick AMB INR Fingerstick 3.2 Last Edit by Radha Hines RN on 04/03/23 10:15 Assessment & Plan Assessment & Plan (1) Current use of anticoagulant therapy: Code(s): Z79.01 - detention (current) use of anticoagulants Category: Medical
[2023-04-03 10:16] LABS: Prothrombin Time Whole Bld POC 38.4 sec (11.1-13.5); ~PT, ~INR - Anti Coag Clinic 3.2 (0.9-1.1)
== END 2023-04-03 10:20 | disposition home or self-care (01) ==
LOC: HO.ACS 09:45
PROVIDERS: PCP Internal Medicine; Visit Provider Internal Medicine
DX: Z79.01 Long term (current) use of anticoagulants (principal)

== ENCOUNTER → 2023-04-03 09:45 | Outpatient (BNVA) | payer OTHER, SELFPAY | PROVIDERS: PCP Internal Medicine; Visit Provider Internal Medicine | DX: Z95.2 Presence of prosthetic heart valve (principal); Z79.01 Long term (current) use of anticoagulants; Z51.81 Encounter for therapeutic drug level monitoring | CPT/HCPCS: 85610; 99211 ==

== ENCOUNTER 2023-04-19 10:12 | Outpatient (AMB) | payer OTHER, SELFPAY ==
[2023-04-19 10:27] LABS: Prothrombin Time Whole Bld POC 51.8 sec (11.1-13.5); ~PT, ~INR - Anti Coag Clinic 4.3 (0.9-1.1)
--- NOTE | 2023-04-19 10:39 | MHC.OFFVISCO ---
Intake Intake Visit Reasons: Anticoagulation Allergies codeine Allergy (Mild, Verified 04/19/23 10:20) RASH Medication List - Last Reconciled 04/19/23 by Karla Moreno RN albuterol sulfate 90 mcg/actuation (ProAir HFA) 2 puffs inhalation Q4H PRN ascorbic acid (vitamin C) 250 mg PO BID aspirin 81 mg PO DAILY atorvastatin 20 mg PO QAM calcium carbonate (Calcium Antacid) 600 mg PO BID cholecalciferol (vitamin D3) (Vitamin D3) 50 mcg PO DAILY empagliflozin (Jardiance) 10 mg PO DAILY ferrous sulfate (FeroSul) 325 mg PO DAILY fluoxetine 20 mg PO DAILY fluticasone propion-salmeterol 250-50 mcg/dose 1 ea PO BID furosemide 40 mg PO BID ipratropium-albuterol 0.5 mg-3 mg(2.5 mg base)/3 mL 3 mL inhalation QID PRN lisinopril 10 mg PO DAILY methylcellulose (laxative) (Fiber Laxative (methylcellulose)) 0 mg PO metoprolol succinate ER 50 mg PO DAILY mexiletine 150 mg PO BID montelukast (Singulair) 10 mg PO BEDTIME nebulizers (Sidestream misc) As directed sennosides (Natural Senna Laxative) 8.6 mg PO BEDTIME spironolactone 25 mg PO DAILY torsemide 10 mg PO DAILY warfarin 3.75 mg See Protocol PO DAILY@1800 Nursing Note PT.HAS INCREASED STRESS OVER FAMILY SITUATIONS. NO CP,SOB,DIET/MED CHANGES,FALLS OR SX OF BLEEDING. HOLD WARFARIN TODAY THEN RESUME USUAL DOSING AND FOLLOW-UP IN 1 WEEK. GOOD UNDERSTANDING OF DOSING INSTR. Anti-Coag Initial Assessment Social Hx Patient Tobacco Use Status: Former Tobacco user Quit Date: 15 Smoking packs per day: 1 alcohol intake: former Alcohol intake frequency: does not drink Coding Level of Care Code Est Patient Level 1 Diagnoses Current use of anticoagulant therapy Z79.01 Assessment & Plan Assessment & Plan (1) Current use of anticoagulant therapy: Code(s): Z79.01 - long-term (current) use of anticoagulants Category: Medical
== END 2023-04-19 10:41 | disposition home or self-care (01) ==
LOC: HO.ACS 10:12
PROVIDERS: PCP Internal Medicine; Visit Provider Internal Medicine
DX: Z79.01 Long term (current) use of anticoagulants (principal)

== ENCOUNTER → 2023-04-19 10:12 | Outpatient (BNVA) | payer OTHER, SELFPAY | PROVIDERS: PCP Internal Medicine; Visit Provider Internal Medicine | DX: Z95.2 Presence of prosthetic heart valve (principal); Z79.01 Long term (current) use of anticoagulants; Z51.81 Encounter for therapeutic drug level monitoring | CPT/HCPCS: 85610; 99211 ==

== ENCOUNTER 2023-04-20 10:54 | Outpatient (REF) | payer OTHER, SELFPAY ==
[2023-04-20 13:27] LABS: Alanine Aminotransferase 19 U/L (0-31); Albumin Level 3.9 g/dL (3.5-5.0); Alkaline Phosphatase 84 U/L (39-117); Anion Gap 13 (12-20); Aspartate Amino Transferase 28 U/L (5-31); Bilirubin Direct 0.2 mg/dL (0.0-0.5); Bilirubin Total 0.6 mg/dL (0.0-1.0); Blood Urea Nitrogen 11 mg/dL (9-16); Calcium 9.6 mg/dL (8.4-10.2); Carbon Dioxide 31 mmol/L (22-29); Chloride 99 mmol/L (96-108); Cholesterol 169 mg/dL (<200); Estimated Glomerular Filt Rate > 60; Glucose Random 147 mg/dL (60-115); HDL Cholesterol 24 mg/dL (>40); LDL Cholesterol Calculated 98 mg/dL (<100); Sodium 139 mmol/L (135-145); Total Protein 8.4 g/dL (6.5-8.0); Triglycerides 235 mg/dL (<150)
== END 2023-04-20 10:55 | disposition home or self-care (01) ==
LOC: HO.HHCL 10:54
PROVIDERS: Visit Provider Internal Medicine
DX: I10 Essential (primary) hypertension (principal)
CPT/HCPCS: 36415; 80048; 80061; 80076

== ENCOUNTER 2023-04-27 09:39 | Outpatient (AMB) | payer OTHER, SELFPAY ==
[2023-04-27 10:19] LABS: Prothrombin Time Whole Bld POC 45.3 sec (11.1-13.5); ~PT, ~INR - Anti Coag Clinic 3.8 (0.9-1.1)
--- NOTE | 2023-04-27 10:26 | MHC.OFFVISCO ---
Intake Intake Visit Reasons: Anticoagulation Allergies codeine Allergy (Mild, Verified 04/27/23 10:14) RASH Medication List - Last Reconciled 04/27/23 by Sonja López RN albuterol sulfate 90 mcg/actuation (ProAir HFA) 2 puffs inhalation Q4H PRN ascorbic acid (vitamin C) 250 mg PO BID aspirin 81 mg PO DAILY atorvastatin 20 mg PO QAM calcium carbonate (Calcium Antacid) 600 mg PO BID cholecalciferol (vitamin D3) (Vitamin D3) 50 mcg PO DAILY empagliflozin (Jardiance) 10 mg PO DAILY ferrous sulfate (FeroSul) 325 mg PO DAILY fluoxetine 20 mg PO DAILY fluticasone propion-salmeterol 250-50 mcg/dose 1 ea PO BID furosemide 40 mg PO BID ipratropium-albuterol 0.5 mg-3 mg(2.5 mg base)/3 mL 3 mL inhalation QID PRN lisinopril 10 mg PO DAILY methylcellulose (laxative) (Fiber Laxative (methylcellulose)) 0 mg PO metoprolol succinate ER 50 mg PO DAILY mexiletine 150 mg PO BID montelukast (Singulair) 10 mg PO BEDTIME nebulizers (Sidestream misc) As directed sennosides (Natural Senna Laxative) 8.6 mg PO BEDTIME spironolactone 25 mg PO DAILY torsemide 10 mg PO DAILY warfarin 3.75 mg See Protocol PO DAILY@1800 Nursing Note Amb to [facility] using walker, feeling stressed pt not elaborating on what is current stressor Medications and supplements reviewed No other changes in health, diet, medications, or supplements Denies any unusual signs and symptoms of bruising, bleeding Denies any new Chest pain, SOB, or clotting INR: 3.8 above therapeutic range (2.5-3.5) has been elevated last few visits possibly due to stress and program food Nutritional guidance given: balance greens and reds in diet Dose: decrease weekly dosing to 3.75mg x 3 days (vs 4 days) and 2.5mg x 4 days (vs 3 days) F/U INR: 12 days Patient verbalizes understanding of instructions given with accurate read back/ teach back of dosing and sts she will follow dosing sheet, dates included on dosing sheet Anti-Coag Initial Assessment Social Hx Patient Tobacco Use Status: Former Tobacco user Quit Date: 15 Smoking packs per day: 1 alcohol intake: former Alcohol intake frequency: does not drink Coding Level of Care Code Est Patient Level 1 Diagnoses Current use of anticoagulant therapy Z79.01 Time Spent (min) 15 Assessment & Plan Assessment & Plan (1) Current use of anticoagulant therapy: 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
== END 2023-04-27 10:33 | disposition home or self-care (01) ==
LOC: HO.ACS 09:39
PROVIDERS: PCP Internal Medicine; Visit Provider Internal Medicine
DX: Z79.01 Long term (current) use of anticoagulants (principal)

== ENCOUNTER → 2023-04-27 09:39 | Outpatient (BNVA) | payer OTHER, SELFPAY | PROVIDERS: PCP Internal Medicine; Visit Provider Internal Medicine | DX: Z95.2 Presence of prosthetic heart valve (principal); Z79.01 Long term (current) use of anticoagulants; Z51.81 Encounter for therapeutic drug level monitoring | CPT/HCPCS: 85610; 99211 ==

== ENCOUNTER 2023-05-09 10:40 | Outpatient (AMB) | payer OTHER, SELFPAY ==
--- NOTE | 2023-05-09 10:57 | MHC.OFFVISCO ---
Intake Intake Visit Reasons: Anticoagulation Allergies codeine Allergy (Mild, Verified 05/09/23 10:52) RASH Medication List - Last Reconciled 05/09/23 by Radha Hines RN albuterol sulfate 90 mcg/actuation (ProAir HFA) 2 puffs inhalation Q4H PRN ascorbic acid (vitamin C) 250 mg PO BID aspirin 81 mg PO DAILY atorvastatin 20 mg PO QAM calcium carbonate (Calcium Antacid) 600 mg PO BID cholecalciferol (vitamin D3) (Vitamin D3) 50 mcg PO DAILY empagliflozin (Jardiance) 10 mg PO DAILY ferrous sulfate (FeroSul) 325 mg PO DAILY fluoxetine 20 mg PO DAILY fluticasone propion-salmeterol 250-50 mcg/dose 1 ea PO BID furosemide 40 mg PO BID ipratropium-albuterol 0.5 mg-3 mg(2.5 mg base)/3 mL 3 mL inhalation QID PRN lisinopril 10 mg PO DAILY methylcellulose (laxative) (Fiber Laxative (methylcellulose)) 0 mg PO metoprolol succinate ER 50 mg PO DAILY mexiletine 150 mg PO BID montelukast (Singulair) 10 mg PO BEDTIME nebulizers (Sidestream misc) As directed sennosides (Natural Senna Laxative) 8.6 mg PO BEDTIME spironolactone 25 mg PO DAILY torsemide 10 mg PO DAILY warfarin 3.75 mg See Protocol PO DAILY@1800 Nursing Note INR: 3.4- in therapeutic range 2.5-3.5 Medications and supplements reviewed- no changes No changes in health, diet, medications, or supplements, Denies any signs and symptoms of bleeding or bruising or clotting. Bleeding, bruising, clotting discussed Nutritional guidance given - eat a green today Dose: 3.75mg x 3, 2.5mg x 4 F/U INR: 2 weeks Patient verbalizes understanding of instructions given pt c.o lower extrem edema- enc to report to cardiology/pcp. she states has appt with cardiology on this week denies shortness of breath at this time- occ sobe- no worse than prev- enc to report to md gan Anti-Coag Initial Assessment Social Hx Patient Tobacco Use Status: Former Tobacco user Quit Date: 15 Smoking packs per day: 1 alcohol intake: former Alcohol intake frequency: does not drink Coding Level of Care Code Est Patient Level 1 Diagnoses Current use of anticoagulant therapy Z79.01 Results AMB INR Fingerstick AMB INR Fingerstick 3.4 Last Edit by Radha Hines RN on 05/09/23 11:00 Assessment & Plan Assessment & Plan (1) Current use of anticoagulant therapy: 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
[2023-05-10 08:06] LABS: Prothrombin Time Whole Bld POC 40.7 sec (11.1-13.5); ~PT, ~INR - Anti Coag Clinic 3.4 (0.9-1.1)
== END 2023-05-09 11:05 | disposition home or self-care (01) ==
LOC: HO.ACS 10:40
PROVIDERS: PCP Internal Medicine; Visit Provider Internal Medicine
DX: Z79.01 Long term (current) use of anticoagulants (principal)

== ENCOUNTER → 2023-05-09 10:40 | Outpatient (BNVA) | payer OTHER, SELFPAY | PROVIDERS: PCP Internal Medicine; Visit Provider Internal Medicine | DX: Z95.2 Presence of prosthetic heart valve (principal); Z79.01 Long term (current) use of anticoagulants; Z51.81 Encounter for therapeutic drug level monitoring | CPT/HCPCS: 85610; 99211 ==

== ENCOUNTER 2023-05-15 10:26 | Outpatient (AMB) | payer OTHER, SELFPAY ==
[2023-05-15 10:54] LABS: Prothrombin Time Whole Bld POC 33.3 sec (11.1-13.5); ~PT, ~INR - Anti Coag Clinic 2.8 (0.9-1.1)
--- NOTE | 2023-05-15 10:54 | MHC.OFFVISCO ---
Intake Intake Visit Reasons: Anticoagulation Allergies codeine Allergy (Mild, Verified 05/15/23 10:47) RASH Medication List - Last Reconciled 05/15/23 by Gregoria Caballero RN albuterol sulfate 90 mcg/actuation (ProAir HFA) 2 puffs inhalation Q4H PRN ascorbic acid (vitamin C) 250 mg PO BID aspirin 81 mg PO DAILY atorvastatin 20 mg PO QAM calcium carbonate (Calcium Antacid) 600 mg PO BID cholecalciferol (vitamin D3) (Vitamin D3) 50 mcg PO DAILY empagliflozin (Jardiance) 10 mg PO DAILY ferrous sulfate (FeroSul) 325 mg PO DAILY fluoxetine 20 mg PO DAILY fluticasone propion-salmeterol 250-50 mcg/dose 1 ea PO BID furosemide 40 mg PO BID ipratropium-albuterol 0.5 mg-3 mg(2.5 mg base)/3 mL 3 mL inhalation QID PRN lisinopril 10 mg PO DAILY methylcellulose (laxative) (Fiber Laxative (methylcellulose)) 0 mg PO metoprolol succinate ER 50 mg PO DAILY mexiletine 150 mg PO BID montelukast (Singulair) 10 mg PO BEDTIME nebulizers (Sidestream misc) As directed sennosides (Natural Senna Laxative) 8.6 mg PO BEDTIME spironolactone 25 mg PO DAILY torsemide 10 mg PO DAILY warfarin 3.75 mg See Protocol PO DAILY@1800 Nursing Note INR: 2.8 in therapeutic range Medications and supplements reviewed states no more nose bleeds , has gi upset with constipation today - she stated she is out of her bowel med, printed med list for her to ask pharmacy - will try EMR request Denies any signs and symptoms of bleeding or bruising or clotting. Bleeding, bruising, clotting discussed Nutritional guidance given - FRUITS AND VEGETABLES, PRUNE JUICE PRN CONSTIPATION Dose: 3.75mg mwf/ 2.5mg x 4 days F/U INR: 05/24/23 Patient verbalizes understanding of instructions given Anti-Coag Initial Assessment Social Hx Patient Tobacco Use Status: Former Tobacco user Quit Date: 15 Smoking packs per day: 1 alcohol intake: former Alcohol intake frequency: does not drink Coding Level of Care Code Est Patient Level 1 Diagnoses Current use of anticoagulant therapy Z79.01 Assessment & Plan Assessment & Plan (1) Current use of anticoagulant therapy: Code(s): 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
== END 2023-05-15 11:03 | disposition home or self-care (01) ==
LOC: HO.ACS 10:26
PROVIDERS: PCP Internal Medicine; Visit Provider Internal Medicine
DX: Z79.01 Long term (current) use of anticoagulants (principal)

== ENCOUNTER → 2023-05-15 10:26 | Outpatient (BNVA) | payer OTHER, SELFPAY | PROVIDERS: PCP Internal Medicine; Visit Provider Internal Medicine | DX: Z95.2 Presence of prosthetic heart valve (principal); Z79.01 Long term (current) use of anticoagulants; Z51.81 Encounter for therapeutic drug level monitoring | CPT/HCPCS: 85610; 99211 ==

== ENCOUNTER 2023-05-24 10:16 | Outpatient (AMB) | payer OTHER, SELFPAY ==
[2023-05-24 10:22] LABS: Prothrombin Time Whole Bld POC 30.4 sec (11.1-13.5); ~PT, ~INR - Anti Coag Clinic 2.5 (0.9-1.1)
--- NOTE | 2023-05-24 10:27 | MHC.OFFVISCO ---
Intake Intake Visit Reasons: Anticoagulation Allergies codeine Allergy (Mild, Verified 05/24/23 10:16) RASH Medication List - Last Reconciled 05/24/23 by Karla Moreno RN albuterol sulfate 90 mcg/actuation (ProAir HFA) 2 puffs inhalation Q4H PRN ascorbic acid (vitamin C) 250 mg PO BID aspirin 81 mg PO DAILY atorvastatin 20 mg PO QAM calcium carbonate (Calcium Antacid) 600 mg PO BID cholecalciferol (vitamin D3) (Vitamin D3) 50 mcg PO DAILY empagliflozin (Jardiance) 10 mg PO DAILY ferrous sulfate (FeroSul) 325 mg PO DAILY fluoxetine 20 mg PO DAILY fluticasone propion-salmeterol 250-50 mcg/dose 1 ea PO BID furosemide 40 mg PO BID ipratropium-albuterol 0.5 mg-3 mg(2.5 mg base)/3 mL 3 mL inhalation QID PRN lisinopril 10 mg PO DAILY methylcellulose (laxative) (Fiber Laxative (methylcellulose)) 500 mg PO DAILY metoprolol succinate ER 50 mg PO DAILY mexiletine 150 mg PO BID montelukast (Singulair) 10 mg PO BEDTIME nebulizers (Sidestream misc) As directed sennosides (Natural Senna Laxative) 8.6 mg PO BEDTIME spironolactone 25 mg PO DAILY torsemide 10 mg PO DAILY warfarin 3.75 mg See Protocol PO DAILY@1800 Nursing Note NO CP,SOB,DIET/MED CHANGES,FALLS OR SX OF BLEEDING. CONTINUE PRESENT DOSE AND FOLLOW-UP IN 2 WEEKS. GOOD UNDERSTANDING OF DOSING INSTR. 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
== END 2023-05-24 10:30 | disposition home or self-care (01) ==
LOC: HO.ACS 10:16
PROVIDERS: PCP Internal Medicine; Visit Provider Internal Medicine
DX: Z79.01 Long term (current) use of anticoagulants (principal)

== ENCOUNTER → 2023-05-24 10:16 | Outpatient (BNVA) | payer OTHER, SELFPAY | PROVIDERS: PCP Internal Medicine; Visit Provider Internal Medicine | DX: Z95.2 Presence of prosthetic heart valve (principal); Z51.81 Encounter for therapeutic drug level monitoring; Z79.01 Long term (current) use of anticoagulants | CPT/HCPCS: 85610; 99211 ==

== ENCOUNTER 2023-05-28 16:23 | Inpatient (IN) | payer OTHER, SELFPAY ==
[2023-05-28 16:42] VITALS: BP 110/72; PULSE 80; O2SAT 97
[2023-05-28 18:01] VITALS: BP 120/56; PULSE 72; RESP 20; O2SAT 98
[2023-05-28 18:04] VITALS: BP 115/84; PULSE 74; RESP 20; TEMP 36.6; O2SAT 98; BMI 48.2
[2023-05-28 18:22] LABS: MANUAL DIFF FLAG NO
[2023-05-28 18:37] LABS: Basophils Absolute Auto 0.1 X10*3/uL (0.0-0.2); Eosinophils Absolute Auto 0.1 X10*3/uL (0.0-0.4); Eosinophils Percent Auto 1.9 % (0-4); Hematocrit 47.2 % (37.0-47.0); Hemoglobin 15.2 g/dl (12.0-16.0); Imm Gran Abs Auto 0.02 X10*3/uL (0.00-0.03); Imm Gran Pct Auto 0.3 % (0.0-0.4); Lymphocytes Percent Auto 15.4 % (20-40); Mean Corpuscular HGB Conc 32.2 g/dl (31.0-35.0); Mean Corpuscular Hemoglobin 28.3 pg (27.0-33.0); Mean Corpuscular Volume 87.9 fL (80.0-98.0); Monocytes Absolute Auto 0.5 X10*3/uL (0.1-1.2); Neutrophils Percent Auto 73.4 % (45-73); Platelet Count 277 X10*3/uL (160-400); Red Blood Count 5.37 X10*6/uL (4.20-5.50); Red Cell Distribution Width 16.6 % (11.0-16.0); White Blood Count 6.8 X10*3/uL (4.8-10.8)
[2023-05-28 18:45] LABS: Alanine Aminotransferase 23 U/L (0-31); Albumin Level 4.1 g/dL (3.5-5.0); Alkaline Phosphatase 85 U/L (39-117); Anion Gap 16 (12-20); Aspartate Amino Transferase 26 U/L (5-31); Bilirubin Direct 0.3 mg/dL (0.0-0.5); Bilirubin Total 0.8 mg/dL (0.0-1.0); Blood Urea Nitrogen 16 mg/dL (9-16); Calcium 9.5 mg/dL (8.4-10.2); Carbon Dioxide 26 mmol/L (22-29); Chloride 103 mmol/L (96-108); Creatinine Clr Calc Pharmacy 61.5; Estimated Glomerular Filt Rate > 60; Glucose Random 110 mg/dL (60-115); Lipase 12 U/L (8-78); Sodium 141 mmol/L (135-145); Total Protein 8.1 g/dL (6.5-8.0)
--- NOTE | 2023-05-28 18:49 | ED.GENADULT ---
HPI - General Adult General Chief complaint: Dyspnea Stated complaint: DIZZINESS, WEAKNESS Time Seen by Provider: 05/28/23 18:14 History of Present Illness HPI narrative: Patient 57 years old with history of COPD, HANS on CPAP, morbid obesity, ischemic cardiomyopathy with ejection fraction of 15-20% with left breast carcinoma invasive ductal status post radiation chemo and low back status post prosthetic mitral valve on Coumadin comes in for increased shortness of breath and cough for last 1 week noticed saturating 87% at room air Related Data Home Medications Medication Instructions Recorded Confirmed aspirin 81 mg tablet,delayed 81 mg PO DAILY 09/23/20 05/28/23 release atorvastatin 20 mg tablet 20 mg PO QAM 09/23/20 05/28/23 fluoxetine 20 mg capsule 20 mg PO DAILY 11/20/20 05/28/23 ipratropium 0.5 mg-albuterol 3 mg 3 ml inhalation QID PRN Shortness 11/20/20 05/28/23 (2.5 mg base)/3 mL nebulization Of Breath Or Wheezing soln montelukast 10 mg tablet 10 mg PO BEDTIME 11/20/20 05/28/23 (Singulair) nebulizers (Sidestream [facility] [place]) #1 ea 10/05/21 05/22/23 ferrous sulfate 325 mg (65 mg 325 mg PO DAILY 12/22/21 05/28/23 iron) tablet (FeroSul) mexiletine 150 mg capsule 150 mg PO BID 09/02/22 05/28/23 spironolactone 25 mg tablet 25 mg PO DAILY 09/02/22 05/28/23 empagliflozin 10 mg tablet 10 mg PO DAILY 10/07/22 05/28/23 (Jardiance) lisinopril 10 mg tablet 10 mg PO DAILY 10/07/22 05/28/23 metoprolol succinate 50 mg 50 mg PO DAILY 10/07/22 05/28/23 tablet,extended release 24 hr albuterol sulfate 90 mcg/actuation 2 puff inhalation Q4H PRN 10/09/22 05/28/23 aerosol inhaler (ProAir HFA) shortness of breath or wheezing warfarin 2.5 mg tablet 3.75 mg PO DAILY@1800 10/09/22 05/28/23 ascorbic acid (vitamin C) 250 mg 250 mg PO BID 02/16/23 05/28/23 tablet calcium carbonate 200 mg calcium 600 mg PO BID 02/16/23 05/28/23 (500 mg) chewable tablet (Calcium Antacid) torsemide 20 mg tablet 10 mg PO DAILY 03/27/23 05/28/23 Previous Rx's Medication Instructions Recorded sennosides 8.6 mg tablet (Natural 8.6 mg PO BEDTIME constipation #90 09/02/22 Senna Laxative) tabs cholecalciferol (vitamin D3) 50 50 mcg PO DAILY #90 caps 11/21/22 mcg (2,000 unit) capsule (Vitamin D3) fluticasone 250 mcg-salmeterol 50 1 ea PO BID #60 ea 12/15/22 mcg/dose blistr powdr for inhalation Allergies Allergy/AdvReac Type Severity Reaction Status Date / Time codeine Allergy Mild RASH Verified 05/28/23 18:07 [facility] Past Medical History Medical History HANS (obstructive sleep apnea) Pacemaker COPD (chronic obstructive pulmonary disease) Restrictive lung disease Morbid obesity Surgical History History of prosthetic mitral valve Hx of section Hx of heart bypass surgery Family History Family History Mother Diabetes Heart disease Father Diabetes Heart attack Maternal Aunt Diabetes Maternal Uncle Diabetes Maternal Grandfather Diabetes Maternal Grandmother Diabetes Paternal Grandfather Heart disease Paternal Grandmother Heart disease Daughter Bipolar 1 disorder Brother Lung cancer Maternal Uncle Lung cancer Social History Social History Household Members: Family Housing: Apartment Are you a primary senior care manager to a significant other at home: Yes (Grandkids) 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) Alcohol intake: former Patient Tobacco Use Status: Former Tobacco user Quit Date: 15 Cigarette Packs Per Day: 1 Years Smoked: 32 Smoked in Last 30 Days: No Second Hand Smoke Exposure: Yes Use of substances other than those prescribed or required for medical reasons: No Advance Directives: No Advance Directives Information Provided: No Patient : No service: No Current occupational status: retired and disabled Physical Exam ED Vital Signs: Vital Signs - 24 hr 05/28/23 18:01 05/28/23 18:04 05/28/23 19:12 Temperature 97.8 F Pulse Rate 72 74 71 Respiratory Rate 20 20 16 Blood Pressure 120/56 L 115/84 Pulse Oximetry 98 98 Oxygen Delivery Method Room Air Room Air Oxygen Flow Rate 05/28/23 19:45 Temperature 97.8 F Pulse Rate 80 Respiratory Rate 15 Blood Pressure 113/78 Pulse Oximetry 99 Oxygen Delivery Method Room Air Oxygen Flow Rate 2 BMI result Body Mass Index 48.2 Appearance: Alert. Oriented X3. No acute distress. Eyes: PERRLA, No Nystagmus ENT: Pharynx normal. Oral Mucosa moist Neck: Normal inspection. Neck supple. CVS: Normal heart rate and rhythm. Pulses normal. Prosthetic valve click left apex Respiratory: No respiratory distress. Equal air entry bilateral, decreased air entry bilateral with fine crackles at the base Abdomen: Soft and nontender. Bowel sounds are present, no mass palpable, no CVA tenderness Skin: Skin warm and dry. Normal skin color. Normal skin turgor. Extremities: Trace lower extremity edema. No calf tenderness Neuro: Oriented X 3. No motor deficit. No sensory deficit.No cerebellar signs , cranial nerves II-XII intact Medications Administered Generic Name Dose Route Start Last Admin Trade Name Freq PRN Reason Stop Dose Admin Sodium Chloride 3 ml 05/29/23 00:00 05/29/23 00:06 0.9 % Sodium Chloride Flush 3 Ml Syringe IVFLUSH 3 ml QSHIFT BOBO Administration Discontinued Medications Generic Name Dose Route Start Last Admin Trade Name Freq PRN Reason Stop Dose Admin Albuterol Sulfate 2.5 mg/ 0 mg 05/28/23 19:03 05/28/23 19:09 Albuterol/Ipratropium 3 ml INHALE 05/28/23 19:04 5 dose ONCE ONE Administration Furosemide 20 mg 05/28/23 21:39 05/28/23 22:31 Furosemide 20 Mg/2 Ml Vial IVPUSH 05/28/23 21:40 20 mg ONCE ONE Administration Protocol Methylprednisolone Sodium Succinate 125 mg 05/28/23 19:06 05/28/23 19:41 Methylprednisolone Sod Succ 125 Mg/2 Ml Vial IVPUSH 05/28/23 19:07 125 mg ONCE ONE Administration Medical Decision Making Medical Decision Making MDM Narrative: Patient with acute on chronic shortness of breath workup showed pulmonary congestion with elevated BNP saturating 87% at room admit patient for IV diuresis. Patient taking p.o. torsemide Differential Diagnosis Differential Diagnoses: The differential diagnosis associated with the presentation includes CHF/COPD/asthma/pneumothorax/pneumonia Admission/Observation Consideration of admission/observation: Escalation of care including admission/observation considered Consult Healthcare Provider Management of the patient was discussed with: Hospitalist Lab Data MDM Lab Attestation statement: I reviewed the patient's lab results. 05/28/23 18:18 05/28/23 18:18 Labs: Lab Results 05/28/23 05/28/23 Range/Units 18:18 21:54 WBC 6.8 (4.8-10.8) X10*3/uL RBC 5.37 (4.20-5.50) X10*6/uL Hgb 15.2 (12.0-16.0) g/dl Hct 47.2 H (37.0-47.0) % MCV 87.9 (80.0-98.0) fL MCH 28.3 (27.0-33.0) pg MCHC 32.2 (31.0-35.0) g/dl RDW 16.6 H (11.0-16.0) % Plt Count 277 (160-400) X10*3/uL MPV 11.0 (9.4-12.3) fL Immature Gran % (Auto) 0.3 (0.0-0.4) % Neut % (Auto) 73.4 H (45-73) % Lymph % (Auto) 15.4 L (20-40) % Bureau % (Auto) 8.0 (2-11) % Eos % (Auto) 1.9 (0-4) % Baso % (Auto) 1.0 (0-2) % Lymph # (Auto) 1.0 L (1.2-4.9) X10*3/uL Bureau # (Auto) 0.5 (0.1-1.2) X10*3/uL Eos # (Auto) 0.1 (0.0-0.4) X10*3/uL Baso # (Auto) 0.1 (0.0-0.2) X10*3/uL Abs Immat Gran (auto) 0.02 (0.00-0.03) X10*3/uL Absolute Neuts (auto) 5.0 (2.0-8.3) x10*3/uL Absolute Nucleated RBC 0.000 (0.0-0.012) X10*3/uL Nucleated RBC % (auto) 0.0 (0.0-0.2) /100WBC Sodium 141 (135-145) mmol/L Potassium 4.0 (3.3-5.1) mmol/L Chloride 103 (96-108) mmol/L Carbon Dioxide 26 (22-29) mmol/L Anion Gap 16 (12-20) BUN 16 (9-16) mg/dL Creatinine 0.88 (0.5-1.4) mg/dL Estim Creat Clear Calc 61.5 Estimated GFR > 60 Random Glucose 110 (60-115) mg/dL Calcium 9.5 (8.4-10.2) mg/dL Total Bilirubin 0.8 (0.0-1.0) mg/dL Direct Bilirubin 0.3 (0.0-0.5) mg/dL AST 26 (5-31) U/L ALT 23 (0-31) U/L Alkaline Phosphatase 85 (39-117) U/L Troponin I High Sens 8.6 D (<3.5-17.0) ng/L B-Natriuretic Peptide 883 H (<100) pg/mL Total Protein 8.1 H (6.5-8.0) g/dL Albumin 4.1 (3.5-5.0) g/dL Lipase 12 (8-78) U/L COVID-19 (STEPHEN) Negative (Negative) COVID-19 Clin Com See Note Independent Interpretation I performed an independent interpretation of an: EKG Interpretation: Atrial sensed paced rhythm no acute ST T wave changes no acute ischemia heart rate 74 beats per minute Critical Care Time Critical Care Time Critical Care Time: Yes Total Critical Care Time: 45 Attestation: The patient was critically ill with a high probability of imminent or life threatening deterioration. I spent greater than 50 minutes of discontinuous time evaluating the patient,delivering critical care at the bedside, discussing and evaluating pertinent data with consultants. Critical care time does not include time spent performing separately billable procedures or teaching. Total time spent performing critical care was 45 minutes. Discharge Plan Discharge Clinical Impression: Acute and chronic respiratory failure with hypoxia, Acute on chronic congestive heart failure Patient Disposition: Admitted As Inpatient
[2023-05-28 19:12] VITALS: PULSE 71; RESP 16; O2SAT 99
[2023-05-28 19:45] VITALS: BP 113/78; PULSE 80; RESP 15; TEMP 36.6; O2SAT 99
--- NOTE | 2023-05-28 19:56 | PC.NURSE ---
IV line placed with no complication. Purewick place. Pt tolerated well.
[2023-05-28 20:00] LABS: B Type Natriuretic Peptide 883 pg/mL (<100)
--- NOTE | 2023-05-28 22:00 | PM.IMHP ---
History of Present Illness Date of Service: 05/28/23 Chief Complaint: sob 57-year-old female with a past medical history of ischemic cardiomyopathy with EF of about 10% status post AICD, COPD, HANS no longer using CPAP due to noncompliance, morbid obesity, breast CA, mechanical mitral valve, hypertension, mood disorder presented with shortness of breath. Patient states her shortness of breath started about 2 weeks prior to presentation, initially was social with dry cough but has since resolved. Continues to have worsening shortness of breath, orthopnea, pedal edema. Denies any fevers or chills. Reports some wheezing, did not get relief from Robitussin or nebs at home. In ED chest x-ray with some pulmonary vasculature congestion. BNP elevated. Hypoxic to 86% on room air. Review of Systems Review of Systems: Yes all other systems are reviewed and are negative [facility] Medical History HANS (obstructive sleep apnea) Pacemaker COPD (chronic obstructive pulmonary disease) Restrictive lung disease Morbid obesity Family History Mother Diabetes Heart disease Father Diabetes Heart attack Maternal Aunt Diabetes Maternal Uncle Diabetes Maternal Grandfather Diabetes Maternal Grandmother Diabetes Paternal Grandfather Heart disease Paternal Grandmother Heart disease Daughter Bipolar 1 disorder Brother Lung cancer Maternal Uncle Lung cancer Surgical History History of prosthetic mitral valve Hx of section Hx of heart bypass surgery Social History Household Members: Family Housing: Apartment Are you a primary hospice care sales consultant to a significant other at home: Yes (Grandkids) Do you presently have visiting nurse 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) Alcohol intake: former Patient Tobacco Use Status: Former Tobacco user Quit Date: 15 Cigarette Packs Per Day: 1 Years Smoked: 32 Smoked in Last 30 Days: No Second Hand Smoke Exposure: Yes Use of substances other than those prescribed or required for medical reasons: No Advance Directives: No Advance Directives Information Provided: No Patient : No service: No Current occupational status: retired and disabled Meds Allergies Allergy/AdvReac Type Severity Reaction Status Date / Time codeine Allergy Mild RASH Verified 05/28/23 18:07 Home Medications Medication Instructions Recorded Confirmed Last Taken Type aspirin 81 mg tablet,delayed 81 mg PO DAILY 09/23/20 05/28/23 10/07/22 History release atorvastatin 20 mg tablet 20 mg PO QAM 09/23/20 05/28/23 10/07/22 History fluoxetine 20 mg capsule 20 mg PO DAILY 11/20/20 05/28/23 10/07/22 History ipratropium 0.5 mg-albuterol 3 mg 3 ml inhalation QID PRN Shortness 11/20/20 05/28/23 10/08/22 History (2.5 mg base)/3 mL nebulization Of Breath Or Wheezing soln montelukast 10 mg tablet 10 mg PO BEDTIME 11/20/20 05/28/23 10/07/22 History (Singulair) nebulizers (Sidestream [facility] [place]) #1 ea 10/05/21 05/22/23 Unknown History ferrous sulfate 325 mg (65 mg 325 mg PO DAILY 12/22/21 05/28/23 10/07/22 History iron) tablet (FeroSul) mexiletine 150 mg capsule 150 mg PO BID 09/02/22 05/28/23 10/07/22 History spironolactone 25 mg tablet 25 mg PO DAILY 09/02/22 05/28/23 10/07/22 History empagliflozin 10 mg tablet 10 mg PO DAILY 10/07/22 05/28/23 10/07/22 History (Jardiance) lisinopril 10 mg tablet 10 mg PO DAILY 10/07/22 05/28/23 10/07/22 History metoprolol succinate 50 mg 50 mg PO DAILY 10/07/22 05/28/23 10/07/22 History tablet,extended release 24 hr albuterol sulfate 90 mcg/actuation 2 puff inhalation Q4H PRN 10/09/22 05/28/23 10/09/22 History aerosol inhaler (ProAir HFA) shortness of breath or wheezing warfarin 2.5 mg tablet 3.75 mg PO DAILY@1800 10/09/22 05/28/23 10/08/22 History ascorbic acid (vitamin C) 250 mg 250 mg PO BID 02/16/23 05/28/23 Unknown History tablet calcium carbonate 200 mg calcium 600 mg PO BID 02/16/23 05/28/23 Unknown History (500 mg) chewable tablet (Calcium Antacid) torsemide 20 mg tablet 10 mg PO DAILY 03/27/23 05/28/23 Unknown History Physical Exam Vital Signs and Narrative: Vital Signs: Last Vital Signs Temp 97.8 F 05/28/23 19:45 Pulse 80 05/28/23 19:45 Resp 15 05/28/23 19:45 BP 113/78 05/28/23 19:45 Pulse Ox 99 05/28/23 19:45 O2 Del Method Room Air 05/28/23 19:45 O2 Flow Rate 2 05/28/23 19:45 BMI result Body Mass Index 48.2 General: AO X 3, no acute distress Resp: Diminished with mild expiratory wheezes bilateral, no accessory muscles used CVS: S1,S2,RRR GI: soft, non tender, non distended Neuro: motor grossly intact, alert Psych: appropriate affect, appropriate insight Results Labs 05/28/23 18:18 05/28/23 18:18 Labs: Laboratory Results - last 24 hr 05/28/23 18:18 MCV 87.9 MCH 28.3 MCHC 32.2 RDW 16.6 H Plt Count 277 MPV 11.0 Immature Gran % (Auto) 0.3 Neut % (Auto) 73.4 H Lymph % (Auto) 15.4 L Bryan % (Auto) 8.0 Eos % (Auto) 1.9 Baso % (Auto) 1.0 Lymph # (Auto) 1.0 L Bryan # (Auto) 0.5 Eos # (Auto) 0.1 Baso # (Auto) 0.1 Abs Immat Gran (auto) 0.02 Absolute Neuts (auto) 5.0 Absolute Nucleated RBC 0.000 Nucleated RBC % (auto) 0.0 Anion Gap 16 Estim Creat Clear Calc 61.5 Estimated GFR > 60 Random Glucose 110 Calcium 9.5 Total Bilirubin 0.8 Direct Bilirubin 0.3 AST 26 ALT 23 Alkaline Phosphatase 85 B-Natriuretic Peptide 883 H Total Protein 8.1 H Albumin 4.1 Lipase 12 Imaging Radiologist's Impressions: Impressions Chest X-Ray 05/28/23 18:55 IMPRESSION: Cardiomegaly with mild pulmonary vascular congestion. Assessment and Plan (1) COPD (chronic obstructive pulmonary disease): Status: Acute Plan 57-year-old female with a past medical history of ischemic cardiomyopathy with EF of about 10% status post AICD, COPD, HANS no longer using CPAP due to noncompliance, morbid obesity, breast CA, mechanical mitral valve, hypertension, mood disorder presented with sob Acute hypoxic respiratory failure secondary to acute on chronic systolic CHF and COPD with acute decompensation IV Lasix, monitor electrolytes, continue neuro hormonal IV steroids, DuoNebs Wean O2 as tolerated HANS Report CPAP taken away at home due to noncompliance, will use at night here Morbid obesity Weight loss History mechanical mitral valve Coumadin, goal INR 2.5-3.5 Hypertension Continue lisinopril, Aldactone History of breast cancer In remission, follow-up oncology as outpatient Mood disorder Continue fluoxetine DVT prophylaxis - on Coumadin Full code Patient with hypoxia and significant fluid overload requiring IV diuretics and COPD exacerbation requiring O2 supplementation and IV steroids, patient high risk for further decompensation due to history of CHF, COPD, morbid obesity, therefore, expected to require at least 2 midnights inpatient Time Spent With Patient Time: Total time managing care of this patient today ____ minutes. Quality Stroke Does the patient have a stroke diagnosis?: No VTE Prior VTE?: No VTE Risk Level:: Medical - moderate - high VTE Device Contraindication: Treatment Not Indicated VTE Drug Contraindication: N/A - Med Ordered
[2023-05-28 22:23] VITALS: BP 107/76; PULSE 77; RESP 21; O2SAT 98
--- NOTE | 2023-05-28 22:37 | PC.NURSE ---
pt reported to nurse that she has a rash under L breast. has been putting desitin on it at home
--- NOTE | 2023-05-28 23:01 | PC.NURSE ---
med rec completed
[2023-05-29] VITALS (10 sets, daily range): BP systolic 87–101; BP diastolic 51–59; PULSE 62–84; RESP 13–20; TEMP 36.2–36.8; O2SAT 91–99; BMI 50.7
--- NOTE | 2023-05-29 01:47 | PC.NURSE ---
pt O2 stat from to 76%. pt asleep with NC off. assist with replacing NC. O2 back to 96%
[2023-05-29 06:27] LABS: Prothrombin Time 36.9 SEC (11.1-13.3)
[2023-05-29 06:31] LABS: Hematocrit 46.9 % (37.0-47.0); Hemoglobin 14.4 g/dl (12.0-16.0); Mean Corpuscular HGB Conc 30.7 g/dl (31.0-35.0); Mean Corpuscular Hemoglobin 27.9 pg (27.0-33.0); Mean Corpuscular Volume 90.7 fL (80.0-98.0); Mean Platelet Volume 11.5 fL (9.4-12.3); Platelet Count 233 X10*3/uL (160-400); Red Blood Count 5.17 X10*6/uL (4.20-5.50); Red Cell Distribution Width 16.4 % (11.0-16.0); White Blood Count 8.4 X10*3/uL (4.8-10.8)
[2023-05-29 06:37] LABS: Anion Gap 16 (12-20); Blood Urea Nitrogen 16 mg/dL (9-16); Calcium 8.8 mg/dL (8.4-10.2); Carbon Dioxide 27 mmol/L (22-29); Chloride 103 mmol/L (96-108); Creatinine Clr Calc Pharmacy 67.7; Estimated Glomerular Filt Rate > 60; Glucose Fasting 142 mg/dL (60-99); Magnesium 2.5 mg/dL (1.6-2.6); Potassium 4.1 mmol/L (3.3-5.1); Sodium 142 mmol/L (135-145)
--- NOTE | 2023-05-29 09:50 | PC.NURSE ---
seen by helicopter officer (torin
--- NOTE | 2023-05-29 10:33 | PC.NURSE ---
PT DESAT TO 81% ON RA WHILE SLEEPING, SHE WAS PLACED ON 2LNC IMPROVED TO 96%
--- NOTE | 2023-05-29 11:33 | PC.NURSE ---
pt's vss 87/51-77, hosp sponge clipper (sherri) aware. pt is asymptomatic. meds: mexitil, lasix, mmetorprol succ and spironlactone held.
--- NOTE | 2023-05-29 11:39 | HO.PM.IMPN ---
Subjective Subjective Date of Service: 05/29/23 Physical Exam Vital Signs: Vital Signs: Last Vital Signs Temp 97.7 F 05/29/23 10:57 Pulse 70 05/29/23 11:33 Resp 20 05/29/23 11:33 BP 87/51 L 05/29/23 10:57 Pulse Ox 98 05/29/23 10:57 O2 Del Method Nasal Cannula 05/29/23 10:57 O2 Flow Rate 2 05/29/23 10:57 BMI result Body Mass Index 48.2 Objective Data Active Medications Albuterol/Ipratropium (Albuterol/Iprat 2.5/0.5mg 3 Ml Ampul.Neb) 3 ml INHALE RQ4H WHILE AWAKE [facility] Last Admin: 05/29/23 11:32 Dose: 3 ml Documented By: WANDER Ascorbic Acid (Ascorbic Acid 250 Mg Tablet) 250 mg PO BID [facility] Last Admin: 05/29/23 11:01 Dose: 250 mg Documented By: ELZBIETA Aspirin (Aspirin Enteric Coated 81 Mg Tablet.Dr) 81 mg PO DAILY [facility] Last Admin: 05/29/23 11:02 Dose: 81 mg Documented By: ELZBIETA Atorvastatin Calcium (Atorvastatin Calcium 20 Mg Tablet) 20 mg PO DAILY [facility] Last Admin: 05/29/23 11:01 Dose: 20 mg Documented By: ELZBIETA Calcium Carbonate (Calcium Carbonate 750 Mg Tab.Chew) 750 mg PO BID [facility] Last Admin: 05/29/23 11:02 Dose: 750 mg Documented By: ELZBIETA Empagliflozin (Empagliflozin 10 Mg Tablet) 10 mg PO DAILY [facility] Last Admin: 05/29/23 11:05 Dose: 10 mg Documented By: ELZBIETA Fluoxetine HCl (Fluoxetine Hcl 20 Mg Capsule) 20 mg PO DAILY [facility] Last Admin: 05/29/23 11:35 Dose: Not Given Documented By: ELZBIETA Non-Admin Reason: Patient Refused Fluticasone/Vilanterol (Fluticasone/Vilanterol 100/25 Blst.W.Dev) 1 puff INHALE RDAILY [facility] Last Admin: 05/29/23 11:16 Dose: Not Given Documented By: WANDER Non-Admin Reason: See Note Furosemide (Furosemide 40 Mg/4 Ml Vial) 40 mg IVPUSH BID@0900,1800 [facility]; Protocol Last Admin: 05/29/23 11:30 Dose: Not Given Documented By: ELZBIETA Non-Admin Reason: 2ndary to [facility] Lisinopril (Lisinopril 10 Mg Tablet) 10 mg PO DAILY [facility]; Protocol Last Admin: 05/29/23 11:31 Dose: Not Given Documented By: ELZBIETA Non-Admin Reason: re [facility] Methylprednisolone Sodium Succinate (Methylprednisolone Sod Succ 40 Mg/Ml Vial) 40 mg IVPUSH Q12H [facility] Last Admin: 05/29/23 11:01 Dose: 40 mg Documented By: ELZBIETA Metoprolol Succinate (Metoprolol Succinate Er 50 Mg Tab.Er.24h) 50 mg PO DAILY [facility]; Protocol Last Admin: 05/29/23 11:31 Dose: Not Given Documented By: ELZBIETA Non-Admin Reason: re [facility]. Mexiletine HCl (Mexiletine Hcl 150 Mg Capsule) 150 mg PO BID [facility] Last Admin: 05/29/23 11:32 Dose: Not Given Documented By: ELZBIETA Non-Admin Reason: re [facility] Montelukast Sodium (Montelukast Sodium 10 Mg Tablet) 10 mg PO BEDTIME [facility] Nystatin (Nystatin Cream 15 Gm Tube) 1 appl TOPICAL BID [facility]; Protocol Last Admin: 05/29/23 11:03 Dose: 1 appl Documented By: ELZBIETA Senna (Sennosides 8.6 Mg Tablet) 8.6 mg PO BEDTIME [facility] Sodium Chloride (0.9 % Sodium Chloride Flush 3 Ml Syringe) 3 ml IVFLUSH QSHIFT [facility] Last Admin: 05/29/23 11:01 Dose: 3 ml Documented By: ELZBIETA Spironolactone (Spironolactone 25 Mg Tablet) 25 mg PO DAILY [facility]; Protocol Last Admin: 05/29/23 11:32 Dose: Not Given Documented By: ELZBIETA Non-Admin Reason: re [facility] Vitamin D (Cholecalciferol (Vitamin D3) 25 Mcg Tablet) 50 mcg PO DAILY [facility] Last Admin: 05/29/23 11:02 Dose: 50 mcg Documented By: ELZBIETA Warfarin Sodium (Warfarin Sodium 2.5 Mg Tablet) 2.5 mg PO SUTUTHSA@1800 [facility] Warfarin Sodium (Warfarin Sodium 1.25 Mg Halftab) 3.75 mg PO MOWEFR@1800 [facility] Labs 05/29/23 05:59 05/29/23 05:59 Labs: Laboratory Results - last 24 hr 05/28/23 05/28/23 05/29/23 18:18 21:54 05:59 MCV 87.9 90.7 MCH 28.3 27.9 MCHC 32.2 30.7 L RDW 16.6 H 16.4 H Plt Count 277 233 MPV 11.0 11.5 Immature Gran % (Auto) 0.3 Neut % (Auto) 73.4 H Lymph % (Auto) 15.4 L [place] % (Auto) 8.0 Eos % (Auto) 1.9 Baso % (Auto) 1.0 Lymph # (Auto) 1.0 L [place] # (Auto) 0.5 Eos # (Auto) 0.1 Baso # (Auto) 0.1 Abs Immat Gran (auto) 0.02 Absolute Neuts (auto) 5.0 Absolute Nucleated RBC 0.000 0.000 Nucleated RBC % (auto) 0.0 0.0 PT 36.9 H INR 3.0 H Anion Gap 16 16 Estim Creat Clear Calc 61.5 67.7 Estimated GFR > 60 > 60 Random Glucose 110 Fasting Glucose 142 H Calcium 9.5 8.8 D Magnesium 2.5 Total Bilirubin 0.8 Direct Bilirubin 0.3 AST 26 ALT 23 Alkaline Phosphatase 85 B-Natriuretic Peptide 883 H Total Protein 8.1 H Albumin 4.1 Lipase 12 COVID-19 (STEPHEN) Negative COVID-19 Clin Com See Note Assessment and Plan (1) Acute on chronic congestive heart failure: Status: Acute Plan 57-year-old female with a past medical history of ischemic cardiomyopathy with EF of about 10% status post AICD, COPD, HANS no longer using CPAP due to noncompliance, morbid obesity, breast CA, mechanical mitral valve, hypertension, mood disorder presented with sob Acute hypoxic respiratory failure secondary to acute on chronic HFrEF and COPD with acute decompensation IV Lasix IV steroids, DuoNebs Wean O2 as tolerated Hx of hypertension with Hypotension hold lisinopril, spironolactone and BB small amount of fluid. 500ml @75hr HANS Report CPAP taken away at home due to noncompliance, will use at night here Morbid obesity. BMI 48.2 Weight loss History mechanical mitral valve Coumadin, goal INR 2.5-3.5 History of breast cancer In remission, follow-up oncology as outpatient Mood disorder Continue fluoxetine DVT prophylaxis - on Coumadin Attending Dr. Saunders Full code Continued hospital stay for Patient with hypoxia and significant fluid overload requiring IV diuretics and COPD exacerbation requiring O2 supplementation and IV steroids, patient high risk for further decompensation due to history of CHF, COPD, morbid obesity. Time Spent With Patient Time: Total time managing care of this patient today ____ minutes. Quality Stroke Does the patient have a stroke diagnosis?: No VTE Prior VTE?: No VTE Risk Level:: Medical - moderate - high VTE Device Contraindication: Treatment Not Indicated VTE Drug Contraindication: N/A - Med Ordered
--- NOTE | 2023-05-29 11:54 | MHC.CM.PN ---
Patient is unavailable;CM spoke with Primary Contact/Daughter/Daja @ [phone] and addressed IMM with her (original will be mailed certified letter to Daja and a copy will be placed on the chart). Patient lives in an apartment with her Boyfriend and her Daughter and she uses a walker to assist with mobility. Patient receives 33 hours/week of [employer] services and home/resume said services is the goal. CM has initiated and will follow for dc planning. HCP is on file and PCP is Dr. De Dios.
--- NOTE | 2023-05-29 13:07 | PC.NURSE ---
ECHOCARDIAC WAS DONE AT BEDSIDE.
--- NOTE | 2023-05-29 13:42 | PC.NURSE ---
RN TO RN REPORT GIVEN TO MARY. PT AWARE OF PLAN OF CARE FOR TRANSPORT TO ROOM 487.
[2023-05-30] VITALS (13 sets, daily range): BP systolic 83–114; BP diastolic 56–68; PULSE 72–88; RESP 16–20; TEMP 36–36.6; O2SAT 90–98
[2023-05-30 06:38] LABS: Anion Gap 16 (12-20); Blood Urea Nitrogen 21 mg/dL (9-16); Calcium 8.8 mg/dL (8.4-10.2); Carbon Dioxide 29 mmol/L (22-29); Chloride 100 mmol/L (96-108); Creatinine Clr Calc Pharmacy 71.8; Estimated Glomerular Filt Rate > 60; Glucose Random 158 mg/dL (60-115); Potassium 4.2 mmol/L (3.3-5.1); Sodium 141 mmol/L (135-145)
--- NOTE | 2023-05-30 11:31 | P.PNIM_ITS ---
Subjective Subjective Date of Service: 05/30/23 <Lindsey Burgos NP - Last Filed: 05/30/23 13:03> 06/18/23 <Trino Walters MD - Last Filed: 06/18/23 10:10> Review of Systems Follow up CHF and COPD exacerabation feelling better mild sob with ambulation <Lindsey Burgos NP - Last Filed: 05/30/23 13:03> Physical Exam 2 Vital Signs: Vital Signs: Last Vital Signs Temp 97.3 F 05/30/23 08:00 Pulse 82 05/30/23 08:37 Resp 18 05/30/23 08:37 BP 111/67 05/30/23 10:30 Pulse Ox 95 05/30/23 08:00 O2 Del Method Room Air 05/30/23 08:00 O2 Flow Rate 2 05/30/23 00:00 BMI result Body Mass Index 50.7 <Lindsey Burgos NP - Last Filed: 05/30/23 13:03> Appearing in no acute distress lung sounds exp wheezing heart regular rate rhythm, clear S1, S2 positive bowel sounds, abdomen is soft, nontender neuro patient is alert x3, no focal deficits <Lindsey Burgos NP - Last Filed: 05/30/23 13:03> Objective Data Active Medications Albuterol/Ipratropium (Albuterol/Iprat 2.5/0.5mg 3 Ml Ampul.Neb) 3 ml INHALE RQ4H WHILE AWAKE [facility] Last Admin: 05/30/23 08:35 Dose: 3 ml Documented By: TRINA Ascorbic Acid (Ascorbic Acid 250 Mg Tablet) 250 mg PO BID [facility] Last Admin: 05/30/23 09:44 Dose: 250 mg Documented By: LIZBETH Aspirin (Aspirin Enteric Coated 81 Mg Tablet.) 81 mg PO DAILY [facility] Last Admin: 05/30/23 09:44 Dose: 81 mg Documented By: LIZBETH Atorvastatin Calcium (Atorvastatin Calcium 20 Mg Tablet) 20 mg PO DAILY [facility] Last Admin: 05/30/23 09:44 Dose: 20 mg Documented By: LIZBETH Calcium Carbonate (Calcium Carbonate 750 Mg Tab.Chew) 750 mg PO BID [facility] Last Admin: 05/30/23 09:45 Dose: 750 mg Documented By: LIZBETH Empagliflozin (Empagliflozin 10 Mg Tablet) 10 mg PO DAILY [facility] Last Admin: 05/30/23 09:44 Dose: 10 mg Documented By: LIZBETH Fluoxetine HCl (Fluoxetine Hcl 20 Mg Capsule) 20 mg PO DAILY [facility] Last Admin: 05/30/23 09:45 Dose: Not Given Documented By: LIZBETH Non-Admin Reason: Patient Refused Fluticasone/Vilanterol (Fluticasone/Vilanterol 100/25 Blst.W.Dev) 1 puff INHALE RDAILY [facility] Last Admin: 05/30/23 08:36 Dose: 1 puff Documented By: TRINA Furosemide (Furosemide 40 Mg/4 Ml Vial) 40 mg IVPUSH BID@0900,1800 [facility]; Protocol Last Admin: 05/30/23 09:43 Dose: 40 mg Documented By: LIZBETH Lisinopril (Lisinopril 10 Mg Tablet) 10 mg PO DAILY [facility]; Protocol Last Admin: 05/29/23 11:31 Dose: Not Given Documented By: ELZBIETA Non-Admin Reason: re vss Methylprednisolone Sodium Succinate (Methylprednisolone Sod Succ 40 Mg/Ml Vial) 40 mg IVPUSH Q12H [facility] Last Admin: 05/30/23 09:43 Dose: 40 mg Documented By: LIZBETH Metoprolol Succinate (Metoprolol Succinate Er 50 Mg Tab.Er.24h) 50 mg PO DAILY [facility]; Protocol Last Admin: 05/29/23 11:31 Dose: Not Given Documented By: ELZBIETA Non-Admin Reason: re vss. Mexiletine HCl (Mexiletine Hcl 150 Mg Capsule) 150 mg PO BID [facility] Last Admin: 05/30/23 09:43 Dose: 150 mg Documented By: LIZBETH Montelukast Sodium (Montelukast Sodium 10 Mg Tablet) 10 mg PO BEDTIME [facility] Last Admin: 05/29/23 20:52 Dose: 10 mg Documented By: PRATIK Nystatin (Nystatin Cream 15 Gm Tube) 1 appl TOPICAL BID [facility]; Protocol Last Admin: 05/30/23 09:49 Dose: 1 appl Documented By: LIZBETH Polyethylene Glycol (Polyethylene Glycol 3350 17 Gm Powd.Pack) 17 gm PO DAILY [facility] Last Admin: 05/30/23 09:47 Dose: 17 gm Documented By: LIZBETH Senna (Sennosides 8.6 Mg Tablet) 8.6 mg PO BEDTIME [facility] Last Admin: 05/29/23 20:52 Dose: 8.6 mg Documented By: PRATIK Sodium Chloride (0.9 % Sodium Chloride Flush 3 Ml Syringe) 3 ml IVFLUSH QSHIFT [facility] Last Admin: 05/30/23 09:47 Dose: 3 ml Documented By: LIZBETH Spironolactone (Spironolactone 25 Mg Tablet) 25 mg PO DAILY [facility]; Protocol Last Admin: 05/29/23 11:32 Dose: Not Given Documented By: ELZBIETA Non-Admin Reason: re vss 87/51-77 Vitamin D (Cholecalciferol (Vitamin D3) 25 Mcg Tablet) 50 mcg PO DAILY [facility] Last Admin: 05/30/23 09:44 Dose: 50 mcg Documented By: LIZBETH Warfarin Sodium (Warfarin Sodium 2.5 Mg Tablet) 2.5 mg PO SUTUTHSA@1800 [facility] Warfarin Sodium (Warfarin Sodium 1.25 Mg Halftab) 3.75 mg PO MOWEFR@1800 [facility] Last Admin: 05/29/23 17:59 Dose: 3.75 mg Documented By: NEETA <Lindsey Burgos NP - Last Filed: 05/30/23 13:03> Labs CBC & Chem 7: 06/04/23 07:04 06/02/23 06:35 <Lindsey Burgos NP - Last Filed: 05/30/23 13:03> Labs: Laboratory Results - last 24 hr 05/30/23 05:55 Hold Purple Top SEE NOTE PT 47.5 H D INR 3.9 H Anion Gap 16 Estim Creat Clear Calc 71.8 Estimated GFR > 60 Random Glucose 158 H Calcium 8.8 <Lindsey Burgos NP - Last Filed: 05/30/23 13:03> Assessment and Plan (1) Acute on chronic congestive heart failure: Status: Resolved <Lindsey Burgos NP - Last Filed: 05/30/23 13:03> Assessment and Plan: 57-year-old female with a past medical history of ischemic cardiomyopathy with EF of about 10% status post AICD, COPD, HANS no longer using CPAP due to noncompliance, morbid obesity, breast CA, mechanical mitral valve, hypertension, mood disorder presented with sob Acute hypoxic respiratory failure secondary to acute on chronic HFrEF and COPD with acute decompensation continue IV Lasix, IV steroids, DuoNebs scheduled echocardiogram EF 15-20% Discussed with cardiology> needs diuresis, increase lasix to 80mg BID, hold antihypertensives for now to avoid worsening hypotension continue jardiance Wean O2 as tolerated Hx of hypertension with Hypotension appears to be chronic hypotension hold lisinopril, spironolactone and BB for now careful administration of IV lasix HANS Report CPAP taken away at home due to noncompliance will use at night here Morbid obesity. BMI 50.7 Discussed importance of weight management as this may be contributing to worsening of other comorbidities History mechanical mitral valve INR 3.9 Coumadin, goal INR 2.5-3.5 Hold warfarin today History of breast cancer In remission, follow-up oncology as outpatient Mood disorder Continue fluoxetine DVT prophylaxis - on Coumadin Attending Dr. Walters Full code Continued hospital stay for Patient with hypoxia and significant fluid overload requiring IV diuretics and COPD exacerbation requiring O2 supplementation and IV steroids, patient high risk for further decompensation due to history of CHF, COPD, morbid obesity. <Lindsey Burgos NP - Last Filed: 05/30/23 13:03> Time Spent With Patient Time: Total time managing care of this patient today ____ minutes. <Lindsey Burgos NP - Last Filed: 05/30/23 13:03> Quality Stroke Does the patient have a stroke diagnosis?: No <BK Hernandez Last Filed: 05/30/23 13:03> VTE Prior VTE?: No <Lindsey Burgos NP - Last Filed: 05/30/23 13:03> VTE Risk Level:: Medical - moderate - high <BK Hernandez Last Filed: 05/30/23 13:03> VTE Device Contraindication: Treatment Not Indicated <BK Hernandez Last Filed: 05/30/23 13:03> VTE Drug Contraindication: N/A - Med Ordered <Lindsey Burgos NP - Last Filed: 05/30/23 13:03>
--- NOTE | 2023-05-30 12:08 | MHC.CM.PN ---
EMR REVIEWED, PT W/ACUTE RF ON HF/COPD, PT REMAINS ON IV LASIX/SOLUMEDROL BID AND PRN NEB TX'S, NO PLAN FOR D/C AT THIS TIME, NO PLAN FOR D/C AT THIS TIME, PLAN CONT'S TO BE HOME W/FAMILY SUPPORT/[employer], CM WILL CONT TO FOLLOW D/C NEEDS.
--- NOTE | 2023-05-30 13:05 | PM.CNCAR ---
History of Present Illness History of Present Illness Date of Service: 05/30/23 Requesting physician: Lindsey Burgos Chief complaint: CHF, COPD Narrative: [age] year female with known history of cardiomyopathy with severe dysfunction and previous mitral valve replacement with mechanical valve who is presenting with shortness of breath and weight gain. She also had abdominal distension. She follows up with [facility]. She has no chest discomfort but has been experiencing shortness of breath over the last few weeks. She also gained by her report 5 lb. She is saying that she collects fluid in her abdomen usually when she develops heart failure. She also had some peripheral edema. She is complaining of orthopnea and PND. She also had some hypotension with diuresis and her medications including spironolactone, lisinopril 10 mg, and that Toprol-XL 50 mg were held. No symptomatic hypertension was noticed. Echocardiography reviewed. [facility] Past Medical History Medical History HANS (obstructive sleep apnea) Pacemaker COPD (chronic obstructive pulmonary disease) Restrictive lung disease Morbid obesity Family History Family History Mother Diabetes Heart disease Father Diabetes Heart attack Maternal Aunt Diabetes Maternal Uncle Diabetes Maternal Grandfather Diabetes Maternal Grandmother Diabetes Paternal Grandfather Heart disease Paternal Grandmother Heart disease Daughter Bipolar 1 disorder Brother Lung cancer Maternal Uncle Lung cancer Surgical History Surgical History History of prosthetic mitral valve Hx of section Hx of heart bypass surgery Social History Social History Household Members: Family Housing: Apartment Are you a primary field care coordinator to a significant other at home: Yes (Grandkids) Do you presently have visiting nurse or other home services: Yes Alcohol intake: former Patient Tobacco Use Status: Former Tobacco user Quit Date: 15 Cigarette Packs Per Day: 1 Years Smoked: 32 Second Hand Smoke Exposure: Yes Advance Directives Date on File: 05/29/23 service: No Current occupational status: retired and disabled Meds Allergies Allergy/AdvReac Type Severity Reaction Status Date / Time codeine Allergy Mild RASH Verified 05/28/23 18:07 Active Medications: Current Medications Albuterol/Ipratropium (Albuterol/Iprat 2.5/0.5mg 3 Ml Ampul.Neb) 3 ml INHALE RQ4H WHILE AWAKE [facility] Last Admin: 05/30/23 12:06 Dose: 3 ml Ascorbic Acid (Ascorbic Acid 250 Mg Tablet) 250 mg PO BID [facility] Last Admin: 05/30/23 09:44 Dose: 250 mg Aspirin (Aspirin Enteric Coated 81 Mg Tablet.Dr) 81 mg PO DAILY [facility] Last Admin: 05/30/23 09:44 Dose: 81 mg Atorvastatin Calcium (Atorvastatin Calcium 20 Mg Tablet) 20 mg PO DAILY [facility] Last Admin: 05/30/23 09:44 Dose: 20 mg Calcium Carbonate (Calcium Carbonate 750 Mg Tab.Chew) 750 mg PO BID [facility] Last Admin: 05/30/23 09:45 Dose: 750 mg Empagliflozin (Empagliflozin 10 Mg Tablet) 10 mg PO DAILY [facility] Last Admin: 05/30/23 09:44 Dose: 10 mg Fluoxetine HCl (Fluoxetine Hcl 20 Mg Capsule) 20 mg PO DAILY [facility] Last Admin: 05/30/23 09:45 Dose: Not Given Fluticasone/Vilanterol (Fluticasone/Vilanterol 100/25 Blst.W.Dev) 1 puff INHALE RDAILY [facility] Last Admin: 05/30/23 08:36 Dose: 1 puff Furosemide (Furosemide 40 Mg/4 Ml Vial) 80 mg IVPUSH BID@0900,1800 [facility]; Protocol Lisinopril (Lisinopril 10 Mg Tablet) 10 mg PO DAILY [facility]; Protocol Last Admin: 05/29/23 11:31 Dose: Not Given Methylprednisolone Sodium Succinate (Methylprednisolone Sod Succ 40 Mg/Ml Vial) 40 mg IVPUSH Q12H [facility] Last Admin: 05/30/23 09:43 Dose: 40 mg Metoprolol Succinate (Metoprolol Succinate Er 50 Mg Tab.Er.24h) 50 mg PO DAILY [facility]; Protocol Last Admin: 05/29/23 11:31 Dose: Not Given Mexiletine HCl (Mexiletine Hcl 150 Mg Capsule) 150 mg PO BID [facility] Last Admin: 05/30/23 09:43 Dose: 150 mg Montelukast Sodium (Montelukast Sodium 10 Mg Tablet) 10 mg PO BEDTIME [facility] Last Admin: 05/29/23 20:52 Dose: 10 mg Nystatin (Nystatin Cream 15 Gm Tube) 1 appl TOPICAL BID [facility]; Protocol Last Admin: 05/30/23 09:49 Dose: 1 appl Polyethylene Glycol (Polyethylene Glycol 3350 17 Gm Powd.Pack) 17 gm PO DAILY [facility] Last Admin: 05/30/23 09:47 Dose: 17 gm Senna (Sennosides 8.6 Mg Tablet) 8.6 mg PO BEDTIME [facility] Last Admin: 05/29/23 20:52 Dose: 8.6 mg Sodium Chloride (0.9 % Sodium Chloride Flush 3 Ml Syringe) 3 ml IVFLUSH QSHIFT [facility] Last Admin: 05/30/23 09:47 Dose: 3 ml Spironolactone (Spironolactone 25 Mg Tablet) 25 mg PO DAILY [facility]; Protocol Last Admin: 05/29/23 11:32 Dose: Not Given Vitamin D (Cholecalciferol (Vitamin D3) 25 Mcg Tablet) 50 mcg PO DAILY [facility] Last Admin: 05/30/23 09:44 Dose: 50 mcg Warfarin Sodium (Warfarin Sodium 2.5 Mg Tablet) 2.5 mg PO SUTUTHSA@1800 [facility] Warfarin Sodium (Warfarin Sodium 1.25 Mg Halftab) 3.75 mg PO MOWEFR@1800 [facility] Last Admin: 05/29/23 17:59 Dose: 3.75 mg Home Medications Medication Instructions Recorded Confirmed Last Taken Type aspirin 81 mg tablet,delayed 81 mg PO DAILY 09/23/20 05/28/23 10/07/22 History release atorvastatin 20 mg tablet 20 mg PO QAM 09/23/20 05/28/23 10/07/22 History fluoxetine 20 mg capsule 20 mg PO DAILY 11/20/20 05/28/23 10/07/22 History ipratropium 0.5 mg-albuterol 3 mg 3 ml inhalation QID PRN Shortness 11/20/20 05/28/23 10/08/22 History (2.5 mg base)/3 mL nebulization Of Breath Or Wheezing soln montelukast 10 mg tablet 10 mg PO BEDTIME 11/20/20 05/28/23 10/07/22 History (Singulair) nebulizers (Sidestream misc) #1 ea 10/05/21 05/22/23 Unknown History ferrous sulfate 325 mg (65 mg 325 mg PO DAILY 12/22/21 05/28/23 10/07/22 History iron) tablet (FeroSul) mexiletine 150 mg capsule 150 mg PO BID 09/02/22 05/28/23 10/07/22 History spironolactone 25 mg tablet 25 mg PO DAILY 09/02/22 05/28/23 10/07/22 History empagliflozin 10 mg tablet 10 mg PO DAILY 10/07/22 05/28/23 10/07/22 History (Jardiance) lisinopril 10 mg tablet 10 mg PO DAILY 10/07/22 05/28/23 10/07/22 History metoprolol succinate 50 mg 50 mg PO DAILY 10/07/22 05/28/23 10/07/22 History tablet,extended release 24 hr albuterol sulfate 90 mcg/actuation 2 puff inhalation Q4H PRN 10/09/22 05/28/23 10/09/22 History aerosol inhaler (ProAir HFA) shortness of breath or wheezing warfarin 2.5 mg tablet 3.75 mg PO DAILY@1800 10/09/22 05/24/23 10/08/22 History ascorbic acid (vitamin C) 250 mg 250 mg PO BID 02/16/23 05/28/23 Unknown History tablet calcium carbonate 200 mg calcium 600 mg PO BID 02/16/23 05/28/23 Unknown History (500 mg) chewable tablet (Calcium Antacid) torsemide 20 mg tablet 10 mg PO DAILY 03/27/23 05/28/23 Unknown History warfarin 2.5 mg tablet 2.5 mg PO SUTUTHSA@1800 05/29/23 05/29/23 Unknown History warfarin 2.5 mg tablet 3.75 mg PO MOWEFR@1800 05/29/23 05/29/23 Unknown History Physical Exam Vital Signs: Vital Signs: Last Vital Signs Temp 97.4 F 05/30/23 12:00 Pulse 75 05/30/23 12:07 Resp 18 05/30/23 12:07 BP 99/58 L 05/30/23 12:00 Pulse Ox 94 05/30/23 12:00 O2 Del Method Room Air 05/30/23 12:00 O2 Flow Rate 2 05/30/23 00:00 BMI result Body Mass Index 50.7 GENERAL APPEARANCE: in no acute distress, pleasant. NECK: no carotid bruit, + jugular venous distention. SKIN: no suspicious lesions, warm and dry. HEART: no murmurs, regular rate and rhythm. LUNGS: clear to auscultation bilaterally. ABDOMEN: soft, nontender. EXTREMITIES: + edema. PERIPHERAL PULSES: equal. NEUROLOGIC: No gross deficits, AAO X 3 Objective Labs and Meds 05/29/23 05:59 05/30/23 05:55 Lab results: Laboratory Results - last 24 hr 05/30/23 05:55 Hold Purple Top SEE NOTE PT 47.5 H D INR 3.9 H Sodium 141 Potassium 4.2 Chloride 100 Carbon Dioxide 29 Anion Gap 16 BUN 21 H Creatinine 0.78 Estim Creat Clear Calc 71.8 Estimated GFR > 60 Random Glucose 158 H Calcium 8.8 Assessment and Plan (1) Acute on chronic congestive heart failure: Status: Acute Plan Pleasant 57 year female who is presenting with congestive heart failure. Clinically she is volume overloaded. She has history of cardiomyopathy with severe LV dysfunction and previous mitral valve replacement with mechanical valve. She has been on aspirin Coumadin. I have reviewed her angiogram from 2017 and she did not have any coronary artery disease at that time. Clinically she is volume overloaded. Agree with holding her antihypertensive therapy. Lasix 80 mg IV b.i.d.. I would continue the spironolactone though at 25 mg daily. Stop the mexiletine as it is a negative ionotropic agent and may be affecting her contractility. Continue Jardiance. She has low blood pressures but no symptomatic hypotension at this stage. I think we may have to tolerate some low blood pressures if she is asymptomatic. Coumadin should be continued with an INR target 2.5-3.5. Mechanical mitral valve is a low-flow valve and can thrombose easily if subtherapeutic. Thank you for allowing me to participate in the care of your patient. Please feel free to contact me if you have any questions. Time Spent With Patient Time: Total time managing care of this patient today ____ minutes. Procedures Date of Service Date of Service: 05/30/23
--- NOTE | 2023-05-30 17:02 | PC.NURSE ---
Patient A&OX4. Neurologically intact. YORK to command 4/5 sensation intact. Denies pain/discomfort. +pp bilat no edema noted. LSC dim bases remains on room air satting mid 90's. Denies SOB or CP, NSR with first degree HB. BS+X4 abdomen soft non-tender per pt had BM this am. Voiding without difficulty in commode. Stand by assist. Refusing bed alarm at times pt educated on need but gets frustrated when trying to sit in bed. Seen by cardiology this am. SBP soft at times TECHNICAL SOLUTIONS CONSULTANT aware. Will continue to monitor and report changes
[2023-05-31] VITALS (9 sets, daily range): BP systolic 97–110; BP diastolic 51–74; PULSE 72–86; RESP 12–18; TEMP 36.1–36.5; O2SAT 92–95
[2023-05-31 05:12] LABS: INTERNATIONAL NORM RATIO 4.5 (0.9-1.1); Prothrombin Time 55.3 SEC (11.1-13.3)
--- NOTE | 2023-05-31 09:18 | P.PNIM_ITS ---
Subjective Subjective Date of Service: 05/31/23 <Lindsey Burgos NP - Last Filed: 05/31/23 09:23> 06/18/23 <Trino Walters MD - Last Filed: 06/18/23 10:12> Review of Systems Follow up CHF and COPD exacerabation feelling better mild sob with ambulation <Lindsey Burgos NP - Last Filed: 05/31/23 09:23> Physical Exam 2 Vital Signs: Vital Signs: Last Vital Signs Temp 97.4 F 05/31/23 08:00 Pulse 80 05/31/23 08:00 Resp 18 05/31/23 08:00 BP 98/61 05/31/23 08:00 Pulse Ox 92 05/31/23 08:00 O2 Del Method Room Air 05/31/23 08:00 O2 Flow Rate 2 05/30/23 00:00 BMI result Body Mass Index 50.7 <Lindsey Burgos NP - Last Filed: 05/31/23 09:23> Appearing in no acute distress JVD lung sounds mild rales heart regular rate rhythm, clear S1, S2 positive bowel sounds, abdomen is soft, nontender neuro patient is alert x3, no focal deficits <Linsdey Burgos NP - Last Filed: 05/31/23 09:23> Objective Data Active Medications Albuterol/Ipratropium (Albuterol/Iprat 2.5/0.5mg 3 Ml Ampul.Neb) 3 ml INHALE RQ4H WHILE AWAKE [facility] Last Admin: 05/31/23 07:30 Dose: Not Given Documented By: FANY Non-Admin Reason: Patient Asleep Ascorbic Acid (Ascorbic Acid 250 Mg Tablet) 250 mg PO BID [facility] Last Admin: 05/30/23 20:45 Dose: 250 mg Documented By: PRATIK Aspirin (Aspirin Enteric Coated 81 Mg Tablet.) 81 mg PO DAILY [facility] Last Admin: 05/30/23 09:44 Dose: 81 mg Documented By: LIZBETH Atorvastatin Calcium (Atorvastatin Calcium 20 Mg Tablet) 20 mg PO DAILY [facility] Last Admin: 05/30/23 09:44 Dose: 20 mg Documented By: LIZBETH Calcium Carbonate (Calcium Carbonate 750 Mg Tab.Chew) 750 mg PO BID [facility] Last Admin: 05/30/23 20:45 Dose: 750 mg Documented By: PRATIK Empagliflozin (Empagliflozin 10 Mg Tablet) 10 mg PO DAILY [facility] Last Admin: 05/30/23 09:44 Dose: 10 mg Documented By: LIZBETH Fluoxetine HCl (Fluoxetine Hcl 20 Mg Capsule) 20 mg PO DAILY [facility] Last Admin: 05/30/23 09:45 Dose: Not Given Documented By: LIZBETH Non-Admin Reason: Patient Refused Fluticasone/Vilanterol (Fluticasone/Vilanterol 100/25 Blst.W.Dev) 1 puff INHALE RDAILY [facility] Last Admin: 05/31/23 07:30 Dose: Not Given Documented By: FANY Non-Admin Reason: Patient Asleep Furosemide (Furosemide 40 Mg/4 Ml Vial) 80 mg IVPUSH BID@0900,1800 [facility]; Protocol Last Admin: 05/30/23 17:45 Dose: 80 mg Documented By: LIZBETH Lisinopril (Lisinopril 10 Mg Tablet) 10 mg PO DAILY [facility]; Protocol Last Admin: 05/29/23 11:31 Dose: Not Given Documented By: ELZBIETA Non-Admin Reason: re vss Methylprednisolone Sodium Succinate (Methylprednisolone Sod Succ 40 Mg/Ml Vial) 40 mg IVPUSH Q12H [facility] Last Admin: 05/30/23 20:45 Dose: 40 mg Documented By: PRATIK Metoprolol Succinate (Metoprolol Succinate Er 50 Mg Tab.Er.24h) 50 mg PO DAILY [facility]; Protocol Last Admin: 05/29/23 11:31 Dose: Not Given Documented By: ELZBIETA Non-Admin Reason: re vss. Montelukast Sodium (Montelukast Sodium 10 Mg Tablet) 10 mg PO BEDTIME [facility] Last Admin: 05/30/23 20:45 Dose: 10 mg Documented By: PRATIK Nystatin (Nystatin Cream 15 Gm Tube) 1 appl TOPICAL BID [facility]; Protocol Last Admin: 05/30/23 22:55 Dose: Not Given Documented By: PRATIK Non-Admin Reason: Previously Administered Polyethylene Glycol (Polyethylene Glycol 3350 17 Gm Powd.Pack) 17 gm PO DAILY [facility] Last Admin: 05/30/23 09:47 Dose: 17 gm Documented By: LIZBETH Senna (Sennosides 8.6 Mg Tablet) 8.6 mg PO BEDTIME [facility] Last Admin: 05/30/23 20:44 Dose: 8.6 mg Documented By: PRATIK Sodium Chloride (0.9 % Sodium Chloride Flush 3 Ml Syringe) 3 ml IVFLUSH QSHIFT [facility] Last Admin: 05/30/23 20:54 Dose: 3 ml Documented By: PRATIK Spironolactone (Spironolactone 25 Mg Tablet) 25 mg PO DAILY [facility]; Protocol Last Admin: 05/29/23 11:32 Dose: Not Given Documented By: ELZBIETA Non-Admin Reason: re vss 87/51-77 Vitamin D (Cholecalciferol (Vitamin D3) 25 Mcg Tablet) 50 mcg PO DAILY [facility] Last Admin: 05/30/23 09:44 Dose: 50 mcg Documented By: LIZBETH Warfarin Sodium (Warfarin Sodium 2.5 Mg Tablet) 2.5 mg PO SUTUTHSA@1800 [facility] Warfarin Sodium (Warfarin Sodium 1.25 Mg Halftab) 3.75 mg PO MOWEFR@1800 [facility] Last Admin: 05/29/23 17:59 Dose: 3.75 mg Documented By: NEETA <Lindsey Burgos NP - Last Filed: 05/31/23 09:23> Labs CBC & Chem 7: 06/04/23 07:04 06/02/23 06:35 <Lindsey Burgos NP - Last Filed: 05/31/23 09:23> Labs: Laboratory Results - last 24 hr 05/31/23 04:42 Hold Purple Top SEE NOTE PT 55.3 H INR 4.5 H Hold Yellow Top See Note <Lindsey Burgos NP - Last Filed: 05/31/23 09:23> Assessment and Plan (1) Acute on chronic congestive heart failure: Status: Resolved <Lindsey Burgos NP - Last Filed: 05/31/23 09:23> Assessment and Plan: 57-year-old female with a past medical history of ischemic cardiomyopathy with EF of about 10% status post AICD, COPD, HANS no longer using CPAP due to noncompliance, morbid obesity, breast CA, mechanical mitral valve, hypertension, mood disorder presented with sob Acute hypoxic respiratory failure secondary to acute on chronic HFrEF and COPD with acute decompensation IV steroids, DuoNebs scheduled for COPD echocardiogram EF 15-20% Discussed with cardiology> needs diuresis, increase lasix to 80mg BID, hold antihypertensives for now to avoid worsening hypotension continue jardiance Wean O2 as tolerated Hx of hypertension with Hypotension appears to be chronic hypotension hold lisinopril, spironolactone, will add BB back at reduced dose of 25 mg careful administration of IV lasix HANS Report CPAP taken away at home due to noncompliance will use at night here Morbid obesity. BMI 50.7 Discussed importance of weight management as this may be contributing to worsening of other comorbidities History mechanical mitral valve with supratherapeutic INR no bleeding, stable HH INR 4.5 Coumadin, goal INR 2.5-3.5 Hold warfarin today History of breast cancer In remission, follow-up oncology as outpatient Mood disorder Continue fluoxetine DVT prophylaxis - on Coumadin Attending Dr. Walters Full code Continued hospital stay for Patient with hypoxia and significant fluid overload requiring IV diuretics and COPD exacerbation requiring O2 supplementation and IV steroids, patient high risk for further decompensation due to history of CHF, COPD, morbid obesity. <Lindsey Burgos NP - Last Filed: 05/31/23 09:23> Time Spent With Patient Time: Total time managing care of this patient today ____ minutes. <Lindsey Burgos NP - Last Filed: 05/31/23 09:23> Quality Stroke Does the patient have a stroke diagnosis?: No <Lindsey Burgos NP - Last Filed: 05/31/23 09:23> VTE Prior VTE?: No <Lindsey Burgos NP - Last Filed: 05/31/23 09:23> VTE Risk Level:: Medical - moderate - high <BK Hernandez Last Filed: 05/31/23 09:23> VTE Device Contraindication: Treatment Not Indicated <Lindsey Burgos NP - Last Filed: 05/31/23 09:23> VTE Drug Contraindication: N/A - Med Ordered <Lindsey Burgos NP - Last Filed: 05/31/23 09:23>
--- NOTE | 2023-05-31 09:33 | MHC.CM.PN ---
EMR REVIEWED, PT W/CHF/COPD, PLAN FOR INCREASE IN IV LASIX PER CARDIOLOGY, NO PLAN FOR DC AT THIS TIME, CM WILL CONT TO FOLLOW D/C NEEDS.
--- NOTE | 2023-05-31 14:01 | PM.PNCARD ---
Subjective Subjective Date of Service: 05/31/23 Interval history: Seen and examined at bedside. Feeling better. Saying diuresing better. I and Os are not well recorded. Physical Exam Vital Signs: Last Vital Signs Temp 97.2 F 05/31/23 12:00 Pulse 86 05/31/23 12:00 Resp 18 05/31/23 12:00 BP 110/70 05/31/23 12:00 Pulse Ox 94 05/31/23 12:00 O2 Del Method Room Air 05/31/23 12:00 O2 Flow Rate 2 05/30/23 00:00 BMI result Body Mass Index 50.7 GENERAL APPEARANCE: in no acute distress, pleasant. NECK: no carotid bruit, + jugular venous distention. SKIN: no suspicious lesions, warm and dry. HEART: no murmurs, regular rate and rhythm. LUNGS: clear to auscultation bilaterally. ABDOMEN: soft, nontender. EXTREMITIES: + edema. PERIPHERAL PULSES: equal. NEUROLOGIC: No gross deficits, AAO X 3 Objective Labs and Meds 05/29/23 05:59 05/30/23 05:55 Lab results: Laboratory Results - last 24 hr 05/31/23 04:42 Hold Purple Top SEE NOTE PT 55.3 H INR 4.5 H Hold Yellow Top See Note Progress Note: A&P Assessment and plan (1) Acute on chronic congestive heart failure: Status: Acute Plan 57 female with previous mechanical MVR with no h/o CAD based on cardiac cath,who has severe cardiomyopathy. Clinically overloaded. c/w Lasix. Resume spironolactone. If she tolerates spironolactone then can resume lisinopril at 2.5 mg. Hold BB. Etiology of the cardiomyopathy is nonischemic. She had a pacemaker placed a few years back. She will need to f/u with EP as probably should get a primary prevention ICD and may be Biv upgrade in case she paces the ventricle significantly. Thank you for allowing me to participate in the care of your patient. Please feel free to contact me if you have any questions. Time Spent With Patient Time: Total time managing care of this patient today ____ minutes. Progress Note: Quality Stroke Does the patient have a stroke diagnosis?: No Procedures Date of Service Date of Service: 05/31/23
[2023-05-31] MEDS: Furosemide 40 MG/4 ML VIAL 80 MG IVPUSH (17:14)
[2023-05-31] MEDS: Albuterol/Iprat 2.5/0.5MG 3 ML AMPUL.NEB INHALE (19:38)
[2023-05-31] MEDS: Ascorbic Acid 250 MG TABLET PO (22:02)
[2023-05-31] MEDS: methylPREDNISolone Sod Succ 40 MG/ML VIAL IVPUSH (22:02)
[2023-05-31] MEDS: Calcium Carbonate 750 MG TAB.CHEW PO (22:02)
[2023-05-31] MEDS: Montelukast Sodium 10 MG TABLET PO (22:02)
[2023-05-31] MEDS: Sennosides 8.6 MG TABLET PO (22:05)
[2023-06-01] VITALS (8 sets, daily range): BP systolic 100–124; BP diastolic 55–85; PULSE 68–84; RESP 16–18; TEMP 36–37; O2SAT 91–96
[2023-06-01 08:01] LABS: INTERNATIONAL NORM RATIO 2.8 (0.9-1.1); Prothrombin Time 33.8 SEC (11.1-13.3)
[2023-06-01 08:05] LABS: B Type Natriuretic Peptide 769 pg/mL (<100)
[2023-06-01 08:08] LABS: Anion Gap 18 (12-20); Blood Urea Nitrogen 26 mg/dL (9-16); Calcium 8.8 mg/dL (8.4-10.2); Carbon Dioxide 32 mmol/L (22-29); Chloride 92 mmol/L (96-108); Creatinine Clr Calc Pharmacy 68.3; Estimated Glomerular Filt Rate > 60; Glucose Random 204 mg/dL (60-115); Potassium 3.7 mmol/L (3.3-5.1); Sodium 138 mmol/L (135-145)
[2023-06-01] MEDS: methylPREDNISolone Sod Succ 40 MG/ML VIAL IVPUSH ×2 (09:06→20:48)
[2023-06-01] MEDS: Furosemide 40 MG/4 ML VIAL 80 MG IVPUSH ×2 (09:06→17:28)
[2023-06-01] MEDS: Calcium Carbonate 750 MG TAB.CHEW PO ×2 (09:07→20:48)
[2023-06-01] MEDS: Cholecalciferol (Vitamin D3) 25 MCG TABLET 50 MCG PO (09:07)
[2023-06-01] MEDS: Atorvastatin Calcium 20 MG TABLET PO (09:07)
[2023-06-01] MEDS: Ascorbic Acid 250 MG TABLET PO ×2 (09:07→20:48)
[2023-06-01] MEDS: Aspirin Enteric Coated 81 MG TABLET.DR PO (09:07)
[2023-06-01] MEDS: polyethylene glycoL 3350 17 GM POWD.PACK PO (09:07)
[2023-06-01] MEDS: Empagliflozin 10 MG TABLET PO (09:08)
[2023-06-01] MEDS: Spironolactone 25 MG TABLET PO (09:08)
--- NOTE | 2023-06-01 10:57 | P.PNCA_ITS ---
Subjective Subjective Date of Service: 06/01/23 Interval history: Seen examined at bedside. I had some contact with her primary marketing intelligence manager. She has a Bi V ICD. There is some concern about medication noncompliance. Physical Exam Vital Signs: Last Vital Signs Temp 97.0 F 06/01/23 07:51 Pulse 68 06/01/23 07:51 Resp 16 06/01/23 07:51 BP 110/69 06/01/23 07:51 Pulse Ox 94 06/01/23 07:51 O2 Del Method Room Air 06/01/23 07:51 O2 Flow Rate 2 05/30/23 00:00 BMI result Body Mass Index 50.7 GENERAL APPEARANCE: in no acute distress, pleasant. NECK: no carotid bruit, no significant jugular venous distention. SKIN: no suspicious lesions, warm and dry. HEART: no murmurs, regular rate and rhythm. LUNGS: clear to auscultation bilaterally. ABDOMEN: soft, nontender. EXTREMITIES: + edema. PERIPHERAL PULSES: equal. NEUROLOGIC: No gross deficits, AAO X 3 Objective Labs and Meds 05/29/23 05:59 06/01/23 06:52 Lab results: Laboratory Results - last 24 hr 06/01/23 06:52 PT 33.8 H D INR 2.8 H Sodium 138 Potassium 3.7 Chloride 92 L Carbon Dioxide 32 H Anion Gap 18 BUN 26 H Creatinine 0.82 Estim Creat Clear Calc 68.3 Estimated GFR > 60 Random Glucose 204 H Calcium 8.8 B-Natriuretic Peptide 769 H Progress Note: A&P Assessment and plan (1) Acute on chronic congestive heart failure: Status: Acute Plan [age] year female with known cardiomyopathy and Bi V AICD who follows with Dr. Edwards. She is admitted with congestive heart failure. She has been diuresed and is improving. I do not see any significant JVD but abdomen is still distended and somewhat dull to percussion. Potentially has some fluid in the abdomen still present. I think we continue IV Lasix 80 mg b.i.d. today. Spironolactone has been resumed. Continue to hold the beta-dinah. If blood pressure stays stable then low-dose lisinopril at 2.5 mg once a day should be added. She was on mexiletine it appears she had a device shock approximately a year ago. Potentially mexiletine was given to her after that. Due to her hypotension we had mexiletine but as she improves we may have to resume it. Monitor electrolytes closely. Follow-up after discharge with Dr. Edwards. Time Spent With Patient Time: Total time managing care of this patient today ____ minutes. Progress Note: Quality Stroke Does the patient have a stroke diagnosis?: No Procedures Date of Service Date of Service: 06/01/23
[2023-06-01] MEDS: Albuterol/Iprat 2.5/0.5MG 3 ML AMPUL.NEB INHALE ×2 (11:54→19:54)
--- NOTE | 2023-06-01 16:46 | P.PNIM_ITS ---
Subjective Subjective Date of Service: 06/01/23 Interval History: seen and examined this morning follow up for CHF feeling better, weaned off of oxygen but has not been ambulating much, still sob with ambulation Review of Systems Review of Systems: Yes all other systems are reviewed and are negative Constitutional Constitutional: Denies chills and Denies fever(s) ENT Ears, Nose, Mouth, and Throat: Denies dizziness Cardiovascular Cardiovascular: Denies chest pain, Denies palpitations and Reports dyspnea on exertion Respiratory Respiratory: Reports dyspnea on exertion Neurologic Neurologic: Denies dizziness Endocrine Endocrine: Denies palpitations Physical Exam 2 Vital Signs: Vital Signs: Last Vital Signs Temp 97.5 F 06/01/23 15:58 Pulse 68 06/01/23 15:58 Resp 18 06/01/23 15:58 BP 110/65 06/01/23 15:58 Pulse Ox 92 06/01/23 15:58 O2 Del Method Room Air 06/01/23 15:58 O2 Flow Rate 2 05/30/23 00:00 BMI result Body Mass Index 50.7 Const: General: cooperative, comfortable, no acute distress, alert and awake Nutritional Appearance: obese Orientation/consciousness: patient oriented x3 Resp: Other: diminished breath sounds; no rales Effort & Inspection: able to speak in complete sentences, no respiratory distress and no use of accessory muscles Cardio: Palpation: normal PMI GI: Inspection: No distended Palpation (GI): Soft to palpation and nontender Neuro: General: patient oriented x3, moves all extremities and CN's II-XI intact bilaterally Extrem: Other: trace edema Objective Data Active Medications Albuterol/Ipratropium (Albuterol/Iprat 2.5/0.5mg 3 Ml Ampul.Neb) 3 ml INHALE RQ4H WHILE AWAKE [facility] Last Admin: 06/01/23 16:04 Dose: Not Given Documented By: ARIANNA Non-Admin Reason: Patient Refused Ascorbic Acid (Ascorbic Acid 250 Mg Tablet) 250 mg PO BID [facility] Last Admin: 06/01/23 09:07 Dose: 250 mg Documented By: SHANE Aspirin (Aspirin Enteric Coated 81 Mg Tablet.) 81 mg PO DAILY [facility] Last Admin: 06/01/23 09:07 Dose: 81 mg Documented By: SHANE Atorvastatin Calcium (Atorvastatin Calcium 20 Mg Tablet) 20 mg PO DAILY [facility] Last Admin: 06/01/23 09:07 Dose: 20 mg Documented By: SHANE Calcium Carbonate (Calcium Carbonate 750 Mg Tab.Chew) 750 mg PO BID [facility] Last Admin: 06/01/23 09:07 Dose: 750 mg Documented By: SHANE Empagliflozin (Empagliflozin 10 Mg Tablet) 10 mg PO DAILY [facility] Last Admin: 06/01/23 09:08 Dose: 10 mg Documented By: SHANE Fluoxetine HCl (Fluoxetine Hcl 20 Mg Capsule) 20 mg PO DAILY [facility] Last Admin: 06/01/23 09:09 Dose: Not Given Documented By: SHANE Non-Admin Reason: Patient Refused Fluticasone/Vilanterol (Fluticasone/Vilanterol 100/25 Blst.W.Dev) 1 puff INHALE RDAILY [facility] Last Admin: 06/01/23 11:54 Dose: 1 puff Documented By: TWILA Furosemide (Furosemide 40 Mg/4 Ml Vial) 80 mg IVPUSH BID@0900,1800 [facility]; Protocol Last Admin: 06/01/23 09:06 Dose: 80 mg Documented By: SHANE Lisinopril (Lisinopril 10 Mg Tablet) 10 mg PO DAILY [facility]; Protocol Last Admin: 05/29/23 11:31 Dose: Not Given Documented By: ELZBIETA Non-Admin Reason: re vss 87/51-77 Methylprednisolone Sodium Succinate (Methylprednisolone Sod Succ 40 Mg/Ml Vial) 40 mg IVPUSH Q12H [facility] Last Admin: 06/01/23 09:06 Dose: 40 mg Documented By: SHANE Metoprolol Succinate (Metoprolol Succinate Er 25 Mg Tab.Er.24h) 25 mg PO DAILY [facility]; Protocol Montelukast Sodium (Montelukast Sodium 10 Mg Tablet) 10 mg PO BEDTIME [facility] Last Admin: 05/31/23 22:02 Dose: 10 mg Documented By: KAREN Nystatin (Nystatin Cream 15 Gm Tube) 1 appl TOPICAL BID [facility]; Protocol Last Admin: 06/01/23 09:09 Dose: 1 appl Documented By: SHANE Polyethylene Glycol (Polyethylene Glycol 3350 17 Gm Powd.Pack) 17 gm PO DAILY [facility] Last Admin: 06/01/23 09:07 Dose: 17 gm Documented By: SHANE Senna (Sennosides 8.6 Mg Tablet) 8.6 mg PO BEDTIME [facility] Last Admin: 05/31/23 22:05 Dose: 8.6 mg Documented By: KAREN Sodium Chloride (0.9 % Sodium Chloride Flush 3 Ml Syringe) 3 ml IVFLUSH QSHIFT [facility] Last Admin: 06/01/23 09:09 Dose: 3 ml Documented By: SHANE Spironolactone (Spironolactone 25 Mg Tablet) 25 mg PO DAILY [facility]; Protocol Last Admin: 06/01/23 09:08 Dose: 25 mg Documented By: SHANE Vitamin D (Cholecalciferol (Vitamin D3) 25 Mcg Tablet) 50 mcg PO DAILY [facility] Last Admin: 06/01/23 09:07 Dose: 50 mcg Documented By: SHANE Warfarin Sodium (Warfarin Sodium 2.5 Mg Tablet) 2.5 mg PO SUTUTHSA@1800 [facility] Warfarin Sodium (Warfarin Sodium 1.25 Mg Halftab) 3.75 mg PO MOWEFR@1800 [facility] Last Admin: 05/29/23 17:59 Dose: 3.75 mg Documented By: NEETA Labs 05/29/23 05:59 06/01/23 06:52 Labs: Laboratory Results - last 24 hr 06/01/23 06:52 PT 33.8 H D INR 2.8 H Anion Gap 18 Estim Creat Clear Calc 68.3 Estimated GFR > 60 Random Glucose 204 H Calcium 8.8 B-Natriuretic Peptide 769 H Assessment and Plan (1) Acute on chronic congestive heart failure: Status: Acute (2) Acute and chronic respiratory failure with hypoxia: Status: Acute Plan 57-year-old female with a past medical history of ischemic cardiomyopathy with EF of about 10% status post AICD, COPD, HANS no longer using CPAP due to noncompliance, morbid obesity, breast CA, mechanical mitral valve, hypertension, mood disorder presented with sob Acute hypoxic respiratory failure secondary to acute on chronic HFrEF and COPD with acute decompensation continue IV steroids, DuoNebs scheduled for COPD echocardiogram EF 15-20% Discussed with cardiology- needs diuresis, continue lasix to 80mg BID, hold antihypertensives for now to avoid worsening hypotension continue jardiance Wean O2 as tolerated Hx of hypertension with Hypotension BP always appears to be on softer side hold lisinopril and metoprolol spironolactone resumed HANS Report CPAP taken away at home due to noncompliance will use at night here Morbid obesity. BMI 50.7 Discussed importance of weight management as this may be contributing to worsening of other comorbidities/respiratory failure History mechanical mitral valve with supratherapeutic INR no bleeding, stable HH INR 2.8 Coumadin, goal INR 2.5-3.5 resume coumadin and follow INR closely History of breast cancer In remission, follow-up oncology as outpatient Mood disorder Continue fluoxetine DVT prophylaxis - on Coumadin Attending Dr. Walters Full code Continued hospital stay for Patient with hypoxia and significant fluid overload requiring IV diuretics and COPD exacerbation requiring O2 supplementation and IV steroids, patient high risk for further decompensation due to history of CHF, COPD, morbid obesity. Time Spent With Patient Time: Total time managing care of this patient today ____ minutes. Quality Stroke Does the patient have a stroke diagnosis?: No VTE Prior VTE?: No VTE Risk Level:: Medical - moderate - high VTE Device Contraindication: Treatment Not Indicated VTE Drug Contraindication: N/A - Med Ordered
[2023-06-01] MEDS: Sennosides 8.6 MG TABLET PO (20:48)
[2023-06-01] MEDS: Montelukast Sodium 10 MG TABLET PO (20:48)
[2023-06-02] VITALS (9 sets, daily range): BP systolic 100–120; BP diastolic 58–72; PULSE 62–84; RESP 18–20; TEMP 36.1–37.1; O2SAT 93–100
[2023-06-02 07:03] LABS: INTERNATIONAL NORM RATIO 1.8 (0.9-1.1); Prothrombin Time 22.5 SEC (11.1-13.3)
[2023-06-02 07:11] LABS: Anion Gap 18 (12-20); Blood Urea Nitrogen 33 mg/dL (9-16); Calcium 9.4 mg/dL (8.4-10.2); Carbon Dioxide 32 mmol/L (22-29); Chloride 92 mmol/L (96-108); Creatinine Clr Calc Pharmacy 70.9; Estimated Glomerular Filt Rate > 60; Glucose Random 166 mg/dL (60-115); Potassium 3.9 mmol/L (3.3-5.1); Sodium 138 mmol/L (135-145)
[2023-06-02] MEDS: Albuterol/Iprat 2.5/0.5MG 3 ML AMPUL.NEB INHALE ×4 (08:00→18:49)
[2023-06-02] MEDS: Atorvastatin Calcium 20 MG TABLET PO (09:53)
[2023-06-02] MEDS: Spironolactone 25 MG TABLET PO (09:53)
[2023-06-02] MEDS: Ascorbic Acid 250 MG TABLET PO ×2 (09:53→20:06)
[2023-06-02] MEDS: Calcium Carbonate 750 MG TAB.CHEW PO ×2 (09:54→20:06)
[2023-06-02] MEDS: Empagliflozin 10 MG TABLET PO (09:54)
[2023-06-02] MEDS: Cholecalciferol (Vitamin D3) 25 MCG TABLET 50 MCG PO (09:54)
[2023-06-02] MEDS: Aspirin Enteric Coated 81 MG TABLET.DR PO (09:55)
[2023-06-02] MEDS: Furosemide 40 MG/4 ML VIAL 80 MG IVPUSH (09:56)
[2023-06-02] MEDS: Enoxaparin Sodium 100 MG/ML SYRINGE SUBCUT ×2 (09:56→20:06)
[2023-06-02] MEDS: methylPREDNISolone Sod Succ 40 MG/ML VIAL IVPUSH (09:56)
[2023-06-02] MEDS: polyethylene glycoL 3350 17 GM POWD.PACK PO (09:58)
--- NOTE | 2023-06-02 12:45 | PM.PNCARD ---
Subjective Subjective Date of Service: 06/02/23 Interval history: Seen examined at bedside. Feeling better. I and are is low and she is getting Lovenox bridge currently because of mechanical mitral valve. Physical Exam Vital Signs: Last Vital Signs Temp 97.0 F 06/02/23 11:16 Pulse 73 06/02/23 11:41 Resp 18 06/02/23 11:41 BP 100/66 06/02/23 11:16 Pulse Ox 94 06/02/23 11:16 O2 Del Method Room Air 06/02/23 11:16 O2 Flow Rate 2 05/30/23 00:00 BMI result Body Mass Index 50.7 GENERAL APPEARANCE: in no acute distress, pleasant. NECK: no carotid bruit, no significant jugular venous distention. SKIN: no suspicious lesions, warm and dry. HEART: no murmurs, regular rate and rhythm. Mechanical 1st heart sound LUNGS: clear to auscultation bilaterally. ABDOMEN: soft, nontender. EXTREMITIES: + edema. PERIPHERAL PULSES: equal. NEUROLOGIC: No gross deficits, AAO X 3 Objective Labs and Meds 05/29/23 05:59 06/02/23 06:35 Lab results: Laboratory Results - last 24 hr 06/02/23 06:35 Hold Purple Top SEE NOTE PT 22.5 H D INR 1.8 H Sodium 138 Potassium 3.9 Chloride 92 L Carbon Dioxide 32 H Anion Gap 18 BUN 33 H Creatinine 0.79 Estim Creat Clear Calc 70.9 Estimated GFR > 60 Random Glucose 166 H Calcium 9.4 D Progress Note: A&P Assessment and plan (1) Acute on chronic congestive heart failure: Status: Acute Plan [age] year female who is presenting for acute on chronic congestive heart failure. She has known cardiomyopathy with EF of 15%. She is status post Bi V AICD. She follows with [facility]. She was unable to tolerate her home medications and there was some concern about noncompliance with medications. She has been resumed on spironolactone. She is getting IV diuretics. I think she can be changed to torsemide p.o.. Recommend starting her on 20 mg twice a day. Resume lisinopril at 2.5 mg once a day. Hold Toprol-XL and mexiletine for now. If he tolerate lisinopril then Toprol-XL can be resumed at 25 mg once a day. If she can not tolerate his medications and mexiletine can be restarted. Thank you for allowing me to participate in the care of your patient. Please feel free to contact me if you have any questions. Time Spent With Patient Time: Total time managing care of this patient today ____ minutes. Progress Note: Quality Stroke Does the patient have a stroke diagnosis?: No Procedures Date of Service Date of Service: 06/02/23
--- NOTE | 2023-06-02 12:51 | P.PNIM_ITS ---
Subjective Subjective Date of Service: 06/02/23 Interval History: seen and examined this morning follow up for CHF, COPD no overnight events breathing improving Review of Systems Review of Systems: Yes all other systems are reviewed and are negative Constitutional Constitutional: Denies chills and Denies fever(s) ENT Ears, Nose, Mouth, and Throat: Denies dizziness Cardiovascular Cardiovascular: Denies chest pain, Denies palpitations and Reports dyspnea on exertion Respiratory Respiratory: Denies cough and Reports dyspnea on exertion Gastrointestinal Gastrointestinal: Denies abdominal pain Neurologic Neurologic: Denies dizziness Endocrine Endocrine: Denies palpitations Physical Exam 2 Vital Signs: Vital Signs: Last Vital Signs Temp 97.0 F 06/02/23 11:16 Pulse 73 06/02/23 11:41 Resp 18 06/02/23 11:41 BP 100/66 06/02/23 11:16 Pulse Ox 94 06/02/23 11:16 O2 Del Method Room Air 06/02/23 11:16 O2 Flow Rate 2 05/30/23 00:00 BMI result Body Mass Index 50.7 Const: General: cooperative, comfortable, no acute distress, alert and awake Nutritional Appearance: obese Orientation/consciousness: patient oriented x3 Resp: Other: diminished breath sounds; no rales Effort & Inspection: able to speak in complete sentences, no respiratory distress and no use of accessory muscles Cardio: Palpation: normal PMI GI: Inspection: No distended Palpation (GI): Soft to palpation and nontender Neuro: General: patient oriented x3, moves all extremities and CN's II-XI intact bilaterally Extrem: Other: trace edema Objective Data Active Medications Albuterol/Ipratropium (Albuterol/Iprat 2.5/0.5mg 3 Ml Ampul.Neb) 3 ml INHALE RQ4H WHILE AWAKE [facility] Last Admin: 06/02/23 11:34 Dose: 3 ml Documented By: WANDER Ascorbic Acid (Ascorbic Acid 250 Mg Tablet) 250 mg PO BID [facility] Last Admin: 06/02/23 09:53 Dose: 250 mg Documented By: GAURI Aspirin (Aspirin Enteric Coated 81 Mg Tablet.) 81 mg PO DAILY [facility] Last Admin: 06/02/23 09:55 Dose: 81 mg Documented By: GAURI Atorvastatin Calcium (Atorvastatin Calcium 20 Mg Tablet) 20 mg PO DAILY [facility] Last Admin: 06/02/23 09:53 Dose: 20 mg Documented By: GAURI Calcium Carbonate (Calcium Carbonate 750 Mg Tab.Chew) 750 mg PO BID [facility] Last Admin: 06/02/23 09:54 Dose: 750 mg Documented By: GAURI Empagliflozin (Empagliflozin 10 Mg Tablet) 10 mg PO DAILY [facility] Last Admin: 06/02/23 09:54 Dose: 10 mg Documented By: GAURI Enoxaparin Sodium (Enoxaparin Sodium 100 Mg/Ml Syringe) 100 mg 1 mg/kg (100 mg) SUBCUT Q12H [facility] Stop: 06/02/23 22:01 Last Admin: 06/02/23 09:56 Dose: 100 mg Documented By: GAURI Fluoxetine HCl (Fluoxetine Hcl 20 Mg Capsule) 20 mg PO DAILY [facility] Last Admin: 06/02/23 09:55 Dose: Not Given Documented By: GAURI Non-Admin Reason: Patient Refused Fluticasone/Vilanterol (Fluticasone/Vilanterol 100/25 Blst.W.Dev) 1 puff INHALE RDAILY [facility] Last Admin: 06/02/23 08:00 Dose: 1 puff Documented By: WANDER Furosemide (Furosemide 40 Mg/4 Ml Vial) 80 mg IVPUSH BID@0900,1800 [facility]; Protocol Last Admin: 06/02/23 09:56 Dose: 80 mg Documented By: GAURI Lisinopril (Lisinopril 2.5 Mg Tablet) 2.5 mg PO DAILY [facility]; Protocol Methylprednisolone Sodium Succinate (Methylprednisolone Sod Succ 40 Mg/Ml Vial) 40 mg IVPUSH Q12H [facility] Last Admin: 06/02/23 09:56 Dose: 40 mg Documented By: GAURI Metoprolol Succinate (Metoprolol Succinate Er 25 Mg Tab.Er.24h) 25 mg PO DAILY [facility]; Protocol Montelukast Sodium (Montelukast Sodium 10 Mg Tablet) 10 mg PO BEDTIME [facility] Last Admin: 06/01/23 20:48 Dose: 10 mg Documented By: WINDY Nystatin (Nystatin Cream 15 Gm Tube) 1 appl TOPICAL BID [facility]; Protocol Last Admin: 06/02/23 10:18 Dose: 1 appl Documented By: GAURI Polyethylene Glycol (Polyethylene Glycol 3350 17 Gm Powd.Pack) 17 gm PO DAILY [facility] Last Admin: 06/02/23 09:58 Dose: 17 gm Documented By: AGURI Senna (Sennosides 8.6 Mg Tablet) 8.6 mg PO BEDTIME [facility] Last Admin: 06/01/23 20:48 Dose: 8.6 mg Documented By: WINDY Sodium Chloride (0.9 % Sodium Chloride Flush 3 Ml Syringe) 3 ml IVFLUSH QSHIFT [facility] Last Admin: 06/02/23 07:24 Dose: Not Given Documented By: GAURI Non-Admin Reason: See Note Spironolactone (Spironolactone 25 Mg Tablet) 25 mg PO DAILY [facility]; Protocol Last Admin: 06/02/23 09:53 Dose: 25 mg Documented By: GAURI Vitamin D (Cholecalciferol (Vitamin D3) 25 Mcg Tablet) 50 mcg PO DAILY [facility] Last Admin: 06/02/23 09:54 Dose: 50 mcg Documented By: GAURI Warfarin Sodium (Warfarin Sodium 2.5 Mg Tablet) 2.5 mg PO SUTUTHSA@1800 [facility] Warfarin Sodium (Warfarin Sodium 1.25 Mg Halftab) 3.75 mg PO MOWEFR@1800 [facility] Last Admin: 05/29/23 17:59 Dose: 3.75 mg Documented By: NEETA Labs 05/29/23 05:59 06/02/23 06:35 Labs: Laboratory Results - last 24 hr 06/02/23 06:35 Hold Purple Top SEE NOTE PT 22.5 H D INR 1.8 H Anion Gap 18 Estim Creat Clear Calc 70.9 Estimated GFR > 60 Random Glucose 166 H Calcium 9.4 D Assessment and Plan (1) Acute and chronic respiratory failure with hypoxia: Status: Acute Plan 57-year-old female with a past medical history of ischemic cardiomyopathy with EF of about 10% status post AICD, COPD, HANS no longer using CPAP due to noncompliance, morbid obesity, breast CA, mechanical mitral valve, hypertension, mood disorder presented with sob Acute hypoxic respiratory failure secondary to acute on chronic HFrEF and COPD with acute decompensation will transition miles- medrol to prednisone, DuoNebs scheduled for COPD echocardiogram EF 15-20% Discussed with cardiology- s/p IV lasix - will transition to po torsemide continue jardiance Wean O2 as tolerated Hx of hypertension with Hypotension BP always appears to be on softer side plan to gradually resume meds, history of noncompliance resume lisinopril at 2.5 mg spironolactone resumed BB on hold History mechanical mitral valve with supratherapeutic INR no bleeding, stable HH INR now subtherapeutic Coumadin, goal INR 2.5-3.5 will bridge with therapeutic lovenox today, follow INR in am continue coumadin HANS Report CPAP taken away at home due to noncompliance will use at night here Morbid obesity. BMI 50.7 Discussed importance of weight management as this may be contributing to worsening of other comorbidities/respiratory failure History of breast cancer In remission, follow-up oncology as outpatient Mood disorder Continue fluoxetine DVT prophylaxis - on Coumadin bridge with lovenox Attending Dr. Damon Full code Continued hospital stay for Patient with hypoxia and significant fluid overload requiring IV diuretics and COPD exacerbation requiring O2 supplementation and IV steroids, patient high risk for further decompensation due to history of CHF, COPD, morbid obesity. Time Spent With Patient Time: Total time managing care of this patient today ____ minutes. Quality Stroke Does the patient have a stroke diagnosis?: No VTE Prior VTE?: No VTE Risk Level:: Medical - moderate - high VTE Device Contraindication: Treatment Not Indicated VTE Drug Contraindication: N/A - Med Ordered
[2023-06-02] MEDS: lisinopriL 2.5 MG TABLET PO (13:28)
--- NOTE | 2023-06-02 15:36 | MHC.CM.PN ---
EMR REVIEWED, PER HOSPITALIST PLAN TO CONT DIURESING, NO ERWIN FOR DC AT THIS TIME, CM WILL CONT TO FOLLOW DC NEEDS.
[2023-06-02] MEDS: Warfarin Sodium 1.25 MG HALFTAB 3.75 MG PO (18:13)
[2023-06-02] MEDS: Sennosides 8.6 MG TABLET PO (20:06)
[2023-06-02] MEDS: Torsemide 20 MG TABLET PO (20:06)
[2023-06-02] MEDS: Montelukast Sodium 10 MG TABLET PO (20:06)
[2023-06-03] VITALS (10 sets, daily range): BP systolic 92–120; BP diastolic 50–79; PULSE 71–93; RESP 18–20; TEMP 36.1–36.9; O2SAT 93–99
[2023-06-03 08:20] LABS: INTERNATIONAL NORM RATIO 1.6 (0.9-1.1); Prothrombin Time 19.7 SEC (11.1-13.3)
[2023-06-03] MEDS: Albuterol/Iprat 2.5/0.5MG 3 ML AMPUL.NEB INHALE ×4 (08:37→18:48)
[2023-06-03] MEDS: Atorvastatin Calcium 20 MG TABLET PO (08:56)
[2023-06-03] MEDS: Aspirin Enteric Coated 81 MG TABLET.DR PO (08:56)
[2023-06-03] MEDS: Cholecalciferol (Vitamin D3) 25 MCG TABLET 50 MCG PO (08:56)
[2023-06-03] MEDS: Torsemide 20 MG TABLET PO ×2 (08:56→21:02)
[2023-06-03] MEDS: predniSONE 20 MG TABLET 40 MG PO (08:56)
[2023-06-03] MEDS: Spironolactone 25 MG TABLET PO (08:56)
[2023-06-03] MEDS: Empagliflozin 10 MG TABLET PO (08:56)
[2023-06-03] MEDS: Calcium Carbonate 750 MG TAB.CHEW PO ×2 (08:56→21:02)
[2023-06-03] MEDS: Ascorbic Acid 250 MG TABLET PO ×2 (08:57→21:01)
[2023-06-03] MEDS: lisinopriL 2.5 MG TABLET PO (08:57)
[2023-06-03] MEDS: polyethylene glycoL 3350 17 GM POWD.PACK PO (09:00)
--- NOTE | 2023-06-03 10:46 | HO.PM.IMPN ---
Subjective Subjective Date of Service: 06/03/23 Interval History: seen and examined this morning follow up for CHF, COPD no overnight events breathing improving Review of Systems Review of Systems: Yes all other systems are reviewed and are negative Constitutional Constitutional: Denies chills and Denies fever(s) ENT Ears, Nose, Mouth, and Throat: Denies dizziness Cardiovascular Cardiovascular: Denies chest pain, Denies palpitations and Reports dyspnea on exertion Respiratory Respiratory: Denies cough and Reports dyspnea on exertion Gastrointestinal Gastrointestinal: Denies abdominal pain Neurologic Neurologic: Denies dizziness Endocrine Endocrine: Denies palpitations Physical Exam Vital Signs: Vital Signs: Last Vital Signs Temp 98.1 F 06/03/23 08:00 Pulse 84 06/03/23 08:37 Resp 18 06/03/23 08:37 BP 110/72 06/03/23 08:00 Pulse Ox 97 06/03/23 08:00 O2 Del Method Nasal Cannula 06/03/23 08:00 O2 Flow Rate 2 06/03/23 08:00 BMI result Body Mass Index 50.7 Appearing in no acute distress lung sounds are clear to auscultation heart regular rate rhythm, clear S1, S2 positive bowel sounds, abdomen is soft, nontender neuro patient is alert x3, no focal deficits Objective Data Active Medications Albuterol/Ipratropium (Albuterol/Iprat 2.5/0.5mg 3 Ml Ampul.Neb) 3 ml INHALE RQ4H WHILE AWAKE [facility] Last Admin: 06/03/23 08:37 Dose: 3 ml Documented By: KADE Ascorbic Acid (Ascorbic Acid 250 Mg Tablet) 250 mg PO BID [facility] Last Admin: 06/03/23 08:57 Dose: 250 mg Documented By: LIZBETH Aspirin (Aspirin Enteric Coated 81 Mg Tablet.) 81 mg PO DAILY [facility] Last Admin: 06/03/23 08:56 Dose: 81 mg Documented By: LIZBETH Atorvastatin Calcium (Atorvastatin Calcium 20 Mg Tablet) 20 mg PO DAILY [facility] Last Admin: 06/03/23 08:56 Dose: 20 mg Documented By: LIZBETH Calcium Carbonate (Calcium Carbonate 750 Mg Tab.Chew) 750 mg PO BID [facility] Last Admin: 06/03/23 08:56 Dose: 750 mg Documented By: LIZBETH Empagliflozin (Empagliflozin 10 Mg Tablet) 10 mg PO DAILY [facility] Last Admin: 06/03/23 08:56 Dose: 10 mg Documented By: LIZBETH Fluoxetine HCl (Fluoxetine Hcl 20 Mg Capsule) 20 mg PO DAILY [facility] Last Admin: 06/03/23 08:59 Dose: Not Given Documented By: LIZBETH Non-Admin Reason: Patient Refused Fluticasone/Vilanterol (Fluticasone/Vilanterol 100/25 Blst.W.Dev) 1 puff INHALE RDAILY [facility] Last Admin: 06/03/23 08:39 Dose: Not Given Documented By: KADE Non-Admin Reason: Med Not Available Lisinopril (Lisinopril 2.5 Mg Tablet) 2.5 mg PO DAILY [facility]; Protocol Last Admin: 06/03/23 08:57 Dose: 2.5 mg Documented By: LIZBETH Metoprolol Succinate (Metoprolol Succinate Er 25 Mg Tab.Er.24h) 25 mg PO DAILY [facility]; Protocol Montelukast Sodium (Montelukast Sodium 10 Mg Tablet) 10 mg PO BEDTIME [facility] Last Admin: 06/02/23 20:06 Dose: 10 mg Documented By: APOLLO Nystatin (Nystatin Cream 15 Gm Tube) 1 appl TOPICAL BID [facility]; Protocol Last Admin: 06/03/23 08:59 Dose: 1 appl Documented By: LIZBETH Polyethylene Glycol (Polyethylene Glycol 3350 17 Gm Powd.Pack) 17 gm PO DAILY [facility] Last Admin: 06/03/23 09:00 Dose: 17 gm Documented By: LIZBETH Prednisone (Prednisone 20 Mg Tablet) 40 mg PO DAILY [facility] Last Admin: 06/03/23 08:56 Dose: 40 mg Documented By: LIZBETH Senna (Sennosides 8.6 Mg Tablet) 8.6 mg PO BEDTIME [facility] Last Admin: 06/02/23 20:06 Dose: 8.6 mg Documented By: APOLLO Sodium Chloride (0.9 % Sodium Chloride Flush 3 Ml Syringe) 3 ml IVFLUSH [facility] Last Admin: 06/03/23 08:59 Dose: 3 ml Documented By: LIZBETH Spironolactone (Spironolactone 25 Mg Tablet) 25 mg PO DAILY [facility]; Protocol Last Admin: 06/03/23 08:56 Dose: 25 mg Documented By: LIZBETH Torsemide (Torsemide 20 Mg Tablet) 20 mg PO BID [facility]; Protocol Last Admin: 06/03/23 08:56 Dose: 20 mg Documented By: LIZBETH Vitamin D (Cholecalciferol (Vitamin D3) 25 Mcg Tablet) 50 mcg PO DAILY [facility] Last Admin: 06/03/23 08:56 Dose: 50 mcg Documented By: LIZBETH Warfarin Sodium (Warfarin Sodium 2.5 Mg Tablet) 2.5 mg PO SUTUTHSA@1800 [facility] Warfarin Sodium (Warfarin Sodium 1.25 Mg Halftab) 3.75 mg PO MOWEFR@1800 [facility] Last Admin: 06/02/23 18:13 Dose: 3.75 mg Documented By: LIZBETH Labs 06/03/23 11:30 06/02/23 06:35 Labs: Laboratory Results - last 24 hr 06/03/23 07:33 PT 19.7 H INR 1.6 H Assessment and Plan (1) Acute and chronic respiratory failure with hypoxia: Status: Acute Plan 57-year-old female with a past medical history of ischemic cardiomyopathy with EF of about 10% status post AICD, COPD, HANS no longer using CPAP due to noncompliance, morbid obesity, breast CA, mechanical mitral valve, hypertension, mood disorder presented with sob History mechanical mitral valve with supratherapeutic INR no bleeding, stable HH INR now subtherapeutic 1.6 Coumadin, goal INR 2.5-3.5 will bridge with therapeutic lovenox BID today, follow INR in am continue coumadin Acute hypoxic respiratory failure secondary to acute on chronic HFrEF and COPD with acute decompensation prednisone, DuoNebs scheduled for COPD echocardiogram EF 15-20% Discussed with cardiology- s/p IV lasix, transitioned to po torsemide continue jardiance Wean O2 as tolerated Hx of hypertension with Hypotension BP always appears to be on softer side plan to gradually resume meds, history of noncompliance resume lisinopril at 2.5 mg and spironolactone BB on hold HANS Report CPAP taken away at home due to noncompliance using at night Morbid obesity. BMI 50.7 Discussed importance of weight management as this may be contributing to worsening of other comorbidities/respiratory failure History of breast cancer In remission, follow-up oncology as outpatient Mood disorder Continue fluoxetine DVT prophylaxis - on Coumadin bridge with lovenox Attending Dr. Walters Full code Continued hospital stay for Patient with hypoxia and significant fluid overload requiring IV diuretics and COPD exacerbation requiring O2 supplementation and IV steroids, patient high risk for further decompensation due to history of CHF, COPD, morbid obesity. Time Spent With Patient Time: Total time managing care of this patient today ____ minutes. Quality Stroke Does the patient have a stroke diagnosis?: No VTE Prior VTE?: No VTE Risk Level:: Medical - moderate - high VTE Device Contraindication: Treatment Not Indicated VTE Drug Contraindication: N/A - Med Ordered
[2023-06-03] MEDS: Enoxaparin Sodium 100 MG/ML SYRINGE SUBCUT ×2 (11:24→22:53)
[2023-06-03 11:39] LABS: Hematocrit 52.2 % (37.0-47.0); Mean Corpuscular HGB Conc 32.6 g/dl (31.0-35.0); Mean Corpuscular Hemoglobin 28.8 pg (27.0-33.0); Mean Corpuscular Volume 88.5 fL (80.0-98.0); Mean Platelet Volume 10.7 fL (9.4-12.3); Platelet Count 274 X10*3/uL (160-400); Red Cell Distribution Width 17.8 % (11.0-16.0); White Blood Count 19.8 X10*3/uL (4.8-10.8)
[2023-06-03 11:51] LABS: INTERNATIONAL NORM RATIO 1.7 (0.9-1.1); Prothrombin Time 20.5 SEC (11.1-13.3)
[2023-06-03 11:54] LABS: Partial Thromboplastin Time 32.4 SEC (26.0-36.4)
[2023-06-03] MEDS: Warfarin Sodium 2.5 MG TABLET PO (18:02)
[2023-06-03] MEDS: Sennosides 8.6 MG TABLET PO (21:02)
[2023-06-03] MEDS: Montelukast Sodium 10 MG TABLET PO (21:02)
[2023-06-04] VITALS (11 sets, daily range): BP systolic 104–122; BP diastolic 58–78; PULSE 71–96; RESP 16–20; TEMP 36–36.8; O2SAT 92–96
[2023-06-04 07:56] LABS: Hemoglobin 17.4 g/dl (12.0-16.0); Mean Corpuscular HGB Conc 31.5 g/dl (31.0-35.0); Mean Corpuscular Hemoglobin 27.8 pg (27.0-33.0); Mean Corpuscular Volume 88.2 fL (80.0-98.0); Mean Platelet Volume 11.3 fL (9.4-12.3); Platelet Count 281 X10*3/uL (160-400); Red Blood Count 6.27 X10*6/uL (4.20-5.50); Red Cell Distribution Width 18.1 % (11.0-16.0); White Blood Count 16.3 X10*3/uL (4.8-10.8)
[2023-06-04 07:57] LABS: Hematocrit 55.3 % (37.0-47.0)
[2023-06-04 08:04] LABS: INTERNATIONAL NORM RATIO 2.1 (0.9-1.1); Prothrombin Time 25.8 SEC (11.1-13.3)
[2023-06-04] MEDS: Empagliflozin 10 MG TABLET PO (09:57)
[2023-06-04] MEDS: Ascorbic Acid 250 MG TABLET PO ×2 (09:57→20:19)
[2023-06-04] MEDS: predniSONE 20 MG TABLET 40 MG PO (09:57)
[2023-06-04] MEDS: lisinopriL 2.5 MG TABLET PO (09:57)
[2023-06-04] MEDS: Torsemide 20 MG TABLET PO ×2 (09:57→20:18)
[2023-06-04] MEDS: Atorvastatin Calcium 20 MG TABLET PO (09:57)
[2023-06-04] MEDS: Metoprolol Succinate ER 25 MG TAB.ER.24H PO (09:57)
[2023-06-04] MEDS: Spironolactone 25 MG TABLET PO (09:57)
[2023-06-04] MEDS: Aspirin Enteric Coated 81 MG TABLET.DR PO (09:57)
[2023-06-04] MEDS: Cholecalciferol (Vitamin D3) 25 MCG TABLET 50 MCG PO (09:57)
[2023-06-04] MEDS: polyethylene glycoL 3350 17 GM POWD.PACK PO (09:58)
[2023-06-04] MEDS: Calcium Carbonate 750 MG TAB.CHEW PO ×2 (09:59→20:20)
[2023-06-04] MEDS: Sodium Chloride 0.65 % Nasal 44 ML SPRBTL 1 SPRAY NOSTRIL-B (10:00)
--- NOTE | 2023-06-04 10:53 | P.PNIM_ITS ---
Subjective Subjective Date of Service: 06/04/23 Interval History: seen and examined this morning follow up for CHF, COPD no overnight events breathing improving Review of Systems Review of Systems: Yes all other systems are reviewed and are negative Constitutional Constitutional: Denies chills and Denies fever(s) ENT Ears, Nose, Mouth, and Throat: Denies dizziness Cardiovascular Cardiovascular: Denies chest pain, Denies palpitations and Reports dyspnea on exertion Respiratory Respiratory: Denies cough and Reports dyspnea on exertion Gastrointestinal Gastrointestinal: Denies abdominal pain Neurologic Neurologic: Denies dizziness Endocrine Endocrine: Denies palpitations Physical Exam 2 Vital Signs: Vital Signs: Last Vital Signs Temp 97.1 F 06/04/23 08:00 Pulse 75 06/04/23 08:00 Resp 17 06/04/23 08:00 BP 105/73 06/04/23 08:00 Pulse Ox 95 06/04/23 08:00 O2 Del Method Room Air 06/04/23 08:00 O2 Flow Rate 2 06/03/23 15:47 BMI result Body Mass Index 50.7 Appearing in no acute distress lung sounds are clear to auscultation heart regular rate rhythm, clear S1, S2 positive bowel sounds, abdomen is soft, nontender neuro patient is alert x3, no focal deficits Objective Data Active Medications Albuterol/Ipratropium (Albuterol/Iprat 2.5/0.5mg 3 Ml Ampul.Neb) 3 ml INHALE RQ4H WHILE AWAKE [facility] Last Admin: 06/04/23 07:50 Dose: Not Given Documented By: WANDER Non-Admin Reason: Patient Refused Ascorbic Acid (Ascorbic Acid 250 Mg Tablet) 250 mg PO BID [facility] Last Admin: 06/04/23 09:57 Dose: 250 mg Documented By: LIZBETH Aspirin (Aspirin Enteric Coated 81 Mg Tablet.) 81 mg PO DAILY [facility] Last Admin: 06/04/23 09:57 Dose: 81 mg Documented By: LIZBETH Atorvastatin Calcium (Atorvastatin Calcium 20 Mg Tablet) 20 mg PO DAILY [facility] Last Admin: 06/04/23 09:57 Dose: 20 mg Documented By: LIZBETH Calcium Carbonate (Calcium Carbonate 750 Mg Tab.Chew) 750 mg PO BID [facility] Last Admin: 06/04/23 09:59 Dose: 750 mg Documented By: LIZBETH Empagliflozin (Empagliflozin 10 Mg Tablet) 10 mg PO DAILY [facility] Last Admin: 06/04/23 09:57 Dose: 10 mg Documented By: LIZBETH Enoxaparin Sodium (Enoxaparin Sodium 100 Mg/Ml Syringe) 100 mg 1 mg/kg (100 mg) SUBCUT Q12H [facility] Last Admin: 06/03/23 22:53 Dose: 100 mg Documented By: AICHA Fluoxetine HCl (Fluoxetine Hcl 20 Mg Capsule) 20 mg PO DAILY [facility] Last Admin: 06/04/23 10:00 Dose: Not Given Documented By: LIZBETH Non-Admin Reason: Patient Refused Fluticasone/Vilanterol (Fluticasone/Vilanterol 100/25 Blst.W.Dev) 1 puff INHALE RDAILY [facility] Last Admin: 06/04/23 07:50 Dose: 1 puff Documented By: WANDER Lisinopril (Lisinopril 2.5 Mg Tablet) 2.5 mg PO DAILY [facility]; Protocol Last Admin: 06/04/23 09:57 Dose: 2.5 mg Documented By: LIZBETH Metoprolol Succinate (Metoprolol Succinate Er 25 Mg Tab.Er.24h) 25 mg PO DAILY [facility]; Protocol Last Admin: 06/04/23 09:57 Dose: 25 mg Documented By: LIZBETH Montelukast Sodium (Montelukast Sodium 10 Mg Tablet) 10 mg PO BEDTIME [facility] Last Admin: 06/03/23 21:02 Dose: 10 mg Documented By: AICHA Nystatin (Nystatin Cream 15 Gm Tube) 1 appl TOPICAL BID [facility]; Protocol Last Admin: 06/04/23 10:01 Dose: 1 appl Documented By: LIZBETH Polyethylene Glycol (Polyethylene Glycol 3350 17 Gm Powd.Pack) 17 gm PO DAILY [facility] Last Admin: 06/04/23 09:58 Dose: 17 gm Documented By: LIZBETH Prednisone (Prednisone 20 Mg Tablet) 40 mg PO DAILY [facility] Last Admin: 06/04/23 09:57 Dose: 40 mg Documented By: LIZBETH Senna (Sennosides 8.6 Mg Tablet) 8.6 mg PO BEDTIME [facility] Last Admin: 06/03/23 21:02 Dose: 8.6 mg Documented By: AICHA Sodium Chloride (0.9 % Sodium Chloride Flush 3 Ml Syringe) 3 ml IVFLUSH QSHIFT [facility] Last Admin: 06/04/23 10:02 Dose: 3 ml Documented By: LIZBETH Spironolactone (Spironolactone 25 Mg Tablet) 25 mg PO DAILY [facility]; Protocol Last Admin: 06/04/23 09:57 Dose: 25 mg Documented By: LIZBETH Torsemide (Torsemide 20 Mg Tablet) 20 mg PO BID [facility]; Protocol Last Admin: 06/04/23 09:57 Dose: 20 mg Documented By: LIZBETH Vitamin D (Cholecalciferol (Vitamin D3) 25 Mcg Tablet) 50 mcg PO DAILY [facility] Last Admin: 06/04/23 09:57 Dose: 50 mcg Documented By: LIZBETH Warfarin Sodium (Warfarin Sodium 2.5 Mg Tablet) 2.5 mg PO SUTUTHSA@1800 [facility] Last Admin: 06/03/23 18:02 Dose: 2.5 mg Documented By: LIZBETH Warfarin Sodium (Warfarin Sodium 1.25 Mg Halftab) 3.75 mg PO MOWEFR@1800 [facility] Last Admin: 06/02/23 18:13 Dose: 3.75 mg Documented By: LIZBETH Labs 06/04/23 07:04 06/02/23 06:35 Labs: Laboratory Results - last 24 hr 06/03/23 06/04/23 11:30 07:04 MCV 88.5 88.2 MCH 28.8 27.8 MCHC 32.6 31.5 RDW 17.8 H 18.1 H Plt Count 274 281 MPV 10.7 11.3 Absolute Nucleated RBC 0.000 0.000 Nucleated RBC % (auto) 0.0 0.0 PT 20.5 H 25.8 H D INR 1.7 H 2.1 H APTT 32.4 Assessment and Plan (1) Acute and chronic respiratory failure with hypoxia: Status: Acute Plan 57-year-old female with a past medical history of ischemic cardiomyopathy with EF of about 10% status post AICD, COPD, HANS no longer using CPAP due to noncompliance, morbid obesity, breast CA, mechanical mitral valve, hypertension, mood disorder presented with sob History mechanical mitral valve with supratherapeutic INR then subtherapeutic no bleeding, stable HH INR now subtherapeutic 2.1 Coumadin, goal INR 2.5-3.5 continue bridge with therapeutic lovenox BID today, follow INR in am continue coumadin Acute hypoxic respiratory failure secondary to acute on chronic HFrEF and COPD with acute decompensation. resolved prednisone, DuoNebs scheduled for COPD echocardiogram EF 15-20% Discussed with cardiology- s/p IV lasix, transitioned to po torsemide Wean O2 as tolerated HFrEF echo 15-20% continue jardiance resume metoprolol and Mexiletine Hx of hypertension with Hypotension BP always appears to be on softer side plan to gradually resume meds, history of noncompliance resume lisinopril at 2.5 mg and spironolactone HANS Report CPAP taken away at home due to noncompliance using at night Morbid obesity. BMI 50.7 Discussed importance of weight management as this may be contributing to worsening of other comorbidities/respiratory failure History of breast cancer In remission, follow-up oncology as outpatient Mood disorder Continue fluoxetine DVT prophylaxis - on Coumadin bridge with marcelo Attending Dr. Walters Full code DISPO PT consult pending Continued hospital stay for Patient with hypoxia and significant fluid overload requiring IV diuretics and COPD exacerbation requiring O2 supplementation and IV steroids, patient high risk for further decompensation due to history of CHF, COPD, morbid obesity. Time Spent With Patient Time: Total time managing care of this patient today ____ minutes. Quality Stroke Does the patient have a stroke diagnosis?: No VTE Prior VTE?: No VTE Risk Level:: Medical - moderate - high VTE Device Contraindication: Treatment Not Indicated VTE Drug Contraindication: N/A - Med Ordered
[2023-06-04] MEDS: Albuterol/Iprat 2.5/0.5MG 3 ML AMPUL.NEB INHALE ×2 (11:09→19:41)
[2023-06-04 11:14] LABS: INTERNATIONAL NORM RATIO 2.3 (0.9-1.1); Prothrombin Time 27.9 SEC (11.1-13.3)
[2023-06-04] MEDS: Enoxaparin Sodium 100 MG/ML SYRINGE SUBCUT ×2 (11:29→22:35)
[2023-06-04] MEDS: Warfarin Sodium 2.5 MG TABLET PO (18:07)
[2023-06-04] MEDS: Montelukast Sodium 10 MG TABLET PO (20:19)
[2023-06-04] MEDS: Sennosides 8.6 MG TABLET PO (20:19)
[2023-06-05] VITALS (8 sets, daily range): BP systolic 103–126; BP diastolic 56–72; PULSE 75–83; RESP 16–20; TEMP 36.1–37; O2SAT 92–97
[2023-06-05 08:08] LABS: INTERNATIONAL NORM RATIO 2.8 (0.9-1.1); Prothrombin Time 34.1 SEC (11.1-13.3)
[2023-06-05] MEDS: polyethylene glycoL 3350 17 GM POWD.PACK PO (08:47)
[2023-06-05] MEDS: predniSONE 20 MG TABLET 40 MG PO (08:47)
[2023-06-05] MEDS: Cholecalciferol (Vitamin D3) 25 MCG TABLET 50 MCG PO (08:47)
[2023-06-05] MEDS: Calcium Carbonate 750 MG TAB.CHEW PO ×2 (08:47→20:03)
[2023-06-05] MEDS: Metoprolol Succinate ER 25 MG TAB.ER.24H PO (08:47)
[2023-06-05] MEDS: Atorvastatin Calcium 20 MG TABLET PO (08:47)
[2023-06-05] MEDS: Ascorbic Acid 250 MG TABLET PO ×2 (08:48→20:03)
[2023-06-05] MEDS: lisinopriL 2.5 MG TABLET PO (08:48)
[2023-06-05] MEDS: Spironolactone 25 MG TABLET PO (08:49)
[2023-06-05] MEDS: Aspirin Enteric Coated 81 MG TABLET.DR PO (08:49)
[2023-06-05] MEDS: Torsemide 20 MG TABLET PO ×2 (08:50→20:03)
[2023-06-05] MEDS: Enoxaparin Sodium 100 MG/ML SYRINGE SUBCUT ×2 (11:20→23:07)
--- NOTE | 2023-06-05 12:49 | MHC.CM.PN ---
EMR REVIEWED, PER HOSPITALIST IF PT'S INR IS WITHIN ACCEPTABLE LIMITS IN AM PT MAY BE ABLE TO D/C. P.T. EVAL PENDING AND WILL DETERMINE DISPO, REFERRAL FOR [facility] SENT AND CM TO DISCUSS W/PT IF P.T. REC'S STR, CM WILL CONT TO FOLLOW DC NEEDS.
--- NOTE | 2023-06-05 16:21 | HO.PM.IMPN ---
Subjective Subjective Date of Service: 06/05/23 Interval History: Doing well. Breathing at baseline Review of Systems Denies chest pain Denies shortness of breath Denies nausea vomiting diarrhea Denies fever chills Physical Exam Vital Signs: Vital Signs: Last Vital Signs Temp 96.9 F 06/05/23 16:00 Pulse 76 06/05/23 16:00 Resp 18 06/05/23 16:00 BP 126/67 06/05/23 16:00 Pulse Ox 94 06/05/23 16:00 O2 Del Method Room Air 06/05/23 16:00 O2 Flow Rate 2 06/04/23 15:25 BMI result Body Mass Index 50.7 Const: Other: Awake alert oriented x3 no acute distress Resp: Other: Clear to auscultation bilaterally no rales rhonchi or wheezes Cardio: Other: No S4; positive S1-S2; no S3 murmurs rubs or gallops GI: Other: Soft nontender nondistended normoactive bowel sounds Extrem: Other: No edema bilaterally Objective Data Active Medications Ascorbic Acid (Ascorbic Acid 250 Mg Tablet) 250 mg PO BID [facility] Last Admin: 06/05/23 08:48 Dose: 250 mg Documented By: NANCY Aspirin (Aspirin Enteric Coated 81 Mg Tablet.) 81 mg PO DAILY [facility] Last Admin: 06/05/23 08:49 Dose: 81 mg Documented By: NANCY Atorvastatin Calcium (Atorvastatin Calcium 20 Mg Tablet) 20 mg PO DAILY [facility] Last Admin: 06/05/23 08:47 Dose: 20 mg Documented By: NANCY Calcium Carbonate (Calcium Carbonate 750 Mg Tab.Chew) 750 mg PO BID [facility] Last Admin: 06/05/23 08:47 Dose: 750 mg Documented By: NANCY Empagliflozin (Empagliflozin 10 Mg Tablet) 10 mg PO DAILY [facility] Last Admin: 06/05/23 09:25 Dose: Not Given Documented By: NANCY Non-Admin Reason: Patient Refused Enoxaparin Sodium (Enoxaparin Sodium 100 Mg/Ml Syringe) 100 mg 1 mg/kg (100 mg) SUBCUT Q12H [facility] Last Admin: 06/05/23 11:20 Dose: 100 mg Documented By: NANCY Fluoxetine HCl (Fluoxetine Hcl 20 Mg Capsule) 20 mg PO DAILY [facility] Last Admin: 06/05/23 09:25 Dose: Not Given Documented By: NANCY Non-Admin Reason: Patient Refused Fluticasone/Vilanterol (Fluticasone/Vilanterol 100/25 Blst.W.Dev) 1 puff INHALE RDAILY [facility] Last Admin: 06/05/23 08:08 Dose: 1 puff Documented By: KADE Lisinopril (Lisinopril 2.5 Mg Tablet) 2.5 mg PO DAILY [facility]; Protocol Last Admin: 06/05/23 08:48 Dose: 2.5 mg Documented By: NANCY Metoprolol Succinate (Metoprolol Succinate Er 25 Mg Tab.Er.24h) 25 mg PO DAILY [facility]; Protocol Last Admin: 06/05/23 08:47 Dose: 25 mg Documented By: NANCY Mexiletine HCl (Mexiletine Hcl 150 Mg Capsule) 150 mg PO BID [facility] Last Admin: 06/05/23 08:50 Dose: 150 mg Documented By: NANCY Montelukast Sodium (Montelukast Sodium 10 Mg Tablet) 10 mg PO BEDTIME [facility] Last Admin: 06/04/23 20:19 Dose: 10 mg Documented By: SHERRON Nystatin (Nystatin Cream 15 Gm Tube) 1 appl TOPICAL BID [facility]; Protocol Last Admin: 06/05/23 11:22 Dose: 1 appl Documented By: NANCY Polyethylene Glycol (Polyethylene Glycol 3350 17 Gm Powd.Pack) 17 gm PO DAILY [facility] Last Admin: 06/05/23 08:47 Dose: 17 gm Documented By: NANCY Prednisone (Prednisone 20 Mg Tablet) 40 mg PO DAILY [facility] Last Admin: 06/05/23 08:47 Dose: 40 mg Documented By: NANCY Senna (Sennosides 8.6 Mg Tablet) 8.6 mg PO BEDTIME [facility] Last Admin: 06/04/23 20:19 Dose: 8.6 mg Documented By: SHERRON Sodium Chloride (0.9 % Sodium Chloride Flush 3 Ml Syringe) 3 ml IVFLUSH QSHI Last Admin: 06/05/23 08:51 Dose: 3 ml Documented By: NANCY Spironolactone (Spironolactone 25 Mg Tablet) 25 mg PO DAILY [facility]; Protocol Last Admin: 06/05/23 08:49 Dose: 25 mg Documented By: HO.WILLIAC Torsemide (Torsemide 20 Mg Tablet) 20 mg PO BID [facility]; Protocol Last Admin: 06/05/23 08:50 Dose: 20 mg Documented By: NANCY Vitamin D (Cholecalciferol (Vitamin D3) 25 Mcg Tablet) 50 mcg PO DAILY [facility] Last Admin: 06/05/23 08:47 Dose: 50 mcg Documented By: NANCY Warfarin Sodium (Warfarin Sodium 2.5 Mg Tablet) 2.5 mg PO SUTUTHSA@1800 [facility] Last Admin: 06/04/23 18:07 Dose: 2.5 mg Documented By: LIZBETH Warfarin Sodium (Warfarin Sodium 1.25 Mg Halftab) 3.75 mg PO MOWEFR@1800 [facility] Last Admin: 06/02/23 18:13 Dose: 3.75 mg Documented By: LIZBETH Labs 06/04/23 07:04 06/02/23 06:35 Labs: Laboratory Results - last 24 hr 06/05/23 07:05 Hold Purple Top SEE NOTE PT 34.1 H D INR 2.8 H Assessment and Plan (1) Acute and chronic respiratory failure with hypoxia: Status: Acute Plan 57-year-old female with a past medical history of ischemic cardiomyopathy with EF of about 10% status post AICD, COPD, HANS no longer using CPAP due to noncompliance, morbid obesity, breast CA, mechanical mitral valve, hypertension, mood disorder presented with sob 1.History mechanical mitral INR stable x1 -check INR in a.m. -if 2.5-3.5 DC Lovenox 2.Acute hypoxic respiratory failure secondary to acute on chronic HFrEF and COPD with acute decompensation. -resolved -no O2 requirement 3.Hypertension -acceptable control on current therapies -adjust as indicated Coumadin bridge with lovenox pending a.m. INR Full code Continue hospital stay to monitor INR; likely DC in a.m. Time Spent With Patient Time: Total time managing care of this patient today ____ minutes. Quality Stroke Does the patient have a stroke diagnosis?: No VTE Prior VTE?: No VTE Risk Level:: Medical - moderate - high VTE Device Contraindication: Treatment Not Indicated VTE Drug Contraindication: N/A - Med Ordered
[2023-06-05] MEDS: Warfarin Sodium 1.25 MG HALFTAB 3.75 MG PO (17:35)
[2023-06-05] MEDS: Montelukast Sodium 10 MG TABLET PO (20:03)
[2023-06-05] MEDS: Sennosides 8.6 MG TABLET PO (20:03)
[2023-06-06 03:11] VITALS: BP 111/60; PULSE 60; RESP 18; TEMP 37.1; O2SAT 93
[2023-06-06 06:44] LABS: INTERNATIONAL NORM RATIO 3.7 (0.9-1.1); Prothrombin Time 45.1 SEC (11.1-13.3)
[2023-06-06 07:47] VITALS: BP 93/65; PULSE 69; RESP 16; TEMP 36.7; O2SAT 95
[2023-06-06 07:50] VITALS: PULSE 74; RESP 18; O2SAT 94
[2023-06-06] MEDS: Aspirin Enteric Coated 81 MG TABLET.DR PO (08:56)
[2023-06-06] MEDS: Atorvastatin Calcium 20 MG TABLET PO (08:56)
[2023-06-06] MEDS: polyethylene glycoL 3350 17 GM POWD.PACK PO (08:56)
[2023-06-06] MEDS: lisinopriL 2.5 MG TABLET PO (08:56)
[2023-06-06] MEDS: Torsemide 20 MG TABLET PO (08:57)
[2023-06-06] MEDS: Calcium Carbonate 750 MG TAB.CHEW PO (08:58)
[2023-06-06] MEDS: Spironolactone 25 MG TABLET PO (08:58)
[2023-06-06] MEDS: Empagliflozin 10 MG TABLET PO (08:59)
[2023-06-06] MEDS: Ascorbic Acid 250 MG TABLET PO (08:59)
[2023-06-06] MEDS: predniSONE 20 MG TABLET 40 MG PO (09:00)
[2023-06-06] MEDS: Metoprolol Succinate ER 25 MG TAB.ER.24H PO (09:00)
[2023-06-06] MEDS: Cholecalciferol (Vitamin D3) 25 MCG TABLET 50 MCG PO (09:00)
[2023-06-06 11:17] VITALS: BP 115/62; PULSE 78; RESP 18; TEMP 36.5; O2SAT 95
--- NOTE | 2023-06-06 12:15 | PM.DS ---
DS: Providers Provider Date of Service: 06/06/23 Date of admission: 05/28/23 21:58 Date of discharge: 06/06/23 Primary care physician: Mal De Dios MD Consults: 05/30/23 07:27 Consult to Cardiology Routine Consulting Provider: [facility] Cardiovascular Services Reason for consultation: CHF, hypotension DS: Diagnosis Discharge Diagnosis (1) Acute and chronic respiratory failure with hypoxia: Status: Acute DS: Summary Hospital Course Hospital Course: 57-year-old female with a past medical history of ischemic cardiomyopathy with EF of about 10% status post AICD, COPD, HANS no longer using CPAP due to noncompliance, morbid obesity, breast CA, mechanical mitral valve, hypertension, mood disorder presented with shortness of breath. Patient states her shortness of breath started about 2 weeks prior to presentation, initially was social with dry cough but has since resolved. Continues to have worsening shortness of breath, orthopnea, pedal edema. Denies any fevers or chills. Reports some wheezing, did not get relief from Robitussin or nebs at home. In ED chest x-ray with some pulmonary vasculature congestion. BNP elevated. Hypoxic to 86% on room air. Hospital Course Admitted to telemetry. Monitor failed to demonstrate any acute dysrhythmias. Seen in consultation by Cardiology who agreed with IV Lasix twice daily and continuation of Aldactone. Her mexiletine was stopped initially secondary to be PE and question affecting her contractility. Her Coumadin was subtherapeutic and she was bridge with Lovenox. Over the last 48 hours prior to discharge mexiletine was reinstated as well as adding lisinopril. Coumadin was restarted an INR on the day of discharge was 3.7. She is instructed not to take Coumadin today and has appointment [facility] 06/07/2023 at 10:15. At this point she is medically stable for discharge Time Spent with Patient Time attestation: Total time managing care of this patient today ____ minutes. Discharge coordination time: Greater than 30 minutes Quality: Safe Use of Opioids Does Pt have an Active Cancer Diagnosis on the Problem List?: No Quality: Stroke Does the patient have a stroke diagnosis?: No Physical Exam Vital Signs: Vital Signs: Last Vital Signs Temp 97.7 F 06/06/23 11:17 Pulse 78 06/06/23 11:17 Resp 18 06/06/23 11:17 BP 115/62 06/06/23 11:17 Pulse Ox 95 06/06/23 11:17 O2 Del Method Room Air 06/06/23 11:17 O2 Flow Rate 2 06/04/23 15:25 BMI result Body Mass Index 50.7 Const: Other: Awake alert oriented x3 no acute distress Resp: Other: Clear to auscultation bilaterally no rales rhonchi or wheezes Cardio: Other: No S4; positive S1-S2; no S3 murmurs rubs or gallops GI: Other: Soft nontender nondistended normoactive bowel sounds Extrem: Other: No edema bilaterally DS: Data Data Completed and Pending Labs on day of discharge: Laboratory Results - last 24 hr 06/06/23 06:11 Hold Purple Top SEE NOTE PT 45.1 H D INR 3.7 H Discharge Plan Discharge Anticipated Discharge Date/Time: 06/06/23 12:08 Patient Disposition: Home Health Service Discharge Diagnosis: Acute on chronic systolic CHF Referrals: Mal De Dios MD [Primary Care Provider] - 1 Week Discharge Medications: New torsemide 20 mg Tablet 20 mg PO BID Qty: 60 0RF Protocol: Hold for SBP< HOLD for SBP < : 90 mexiletine 150 mg Capsule 150 mg PO BID Qty: 60 0RF lisinopril 2.5 mg Tablet 2.5 mg PO DAILY Qty: 30 0RF Protocol: Hold for SBP< HOLD for SBP < : 90 Continued fluticasone propion-salmeterol 250-50 mcg/dose blister with device 1 ea PO BID Qty: 60 5RF cholecalciferol (vitamin D3) [Vitamin D3] 50 mcg (2,000 unit) Capsule 50 mcg PO DAILY Qty: 90 4RF warfarin 2.5 mg tablet 3.75 mg PO DAILY@1800 Protocol: Dose Management Condition: Monday (Week One) Dose/Route: 2.5 mg Instruction: 1 x 2.5 mg tablet Condition: Monday Dose/Route: 3.75 mg Instruction: 1.5 x 2.5 mg tablets Condition: Monday Dose/Route: 2.5 mg Instruction: 1 x 2.5 mg tablet Condition: Monday Dose/Route: 3.75 mg Instruction: 1.5 x 2.5 mg tablets Condition: Dose/Route: 2.5 mg Instruction: 1 x 2.5 mg tablet Condition: Monday Dose/Route: 3.75 mg Instruction: 1.5 x 2.5 mg tablets Condition: Monday Dose/Route: 2.5 mg Instruction: 1 x 2.5 mg tablet Condition: Monday (Week Two) Dose/Route: 2.5 mg Instruction: 1 x 2.5 mg tablet Condition: Monday Dose/Route: 3.75 mg Instruction: 1.5 x 2.5 mg tablets Condition: Monday Dose/Route: 2.5 mg Instruction: 1 x 2.5 mg tablet Condition: Monday Dose/Route: 3.75 mg Instruction: 1.5 x 2.5 mg tablets Condition: Dose/Route: 2.5 mg Instruction: 1 x 2.5 mg tablet Condition: Monday Dose/Route: 3.75 mg Instruction: 1.5 x 2.5 mg tablets Condition: Monday Dose/Route: 2.5 mg Instruction: 1 x 2.5 mg tablet Protocol Text: Adjustment Start Date: Monday05/24/23 INR Value: 2.5 INR Date: 05/24/23 Recheck Date: 06/07/23 albuterol sulfate [ProAir HFA] 90 mcg/actuation HFA aerosol inhaler 2 puff inhalation Q4H PRN (Reason: shortness of breath or wheezing) warfarin 2.5 mg tablet 2.5 mg PO SUTUTHSA@1800 warfarin 2.5 mg tablet 3.75 mg PO MOWEFR@1800 aspirin 81 mg tablet,delayed release (DR/EC) 81 mg PO DAILY atorvastatin 20 mg tablet 20 mg PO QAM ipratropium-albuterol 0.5 mg-3 mg(2.5 mg base)/3 mL solution for nebulization 3 ml inhalation QID PRN (Reason: Shortness Of Breath Or Wheezing) fluoxetine 20 mg capsule 20 mg PO DAILY montelukast [Singulair] 10 mg tablet 10 mg PO BEDTIME Jardiance 10 mg tablet 10 mg PO DAILY lisinopril 10 mg tablet 10 mg PO DAILY Hold Instructions: Resume on 10/12/22. metoprolol succinate 50 mg tablet extended release 24 hr 50 mg PO DAILY (DME) Sidestream Misc See Rx Instructions .ROUTE DIRECTED Qty: 1 Rx Instructions: As directed ferrous sulfate [FeroSul] 325 mg (65 mg iron) tablet 325 mg PO DAILY sennosides [Natural Senna Laxative] 8.6 mg tablet 8.6 mg PO BEDTIME Qty: 90 3RF mexiletine 150 mg capsule 150 mg PO BID spironolactone 25 mg tablet 25 mg PO DAILY Hold Instructions: Resume on 10/12/22. ascorbic acid (vitamin C) 250 mg tablet 250 mg PO BID calcium carbonate [Calcium Antacid] 200 mg calcium (500 mg) tablet,chewable 600 mg PO BID torsemide 20 mg tablet 10 mg PO DAILY Discharge Orders: Discharge Order (Routine); Ordered 06/06/23 Ordered By: Ignacio Alston Diet: Advance to usual diet Activity on Discharge: As tolerated Stand Alone Forms: Patient Portal Discharge page Care Plan Goals: No Coumadin today. You have an appointment at the [facility] tomorrow 06/07/2023 at 10:15 Health Concerns: Torsemide 20 mg twice a day as been added to your regimen. 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
--- NOTE | 2023-06-06 12:23 | P.F2F_ITS ---
Service Date Service Date: 06/06/23 Encounter Date of encounter: 06/06/23 Reasons for Services Signs and symptoms assessed: Physical deconditioning after acute exacerbation of systolic CHF Reason for physical therapy: home safety and mobility and therapeutic exercises Homebound: Leaving the home is medically contraindicated at this time without the asist of a device and/or another person due th the listed conditions above and below. Reason homebound: unsteady gait / fall risk and poor balance / fall risk Certification: Based on the above findings, I certify that this patient is confined to the home and needs intermittent long-term care, physical therapy and/or speech therapy, or continues to need occupational therapy. The patient is under my care, and I have initiated the establishment of the plan of care. The patient will be followed by a physician who will periodically review the plan of care. Time Spent With Patient Time: Total time managing care of this patient today ____ minutes.
--- NOTE | 2023-06-06 12:35 | PC.RT ---
pt has been refusing cpap for the past few nights. Therefore the cpap will be removed from pt's room
== END 2023-06-06 13:30 | disposition home health service (06) | DRG 291 ==
LOC: HO.ED 19:52 → HO.EDOVER 22:09 → HO.IMC 05-29 13:30
PROVIDERS: Nurse Practitioner Acute Care; Physician Assistant Medical; Admitting Provider Internal Medicine; Emergency Provider Internal Medicine; PCP Internal Medicine; Visit Provider Hospitalist
DX: I11.0 Hypertensive heart disease with heart failure (principal); I50.23 Acute on chronic systolic (congestive) heart failure; J96.21 Acute and chronic respiratory failure with hypoxia; J44.1 Chronic obstructive pulmonary disease with (acute) exacerbation; Z68.43 Body mass index [BMI] 50.0-59.9, adult; E66.01 Morbid (severe) obesity due to excess calories; G47.33 Obstructive sleep apnea (adult) (pediatric); I25.5 Ischemic cardiomyopathy; Z95.0 Presence of cardiac pacemaker; I95.89 Other hypotension; I25.10 Atherosclerotic heart disease of native coronary artery without angina pectoris; Z95.2 Presence of prosthetic heart valve; R79.1 Abnormal coagulation profile; Z20.822 Contact with and (suspected) exposure to COVID-19; Z91.199 Patient's noncompliance with other medical treatment and regimen due to unspecified reason; Z85.3 Personal history of malignant neoplasm of breast; Z87.891 Personal history of nicotine dependence; Z79.01 Long term (current) use of anticoagulants; Z79.51 Long term (current) use of inhaled steroids; Z79.82 Long term (current) use of aspirin; Z79.899 Other long term (current) drug therapy
CPT/HCPCS: 36415; 71046; 80048; 80076; 83690; 83735; 83880; 84484; 85025; 85027; 85610; 85730; 87635; 93005; 93306; 94640; 94660; 97162; 99285; J1650; J1940; J2920; J2930; P9047; Q9957

== ENCOUNTER 2023-05-28 21:58 | Outpatient (BNV) | payer OTHER, SELFPAY | END 2023-05-29 07:00 | PROVIDERS: Admitting Provider Internal Medicine; Emergency Provider Internal Medicine; PCP Internal Medicine; Visit Provider Internal Medicine Cardiovascular Disease | DX: I50.9 Heart failure, unspecified (principal) | CPT/HCPCS: 93306 ==

== ENCOUNTER → 2023-05-28 21:58 | Outpatient (BNV) | payer OTHER, SELFPAY | PROVIDERS: Admitting Provider Internal Medicine; Emergency Provider Internal Medicine; PCP Internal Medicine; Visit Provider Internal Medicine | DX: I50.9 Heart failure, unspecified (principal) | CPT/HCPCS: 99223; 99232; 99233; 99239; G0180 ==

== ENCOUNTER → 2023-05-28 21:58 | Outpatient (BNV) | payer OTHER, SELFPAY | PROVIDERS: Admitting Provider Internal Medicine; Emergency Provider Internal Medicine; PCP Internal Medicine; Visit Provider Internal Medicine Cardiovascular Disease | DX: I50.9 Heart failure, unspecified (principal) | CPT/HCPCS: 99223; 99232; 99233 ==

== ENCOUNTER 2023-06-07 09:41 | Outpatient (AMB) | payer OTHER, SELFPAY ==
--- NOTE | 2023-06-07 10:08 | MHC.OFFVISCO ---
Intake Intake Visit Reasons: Anticoagulation Allergies codeine Allergy (Mild, Verified 06/07/23 09:58) RASH Medication List - Last Reconciled 06/07/23 by Gregoria Caballero RN albuterol sulfate 90 mcg/actuation (ProAir HFA) 2 puffs inhalation Q4H PRN ascorbic acid (vitamin C) 250 mg PO BID aspirin 81 mg PO DAILY atorvastatin 20 mg PO QAM calcium carbonate 600 mg PO BID cholecalciferol (vitamin D3) (Vitamin D3) 50 mcg PO DAILY docusate sodium 100 mg PO BID empagliflozin (Jardiance) 10 mg PO DAILY ferrous sulfate (FeroSul) 325 mg PO DAILY fluoxetine 20 mg PO DAILY fluticasone propion-salmeterol 250-50 mcg/dose 1 ea PO BID ipratropium-albuterol 0.5 mg-3 mg(2.5 mg base)/3 mL 3 mL inhalation QID PRN lisinopril 2.5 mg See Protocol PO DAILY metoprolol succinate ER 50 mg PO DAILY mexiletine 150 mg PO BID montelukast (Singulair) 10 mg PO BEDTIME nebulizers (Sidestream misc) As directed sennosides (Natural Senna Laxative) 8.6 mg PO BEDTIME spironolactone 25 mg PO DAILY torsemide 20 mg See Protocol PO BID torsemide 10 mg PO DAILY warfarin 3.75 mg See Protocol PO DAILY@1800 warfarin 2.5 mg PO SUTUTHSA@1800 warfarin 3.75 mg PO MOWEFR@1800 Nursing Note INR: 2.6 in therapeutic range PT WAS ADMITTED FOR 1 WEEK FOR ASTHMA/CHF- SHE HAS [facility] - BUT THOUGHT SHE STILL HAD TO COME TO HER APPT - IT WAS EXPLAINED THAT [facility] SHOULD BE ABLE TO CHK HER INR WHILE THEY ARE THERE- PER MD NOTE IT APPEARS SHE IS ALSO TO HAVE OT AND PT FOR STRENGTHENING Medications and supplements reviewed-HER TORSEMIDE WAS INCREASED AND LISINOPRIL DECREASED, SHE IS ON FERROUS SULFATE AND IRON, SHE WAS INSTRUCTED TO NOT TAKE HER CALCIUMM WITH HER IRON BECAUSE IT CAN BLOCK THE ABSORPTION, Denies any signs and symptoms of bleeding or bruising or clotting. Bleeding, bruising, clotting discussed Nutritional guidance given - EAT A MIX OF FRUITS AND VEGETABLES, NO GREENS TODAY BECAUSE YOUR INR IS GOOD BUT JUST A LITTLE LOW TODAY Dose: 3.75MG MWF/ 2.5MG X 4 DAYS F/U INR: 06/12/23Monday WITH [facility] Patient verbalizes understanding of instructions given Anti-Coag Initial Assessment Social Hx Patient Tobacco Use Status: Former Tobacco user Quit Date: 15 Smoking packs per day: 1 alcohol intake: former Alcohol intake frequency: does not drink Coding Level of Care Code Est Patient Level 1 Diagnoses Current use of anticoagulant therapy Z79.01 Assessment & Plan Assessment & Plan (1) Current use of anticoagulant therapy: Code(s): 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
[2023-06-07 10:12] LABS: Prothrombin Time Whole Bld POC 31.3 sec (11.1-13.5); ~PT, ~INR - Anti Coag Clinic 2.6 (0.9-1.1)
== END 2023-06-07 10:49 | disposition home or self-care (01) ==
LOC: HO.ACS 09:41
PROVIDERS: PCP Internal Medicine; Visit Provider Internal Medicine
DX: Z79.01 Long term (current) use of anticoagulants (principal)

== ENCOUNTER → 2023-06-07 09:41 | Outpatient (BNVA) | payer OTHER, SELFPAY | PROVIDERS: PCP Internal Medicine; Visit Provider Internal Medicine | DX: Z95.2 Presence of prosthetic heart valve (principal); Z79.01 Long term (current) use of anticoagulants; Z51.81 Encounter for therapeutic drug level monitoring | CPT/HCPCS: 85610; 99211 ==

== ENCOUNTER 2023-06-08 09:45 | Outpatient (AMB) | payer OTHER, SELFPAY ==
[2023-06-08 09:48] VITALS: BP 92/60; PULSE 98; O2SAT 93
--- NOTE | 2023-06-08 09:48 | A.OFFVIS_ITS ---
Intake Vital Signs 06/08/23 09:48 Weight 190 lb 11.198 oz BP 92/60 Blood Pressure Location Lt brachial Position Sitting Pulse 98 Pulse Source Pulse Oximeter Pulse Oximetry (%) 93 Oxygen Delivery Method Room Air Intake Visit Reasons: hospital follow up Allergies codeine Allergy (Mild, Verified 06/08/23 10:06) RASH Medication List - Last Reconciled 06/08/23 by Audrey Jarquin MD albuterol sulfate 90 mcg/actuation (ProAir HFA) 2 puffs inhalation Q4H PRN ascorbic acid (vitamin C) 250 mg PO BID aspirin 81 mg PO DAILY atorvastatin 20 mg PO QAM calcium carbonate 600 mg PO BID cholecalciferol (vitamin D3) (Vitamin D3) 50 mcg PO DAILY docusate sodium 100 mg PO BID empagliflozin (Jardiance) 10 mg PO DAILY ferrous sulfate (FeroSul) 325 mg PO DAILY fluoxetine 20 mg PO DAILY fluticasone propion-salmeterol 250-50 mcg/dose 1 ea PO BID ipratropium-albuterol 0.5 mg-3 mg(2.5 mg base)/3 mL 3 mL inhalation QID PRN lisinopril 2.5 mg See Protocol PO DAILY metoprolol succinate ER 50 mg PO DAILY mexiletine 150 mg PO BID montelukast (Singulair) 10 mg PO BEDTIME nebulizers (Sidestream misc) As directed sennosides (Natural Senna Laxative) 8.6 mg PO BEDTIME spironolactone 25 mg PO DAILY torsemide 20 mg See Protocol PO BID torsemide 10 mg PO DAILY warfarin See Protocol 2.5 mg orally 2.5MG X 4 DAYS/ 3.75MG MWF; Do you need a note to return to daycare/school/sports/work: No HPI hospital follow up HPI Details 57 years old female who is morbidly obes e , and a known case of obstructive sleep apnea/COPD. She was recently hospitalized and treated in [facility] from -- , mainly with her congestive heart failure. Improved and felt better after aggressive diuresis. Did not have any respiratory infection. While in the hospital she did use the BiPAP at night. At home she was not using the CPAP, and hence the CPAP equipment was taken away. This is the 2nd time she has lost her CPAP device. Currently she claims that she is sleeping well, in slightly propped up position. She does have COPD and is being treated with Advair 250-51 inhalation b.i.d. plus DuoNeb updrafts only as needed. She did not need oxygen. She say she is sleeping well, There is no significant dyspnea . She she walks very well with the walker. [facility] Medical History HANS (obstructive sleep apnea) Pacemaker COPD (chronic obstructive pulmonary disease) Restrictive lung disease Morbid obesity Surgical History History of prosthetic mitral valve Hx of section Hx of heart bypass surgery Family History Mother Diabetes Heart disease Father Diabetes Heart attack Maternal Aunt Diabetes Maternal Uncle Diabetes Maternal Grandfather Diabetes Maternal Grandmother Diabetes Paternal Grandfather Heart disease Paternal Grandmother Heart disease Daughter Bipolar 1 disorder Brother Lung cancer Maternal Uncle Lung cancer Social History Household Members: Family Housing: Apartment Are you a primary care information associate to a significant other at home: Yes (Grandkids) Do you presently have visiting nurse or other home services: Yes Alcohol intake: former Patient Tobacco Use Status: Former Tobacco user Quit Date: 15 Cigarette Packs Per Day: 1 Years Smoked: 32 Second Hand Smoke Exposure: Yes Advance Directives Date on File: 05/29/23 service: No Current occupational status: retired and disabled Review of Systems Const All systems reviewed & are unremarkable except as noted in HPI and below Eyes Reports no additional complaints ENT Reports no additional complaints and Reports nasal congestion (Mild off and on, mostly controlled) Card Denies chest pain, Denies irregular heart rhythm and Denies leg edema Resp Reports as per HPI GI Reports no additional complaints Musc Reports no additional complaints Neuro Reports no additional complaints Psych Reports depression (MILD ,CONTROLLED WITH MEDICINE ) Endo Reports no additional complaints Physical Exam Vital Signs: Last Vital Signs Pulse 98 06/08/23 09:48 BP 92/60 06/08/23 09:48 Pulse Ox 93 06/08/23 09:48 Oxygen Delivery Method Room Air 06/08/23 09:48 Const General: comfortable, no acute distress, alert and awake Orientation/consciousness: patient oriented x3 HEENT Head: Yes normal to inspection General nose exam: No nasal polyps present, No nasal discharge present and Other nasal findings present (Chronic nasal congestion) Face and sinus: Yes sinuses nontender Mouth: oropharynx normal Throat: Yes posterior oropharynx normal Eyes General: appearance normal, both eyes and all related structures Neck Neck: Yes normal visual inspection, Yes no lymphadenopathy, Yes trachea midline and Yes no JVD Thyroid: Thyroid normal Chest Chest palpation & inspection: normal inspection of the chest, normal palpation of entire chest wall and no tenderness Resp Other: PERCUSSION NOTE RESONANT, BREATH SOUNDS ARE DECREASED OVER THE BASILAR AREAS, NO WHEEZES RHONCHI OR CREPITATIONS ARE HEARD. Cardio Palpation: normal PMI Rate: regular rate Rhythm: regular rhythm Heart sounds: no gallops and no murmurs GI Inspection: Yes other (ABDOMEN IS MODERATELY OBESE AND PROTUBERANT) Palpation (GI): Soft to palpation, nontender, No hepatosplenomegaly present and no masses Auscultation: normal bowel sounds Back/Spine/Pelvis Thoracic/Lumbar Spine: thoracic and lumbar spine normal to inspection Skin General skin exam: no rashes or lesions noted Neuro General: patient oriented x3, No gait normal (GAIT IMPAIRED AND SHE USES WALKER) and no focal motor deficits Cranial nerves: Yes CN's II-XII intact bilaterally Extrem General: Yes normal to inspection, Yes no clubbing, cyanosis or edema and Yes no calf tenderness Psych Appearance: grossly normal and well kempt Speech and movement: Normal speech and movement present Results Reviewed Results Reviewed: The records in the hospital during her recent admission review Assessment & Plan Assessment & Plan (1) Morbid obesity: Comment: Patient has morbid obesity chronically, has not been able to lose weight. The weight fluctuates with the amount of fluid retention, No significant weight reduction is expected. Code(s): E66.01 - Morbid (severe) obesity due to excess calories (2) Restrictive lung disease: Comment: RESTRICTIVE LUNG DISEASE MAINLY DUE TO MORBID OBESITY. PATIENT ADVISED TO DO DEEP BREATHING. EXERCISES REGULARLY 3 TIMES A DAY Code(s): J98.4 - Other disorders of lung (3) COPD (chronic obstructive pulmonary disease): Comment: SHE HAS CHRONIC OBSTRUCTIVE PULMONARY DISEASE WHICH REMAINS RELATIVELY STABLE. ADVISED TO CONTINUE PRESENT MEDS: ADVAIR 250-50 1 INHALATION B.I.D. ALBUTEROL HFA 2 PUFFS Q 4-6 HOURS P.R.N.. Code(s): J44.9 - Chronic obstructive pulmonary disease, unspecified (4) HANS (obstructive sleep apnea): Comment: PATIENT DOES HAVE HISTORY OF LONG-STANDING OBSTRUCTIVE SLEEP APNEA. CPAP DEVICE WAS PROVIDED 2ND TIME BUT DUE TO NONCOMPLIANCE IT HAS BEEN TAKEN AWAY. SHE IS ADVISED TO SLEEP MOSTLY IN THE PROPPED UP POSITION. Code(s): G47.33 - Obstructive sleep apnea (adult) (pediatric) Coding Level of Care Code Est Pt Level 4 (05005) Diagnoses Morbid obesity E66.01 Restrictive lung disease J98.4 COPD (chronic obstructive pulmonary disease) J44.9 HANS (obstructive sleep apnea) G47.33
== END 2023-06-08 10:16 | disposition home or self-care (01) ==
PROVIDERS: PCP Internal Medicine; Visit Provider Internal Medicine
DX: E66.01 Morbid (severe) obesity due to excess calories (principal); J98.4 Other disorders of lung; J44.9 Chronic obstructive pulmonary disease, unspecified; G47.33 Obstructive sleep apnea (adult) (pediatric)
CPT/HCPCS: 99214

== ENCOUNTER → 2023-06-08 09:45 | Outpatient (BNVA) | payer OTHER, SELFPAY | PROVIDERS: PCP Internal Medicine; Visit Provider Internal Medicine | DX: J44.9 Chronic obstructive pulmonary disease, unspecified (principal); J98.4 Other disorders of lung; G47.33 Obstructive sleep apnea (adult) (pediatric); E66.01 Morbid (severe) obesity due to excess calories | CPT/HCPCS: 99212 ==

== ENCOUNTER → 2023-06-12 15:06 | Outpatient (BNVA) | payer OTHER, SELFPAY | PROVIDERS: PCP Internal Medicine; Visit Provider Internal Medicine ==

== ENCOUNTER 2023-06-13 10:53 | Outpatient (REF) | payer OTHER, SELFPAY ==
--- NOTE | ~2023-06-13 | MM_ITS ---
EXAMINATION: MM SCREENING DIGITAL BREAST TOMOSYNTHESIS, BILATERAL CLINICAL INFORMATION: Screening. Asymptomatic. The patient is status post left surgery for breast cancer in 2006. COMPARISON: Mammography: This study is compared with prior exams dating back to 2017. TECHNIQUE: Digital breast tomosynthesis is performed in both the craniocaudal and mediolateral oblique views along with computer-aided detection (CAD). Synthesized 2D images are generated from the tomosynthesis. FINDINGS: There are scattered areas of fibroglandular density (ACR BI-RADS breast composition Category b). There are architectural changes in the upper outer quadrant of the left breast related to prior left breast cancer surgery. There are benign, dystrophic calcifications associated with the treatment bed. In the right breast, there are no significant masses, abnormal calcifications, or other abnormalities. A pacemaker lies within the superior aspect of the left side of the chest. MM/MM tomosynthesis screening BI IMPRESSION: No mammographic evidence of malignancy. ASSESSMENT: BI-RADS BI-RADS 2 - Benign Findings RECOMMENDATION: Routine annual mammography screening. 1 year F/U This examination should not preclude the clinical evaluation of a suspicious palpable abnormality. This patient's information was entered into a reminder system with a target due date for their next mammogram.
== END 2023-06-13 10:54 | disposition home or self-care (01) ==
LOC: HO.MAMMO 10:53
PROVIDERS: PCP Internal Medicine; Visit Provider Internal Medicine
DX: Z12.31 Encounter for screening mammogram for malignant neoplasm of breast (principal)
CPT/HCPCS: 77063; 77067

== ENCOUNTER → 2023-06-13 11:15 | Outpatient (BNV) | payer OTHER, SELFPAY | PROVIDERS: PCP Internal Medicine; Visit Provider Radiology Diagnostic Radiology | DX: Z12.31 Encounter for screening mammogram for malignant neoplasm of breast (principal) | CPT/HCPCS: 77063; 77067 ==

== ENCOUNTER → 2023-06-15 14:39 | Outpatient (BNVA) | payer OTHER, SELFPAY | PROVIDERS: PCP Internal Medicine; Visit Provider Internal Medicine ==

== ENCOUNTER → 2023-06-19 14:31 | Outpatient (BNVA) | payer OTHER, SELFPAY | PROVIDERS: PCP Internal Medicine; Visit Provider Internal Medicine ==

== ENCOUNTER → 2023-06-22 15:07 | Outpatient (BNVA) | payer OTHER, SELFPAY | PROVIDERS: PCP Internal Medicine; Visit Provider Internal Medicine ==

== ENCOUNTER → 2023-06-26 14:33 | Outpatient (BNVA) | payer OTHER, SELFPAY | PROVIDERS: PCP Internal Medicine; Visit Provider Internal Medicine ==

== ENCOUNTER 2023-07-03 09:33 | Outpatient (AMB) | payer OTHER, SELFPAY ==
--- NOTE | 2023-07-03 10:11 | MHC.OFFVISCO ---
Intake Intake Visit Reasons: Anticoagulation Allergies codeine Allergy (Mild, Verified 07/03/23 09:49) RASH Medication List - Last Reconciled 07/03/23 by Gregoria Caballero RN albuterol sulfate 90 mcg/actuation (ProAir HFA) 2 puffs inhalation Q4H PRN ascorbic acid (vitamin C) 250 mg PO BID aspirin 81 mg PO DAILY atorvastatin 20 mg PO QAM calcium carbonate 600 mg PO BID cholecalciferol (vitamin D3) (Vitamin D3) 50 mcg PO DAILY docusate sodium 100 mg PO BID empagliflozin (Jardiance) 10 mg PO DAILY ferrous sulfate (FeroSul) 325 mg PO DAILY fluoxetine 20 mg PO DAILY fluticasone propion-salmeterol 250-50 mcg/dose 1 ea PO BID ipratropium-albuterol 0.5 mg-3 mg(2.5 mg base)/3 mL 3 mL inhalation QID PRN lisinopril 2.5 mg See Protocol PO DAILY metoprolol succinate ER 50 mg PO DAILY mexiletine 150 mg PO BID montelukast (Singulair) 10 mg PO BEDTIME nebulizers (Sidestream misc) As directed sennosides (Natural Senna Laxative) 8.6 mg PO BEDTIME torsemide 20 mg See Protocol PO BID warfarin See Protocol 2.5 mg orally 3.75 MG X 4 DAYS/ 2.5MG X 2 DAYS Nursing Note INR: 2.8 in therapeutic range Medications and supplements reviewed PT ENC TO BRING MEDS OR UPDATED LIST OF ALL CURRENT MEDS AND ANY SUPPLEMENTS NEXT VISIT No changes in health, diet, medications, or supplements, Denies any signs and symptoms of bleeding or bruising or clotting. Bleeding, bruising, clotting discussed Nutritional guidance given = EAT A MIX OF FRUITS AND VEGETABLES- REVIEW FOOD LISTS GIVEN Dose: 2.5MG X 2 DAYS/ 3.75MG X 5 DAYS F/U INR: 2 WEEKS Patient verbalizes understanding of instructions given Anti-Coag Initial Assessment Social Hx Patient Tobacco Use Status: Former Tobacco user Quit Date: 15 Smoking packs per day: 1 alcohol intake: former Alcohol intake frequency: does not drink Coding Level of Care Code Est Patient Level 1 Diagnoses Current use of anticoagulant therapy Z79.01 Results AMB INR Fingerstick AMB INR Fingerstick 2.8 Last Edit by Gregoria Caballero RN on 11/13/23 10:02 MNAUAL ENTRY Assessment & Plan Assessment & Plan (1) Current use of anticoagulant therapy: 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
[2023-07-03 11:47] LABS: Prothrombin Time Whole Bld POC 33.3 sec (11.1-13.5); ~PT, ~INR - Anti Coag Clinic 2.8 (0.9-1.1)
== END 2023-07-03 10:37 | disposition home or self-care (01) ==
LOC: HO.ACS 09:33
PROVIDERS: PCP Internal Medicine; Visit Provider Internal Medicine
DX: Z79.01 Long term (current) use of anticoagulants (principal)

== ENCOUNTER → 2023-07-03 09:33 | Outpatient (BNVA) | payer OTHER, SELFPAY | PROVIDERS: PCP Internal Medicine; Visit Provider Internal Medicine | DX: Z95.2 Presence of prosthetic heart valve (principal); Z51.81 Encounter for therapeutic drug level monitoring; Z79.01 Long term (current) use of anticoagulants | CPT/HCPCS: 85610; 99211 ==

== ENCOUNTER 2023-07-17 10:24 | Outpatient (AMB) | payer OTHER, SELFPAY ==
--- NOTE | 2023-07-17 10:30 | MHC.OFFVISCO ---
Intake Intake Visit Reasons: Anticoagulation Allergies codeine Allergy (Mild, Verified 07/17/23 10:25) RASH Medication List - Last Reconciled 07/17/23 by Gregoria Caballero RN albuterol sulfate 90 mcg/actuation (ProAir HFA) 2 puffs inhalation Q4H PRN ascorbic acid (vitamin C) 250 mg PO BID aspirin 81 mg PO DAILY atorvastatin 20 mg PO QAM calcium carbonate 600 mg PO BID cholecalciferol (vitamin D3) (Vitamin D3) 50 mcg PO DAILY docusate sodium 100 mg PO BID empagliflozin (Jardiance) 10 mg PO DAILY ferrous sulfate (FeroSul) 325 mg PO DAILY fluoxetine 20 mg PO DAILY fluticasone propion-salmeterol 250-50 mcg/dose 1 ea PO BID ipratropium-albuterol 0.5 mg-3 mg(2.5 mg base)/3 mL 3 mL inhalation QID PRN lisinopril 2.5 mg See Protocol PO DAILY metoprolol succinate ER 50 mg PO DAILY mexiletine 150 mg PO BID montelukast (Singulair) 10 mg PO BEDTIME nebulizers (Sidestream misc) As directed sennosides (Natural Senna Laxative) 8.6 mg PO BEDTIME warfarin See Protocol 2.5 mg orally 3.75 MG X 4 DAYS/ 2.5MG X 2 DAYS Nursing Note INR: 4.0 OUT OF therapeutic range Medications and supplements reviewed- pt brought meds in she is not on torsemide but on sprinolactone, she states she has had increase sob - she is enc to call her PCP and 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 Bleeding, bruising, clotting discussed Nutritional guidance given - EAT GREENS TO HELP LOWER THE INR Dose: decrease wkly dose 2.5MG X 3 DAYS/ 3.75MG X 4 DAYS F/U INR: 1 week Patient verbalizes understanding of instructions given Anti-Coag Initial Assessment Social Hx Patient Tobacco Use Status: Former Tobacco user Quit Date: 15 Smoking packs per day: 1 alcohol intake: former Alcohol intake frequency: does not drink Coding Level of Care Code Est Patient Level 1
== END 2023-07-17 10:43 | disposition home or self-care (01) ==
LOC: HO.ACS 10:24
PROVIDERS: PCP Internal Medicine; Visit Provider Internal Medicine
DX: Z79.01 Long term (current) use of anticoagulants (principal)

== ENCOUNTER → 2023-07-17 10:24 | Outpatient (BNVA) | payer OTHER, SELFPAY | PROVIDERS: PCP Internal Medicine; Visit Provider Internal Medicine | DX: Z95.2 Presence of prosthetic heart valve (principal); Z79.01 Long term (current) use of anticoagulants; Z51.81 Encounter for therapeutic drug level monitoring | CPT/HCPCS: 85610; 99211 ==

== ENCOUNTER 2023-07-24 09:40 | Outpatient (AMB) | payer OTHER, SELFPAY ==
[2023-07-24 10:22] LABS: ~PT, ~INR - Anti Coag Clinic 2.9 (0.9-1.1)
--- NOTE | 2023-07-24 10:27 | MHC.OFFVISCO ---
Intake Intake Visit Reasons: Anticoagulation Allergies codeine Allergy (Mild, Verified 07/17/23 10:25) RASH Nursing Note INR: 2.9 in therapeutic range Medications and supplements reviewed- PT TO F/U WITH CARDIOLOGY REGARDING CARDIAC MEDS AND CALL [facility] WITH ANY CHANGES No changes in health, diet, medications, or supplements, Denies any signs and symptoms of bleeding or bruising or clotting. 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
== END 2023-07-24 10:29 | disposition home or self-care (01) ==
LOC: HO.ACS 09:40
PROVIDERS: PCP Internal Medicine; Visit Provider Internal Medicine
DX: Z79.01 Long term (current) use of anticoagulants (principal)

== ENCOUNTER → 2023-07-24 09:40 | Outpatient (BNVA) | payer OTHER, SELFPAY | PROVIDERS: PCP Internal Medicine; Visit Provider Internal Medicine | DX: Z95.2 Presence of prosthetic heart valve (principal); Z79.01 Long term (current) use of anticoagulants; Z51.81 Encounter for therapeutic drug level monitoring | CPT/HCPCS: 85610; 99211 ==

== ENCOUNTER 2023-08-07 10:00 | Outpatient (AMB) | payer OTHER, SELFPAY ==
[2023-08-07 10:23] LABS: Prothrombin Time Whole Bld POC 37.2 sec (11.1-13.5); ~PT, ~INR - Anti Coag Clinic 3.1 (0.9-1.1)
--- NOTE | 2023-08-07 10:29 | MHC.OFFVISCO ---
Intake Intake Visit Reasons: Anticoagulation Allergies codeine Allergy (Mild, Verified 08/07/23 10:13) RASH Medication List - Last Reconciled 08/07/23 by Gregoria Caballero RN albuterol sulfate 90 mcg/actuation (ProAir HFA) 2 puffs inhalation Q4H PRN ascorbic acid (vitamin C) 250 mg PO BID aspirin 81 mg PO DAILY atorvastatin 20 mg PO QAM calcium carbonate 600 mg PO BID cholecalciferol (vitamin D3) (Vitamin D3) 50 mcg PO DAILY docusate sodium 100 mg PO BID empagliflozin (Jardiance) 10 mg PO DAILY ferrous sulfate (FeroSul) 325 mg PO DAILY fluoxetine 20 mg PO DAILY fluticasone propion-salmeterol 250-50 mcg/dose 1 ea PO BID ipratropium-albuterol 0.5 mg-3 mg(2.5 mg base)/3 mL 3 mL inhalation QID PRN lisinopril 2.5 mg See Protocol PO DAILY metoprolol succinate ER 50 mg PO DAILY mexiletine 150 mg PO BID montelukast (Singulair) 10 mg PO BEDTIME nebulizers (Sidestream misc) As directed prednisone 20 mg PO BID sennosides (Natural Senna Laxative) 8.6 mg PO BEDTIME spironolacton-hydrochlorothiaz 25-25 mg 1 tab PO DAILY warfarin See Protocol 2.5 mg orally 3.75 MG X 4 DAYS/ 2.5MG X 2 DAYS Nursing Note INR: 3.1 in therapeutic range Medications and supplements reviewed PT IS S/P URI AND HAS BEEN ON PREDNISONE WTH DA DECREAE WARFARIN DOSE X 2 DAYS, FEELING A LITTLE BETTER - STILL HAS COUGH AND DECREASED APPETITE Denies any signs and symptoms of bleeding or bruising or clotting. Bleeding, bruising, clotting discussed Nutritional guidance given - REVIEW FOOD LIST WEEKLY, EAT GREENS IN A FEW DAYS WHEN FEELING BETTER Dose: RESUME USUAL DOSE 2.5MG X 3 DAYS/ 3.75MG X 4 DAYS F/U INR: 2 WEEKS Patient verbalizes understanding of instructions given Anti-Coag Initial Assessment Social Hx Patient Tobacco Use Status: Former Tobacco user Quit Date: 15 Smoking packs per day: 1 alcohol intake: former Alcohol intake frequency: does not drink Coding Level of Care Code Est Patient Level 1 Diagnoses Current use of anticoagulant therapy Z79.01 Assessment & Plan Assessment & Plan (1) Current use of anticoagulant therapy: Code(s): Z79.01 - [facility] (current) use of anticoagulants Category: Medical
== END 2023-08-07 10:32 | disposition home or self-care (01) ==
LOC: HO.ACS 10:00
PROVIDERS: PCP Internal Medicine; Visit Provider Internal Medicine
DX: Z79.01 Long term (current) use of anticoagulants (principal)

== ENCOUNTER → 2023-08-07 10:00 | Outpatient (BNVA) | payer OTHER, SELFPAY | PROVIDERS: PCP Internal Medicine; Visit Provider Internal Medicine | DX: Z95.2 Presence of prosthetic heart valve (principal); Z79.01 Long term (current) use of anticoagulants; Z51.81 Encounter for therapeutic drug level monitoring | CPT/HCPCS: 85610; 99211 ==

== ENCOUNTER 2023-08-23 09:52 | Outpatient (AMB) | payer OTHER, SELFPAY ==
[2023-08-23 10:00] LABS: Prothrombin Time Whole Bld POC 29.2 sec (11.1-13.5); ~PT, ~INR - Anti Coag Clinic 2.4 (0.9-1.1)
--- NOTE | 2023-08-23 10:18 | MHC.OFFVISCO ---
Intake Intake Visit Reasons: Anticoagulation Allergies codeine Allergy (Mild, Verified 08/23/23 09:53) RASH Medication List - Last Reconciled 08/23/23 by Gregoria Caballero RN albuterol sulfate 90 mcg/actuation (ProAir HFA) 2 puffs inhalation Q4H PRN ascorbic acid (vitamin C) 250 mg PO BID aspirin 81 mg PO DAILY atorvastatin 20 mg PO QAM calcium carbonate 600 mg PO BID cholecalciferol (vitamin D3) (Vitamin D3) 50 mcg PO DAILY docusate sodium 100 mg PO BID empagliflozin (Jardiance) 10 mg PO DAILY ferrous sulfate (FeroSul) 325 mg PO DAILY fluoxetine 20 mg PO DAILY fluticasone propion-salmeterol 250-50 mcg/dose 1 ea PO BID ipratropium-albuterol 0.5 mg-3 mg(2.5 mg base)/3 mL 3 mL inhalation QID PRN lisinopril 2.5 mg See Protocol PO DAILY metoprolol succinate ER 50 mg PO DAILY mexiletine 150 mg PO BID montelukast (Singulair) 10 mg PO BEDTIME nebulizers (Sidestream misc) As directed sennosides (Natural Senna Laxative) 8.6 mg PO BEDTIME spironolacton-hydrochlorothiaz 25-25 mg 1 tab PO DAILY torsemide 20 mg PO DAILY warfarin See Protocol 2.5 mg orally 3.75 MG X 4 DAYS/ 2.5MG X 2 DAYS Nursing Note INR 2.4? out of therapeutic range 2.5-3.5 Medications and supplements reviewed Patient status: feeling well, sad over a family situation but coping ok with it, emotional support given with good response Medications or supplements: no changes- still on 2 diuretics spironolacton-hydrochlorothiazide and torsemide Diet: good Denies any signs and symptoms of bleeding or clotting or unusual bruising Bleeding, bruising, clotting discussed Nutritional guidance given: to avoid green x 3 days , eat foods to help raise the INR Dose:keep same for now 3.75mg x 4 days/ 2.5mg x 3 days F/U INR Date : 2 weeks?? Patient verbalizing understanding of instructions given. Anti-Coag Initial Assessment Social Hx Patient Tobacco Use Status: Former Tobacco user Quit Date: 15 Smoking packs per day: 1 alcohol intake: former Alcohol intake frequency: does not drink Questionnaires HAS-BLED Does the patient had uncontrolled Hypertension?: No Does the patient have renal disease?: No Does the patient have liver disease?: No Does the patient have a history of stroke?: No Has the patient had major bleeding or predisposition to bleeding?: Yes Does the patient have labile INRs?: No Is the patient over 65 years of age?: No Is the patient on medications that gives them a predisposition to bleeding?: Yes Does the patient use alcohol?: No HAS-BLED Score: 2 CHADSVASC Age: <65 Gender: Female Does the patient have a history of CHF?: Yes Does the patient have a history of Hypertension?: Yes Does the patient have a history of Stroke/TIA/Thromboembolism?: No Does the patient have a history of Vascular Disease (prior KS, PAD or aortic plaque)?: No Does the patient have a history of Diabetes?: No CHADS VACS Score: 3 Billie Prediction Score Rsk VTE Active Cancer: No Previous VTE, excluding superficial vein thrombosis: No Reduced mobility: Yes Already known Thrombophilic Condition: Yes With-in last month Trauma and/or Surgery: No Elderly 70 year or older: No Heart and/or Respiratory Failure: Yes Acute Myocardial infarction and/or Ischemic Stroke: No Acute Infection and/or Rheumatologic Disorder: No Obesity (BMI 30 or greater): Yes Ongoing Hormonal Treatment: No Score: 8 Billie Score less than 4; Low Risk of VTE Billie Score 4 or greater; High Risk of VTE Coding Level of Care Code Est Patient Level 1 Diagnoses Current use of anticoagulant therapy Z79.01 Assessment & Plan Assessment & Plan (1) Current use of anticoagulant therapy: Code(s): Z79.01 - [facility] (current) use of anticoagulants Category: Medical
== END 2023-08-23 10:26 | disposition home or self-care (01) ==
LOC: HO.ACS 09:52
PROVIDERS: PCP Internal Medicine; Visit Provider Internal Medicine
DX: Z79.01 Long term (current) use of anticoagulants (principal)

== ENCOUNTER → 2023-08-23 09:52 | Outpatient (BNVA) | payer OTHER, SELFPAY | PROVIDERS: PCP Internal Medicine; Visit Provider Internal Medicine | DX: Z95.2 Presence of prosthetic heart valve (principal); Z79.01 Long term (current) use of anticoagulants; Z51.81 Encounter for therapeutic drug level monitoring | CPT/HCPCS: 85610; 99211 ==

== ENCOUNTER 2023-09-06 10:25 | Outpatient (AMB) | payer OTHER, SELFPAY ==
[2023-09-06 10:35] LABS: Prothrombin Time Whole Bld POC 31.6 sec (11.1-13.5); ~PT, ~INR - Anti Coag Clinic 2.6 (0.9-1.1)
--- NOTE | 2023-09-06 10:47 | MHC.OFFVISCO ---
Intake Intake Visit Reasons: Anticoagulation Allergies codeine Allergy (Mild, Verified 09/06/23 10:36) Anxiety Medication List - Last Reconciled 09/06/23 by Gregoria Caballero RN albuterol sulfate 90 mcg/actuation (ProAir HFA) 2 puffs inhalation Q4H PRN ascorbic acid (vitamin C) 250 mg PO BID aspirin 81 mg PO DAILY atorvastatin 20 mg PO QAM calcium carbonate 600 mg PO BID cholecalciferol (vitamin D3) (Vitamin D3) 50 mcg PO DAILY docusate sodium 100 mg PO BID empagliflozin (Jardiance) 10 mg PO DAILY ferrous sulfate (FeroSul) 325 mg PO DAILY fluoxetine 20 mg PO DAILY fluticasone propion-salmeterol 250-50 mcg/dose 1 ea PO BID ipratropium-albuterol 0.5 mg-3 mg(2.5 mg base)/3 mL 3 mL inhalation QID PRN lisinopril 2.5 mg See Protocol PO DAILY metoprolol succinate ER 50 mg PO DAILY mexiletine 150 mg PO BID montelukast (Singulair) 10 mg PO BEDTIME nebulizers (Sidestream misc) As directed sennosides (Natural Senna Laxative) 8.6 mg PO BEDTIME spironolacton-hydrochlorothiaz 25-25 mg 1 tab PO DAILY torsemide 20 mg PO DAILY warfarin See Protocol 2.5 mg orally 3.75 MG X 4 DAYS/ 2.5MG X 2 DAYS Nursing Note INR: 2.6 in therapeutic range Medications and supplements reviewed No changes in health, diet, medications, or supplements, Denies any signs and symptoms of bleeding or clotting, states she has small bruising on arms and legs, no injury will cont to monitor, last H+H (slightly above range) and platelets stable 06/12 Bleeding, bruising, clotting discussed Nutritional guidance given Dose: cont 2.5mg ,wf/ 3.75mg x 4 days F/U INR: 3 weeks Patient verbalizes understanding of instructions given Anti-Coag Initial Assessment Social Hx Patient Tobacco Use Status: Former Tobacco user Quit Date: 15 Smoking packs per day: 1 alcohol intake: former Alcohol intake frequency: does not drink Coding Level of Care Code Est Patient Level 1 Diagnoses Current use of anticoagulant therapy Z79.01 Assessment & Plan Assessment & Plan (1) Current use of anticoagulant therapy: 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
== END 2023-09-06 10:50 | disposition home or self-care (01) ==
LOC: HO.ACS 10:25
PROVIDERS: PCP Internal Medicine; Visit Provider Internal Medicine
DX: Z79.01 Long term (current) use of anticoagulants (principal)

== ENCOUNTER → 2023-09-06 10:25 | Outpatient (BNVA) | payer OTHER, SELFPAY | PROVIDERS: PCP Internal Medicine; Visit Provider Internal Medicine | DX: Z95.2 Presence of prosthetic heart valve (principal); Z79.01 Long term (current) use of anticoagulants; Z51.81 Encounter for therapeutic drug level monitoring | CPT/HCPCS: 85610; 99211 ==

== ENCOUNTER 2023-09-11 09:56 | Outpatient (AMB) | payer OTHER, SELFPAY ==
[2023-09-11 10:18] VITALS: BP 102/68; PULSE 85; O2SAT 95; BMI 45.4
--- NOTE | 2023-09-11 10:18 | A.OFFVIS_ITS ---
Intake Vital Signs 09/11/23 10:18 Height 4 ft 6 in Weight 188 lb 7.924 oz BMI 45.4 BP 102/68 Blood Pressure Location Lt brachial Position Sitting Pulse 85 Pulse Source Pulse Oximeter Pulse Oximetry (%) 95 Oxygen Delivery Method Room Air Intake Visit Reasons: copd Intake Note: pt is here for hospital [facility] up and states she was on oxygen and c-pap while int Hospital . They told her to discuss this with you,She does not have a c- pap at home, she returned it. AT night she has to sleep with fan, she snores, gasping for air. but she does have a lot of anxiety with her breathing and the machine must be the most comfortable for this reason. 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: No Allergies codeine Allergy (Mild, Verified 09/11/23 10:35) Anxiety Medication List - Last Reconciled 09/11/23 by Audrey Jarquin MD albuterol sulfate 90 mcg/actuation (ProAir HFA) 2 puffs inhalation Q4H PRN ascorbic acid (vitamin C) 250 mg PO BID aspirin 81 mg PO DAILY atorvastatin 20 mg PO QAM calcium carbonate 600 mg PO BID cholecalciferol (vitamin D3) (Vitamin D3) 50 mcg PO DAILY docusate sodium 100 mg PO BID empagliflozin (Jardiance) 10 mg PO DAILY ferrous sulfate (FeroSul) 325 mg PO DAILY fluoxetine 20 mg PO DAILY fluticasone propion-salmeterol 250-50 mcg/dose 1 ea PO BID ipratropium-albuterol 0.5 mg-3 mg(2.5 mg base)/3 mL 3 mL inhalation QID PRN lisinopril 2.5 mg See Protocol PO DAILY metoprolol succinate ER 50 mg PO DAILY mexiletine 150 mg PO BID montelukast (Singulair) 10 mg PO BEDTIME nebulizers (Sidestream misc) As directed sennosides (Natural Senna Laxative) 8.6 mg PO BEDTIME spironolacton-hydrochlorothiaz 25-25 mg 1 tab PO DAILY torsemide 20 mg PO DAILY warfarin See Protocol 2.5 mg orally 3.75 MG X 4 DAYS/ 2.5MG X 2 DAYS Do you need a note to return to daycare/school/sports/work: No HPI copd HPI Details THIS 58 YEARS OLD FEMALE MORBIDLY OBESE, COMES FOR FOLLOW-UP AFTER 3 MONTHS. DOES HAVE HISTORY OF, RESTRICTIVE/OBSTRUCTIVE LUNG DISEASE, USES ADVAIR 250-51 INHALATION B.I.D. AND DUONEB UPDRAFTS 3 TIMES A DAY. SHE HAS HISTORY OF OBSTRUCTIVE SLEEP APNEA BUT HAS LOST HER CPAP DEVICE X2 DUE TO NONCOMPLIANCE. SHE FEELS CLAUSTROPHOBIC AND CAN NOT USE THE FULLFACE MASK. SHE WANTS TO TRY CPAP USAGE AGAIN WITH THE NASAL MASK OR NASAL PILLOWS. SHE REMAINS SHORT OF BREATH ON WALKING AROUND, AND HAS INTERMITTENT COUGH, WITHOUT MUCH EXPECTORATION. HER DAILY ACTIVITY IS LIMITED AND SHE WALKS ONLY WITH THE WALKER. SHE CLAIMS THAT SHE SLEEPS GOOD BUT WAKES UP 2 OR 3 TIMES FROM THE SLEEP DUE TO SHORTNESS OF BREATH. SHE IS A CASE OF CONGESTIVE HEART FAILURE AND IS BEING TREATED WITH DIURETICS. [facility] Medical History (Updated 09/11/23 @ 12:02 by Audrey Jarquin MD) CHF (congestive heart failure) COPD (chronic obstructive pulmonary disease) HANS (obstructive sleep apnea) Pacemaker Restrictive lung disease Morbid obesity Surgical History History of prosthetic mitral valve Hx of section Hx of heart bypass surgery Family History Mother Diabetes Heart disease Father Diabetes Heart attack Maternal Aunt Diabetes Maternal Uncle Diabetes Maternal Grandfather Diabetes Maternal Grandmother Diabetes Paternal Grandfather Heart disease Paternal Grandmother Heart disease Daughter Bipolar 1 disorder Brother Lung cancer Maternal Uncle Lung cancer Social History Household Members: Family Housing: Apartment Are you a primary director of primary care to a significant other at home: Yes (Grandkids) Do you presently have visiting nurse or other home services: Yes Alcohol intake: former Comment: refusing alarm Patient Tobacco Use Status: Former Tobacco user Quit Date: 15 Cigarette Packs Per Day: 1 Years Smoked: 32 Second Hand Smoke Exposure: Yes Advance Directives Date on File: 05/29/23 service: No Current occupational status: retired and disabled Review of Systems Const All systems reviewed & are unremarkable except as noted in HPI and below Eyes Reports no additional complaints ENT Reports no additional complaints and Reports nasal congestion (Mild off and on, mostly controlled) Card Denies chest pain, Denies irregular heart rhythm and Denies leg edema Resp Reports as per HPI GI Reports no additional complaints Musc Reports no additional complaints Neuro Reports no additional complaints Psych Reports depression (MILD ,CONTROLLED WITH MEDICINE ) Endo Reports no additional complaints Physical Exam Vital Signs: Last Vital Signs Pulse 85 09/11/23 10:18 BP 102/68 09/11/23 10:18 Pulse Ox 95 09/11/23 10:18 Oxygen Delivery Method Room Air 09/11/23 10:18 BMI result Body Mass Index 45.4 Const General: comfortable, no acute distress, alert and awake Orientation/consciousness: patient oriented x3 HEENT Head: Yes normal to inspection General nose exam: No nasal polyps present, No nasal discharge present and Other nasal findings present (Chronic nasal congestion) Face and sinus: Yes sinuses nontender Mouth: oropharynx normal Throat: Yes posterior oropharynx normal Eyes General: appearance normal, both eyes and all related structures Neck Neck: Yes normal visual inspection, Yes no lymphadenopathy, Yes trachea midline and Yes no JVD Thyroid: Thyroid normal Chest Chest palpation & inspection: normal inspection of the chest, normal palpation of entire chest wall and no tenderness Resp Other: PERCUSSION NOTE RESONANT, BREATH SOUNDS ARE DECREASED OVER THE BASILAR AREAS, NO WHEEZES RHONCHI OR CREPITATIONS ARE HEARD. Cardio Palpation: normal PMI Rate: regular rate Rhythm: regular rhythm Heart sounds: no gallops and no murmurs GI Inspection: Yes other (ABDOMEN IS MODERATELY OBESE AND PROTUBERANT) Palpation (GI): Soft to palpation, nontender, No hepatosplenomegaly present and no masses Auscultation: normal bowel sounds Back/Spine/Pelvis Thoracic/Lumbar Spine: thoracic and lumbar spine normal to inspection Skin General skin exam: no rashes or lesions noted Neuro General: patient oriented x3, No gait normal (GAIT IMPAIRED AND SHE USES WALKER) and no focal motor deficits Cranial nerves: Yes CN's II-XII intact bilaterally Extrem General: Yes normal to inspection, Yes no clubbing, cyanosis or edema and Yes no calf tenderness Psych Appearance: grossly normal and well kempt Speech and movement: Normal speech and movement present Assessment & Plan Assessment & Plan (1) Morbid obesity: Comment: Patient has morbid obesity chronically, has not been able to lose weight. The weight fluctuates with the amount of fluid retention, No significant weight reduction is expected. Code(s): E66.01 - Morbid (severe) obesity due to excess calories Plan: as above (2) Restrictive lung disease: Comment: RESTRICTIVE LUNG DISEASE MAINLY DUE TO MORBID OBESITY. PATIENT ADVISED TO DO DEEP BREATHING. EXERCISES REGULARLY 3 TIMES A DAY SPIROMETRY DEVICE IS GIVEN AGAIN. Code(s): J98.4 - Other disorders of lung Plan: ABOVE (3) HANS (obstructive sleep apnea): Comment: PATIENT DOES HAVE HISTORY OF LONG-STANDING OBSTRUCTIVE SLEEP APNEA. CPAP DEVICE WAS PROVIDED 2ND TIME BUT DUE TO NONCOMPLIANCE IT HAS BEEN TAKEN AWAY. SHE STATES THAT SHE FEELS CLAUSTROPHOBIC WITH FULLFACE MASK. SHE WOULD LIKE TO TRY CPAP AGAIN WITH A NASAL PILLOWS. I TOLD HER THAT TO GET THE CPAP ONCE AGAIN SHE HAS TO UNDERGO A POLYSOMNOGRAM STUDY IN THE SLEEP LAB. SHE IS AGREEABLE. Code(s): G47.33 - Obstructive sleep apnea (adult) (pediatric) Plan: WILL ORDER A POLYSOMNOGRAM STUDY, POSSIBLE SPLIT NIGHT AND CPAP TITRATION. Orders: Orders RT PSG in-lab sleep study Today E66.01 - Morbid (severe) obesity due to excess calories, G47.33 - Obstructive sleep apnea (adult) (pediatric), I50.9 - Heart failure, unspecified Coding Level of Care Code Est Pt Level 4 (96337) Diagnoses Morbid obesity E66.01 Restrictive lung disease J98.4 HANS (obstructive sleep apnea) G47.33
== END 2023-09-11 10:47 | disposition home or self-care (01) ==
PROVIDERS: PCP Internal Medicine; Visit Provider Internal Medicine
DX: E66.01 Morbid (severe) obesity due to excess calories (principal); J98.4 Other disorders of lung; G47.33 Obstructive sleep apnea (adult) (pediatric)
CPT/HCPCS: 99214

== ENCOUNTER → 2023-09-11 09:56 | Outpatient (BNVA) | payer OTHER, SELFPAY | PROVIDERS: PCP Internal Medicine; Visit Provider Internal Medicine | DX: J98.4 Other disorders of lung (principal); G47.33 Obstructive sleep apnea (adult) (pediatric); E66.01 Morbid (severe) obesity due to excess calories; Z68.42 Body mass index [BMI] 45.0-49.9, adult | CPT/HCPCS: 99212 ==

== ENCOUNTER 2023-09-25 09:57 | Outpatient (AMB) | payer OTHER, SELFPAY ==
[2023-09-25 10:09] LABS: Prothrombin Time Whole Bld POC 40.6 sec (11.1-13.5); ~PT, ~INR - Anti Coag Clinic 3.4 (0.9-1.1)
--- NOTE | 2023-09-25 10:17 | MHC.OFFVISCO ---
Intake Intake Visit Reasons: Anticoagulation Allergies codeine Allergy (Mild, Verified 09/25/23 10:03) Anxiety Medication List - Last Reconciled 09/25/23 by Sonja Madison RN albuterol sulfate 90 mcg/actuation (ProAir HFA) 2 puffs inhalation Q4H PRN ascorbic acid (vitamin C) 250 mg PO BID aspirin 81 mg PO DAILY atorvastatin 20 mg PO QAM calcium carbonate 600 mg PO BID cholecalciferol (vitamin D3) (Vitamin D3) 50 mcg PO DAILY docusate sodium 100 mg PO BID empagliflozin (Jardiance) 10 mg PO DAILY ferrous sulfate (FeroSul) 325 mg PO DAILY fluoxetine 20 mg PO DAILY fluticasone propion-salmeterol 250-50 mcg/dose 1 ea PO BID ipratropium-albuterol 0.5 mg-3 mg(2.5 mg base)/3 mL 3 mL inhalation QID PRN lisinopril 2.5 mg See Protocol PO DAILY metoprolol succinate ER 50 mg PO DAILY mexiletine 150 mg PO BID montelukast (Singulair) 10 mg PO BEDTIME nebulizers (Sidestream misc) As directed sennosides (Natural Senna Laxative) 8.6 mg PO BEDTIME spironolacton-hydrochlorothiaz 25-25 mg 1 tab PO DAILY torsemide 20 mg PO DAILY warfarin See Protocol 2.5 mg orally 3.75 MG X 4 DAYS/ 2.5MG X 2 DAYS Nursing Note INR: 3.4 in therapeutic range Medications and supplements reviewed No changes in health, diet, medications, or supplements, Denies any signs and symptoms of bleeding or bruising or clotting. Bleeding, bruising, clotting discussed Nutritional guidance given Dose: CONTINUE SAME F/U INR: 3 WEEKS Patient verbalizes understanding of instructions given Anti-Coag Initial Assessment Social Hx Patient Tobacco Use Status: Former Tobacco user Quit Date: 15 Smoking packs per day: 1 alcohol intake: former Alcohol intake frequency: does not drink Coding Level of Care Code Est Patient Level 1 Diagnoses Current use of anticoagulant therapy Z79.01 Assessment & Plan Assessment & Plan (1) Current use of anticoagulant therapy: Code(s): Z79.01 - shelter (current) use of anticoagulants Category: Medical
== END 2023-09-25 10:19 | disposition home or self-care (01) ==
LOC: HO.ACS 09:57
PROVIDERS: PCP Internal Medicine; Visit Provider Internal Medicine
DX: Z79.01 Long term (current) use of anticoagulants (principal)

== ENCOUNTER → 2023-09-25 09:57 | Outpatient (BNVA) | payer OTHER, SELFPAY | PROVIDERS: PCP Internal Medicine; Visit Provider Internal Medicine | DX: Z95.2 Presence of prosthetic heart valve (principal); Z51.81 Encounter for therapeutic drug level monitoring; Z79.01 Long term (current) use of anticoagulants | CPT/HCPCS: 85610; 99211 ==

== ENCOUNTER 2023-10-16 09:41 | Outpatient (AMB) | payer OTHER, SELFPAY ==
[2023-10-16 10:07] LABS: Prothrombin Time Whole Bld POC 42.2 sec (11.1-13.5); ~PT, ~INR - Anti Coag Clinic 3.5 (0.9-1.1)
--- NOTE | 2023-10-16 10:08 | MHC.OFFVISCO ---
Intake Intake Visit Reasons: Anticoagulation Allergies codeine Allergy (Mild, Verified 10/16/23 10:01) Anxiety Medication List - Last Reconciled 10/16/23 by Sonja López RN albuterol sulfate 90 mcg/actuation (ProAir HFA) 2 puffs inhalation Q4H PRN ascorbic acid (vitamin C) 250 mg PO BID aspirin 81 mg PO DAILY atorvastatin 20 mg PO QAM calcium carbonate 600 mg PO BID cholecalciferol (vitamin D3) (Vitamin D3) 50 mcg PO DAILY docusate sodium 100 mg PO BID empagliflozin (Jardiance) 10 mg PO DAILY ferrous sulfate (FeroSul) 325 mg PO DAILY fluoxetine 20 mg PO DAILY fluticasone propion-salmeterol 250-50 mcg/dose 1 ea PO BID ipratropium-albuterol 0.5 mg-3 mg(2.5 mg base)/3 mL 3 mL inhalation QID PRN lisinopril 2.5 mg See Protocol PO DAILY metoprolol succinate ER 50 mg PO DAILY mexiletine 150 mg PO BID montelukast (Singulair) 10 mg PO BEDTIME nebulizers (Sidestream misc) As directed sennosides (Natural Senna Laxative) 8.6 mg PO BEDTIME spironolacton-hydrochlorothiaz 25-25 mg 1 tab PO DAILY torsemide 20 mg PO DAILY warfarin See Protocol 2.5 mg orally 3.75 MG X 4 DAYS/ 2.5MG X 2 DAYS Nursing Note Amb to ACS using walker, feeling well Medications and supplements reviewed No changes in health, diet, medications, or supplements Denies any unusual signs and symptoms of bruising, bleeding Denies any new Chest pain, SOB, or clotting INR: 3.5 in therapeutic range Nutritional guidance given: balance greens and reds in diet, be consistent- pt receives meals during week in a program Dose: continue usual dosing;2.5mg x3 days and 3.75mg x 4 days F/U INR:3 weeks Patient verbalizes understanding of instructions given with accurate read back/ teach back of dosing Anti-Coag Initial Assessment Social Hx Patient Tobacco Use Status: Former Tobacco user Quit Date: 15 Smoking packs per day: 1 alcohol intake: former Alcohol intake frequency: does not drink Coding Level of Care Code Est Patient Level 1 Diagnoses Current use of anticoagulant therapy Z79.01 Time Spent (min) 15 Assessment & Plan Assessment & Plan (1) Current use of anticoagulant therapy: Code(s): Z79.01 - [facility] (current) use of anticoagulants Category: Medical
== END 2023-10-16 10:11 | disposition home or self-care (01) ==
LOC: HO.ACS 09:41
PROVIDERS: PCP Internal Medicine; Visit Provider Internal Medicine
DX: Z79.01 Long term (current) use of anticoagulants (principal)

== ENCOUNTER → 2023-10-16 09:41 | Outpatient (BNVA) | payer OTHER, SELFPAY | PROVIDERS: PCP Internal Medicine; Visit Provider Internal Medicine | DX: Z95.2 Presence of prosthetic heart valve (principal); Z79.01 Long term (current) use of anticoagulants; Z51.81 Encounter for therapeutic drug level monitoring | CPT/HCPCS: 85610; 99211 ==

== ENCOUNTER 2023-11-06 09:52 | Outpatient (AMB) | payer OTHER, SELFPAY ==
[2023-11-06 10:16] LABS: Prothrombin Time Whole Bld POC 46.8 sec (11.1-13.5); ~PT, ~INR - Anti Coag Clinic 3.9 (0.9-1.1)
--- NOTE | 2023-11-06 10:19 | MHC.OFFVISCO ---
Intake Intake Visit Reasons: Anticoagulation Allergies codeine Allergy (Mild, Verified 11/06/23 10:00) Anxiety Medication List - Last Reconciled 11/06/23 by Gregoria Caballero RN albuterol sulfate 90 mcg/actuation (ProAir HFA) 2 puffs inhalation Q4H PRN ascorbic acid (vitamin C) 250 mg PO BID aspirin 81 mg PO DAILY atorvastatin 20 mg PO QAM calcium carbonate 600 mg PO BID cholecalciferol (vitamin D3) (Vitamin D3) 50 mcg PO DAILY docusate sodium 100 mg PO BID empagliflozin (Jardiance) 10 mg PO DAILY ferrous sulfate (FeroSul) 325 mg PO DAILY fluoxetine 20 mg PO DAILY fluticasone propion-salmeterol 250-50 mcg/dose 1 ea PO BID ipratropium-albuterol 0.5 mg-3 mg(2.5 mg base)/3 mL 3 mL inhalation QID PRN lisinopril 2.5 mg See Protocol PO DAILY metoprolol succinate ER 50 mg PO DAILY mexiletine 150 mg PO BID montelukast (Singulair) 10 mg PO BEDTIME nebulizers (Sidestream misc) As directed sennosides (Natural Senna Laxative) 8.6 mg PO BEDTIME spironolacton-hydrochlorothiaz 25-25 mg 1 tab PO DAILY torsemide 20 mg PO DAILY warfarin See Protocol 2.5 mg orally 3.75 MG X 4 DAYS/ 2.5MG X 2 DAYS Nursing Note INR 3.9? out of therapeutic range Medications and supplements reviewed Patient status: SHE HAS HAD INCREASE IN STRESS WITH FAMILY DYNAMIC AND HAS EATEN LESS GREENS Medications or supplements: STATES NO CHANGES Diet: GOOD Denies any signs and symptoms of bleeding or clotting or unusual bruising Bleeding, bruising, clotting discussed Nutritional guidance given: REVIEW FOOD LIST WEEKLY, EAT AT LEAST 2 SERVINGS OF GREENS / WEEK Dose: DECREASE TODAYS DOSE TO 1.25MG TODAY, IF UNABLE TO EAT GREENS HOLD DOSE THEN RESUME USUAL DOSE 2.5MG MWF/ 3.75MG X 4 DAYS F/U INR Date : 2 WEEKS?? Patient verbalizing understanding of instructions given. Anti-Coag Initial Assessment Social Hx Patient Tobacco Use Status: Former Tobacco user Quit Date: 15 Smoking packs per day: 1 alcohol intake: former Alcohol intake frequency: does not drink Coding Level of Care Code Est Patient Level 1 Diagnoses Current use of anticoagulant therapy Z79.01 Results AMB INR Fingerstick AMB INR Fingerstick 3.9 Last Edit by Gregoria Caballero RN on 11/06/23 10:10 manual entry Assessment & Plan Assessment & Plan (1) Current use of anticoagulant therapy: Code(s): Z79.01 - manager terminal (current) use of anticoagulants Category: Medical
== END 2023-11-06 10:22 | disposition home or self-care (01) ==
LOC: HO.ACS 09:52
PROVIDERS: PCP Internal Medicine; Visit Provider Internal Medicine
DX: Z79.01 Long term (current) use of anticoagulants (principal)

== ENCOUNTER → 2023-11-06 09:52 | Outpatient (BNVA) | payer OTHER, SELFPAY | PROVIDERS: PCP Internal Medicine; Visit Provider Internal Medicine | DX: Z95.2 Presence of prosthetic heart valve (principal); Z79.01 Long term (current) use of anticoagulants; Z51.81 Encounter for therapeutic drug level monitoring | CPT/HCPCS: 85610; 99211 ==

== ENCOUNTER 2023-11-20 09:38 | Outpatient (AMB) | payer OTHER, SELFPAY ==
[2023-11-20 09:48] LABS: Prothrombin Time Whole Bld POC 44.7 sec (11.1-13.5); ~PT, ~INR - Anti Coag Clinic 3.7 (0.9-1.1)
--- NOTE | 2023-11-20 09:55 | MHC.OFFVISCO ---
Intake Intake Visit Reasons: Anticoagulation Allergies codeine Allergy (Mild, Verified 11/20/23 09:42) Anxiety Medication List - Last Reconciled 11/20/23 by Gregoria Caballero RN albuterol sulfate 90 mcg/actuation (ProAir HFA) 2 puffs inhalation Q4H PRN ascorbic acid (vitamin C) 250 mg PO BID aspirin 81 mg PO DAILY atorvastatin 20 mg PO QAM calcium carbonate 600 mg PO BID cholecalciferol (vitamin D3) (Vitamin D3) 50 mcg PO DAILY docusate sodium 100 mg PO BID empagliflozin (Jardiance) 10 mg PO DAILY ferrous sulfate (FeroSul) 325 mg PO DAILY fluoxetine 20 mg PO DAILY fluticasone propion-salmeterol 250-50 mcg/dose 1 ea PO BID ipratropium-albuterol 0.5 mg-3 mg(2.5 mg base)/3 mL 3 mL inhalation QID PRN lisinopril 2.5 mg See Protocol PO DAILY metoprolol succinate ER 50 mg PO DAILY mexiletine 150 mg PO BID montelukast (Singulair) 10 mg PO BEDTIME nebulizers (Sidestream misc) As directed sennosides (Natural Senna Laxative) 8.6 mg PO BEDTIME spironolacton-hydrochlorothiaz 25-25 mg 1 tab PO DAILY torsemide 20 mg PO DAILY warfarin See Protocol 2.5 mg orally 3.75 MG X 4 DAYS/ 2.5MG X 2 DAYS Nursing Note INR: 3.7 JUST OUT OF therapeutic range 2.5-3.5 S/P EASTER FOODS SLIGHTLY SOB WHEN WALKING INTO APPT - LIPS SLIGHTLY BLUE - USED INHALER WITH RELIEF Medications and supplements reviewed No changes in health, diet, medications, or supplements, - HAS FAMILY STRESSORS - BUT COPING BETTER NOW Denies any signs and symptoms of bleeding or bruising or clotting. Bleeding, bruising, clotting discussed Nutritional guidance given- REVEIW FOOD LIST AND EAT MORE GREENS LIKE AVOCADO, SALADS CUCUMBERS WITH PEEL Dose: 1.25MG TODAY THEN RESUME USUAL DOSE 2.5MG X 3 DAYS/ 3.75MG X 4 DAYS - IF CONT TO BE OVER RANGE - MAY DECRASE DOSE - PT HAS VALVE RATHER SLIGHTLY OVER RANGE THEN UNDER F/U INR: 2 WEEKS Patient verbalizes understanding of instructions given Anti-Coag Initial Assessment Social Hx Patient Tobacco Use Status: Former Tobacco user Quit Date: 15 Smoking packs per day: 1 alcohol intake: former Alcohol intake frequency: does not drink Coding Level of Care Code Est Patient Level 1 Diagnoses Current use of anticoagulant therapy Z79.01 Assessment & Plan Assessment & Plan (1) Current use of anticoagulant therapy: Code(s): Z79.01 - correction (current) use of anticoagulants Category: Medical
== END 2023-11-20 09:59 | disposition home or self-care (01) ==
LOC: HO.ACS 09:38
PROVIDERS: PCP Internal Medicine; Visit Provider Internal Medicine
DX: Z79.01 Long term (current) use of anticoagulants (principal)

== ENCOUNTER → 2023-11-20 09:38 | Outpatient (BNVA) | payer OTHER, SELFPAY | PROVIDERS: PCP Internal Medicine; Visit Provider Internal Medicine | DX: Z95.2 Presence of prosthetic heart valve (principal); Z51.81 Encounter for therapeutic drug level monitoring; Z79.01 Long term (current) use of anticoagulants | CPT/HCPCS: 85610; 99211 ==

== ENCOUNTER 2023-12-15 09:45 | Outpatient (AMB) | payer OTHER, SELFPAY ==
[2023-12-15 10:12] LABS: Prothrombin Time Whole Bld POC 27.9 sec (11.1-13.5); ~PT, ~INR - Anti Coag Clinic 2.3 (0.9-1.1)
--- NOTE | 2023-12-15 10:27 | MHC.OFFVISCO ---
Intake Intake Visit Reasons: Anticoagulation Allergies codeine Allergy (Mild, Verified 12/15/23 10:02) Anxiety Medication List - Last Reconciled 12/15/23 by Sonja Madison RN albuterol sulfate 90 mcg/actuation (ProAir HFA) 2 puffs inhalation Q4H PRN ascorbic acid (vitamin C) 250 mg PO BID aspirin 81 mg PO DAILY atorvastatin 20 mg PO QAM calcium carbonate 600 mg PO BID cholecalciferol (vitamin D3) (Vitamin D3) 50 mcg PO DAILY docusate sodium 100 mg PO BID empagliflozin (Jardiance) 10 mg PO DAILY ferrous sulfate (FeroSul) 325 mg PO DAILY fluoxetine 20 mg PO DAILY fluticasone propion-salmeterol 250-50 mcg/dose 1 ea PO BID ipratropium-albuterol 0.5 mg-3 mg(2.5 mg base)/3 mL 3 mL inhalation QID PRN lisinopril 2.5 mg See Protocol PO DAILY metoprolol succinate ER 50 mg PO DAILY mexiletine 150 mg PO BID montelukast (Singulair) 10 mg PO BEDTIME nebulizers (Sidestream misc) As directed sennosides (Natural Senna Laxative) 8.6 mg PO BEDTIME spironolacton-hydrochlorothiaz 25-25 mg 1 tab PO DAILY torsemide 40 mg PO DAILY warfarin See Protocol 2.5 mg orally 3.75 MG X 4 DAYS/ 2.5MG X 2 DAYS Nursing Note INR: 2.3 in therapeutic range of 2.5-3.5 Medications and supplements reviewed: no changes No changes in health, diet, medications, or supplements, Denies any signs and symptoms of bleeding or bruising or clotting. Bleeding, bruising, clotting discussed Nutritional guidance given to avoid greens the next 2 days Dose: increase todays dose to 3.75mg then usual dose of 2.5mg X 3 days and 3.75mg X 4 days F/U INR: 1 week Patient verbalizes understanding of instructions given Anti-Coag Initial Assessment Social Hx Patient Tobacco Use Status: Former Tobacco user Quit Date: 15 Smoking packs per day: 1 alcohol intake: former Alcohol intake frequency: does not drink Coding Level of Care Code Est Patient Level 2 Diagnoses Current use of anticoagulant therapy Z79.01 Time Spent (min) 30 Assessment & Plan Assessment & Plan (1) Current use of anticoagulant therapy: Code(s): Z79.01 - package maker (current) use of anticoagulants Category: Medical
== END 2023-12-15 10:31 | disposition home or self-care (01) ==
LOC: HO.ACS 09:45
PROVIDERS: PCP Internal Medicine; Visit Provider Internal Medicine
DX: Z79.01 Long term (current) use of anticoagulants (principal)

== ENCOUNTER → 2023-12-15 09:45 | Outpatient (BNVA) | payer OTHER, SELFPAY | PROVIDERS: PCP Internal Medicine; Visit Provider Internal Medicine | DX: Z95.2 Presence of prosthetic heart valve (principal); Z51.81 Encounter for therapeutic drug level monitoring; Z79.01 Long term (current) use of anticoagulants | CPT/HCPCS: 85610; 99212 ==

== ENCOUNTER 2023-12-22 09:55 | Outpatient (AMB) | payer OTHER, SELFPAY ==
--- NOTE | 2023-12-22 10:00 | MHC.OFFVISCO ---
Intake Intake Visit Reasons: Anticoagulation Allergies codeine Allergy (Mild, Verified 12/22/23 10:00) Anxiety Medication List - Last Reconciled 12/22/23 by Sonja Madison RN albuterol sulfate 90 mcg/actuation (ProAir HFA) 2 puffs inhalation Q4H PRN ascorbic acid (vitamin C) 250 mg PO BID aspirin 81 mg PO DAILY atorvastatin 20 mg PO QAM calcium carbonate 600 mg PO BID cholecalciferol (vitamin D3) (Vitamin D3) 50 mcg PO DAILY docusate sodium 100 mg PO BID empagliflozin (Jardiance) 10 mg PO DAILY ferrous sulfate (FeroSul) 325 mg PO DAILY fluoxetine 20 mg PO DAILY fluticasone propion-salmeterol 250-50 mcg/dose 1 ea PO BID ipratropium-albuterol 0.5 mg-3 mg(2.5 mg base)/3 mL 3 mL inhalation QID PRN lisinopril 2.5 mg See Protocol PO DAILY metoprolol succinate ER 50 mg PO DAILY mexiletine 150 mg PO BID montelukast (Singulair) 10 mg PO BEDTIME nebulizers (Sidestream misc) As directed sennosides (Natural Senna Laxative) 8.6 mg PO BEDTIME spironolacton-hydrochlorothiaz 25-25 mg 1 tab PO DAILY torsemide 40 mg PO DAILY warfarin See Protocol 2.5 mg orally 3.75 MG X 4 DAYS/ 2.5MG X 2 DAYS Nursing Note INR: 2.8 in therapeutic range of 2.5-3.5 Medications and supplements reviewed: no changes No changes in health, diet, medications, or supplements, Denies any signs and symptoms of bleeding or bruising or clotting. Bleeding, bruising, clotting discussed Nutritional guidance given Dose: cont same dose of 2.5mg X 3 day and 3.75mg X 4 days F/U INR: 1 week Patient verbalizes understanding of instructions given Anti-Coag Initial Assessment Social Hx Patient Tobacco Use Status: Former Tobacco user Quit Date: 15 Smoking packs per day: 1 alcohol intake: former Alcohol intake frequency: does not drink Coding Level of Care Code Est Patient Level 1 Diagnoses Current use of anticoagulant therapy Z79.01 Results AMB INR Fingerstick AMB INR Fingerstick 2.8 Last Edit by Sonja Madison RN on 12/22/23 10:06 interface delay Assessment & Plan Assessment & Plan (1) Current use of anticoagulant therapy: Code(s): Z79.01 - [facility] (current) use of anticoagulants Category: Medical
[2023-12-22 10:06] LABS: Prothrombin Time Whole Bld POC 34.2 sec (11.1-13.5); ~PT, ~INR - Anti Coag Clinic 2.8 (0.9-1.1)
== END 2023-12-22 10:27 | disposition home or self-care (01) ==
LOC: HO.ACS 09:55
PROVIDERS: PCP Internal Medicine; Visit Provider Internal Medicine
DX: Z79.01 Long term (current) use of anticoagulants (principal)

== ENCOUNTER → 2023-12-22 09:55 | Outpatient (BNVA) | payer OTHER, SELFPAY | PROVIDERS: PCP Internal Medicine; Visit Provider Internal Medicine | DX: Z95.2 Presence of prosthetic heart valve (principal); Z51.81 Encounter for therapeutic drug level monitoring; Z79.01 Long term (current) use of anticoagulants | CPT/HCPCS: 85610; 99211 ==

== ENCOUNTER 2023-12-25 11:27 | Inpatient (IN) | payer OTHER, SELFPAY ==
--- NOTE | ~2023-12-25 | CT_ITS ---
CT HEAD WITHOUT CONTRAST CT ANGIOGRAM NECK WITH CONTRAST CT ANGIOGRAM BRAIN WITH CONTRAST CLINICAL INFORMATION: Left hemianopsia. COMPARISON: None available. TECHNIQUE: Test bolus sequences followed by intravenous administration 80 mL of Omnipaque 350. Helical imaging was performed in the axial plane from the thoracic inlet to the skull vertex. Delayed postcontrast imaging of the head was also performed. The data was processed at the optometric technologist workstation for generation of MIP sequences. Angled MIPs and volume rendered reformatted images were also generated at an offline 3D workstation under concurrent supervision. Stenoses are assessed in accordance with NASCET criteria unless otherwise indicated. This CT examination was performed using dose optimization techniques as appropriate, variously including the following: *Automated exposure control *Adjustment of mA and/or kV according to patient size (this includes techniques or standardized protocols for targeted exams where dose is matched to indication/reason for exam; i.e. extremities or head) *Use of iterative reconstruction technique FINDINGS: BRAIN: There is an acute infarct involving the right occipital lobe in the right FREEZING MACHINE OPERATOR territory. Cytotoxic edema results in local cerebral sulcal effacement without midline shift. No hemorrhage. Empty sella. [There is no intracranial hemorrhage, hydrocephalus, extra-axial surface collection, midline shift, or other herniation pattern. The basilar cisterns are preserved. No significant soft tissue abnormality. No acute osseous abnormality. The paranasal sinuses and the mastoid air cells are well aerated.] CERVICAL SOFT TISSUES AND LUNG APICES: Left pectoral pacemaker. Imaged upper lungs are clear. Cervical spondylosis. No significant soft tissue findings within the neck. NECK CTA: [There is a classic 3 vessel configuration of the aortic arch. Proximal arch vessels are non-stenotic. The vertebral arteries are codominant. No significant ostial stenosis is visualized on either side. Both vertebral arteries are widely patent throughout their extracranial cervical course. Both common and internal carotid arteries are normal in course and caliber.] BRAIN CTA: Acute arterial occlusion of the P3 segment of the right posterior cerebral artery associated with partial oligemia within the right FREEZING MACHINE OPERATOR territory. No additional arterial occlusions. A 2.5 mm saccular aneurysm projects laterally from the left MCA bifurcation on image 247 of series 502. Timing of the contrast bolus allows assessment of the major dural venous sinuses, which all opacify normally] CT/CT head for stroke IMPRESSION: - There is an acute infarct involving the right occipital lobe in the right FREEZING MACHINE OPERATOR territory. Cytotoxic edema results in local cerebral sulcal effacement without midline shift. No hemorrhage. - Acute arterial occlusion of the P3 segment of the superior right posterior cerebral artery division associated with partial oligemia within the right FREEZING MACHINE OPERATOR territory. - A 2.5 mm saccular aneurysm projects laterally from the left MCA bifurcation on image 247 of series 502. Findings were discussed with Dr. Garcia at 4:04 PM on 12/25/2023.
--- NOTE | ~2023-12-25 | CT_ITS ---
CT HEAD WITHOUT CONTRAST CT ANGIOGRAM NECK WITH CONTRAST CT ANGIOGRAM BRAIN WITH CONTRAST CLINICAL INFORMATION: Left hemianopsia. COMPARISON: None available. TECHNIQUE: Test bolus sequences followed by intravenous administration 80 mL of Omnipaque 350. Helical imaging was performed in the axial plane from the thoracic inlet to the skull vertex. Delayed postcontrast imaging of the head was also performed. The data was processed at the radiologic technologist workstation for generation of MIP sequences. Angled MIPs and volume rendered reformatted images were also generated at an offline 3D workstation under concurrent supervision. Stenoses are assessed in accordance with NASCET criteria unless otherwise indicated. This CT examination was performed using dose optimization techniques as appropriate, variously including the following: *Automated exposure control *Adjustment of mA and/or kV according to patient size (this includes techniques or standardized protocols for targeted exams where dose is matched to indication/reason for exam; i.e. extremities or head) *Use of iterative reconstruction technique FINDINGS: BRAIN: There is an acute infarct involving the right occipital lobe in the right PURCHASING MANAGER territory. Cytotoxic edema results in local cerebral sulcal effacement without midline shift. No hemorrhage. Empty sella. [There is no intracranial hemorrhage, hydrocephalus, extra-axial surface collection, midline shift, or other herniation pattern. The basilar cisterns are preserved. No significant soft tissue abnormality. No acute osseous abnormality. The paranasal sinuses and the mastoid air cells are well aerated.] CERVICAL SOFT TISSUES AND LUNG APICES: Left pectoral pacemaker. Imaged upper lungs are clear. Cervical spondylosis. No significant soft tissue findings within the neck. NECK CTA: [There is a classic 3 vessel configuration of the aortic arch. Proximal arch vessels are non-stenotic. The vertebral arteries are codominant. No significant ostial stenosis is visualized on either side. Both vertebral arteries are widely patent throughout their extracranial cervical course. Both common and internal carotid arteries are normal in course and caliber.] BRAIN CTA: Acute arterial occlusion of the P3 segment of the right posterior cerebral artery associated with partial oligemia within the right PURCHASING MANAGER territory. No additional arterial occlusions. A 2.5 mm saccular aneurysm projects laterally from the left MCA bifurcation on image 247 of series 502. Timing of the contrast bolus allows assessment of the major dural venous sinuses, which all opacify normally] CT/CT angio head neck stroke IMPRESSION: - There is an acute infarct involving the right occipital lobe in the right PURCHASING MANAGER territory. Cytotoxic edema results in local cerebral sulcal effacement without midline shift. No hemorrhage. - Acute arterial occlusion of the P3 segment of the superior right posterior cerebral artery division associated with partial oligemia within the right PURCHASING MANAGER territory. - A 2.5 mm saccular aneurysm projects laterally from the left MCA bifurcation on image 247 of series 502. Findings were discussed with Dr. Garcia at 4:04 PM on 12/25/2023.
--- NOTE | 2023-12-25 11:36 | ECG_ITS ---
Test Reason : STROKE ALERT Blood Pressure : / mmHG Vent. Rate : 074 BPM Atrial Rate : 074 BPM P-R Int : 192 ms QRS Dur : 106 ms QT Int : 460 ms P-R-T Axes : 075 261 081 degrees QTc Int : 510 ms Atrial-sensed ventricular-paced rhythm Abnormal ECG When compared with ECG of 28-MAY-2023 17:55, No significant change was found Referred By: Saeed Garcia Electronically Signed By:Zafar Tate
[2023-12-25 11:42] VITALS: BP 122/74; BP 132/78; PULSE 70; PULSE 79; RESP 16; TEMP 36.9; O2SAT 95; O2SAT 98; BMI 44.3
[2023-12-25 11:50] LABS: Glucose, Whole Blood 147 mg/dL (60-115)
[2023-12-25 11:50] LABS: MANUAL DIFF FLAG NO
--- NOTE | 2023-12-25 11:51 | PC.NURSE ---
a&ox4. vss and up to date. 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 ventricular paced. pt biba from [facility] d/t stroke like sx. LKW @ 1600 on 12/23. blurry vision (worse in left eye) and intermittent headaches. pt states sx increased around 0100 this morning. pt still stating that these sx are present. otherwise neuros intact. pt passed swallow eval w/o complications. 20gIV placed in the right AC via EMS. patent/intact. labs obtained/sent to lab. ekg performed by tech. no sob/wob noted. respirations even and unlabored. pt to CT at this time. will resume care of pt when pt returns. plan of care ongoing.
[2023-12-25 11:52] LABS: Basophils Absolute Auto 0.1 X10*3/uL (0.0-0.2); Basophils Percent Auto 0.7 % (0-2); Eosinophils Absolute Auto 0.1 X10*3/uL (0.0-0.4); Hematocrit 49.8 % (37.0-47.0); Hemoglobin 16.8 g/dl (12.0-16.0); Imm Gran Abs Auto 0.04 X10*3/uL (0.00-0.03); Imm Gran Pct Auto 0.4 % (0.0-0.4); Lymphocytes Percent Auto 9.7 % (20-40); Mean Corpuscular HGB Conc 33.7 g/dl (31.0-35.0); Mean Corpuscular Hemoglobin 29.6 pg (27.0-33.0); Mean Corpuscular Volume 87.8 fL (80.0-98.0); Mean Platelet Volume 11.3 fL (9.4-12.3); Monocytes Absolute Auto 0.8 X10*3/uL (0.1-1.2); Monocytes Percent Auto 7.2 % (2-11); Neutrophils Absolute Auto 8.7 x10*3/uL (2.0-8.3); Platelet Count 286 X10*3/uL (160-400); Red Blood Count 5.67 X10*6/uL (4.20-5.50); Red Cell Distribution Width 14.4 % (11.0-16.0); White Blood Count 10.7 X10*3/uL (4.8-10.8)
[2023-12-25 12:12] LABS: Prothrombin Time Whole Bld POC 48.1 sec (11.1-13.5)
[2023-12-25] MEDS: iohexoL 350 MG/ML 100 ML INFUS..BTL IV (12:19)
[2023-12-25 12:29] LABS: Partial Thromboplastin Time 42.7 SEC (26.0-36.8); Prothrombin Time 49.2 SEC (11.1-13.3)
--- NOTE | 2023-12-25 12:36 | ED_ITS ---
HPI - Neuro Symptoms/Deficit General Chief Complaint: Stroke Stated Complaint: NEURO SYMPTOMS SINCE 4AM,VISION CHANGES,-STROKE SC Time Seen by Provider: 12/25/23 11:34 History of Present Illness HPI Narrative: The patient is a 58-year-old woman who says that she has not felt quite right since about 16:00 yesterday. She says that she was noticing that when she was watching TV she was only seeing half of the TV. These symptoms persisted this morning and she went to the [facility]. At [facility] she was noted to have a left-sided hemianopsia. An ambulance was called and she was brought to the hospital. She reports having had a bit of a headache. She has not had any definite numbness or weakness in her extremities or any difficulty speaking. The patient has multiple medical problems including an ischemic cardiomyopathy with an ejection fraction of about 10%. She has an AICD. She has a mechanical mitral valve and is on warfarin. She also has a history of COPD, obstructive sleep apnea, and obesity, breast cancer, hypertension, and mood disorder. Related Data Home Medications ?Medication ?Instructions ?Recorded ?Confirmed aspirin 81 mg tablet,delayed 81 mg PO DAILY 09/23/20 12/25/23 release atorvastatin 20 mg tablet 20 mg PO QAM 09/23/20 12/25/23 fluoxetine 20 mg capsule 20 mg PO DAILY 11/20/20 12/25/23 ipratropium 0.5 mg-albuterol 3 mg 3 ml inhalation QID PRN Shortness 11/20/20 12/25/23 (2.5 mg base)/3 mL nebulization Of Breath Or Wheezing soln montelukast 10 mg tablet 10 mg PO BEDTIME 11/20/20 12/25/23 (Singulair) nebulizers ([place]idestream [facility] [place]1 ea 10/05/21 12/22/23 ferrous sulfate 325 mg (65 mg 325 mg PO DAILY 12/22/21 12/25/23 iron) tablet (FeroSul) empagliflozin 10 mg tablet 10 mg PO DAILY 10/07/22 12/25/23 (Jardiance) metoprolol succinate 50 mg 50 mg PO DAILY 10/07/22 12/25/23 tablet,extended release 24 hr albuterol sulfate 90 mcg/actuation 2 puff inhalation Q4H PRN 10/09/22 12/25/23 aerosol inhaler (ProAir HFA) shortness of breath or wheezing ascorbic acid (vitamin C) 250 mg 250 mg PO BID 02/16/23 12/25/23 tablet calcium carbonate 600 mg PO BID 06/07/23 12/25/23 docusate sodium 100 mg capsule 100 mg PO BID 06/07/23 12/25/23 warfarin 2.5 mg tablet 2.5 mg PO MOWEFR@1800 06/26/23 12/25/23 torsemide 20 mg tablet 40 mg PO DAILY 12/15/23 12/25/23 sennosides 8.6 mg tablet (Natural 8.6 mg PO BEDTIME PRN constipation 12/25/23 12/25/23 Senna Laxative) spironolactone 25 mg tablet 25 mg PO DAILY 12/25/23 12/25/23 warfarin 2.5 mg tablet 3.75 mg PO SUTUTHSA@1800 12/25/23 12/25/23 Previous Rx's ?Medication ?Instructions ?Recorded lisinopril 2.5 mg tablet 2.5 mg PO DAILY #30 tabs 06/06/23 mexiletine 150 mg capsule 150 mg PO BID #60 caps 06/06/23 fluticasone 250 mcg-salmeterol 50 1 ea PO BID #60 ea 07/24/23 mcg/dose blistr powdr for inhalation cholecalciferol (vitamin D3) 50 50 mcg PO DAILY #90 caps 11/27/23 mcg (2,000 unit) capsule (Vitamin D3) Allergies Allergy/AdvReac Type Severity Reaction Status Date / Time codeine Allergy Mild Anxiety Verified 12/25/23 11:43 Review of Systems 2 Review of Systems: Yes all other systems are reviewed and are negative [facility] Past Medical History Medical History (Updated 12/25/23 @ 15:27 by Saeed Garcia MD) COPD (chronic obstructive pulmonary disease) CHF (congestive heart failure) HANS (obstructive sleep apnea) Pacemaker Restrictive lung disease Morbid obesity Surgical History History of prosthetic mitral valve Hx of section Hx of heart bypass surgery Family History Family History Mother Diabetes Heart disease Father Diabetes Heart attack Maternal Aunt Diabetes Maternal Uncle Diabetes Maternal Grandfather Diabetes Maternal Grandmother Diabetes Paternal Grandfather Heart disease Paternal Grandmother Heart disease Daughter Bipolar 1 disorder Brother Lung cancer Maternal Uncle Lung cancer Social History Social History Household Members: Family Housing: Apartment Are you a primary child caregiver to a significant other at home: Yes (Grandkids) Do you presently have visiting nurse or other home services: Yes Alcohol intake: former Comment: refusing alarm Patient Tobacco Use Status: Former Tobacco user Quit Date: 15 Cigarette Packs Per Day: 1 Years Smoked: 32 Smoked in Last 30 Days: No Second Hand Smoke Exposure: Yes Use of substances other than those prescribed or required for medical reasons: No Advance Directives: Yes Advance Directives on File: Yes Advance Directives Date on File: 05/29/23 Do you have a plan to hurt others: No Plan Nutrition Risks: No Nutritional Risk Patient : No service: No Current occupational status: retired and disabled Physical Exam 2 Vital Signs: Vital Signs: Last Vital Signs Temp 97.6 F 12/25/23 14:00 Pulse 94 12/25/23 14:00 Resp 17 12/25/23 14:00 BP 99/64 12/25/23 14:00 Pulse Ox 93 12/25/23 14:00 O2 Del Method Room Air 12/25/23 14:00 BMI result Body Mass Index 44.3 Const: Other: The patient is a chronically ill-appearing 58-year-old woman who was awake and alert. She did not appear in obvious distress or exhibit an obvious neurological deficit. She has a somewhat cushingoid appearance. Her BMI is 44.3. HEENT: Other: Face is symmetrical. Mucous membranes are moist. Eyes: Other: Lateral gaze is intact bilaterally. She has a left-sided hemianopia. Neck: Other: No JVD Resp: Effort & Inspection: normal respiratory effort Auscultation: clear to auscultation bilaterally Cardio: Rate: regular rate Rhythm: regular rhythm Heart sounds: S1 normal heart sound present and S2 normal heart sound present GI: Other: The patient has a rotund abdomen. It is soft and nontender. Skin: Other: The skin is pale and dry. Neuro: Other: The patient is awake and alert with a normal mental status. Orientation is normal. Face is symmetrical. Speech is clear. There is no pronator drift. Strength is symmetrical throughout. There is a left-sided hemianopia. NIH stroke scale is 2 because of her hemianopsia. Extrem: Other: No pitting edema. Medications Administered Discontinued Medications Generic Name Dose Route Start Last Admin Trade Name Freq PRN Reason Stop Dose Admin Iohexol 100 ml 12/25/23 12:19 12/25/23 12:19 Iohexol 350 Mg/Ml 100 Ml Infus..Btl IV 12/25/23 12:20 70 ml ONCE ONE Administration Medical Decision Making Medical Decision Making MDM Narrative: The patient is a 58-year-old woman with multiple medical problems who was sent to the hospital by ambulance from her primary care provider's office after having been found to have a left hemianopsia. She was made a code stroke on arrival. She had a noncontrast head CT and a CT angiogram of the head and neck. The noncontrast head CT shows signs of loss of bridges-white differentiation in the right occipital lobe which would correlate with the patient's deficit of a left visual field deficit. CT angiogram shows a small P3 cut off which is not actionable by intra-arterial evaluation. I spoke to Dr. Katz of Neurology. The patient will be kept at this hospital for further management. Lab Data 12/25/23 11:47 12/25/23 15:15 Labs: Lab Results 12/25/23 12/25/23 12/25/23 Range/Units 11:46 11:47 12:08 WBC 10.7 (4.8-10.8) X10*3/uL RBC 5.67 H (4.20-5.50) X10*6/uL Hgb 16.8 H (12.0-16.0) g/dl Hct 49.8 H (37.0-47.0) % MCV 87.8 (80.0-98.0) fL MCH 29.6 (27.0-33.0) pg MCHC 33.7 (31.0-35.0) g/dl RDW 14.4 (11.0-16.0) % Plt Count 286 (160-400) X10*3/uL MPV 11.3 (9.4-12.3) fL Immature Gran % (Auto) 0.4 (0.0-0.4) % Neut % (Auto) 81.0 H (45-73) % Lymph % (Auto) 9.7 L (20-40) % [place] % (Auto) 7.2 (2-11) % Eos % (Auto) 1.0 (0-4) % Baso % (Auto) 0.7 (0-2) % Lymph # (Auto) 1.0 L (1.2-4.9) X10*3/uL [place] # (Auto) 0.8 (0.1-1.2) X10*3/uL Eos # (Auto) 0.1 (0.0-0.4) X10*3/uL Baso # (Auto) 0.1 (0.0-0.2) X10*3/uL Abs Immat Gran (auto) 0.04 H (0.00-0.03) X10*3/uL Absolute Neuts (auto) 8.7 H (2.0-8.3) x10*3/uL Absolute Nucleated RBC 0.000 (0.0-0.012) X10*3/uL Nucleated RBC % (auto) 0.0 (0.0-0.2) /100WBC PT 49.2 H (11.1-13.3) SEC Whole Blood PT 48.1 H (11.1-13.5) sec INR 4.0 H (0.9-1.1) Whole Blood INR 4.0 H (0.9-1.1) APTT 42.7 H (26.0-36.8) SEC POC Glucose 147 H (60-115) mg/dL Independent Interpretation I performed an independent interpretation of an: EKG Interpretation: EKG at 11:50 shows an atrial sensed ventricular paced rhythm at 74 beats per minute. Critical Care Time Critical Care Time Critical Care Time: Yes Total Critical Care Time: 45 Attestation: The patient was critically ill with a high probability of imminent or life- threatening deterioration. ?I spent greater than 30 minutes of discontinuous time evaluating the patient, delivering critical care at the bedside, discussing evaluating data with consultants. ?Critical care time does not include time spent performing separately billable procedures or teaching. ?Time spent performing critical care with 45 minutes. Discharge Plan Discharge Clinical Impression: Stroke Patient Disposition: Admitted As Inpatient
[2023-12-25 12:44] LABS: Stroke Lab Use COMPLETE
--- NOTE | 2023-12-25 12:44 | MHC.STROKE ---
Met with patient in ED room 19 Pt awake, alert and oriented x 3, playing on phone. Pt reports blurred vision and headache starting at 1600 on 12/24/23 Pt states that symptoms worsened this am. Pt went to [facility] and was sent to the ED. Pt answering questions appropriately. No facial palsy appreciated. Tongue midline. Speaking in full clear sentences. Hand grasp equal, equal bilateral leg strength. Pt reports that she has decreased vision on the left side and is unable to see things in her peripheral vision. Stroke Education provided to patient. Will continue to assist as needed.
--- NOTE | 2023-12-25 13:53 | PM.IMHP ---
History of Present Illness Date of Service: 12/25/23 Chief Complaint: Vision changes 58-year-old woman with ischemic CMP with AICD, COPD, Mech mitral valve on warfarin, HANS, obesity and HTN, who says that she has not felt quite right since about 16:00 yesterday. She says that she was noticing that when she was watching TV she was only seeing half of the TV. These symptoms persisted this morning and she went to the [facility]. At [facility] she was noted to have a left-sided hemianopsia. An ambulance was called and she was brought to the hospital. She reports having had a bit of a headache. She has not had any definite numbness or weakness in her extremities or any difficulty speaking. In the ED, head CTA showed acute infarct involving the right occipital lobe in the right FACTORY MACHINE COMPUTER OPERATOR territory with acute arterial occlusion of the P3 segment of the superior right posterior cerebral artery division, Vital signs stable, labs within normal limits. She will be admitted for acute stroke. Review of Systems Review of Systems: Denies any recent fever chills or decrease in appetite respiratory denies any shortness of breath coverage production cardiovascular is adjustment of any PND or edema gastrointestinal denies any dysphagia abdominal pain nausea vomiting or diarrhea genitourinary denies any dysuria frequency or hematuria musculoskeletal denies any joint pain or swelling neuropsych denies any weakness or seizures all other systems reviewed are negative [facility] Medical History (Updated 12/25/23 @ 16:08 by Sunita Katz MD) COPD (chronic obstructive pulmonary disease) CHF (congestive heart failure) HANS (obstructive sleep apnea) Pacemaker Restrictive lung disease Morbid obesity Family History Mother Diabetes Heart disease Father Diabetes Heart attack Maternal Aunt Diabetes Maternal Uncle Diabetes Maternal Grandfather Diabetes Maternal Grandmother Diabetes Paternal Grandfather Heart disease Paternal Grandmother Heart disease Daughter Bipolar 1 disorder Brother Lung cancer Maternal Uncle Lung cancer Surgical History History of prosthetic mitral valve Hx of section Hx of heart bypass surgery Social History Household Members: Family Housing: Apartment Are you a primary hearing healthcare practitioner to a significant other at home: Yes (Grandkids) Do you presently have visiting nurse or other home services: Yes Alcohol intake: former Comment: refusing alarm Patient Tobacco Use Status: Former Tobacco user Quit Date: 15 Cigarette Packs Per Day: 1 Years Smoked: 32 Smoked in Last 30 Days: No Second Hand Smoke Exposure: Yes Use of substances other than those prescribed or required for medical reasons: No Advance Directives: Yes Advance Directives on File: Yes Advance Directives Date on File: 05/29/23 Do you have a plan to hurt others: No Plan Nutrition Risks: No Nutritional Risk Patient : No service: No Current occupational status: retired and disabled Meds Allergies Allergy/AdvReac Type Severity Reaction Status Date / Time codeine Allergy Mild Anxiety Verified 12/25/23 11:43 Active Medications: Current Medications Acetaminophen (Acetaminophen 325 Mg Tablet) 650 mg PO Q6H PRN PRN Reason: Pain, Mild (Pain Scale 1-3) Ondansetron HCl (Ondansetron Hcl 4 Mg/2 Ml Vial) 4 mg IVPUSH Q8H PRN PRN Reason: Nausea and Vomiting Home Medications ?Medication ?Instructions ?Recorded ?Confirmed ?Last Taken ?Type aspirin 81 mg tablet,delayed 81 mg PO DAILY 09/23/20 12/25/23 12/24/23 History release atorvastatin 20 mg tablet 20 mg PO QAM 09/23/20 12/25/23 12/24/23 History fluoxetine 20 mg capsule 20 mg PO DAILY 11/20/20 12/25/23 12/24/23 History ipratropium 0.5 mg-albuterol 3 mg 3 ml inhalation QID PRN Shortness 11/20/20 12/25/23 10/08/22 History (2.5 mg base)/3 mL nebulization Of Breath Or Wheezing soln montelukast 10 mg tablet 10 mg PO BEDTIME 11/20/20 12/25/23 12/24/23 History (Singulair) nebulizers (Sidestream misc) #1 ea 10/05/21 12/22/23 Unknown History ferrous sulfate 325 mg (65 mg 325 mg PO DAILY 12/22/21 12/25/23 12/24/23 History iron) tablet (FeroSul) empagliflozin 10 mg tablet 10 mg PO DAILY 10/07/22 12/25/23 12/24/23 History (Jardiance) metoprolol succinate 50 mg 50 mg PO DAILY 10/07/22 12/25/23 12/24/23 History tablet,extended release 24 hr albuterol sulfate 90 mcg/actuation 2 puff inhalation Q4H PRN 10/09/22 12/25/23 10/09/22 History aerosol inhaler (ProAir HFA) shortness of breath or wheezing ascorbic acid (vitamin C) 250 mg 250 mg PO BID 02/16/23 12/25/23 12/24/23 History tablet calcium carbonate 600 mg PO BID 06/07/23 12/25/23 12/24/23 History docusate sodium 100 mg capsule 100 mg PO BID 06/07/23 12/25/23 12/24/23 History warfarin 2.5 mg tablet 2.5 mg PO MOWEFR@1800 06/26/23 12/25/23 12/22/23 History torsemide 20 mg tablet 40 mg PO DAILY 12/15/23 12/25/23 12/24/23 History sennosides 8.6 mg tablet (Natural 8.6 mg PO BEDTIME PRN constipation 12/25/23 12/25/23 Unknown History Senna Laxative) spironolactone 25 mg tablet 25 mg PO DAILY 12/25/23 12/25/23 12/24/23 History warfarin 2.5 mg tablet 3.75 mg PO SUTUTHSA@1800 12/25/23 12/25/23 12/24/23 History Physical Exam Vital Signs and Narrative: Vital Signs: Last Vital Signs Temp 98.5 F 12/25/23 11:42 Pulse 79 12/25/23 11:42 Resp 16 12/25/23 11:42 BP 122/74 12/25/23 11:42 Pulse Ox 95 12/25/23 11:42 O2 Del Method Room Air 12/25/23 11:42 BMI result Body Mass Index 44.3 Appearing in no acute distress head is normocephalic atraumatic eyes pupils are PERRLA sclera is anicteric mouth throat mucous membranes are intact and moist neck is supple no lymphadenopathy, no JVD noted lung sounds are clear to auscultation heart regular rate rhythm, clear S1, S2 positive bowel sounds, abdomen is soft, nontender neuro patient is alert x3, no focal deficits Results Labs 12/25/23 11:47 12/25/23 15:15 Labs: Laboratory Results - last 24 hr 12/25/23 12/25/23 12/25/23 11:46 11:47 12:08 MCV 87.8 MCH 29.6 MCHC 33.7 RDW 14.4 Plt Count 286 MPV 11.3 Immature Gran % (Auto) 0.4 Neut % (Auto) 81.0 H Lymph % (Auto) 9.7 L [place] % (Auto) 7.2 Eos % (Auto) 1.0 Baso % (Auto) 0.7 Lymph # (Auto) 1.0 L [place] # (Auto) 0.8 Eos # (Auto) 0.1 Baso # (Auto) 0.1 Abs Immat Gran (auto) 0.04 H Absolute Neuts (auto) 8.7 H Absolute Nucleated RBC 0.000 Nucleated RBC % (auto) 0.0 PT 49.2 H Whole Blood PT 48.1 H INR 4.0 H Whole Blood INR 4.0 H APTT 42.7 H POC Glucose 147 H Assessment and Plan (1) Stroke: Qualifiers: CVA mechanism: embolism Laterality of affected vessel: right Precerebral and cerebral artery: posterior cerebral artery Qualified Code(s): I63.431 - Cerebral infarction due to embolism of right posterior cerebral artery Status: Acute Plan 58 year old women admitted with hemianopia from possible stroke Stroke noted hemianopia on exam at PCP office Head and neck CTA showing acute infarct involving the right occipital lobe in the right FACTORY MACHINE COMPUTER OPERATOR territory Obtain MRI when rep for defib available Echo pending PT/OT neurology consult asa, statin on warfarin for MMV Mechanical mitral valve Check INR daily Keep INR between 2.5-3.5 Continue warfarin Asthma No exacerbation Continue albuterol as needed Hypertension Continue home medications HANS CPAP Mental health Continue home medications Morbid obesity. BMI 44.3 Discussed importance of weight management as this may be contributing to worsening of other comorbidities DVT prophylaxis with warfarin Full code Patient will likely require 48 hours of inpatient admission for stroke requiring MRI and other diagnostic imaging studies as well as specialty consultation. Due to patient's age and other comorbidities she is at risk for decompensation Quality Stroke Does the patient have a stroke diagnosis?: No VTE Prior VTE?: No VTE Risk Level:: Medical - moderate - high VTE Device Contraindication: Treatment Not Indicated VTE Drug Contraindication: N/A - Med Ordered
[2023-12-25 14:00] VITALS: BP 99/64; PULSE 94; RESP 17; TEMP 36.4; O2SAT 93
--- NOTE | 2023-12-25 14:00 | PC.NURSE ---
vss and up to date asie from being slightly hypotensive. 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 pt verbalizes change in vision subsided at this time but headache is still present. rating HUTCHINSON at a 4/10. has no other complaints. pt seen by ED provider/aware of CT results and plan of care moving forward. no sob/wob noted. respirations even and unlabored. plan of care ongoing. call garay placed within reach.
--- NOTE | 2023-12-25 14:21 | PHA.MEDREC ---
Pharmacy Consult ? Medication Reconciliation Pharmacy has completed the medication reconciliation. Patient confirmed medicaitons. Angelia Rosenberg, ReginaldoD
--- NOTE | 2023-12-25 15:15 | PC.NURSE ---
repeat labs obtained/sent to lab by [facility].
[2023-12-25 15:34] LABS: Anion Gap 17 (12-20); Blood Urea Nitrogen 22 mg/dL (9-16); Calcium 10.6 mg/dL (8.4-10.2); Carbon Dioxide 31 mmol/L (22-29); Chloride 93 mmol/L (96-108); Creatinine Clr Calc Pharmacy 53.9; Estimated Glomerular Filt Rate > 60; Glucose Random 111 mg/dL (60-115); Potassium 3.6 mmol/L (3.3-5.1); Sodium 137 mmol/L (135-145)
--- NOTE | 2023-12-25 16:04 | PC.NURSE ---
MRI screening form filled out/faxed/placed in pt's chart. pt speaking w/ Dr. Katz in regards to plan of care at this time.
--- NOTE | 2023-12-25 16:06 | P.CNNE_ITS ---
History of Present Illness Data of Consult Service Date: 12/25/23 Primary Care Provider: Mal De Dios MD HPI Reason for consult: Stroke 58-year-old woman with ischemic CMP with AICD, COPD, Mech mitral valve on warfarin, HANS, obesity and HTN, who presented in emergency room with at least a day history of problem with vision. She said that she woke up and could not see half of the visual field. Now she was feeling better. There was no associated chest symptom nausea vomiting dizziness or headache. There was no focal arm or leg weakness. Review of Systems 2 Review of Systems: No trauma or cold or flu-like illness PMFSH Past Medical History Medical History (Updated 12/25/23 @ 16:08 by Sunita Katz MD) COPD (chronic obstructive pulmonary disease) CHF (congestive heart failure) HANS (obstructive sleep apnea) Pacemaker Restrictive lung disease Morbid obesity Family History Family History Mother Diabetes Heart disease Father Diabetes Heart attack Maternal Aunt Diabetes Maternal Uncle Diabetes Maternal Grandfather Diabetes Maternal Grandmother Diabetes Paternal Grandfather Heart disease Paternal Grandmother Heart disease Daughter Bipolar 1 disorder Brother Lung cancer Maternal Uncle Lung cancer Surgical History Surgical History History of prosthetic mitral valve Hx of section Hx of heart bypass surgery Social History Social History Household Members: Family Housing: Apartment Are you a primary rn home care to a significant other at home: Yes (Grandkids) Do you presently have visiting nurse or other home services: Yes Alcohol intake: former Comment: refusing alarm Patient Tobacco Use Status: Former Tobacco user Quit Date: 15 Cigarette Packs Per Day: 1 Years Smoked: 32 Smoked in Last 30 Days: No Second Hand Smoke Exposure: Yes Use of substances other than those prescribed or required for medical reasons: No Advance Directives: Yes Advance Directives on File: Yes Advance Directives Date on File: 05/29/23 Do you have a plan to hurt others: No Plan Nutrition Risks: No Nutritional Risk Patient : No service: No Current occupational status: retired and disabled Meds Allergies Allergy/AdvReac Type Severity Reaction Status Date / Time codeine Allergy Mild Anxiety Verified 12/25/23 11:43 Active Medications: Current Medications Acetaminophen (Acetaminophen 325 Mg Tablet) 650 mg PO Q6H PRN PRN Reason: Pain, Mild (Pain Scale 1-3) Ondansetron HCl (Ondansetron Hcl 4 Mg/2 Ml Vial) 4 mg IVPUSH Q8H PRN PRN Reason: Nausea and Vomiting Home Medications ?Medication ?Instructions ?Recorded ?Confirmed ?Last Taken ?Type aspirin 81 mg tablet,delayed 81 mg PO DAILY 09/23/20 12/25/23 12/24/23 History release atorvastatin 20 mg tablet 20 mg PO QAM 09/23/20 12/25/23 12/24/23 History fluoxetine 20 mg capsule 20 mg PO DAILY 11/20/20 12/25/23 12/24/23 History ipratropium 0.5 mg-albuterol 3 mg 3 ml inhalation QID PRN Shortness 11/20/20 12/25/23 10/08/22 History (2.5 mg base)/3 mL nebulization Of Breath Or Wheezing soln montelukast 10 mg tablet 10 mg PO BEDTIME 11/20/20 12/25/23 12/24/23 History (Singulair) nebulizers (Sidestream misc) #1 ea 10/05/21 12/22/23 Unknown History ferrous sulfate 325 mg (65 mg 325 mg PO DAILY 12/22/21 12/25/23 12/24/23 History iron) tablet (FeroSul) empagliflozin 10 mg tablet 10 mg PO DAILY 10/07/22 12/25/23 12/24/23 History (Jardiance) metoprolol succinate 50 mg 50 mg PO DAILY 10/07/22 12/25/23 12/24/23 History tablet,extended release 24 hr albuterol sulfate 90 mcg/actuation 2 puff inhalation Q4H PRN 10/09/22 12/25/23 10/09/22 History aerosol inhaler (ProAir HFA) shortness of breath or wheezing ascorbic acid (vitamin C) 250 mg 250 mg PO BID 02/16/23 12/25/23 12/24/23 History tablet calcium carbonate 600 mg PO BID 06/07/23 12/25/23 12/24/23 History docusate sodium 100 mg capsule 100 mg PO BID 06/07/23 12/25/23 12/24/23 History warfarin 2.5 mg tablet 2.5 mg PO MOWEFR@1800 06/26/23 12/25/23 12/22/23 History torsemide 20 mg tablet 40 mg PO DAILY 12/15/23 12/25/23 12/24/23 History sennosides 8.6 mg tablet (Natural 8.6 mg PO BEDTIME PRN constipation 12/25/23 12/25/23 Unknown History Senna Laxative) spironolactone 25 mg tablet 25 mg PO DAILY 12/25/23 12/25/23 12/24/23 History warfarin 2.5 mg tablet 3.75 mg PO SUTUTHSA@1800 12/25/23 12/25/23 12/24/23 History Physical Exam 2 Vital Signs: Vital Signs: Last Vital Signs Temp 97.6 F 12/25/23 14:00 Pulse 94 12/25/23 14:00 Resp 17 12/25/23 14:00 BP 99/64 12/25/23 14:00 Pulse Ox 93 12/25/23 14:00 O2 Del Method Room Air 12/25/23 14:00 BMI result Body Mass Index 44.3 Neuro: Other: She is alert and awake with normal spontaneity of speech fluency comprehension and affect. She is moderately obese. She has left hemianopsia. Face is symmetrical. There is no pronator drift. There is no focal weakness. Plantars are flexor. Speech is normal. Results Labs 12/25/23 11:47 12/25/23 15:15 Labs: Short CBC 12/25/23 Range/Units 11:47 WBC 10.7 (4.8-10.8) X10*3/uL Hgb 16.8 H (12.0-16.0) g/dl Hct 49.8 H (37.0-47.0) % Plt Count 286 (160-400) X10*3/uL BMP 12/25/23 15:15 Sodium 137 Potassium 3.6 Chloride 93 L Carbon Dioxide 31 H BUN 22 H Creatinine 0.94 Calcium 10.6 H D Cardiac Enzymes 12/25/23 Range/Units 15:15 Total Creatine Kinase 41 (26-140) U/L Head CT revealed a subacute large right posterior cerebral artery infarct. Assessment and Plan (1) Stroke: Qualifiers: CVA mechanism: embolism Precerebral and cerebral artery: posterior cerebral artery Laterality of affected vessel: right Qualified Code(s): I 63.431 - Cerebral infarction due to embolism of right posterior cerebral artery Status: Acute 58 years old woman with subacute large right posterior cerebral artery infarct resulting in left hemianopsia probably from cardiac source of embolism. And anticoagulation can continue. She should not drive and should be educated about visual loss. Patient usually can manage with this type of visual loss. Procedures Date of Service Date of Service: 12/25/23
[2023-12-25 17:39] LABS: Troponin-I High Sensitivity 39.3 ng/L (<3.5-17.0)
[2023-12-25 19:49] VITALS: BP 99/58; PULSE 91; RESP 18; TEMP 36.6; O2SAT 94
[2023-12-25 21:05] VITALS: BP 111/66; PULSE 90; RESP 20; TEMP 36.2; O2SAT 94
[2023-12-26] VITALS (7 sets, daily range): BP systolic 104–123; BP diastolic 67–81; PULSE 76–101; RESP 18–20; TEMP 36.1–36.9; O2SAT 88–99
[2023-12-26 06:03] LABS: MANUAL DIFF FLAG NO
[2023-12-26 06:12] LABS: Basophils Absolute Auto 0.1 X10*3/uL (0.0-0.2); Basophils Percent Auto 0.7 % (0-2); Eosinophils Absolute Auto 0.2 X10*3/uL (0.0-0.4); Eosinophils Percent Auto 1.6 % (0-4); Hematocrit 49.1 % (37.0-47.0); Hemoglobin 16.2 g/dl (12.0-16.0); Imm Gran Abs Auto 0.05 X10*3/uL (0.00-0.03); Imm Gran Pct Auto 0.5 % (0.0-0.4); Lymphocytes Absolute Auto 0.8 X10*3/uL (1.2-4.9); Lymphocytes Percent Auto 7.4 % (20-40); Monocytes Absolute Auto 0.8 X10*3/uL (0.1-1.2); Monocytes Percent Auto 7.3 % (2-11); Neutrophils Absolute Auto 9.1 x10*3/uL (2.0-8.3); Neutrophils Percent Auto 82.5 % (45-73); Platelet Count 251 X10*3/uL (160-400); Red Blood Count 5.58 X10*6/uL (4.20-5.50); Red Cell Distribution Width 14.4 % (11.0-16.0); White Blood Count 11.1 X10*3/uL (4.8-10.8)
[2023-12-26 06:30] LABS: Anion Gap 17 (12-20); Blood Urea Nitrogen 18 mg/dL (9-16); Calcium 9.9 mg/dL (8.4-10.2); Carbon Dioxide 31 mmol/L (22-29); Chloride 94 mmol/L (96-108); Cholesterol 214 mg/dL (<200); Creatinine Clr Calc Pharmacy 62.5; Estimated Glomerular Filt Rate > 60; Glucose Random 127 mg/dL (60-115); HDL Cholesterol 31 mg/dL (>40); LDL Cholesterol Calculated 148 mg/dL (<100); Potassium 3.3 mmol/L (3.3-5.1); Sodium 139 mmol/L (135-145); Triglycerides 177 mg/dL (<150)
[2023-12-26 06:32] LABS: Prothrombin Time 36.4 SEC (11.1-13.3); Troponin-I High Sensitivity 39.4 ng/L (<3.5-17.0)
[2023-12-26] MEDS: Docusate Sodium 100 MG CAPSULE PO (09:24)
[2023-12-26] MEDS: Ascorbic Acid 250 MG TABLET PO (09:24)
[2023-12-26] MEDS: Aspirin Enteric Coated 81 MG TABLET.DR PO (09:24)
[2023-12-26] MEDS: Torsemide 20 MG TABLET 40 MG PO (09:24)
[2023-12-26] MEDS: Metoprolol Succinate ER 50 MG TAB.ER.24H PO (09:24)
[2023-12-26] MEDS: Ferrous Sulfate 324 MG TABLET.DR PO (09:25)
[2023-12-26] MEDS: Empagliflozin 10 MG TABLET PO (09:25)
[2023-12-26] MEDS: Cholecalciferol (Vitamin D3) 25 MCG TABLET 50 MCG PO (09:25)
[2023-12-26] MEDS: Atorvastatin Calcium 20 MG TABLET PO (09:26)
[2023-12-26] MEDS: Spironolactone 25 MG TABLET PO (09:27)
--- NOTE | 2023-12-26 09:45 | MHC.CM.PN ---
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 PT'S GOAL IS HOME W/SERVICES PT VERIFIES PCP/HCP ON FILE ARE CORRECT.
--- NOTE | 2023-12-26 15:05 | MHC.CM.PN ---
Pt medically cleared for dc home no ot/pt/sn recommended, pt to arrange ride home.
--- NOTE | 2023-12-26 15:08 | PM.DS ---
DS: Providers Provider Date of Service: 12/26/23 Date of admission: 12/25/23 13:50 Primary care physician: Mal De Dios MD Consults: 12/25/23 13:50 Consult to Neurology Routine Consulting Provider: [facility] Reason for consultation: stroke DS: Diagnosis Discharge Diagnosis (1) Stroke: Status: Acute DS: Summary Hospital Course Hospital Course: History and physical as per admitting provider. 58-year-old woman with ischemic CMP with AICD, COPD, Mech mitral valve on warfarin, HANS, obesity and HTN, who says that she has not felt quite right since about 16:00 yesterday. She says that she was noticing that when she was watching TV she was only seeing half of the TV. These symptoms persisted this morning and she went to the [facility]. At [facility] she was noted to have a left-sided hemianopsia. An ambulance was called and she was brought to the hospital. She reports having had a bit of a headache. She has not had any definite numbness or weakness in her extremities or any difficulty speaking. In the ED, head CTA showed acute infarct involving the right occipital lobe in the right DROSS SKIMMER territory with acute arterial occlusion of the P3 segment of the superior right posterior cerebral artery division, Vital signs stable, labs within normal limits. She will be admitted for acute stroke. 58-year-old woman treated for acute stroke with noted hemianopsia. Head and neck CTA showed acute infarct involving the right occipital lobe in the right DROSS SKIMMER territory, unable to obtain MRI due to the fact that patient has a specific defibrillator that requires the financial service representative to be present. She was seen by Physical therapy who recommended home. Seen by Neurology stroke seems from cardiac source. Patient should not drive especially with any visual symptoms. She will continue aspirin statin. She can follow-up with primary care provider or neurologist as needed. Mechanical mitral valve. Keep INR between 2.5 and 3.5. Continue warfarin Asthma. No exacerbation during hospitalization. Continue albuterol Hypertension. Continue home medications Obstructive sleep apnea. Continue CPAP Mental health. Continue medications Morbid obesity. Discussed importance of weight management as this may be contributing to worsening of other comorbidities Time Attestation Discharge Coordination Time (in mins): 35 Quality: Safe Use of Opioids Does Pt have an Active Cancer Diagnosis on the Problem List?: No Quality: Stroke Does the patient have a stroke diagnosis?: Yes Reason for No Anti-thrombotic at DC: N/A - Med Ordered Reason for No Anticoagulant at DC: N/A - Med Ordered Reason Not Initiating IV-Tpa: Contraindicated Reason for No Anti-thrombotic by Day Two: N/A - Med Ordered Reason for No Statin at DC: N/A - Med Ordered Physical Exam Vital Signs: Vital Signs: Last Vital Signs Temp 97.1 F 12/26/23 11:56 Pulse 92 12/26/23 11:56 Resp 20 12/26/23 11:56 BP 123/72 12/26/23 11:56 Pulse Ox 94 12/26/23 11:56 O2 Del Method Room Air 12/26/23 11:56 O2 Flow Rate 2 12/26/23 07:47 BMI result Body Mass Index 44.3 Appearing in no acute distress head is normocephalic atraumatic eyes pupils are PERRLA sclera is anicteric mouth throat mucous membranes are intact and moist neck is supple no lymphadenopathy, no JVD noted lung sounds are clear to auscultation heart regular rate rhythm, clear S1, S2 positive bowel sounds, abdomen is soft, nontender neuro patient is alert x3, no focal deficits DS: Data Data Completed and Pending Completed studies during hospitalization [Text1]: Procedures Assistance with Respiratory Ventilation, Less than 24 Consecutive Hours, Continuous Positive Airway Pressure (05/28/23) Labs on day of discharge: Laboratory Results - last 24 hr 12/25/23 12/26/23 15:15 05:43 WBC 11.1 H RBC 5.58 H Hgb 16.2 H Hct 49.1 H MCV 88.0 MCH 29.0 MCHC 33.0 RDW 14.4 Plt Count 251 MPV 11.0 Immature Gran % (Auto) 0.5 H Neut % (Auto) 82.5 H Lymph % (Auto) 7.4 L Mineral % (Auto) 7.3 Eos % (Auto) 1.6 Baso % (Auto) 0.7 Lymph # (Auto) 0.8 L Mineral # (Auto) 0.8 Eos # (Auto) 0.2 Baso # (Auto) 0.1 Abs Immat Gran (auto) 0.05 H Absolute Neuts (auto) 9.1 H Absolute Nucleated RBC 0.000 Nucleated RBC % (auto) 0.0 PT 36.4 H D INR 3.0 H Sodium 137 139 Potassium 3.6 3.3 Chloride 93 L 94 L Carbon Dioxide 31 H 31 H Anion Gap 17 17 BUN 22 H 18 H Creatinine 0.94 0.81 Estim Creat Clear Calc 53.9 62.5 Estimated GFR > 60 > 60 Random Glucose 111 127 H Calcium 10.6 H D 9.9 D Total Creatine Kinase 41 Troponin I High Sens 39.3 H D 39.4 H Triglycerides 177 H Cholesterol 214 H LDL Cholesterol, Calc 148 H HDL Cholesterol 31 L Discharge Plan Discharge Anticipated Discharge Date/Time: 12/26/23 15:03 Patient Disposition: Home, Self-Care Discharge Diagnosis: Stroke Referrals: Mal De Dios MD [Primary Care Provider] - 1 Week Discharge Medications: Continued fluticasone propion-salmeterol 250-50 mcg/dose blister with device 1 ea PO BID Qty: 60 5RF cholecalciferol (vitamin D3) [Vitamin D3] 50 mcg (2,000 unit) Capsule 50 mcg PO DAILY Qty: 90 4RF albuterol sulfate [ProAir HFA] 90 mcg/actuation HFA aerosol inhaler 2 puff inhalation Q4H PRN (Reason: shortness of breath or wheezing) warfarin 2.5 mg tablet 3.75 mg PO SUTUTHSA@1800 spironolactone 25 mg tablet 25 mg PO DAILY sennosides [Natural Senna Laxative] 8.6 mg tablet 8.6 mg PO BEDTIME PRN (Reason: constipation) mexiletine 150 mg Capsule 150 mg PO BID Qty: 60 0RF lisinopril 2.5 mg Tablet 2.5 mg PO DAILY Qty: 30 0RF Protocol: Hold for SBP< HOLD for SBP < : 90 aspirin 81 mg tablet,delayed release (DR/EC) 81 mg PO DAILY atorvastatin 20 mg tablet 20 mg PO QAM ipratropium-albuterol 0.5 mg-3 mg(2.5 mg base)/3 mL solution for nebulization 3 ml inhalation QID PRN (Reason: Shortness Of Breath Or Wheezing) fluoxetine 20 mg capsule 20 mg PO DAILY montelukast [Singulair] 10 mg tablet 10 mg PO BEDTIME Jardiance 10 mg tablet 10 mg PO DAILY metoprolol succinate 50 mg tablet extended release 24 hr 50 mg PO DAILY (DME) Sidestream Misc See Rx Instructions .ROUTE DIRECTED Qty: 1 Rx Instructions: As directed ferrous sulfate [FeroSul] 325 mg (65 mg iron) tablet 325 mg PO DAILY warfarin 2.5 mg tablet 2.5 mg PO MOWEFR@1800 Protocol: Dose Management Condition: Monday (Week One) Dose/Route: 3.75 mg Instruction: 1.5 x 2.5 mg tablets Condition: Monday Dose/Route: 2.5 mg Instruction: 1 x 2.5 mg tablet Condition: Monday Dose/Route: 3.75 mg Instruction: 1.5 x 2.5 mg tablets Condition: Monday Dose/Route: 2.5 mg Instruction: 1 x 2.5 mg tablet Condition: Dose/Route: 3.75 mg Instruction: 1.5 x 2.5 mg tablets Condition: Monday Dose/Route: 2.5 mg Instruction: 1 x 2.5 mg tablet Condition: Monday Dose/Route: 3.75 mg Instruction: 1.5 x 2.5 mg tablets Condition: Monday (Week Two) Dose/Route: 3.75 mg Instruction: 1.5 x 2.5 mg tablets Condition: Monday Dose/Route: 2.5 mg Instruction: 1 x 2.5 mg tablet Condition: Monday Dose/Route: 3.75 mg Instruction: 1.5 x 2.5 mg tablets Condition: Monday Dose/Route: 2.5 mg Instruction: 1 x 2.5 mg tablet Condition: Dose/Route: 3.75 mg Instruction: 1.5 x 2.5 mg tablets Condition: Monday Dose/Route: 2.5 mg Instruction: 1 x 2.5 mg tablet Condition: Monday Dose/Route: 3.75 mg Instruction: 1.5 x 2.5 mg tablets Protocol Text: Adjustment Start Date: Monday12/22/23 INR Value: 2.8 INR Date: 12/22/23 Recheck Date: 12/29/23 Rx Instructions: 2.5 mg orally 3.75 MG X 4 DAYS/ 2.5MG X 2 DAYS ascorbic acid (vitamin C) 250 mg tablet 250 mg PO BID docusate sodium 100 mg capsule 100 mg PO BID calcium carbonate 600 mg calcium (1,500 mg) tablet 600 mg PO BID torsemide 20 mg tablet 40 mg PO DAILY Patient Comments: 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
== END 2023-12-26 15:57 | disposition home or self-care (01) | DRG 65 ==
LOC: HO.ED 15:27 → HO.EDOVER 15:58 → HO.IMC 19:34
PROVIDERS: Student in an Organized Health Care Education/Training Program; Admitting Provider Nurse Practitioner Acute Care; Emergency Provider Emergency Medicine; PCP Internal Medicine; Visit Provider Nurse Practitioner Acute Care
DX: I63.431 Cerebral infarction due to embolism of right posterior cerebral artery (principal); Z68.41 Body mass index [BMI] 40.0-44.9, adult; H53.462 Homonymous bilateral field defects, left side; G47.33 Obstructive sleep apnea (adult) (pediatric); I25.5 Ischemic cardiomyopathy; J44.9 Chronic obstructive pulmonary disease, unspecified; E66.01 Morbid (severe) obesity due to excess calories; R29.702 NIHSS score 2; Z95.0 Presence of cardiac pacemaker; Z87.891 Personal history of nicotine dependence; Z95.2 Presence of prosthetic heart valve; Z79.51 Long term (current) use of inhaled steroids; Z79.82 Long term (current) use of aspirin; Z79.899 Other long term (current) drug therapy
CPT/HCPCS: 36415; 70450; 70496; 70498; 80048; 80061; 82550; 82947; 84484; 85025; 85610; 85730; 93005; 97161; 97165; 99285; Q9967

== ENCOUNTER → 2023-12-25 11:36 | Outpatient (BNV) | payer OTHER, SELFPAY | PROVIDERS: Admitting Provider Nurse Practitioner Acute Care; Emergency Provider Emergency Medicine; PCP Internal Medicine; Visit Provider Internal Medicine Cardiovascular Disease | DX: R94.31 Abnormal electrocardiogram [ECG] [EKG] (principal) | CPT/HCPCS: 93010 ==

== ENCOUNTER → 2023-12-25 13:50 | Outpatient (BNV) | payer OTHER, SELFPAY | PROVIDERS: Admitting Provider Nurse Practitioner Acute Care; Emergency Provider Emergency Medicine; PCP Internal Medicine; Visit Provider Nurse Practitioner Acute Care | DX: I63.431 Cerebral infarction due to embolism of right posterior cerebral artery (principal) | CPT/HCPCS: 99223; 99239 ==

== ENCOUNTER → 2023-12-25 13:50 | Outpatient (BNV) | payer OTHER, SELFPAY | PROVIDERS: Admitting Provider Nurse Practitioner Acute Care; Emergency Provider Emergency Medicine; PCP Internal Medicine; Visit Provider Psychiatry & Neurology Neurology | DX: I63.431 Cerebral infarction due to embolism of right posterior cerebral artery (principal) | CPT/HCPCS: 99222 ==

== ENCOUNTER 2023-12-29 10:00 | Outpatient (AMB) | payer OTHER, SELFPAY ==
[2023-12-29 10:13] LABS: Prothrombin Time Whole Bld POC 26.7 sec (11.1-13.5); ~PT, ~INR - Anti Coag Clinic 2.2 (0.9-1.1)
--- NOTE | 2023-12-29 10:22 | MHC.OFFVISCO ---
Intake Intake Visit Reasons: Anticoagulation Allergies codeine Allergy (Mild, Verified 12/29/23 10:07) Anxiety Medication List - Last Reconciled 12/29/23 by Gregoria Caballero RN albuterol sulfate 90 mcg/actuation (ProAir HFA) 2 puffs inhalation Q4H PRN amoxicillin 500 mg PO BID ascorbic acid (vitamin C) 250 mg PO BID aspirin 81 mg PO DAILY atorvastatin 20 mg PO QAM calcium carbonate 600 mg PO BID cholecalciferol (vitamin D3) (Vitamin D3) 50 mcg PO DAILY docusate sodium 100 mg PO BID empagliflozin (Jardiance) 10 mg PO DAILY ferrous sulfate (FeroSul) 325 mg PO DAILY fluoxetine 20 mg PO DAILY fluticasone propion-salmeterol 250-50 mcg/dose 1 ea PO BID ipratropium-albuterol 0.5 mg-3 mg(2.5 mg base)/3 mL 3 mL inhalation QID PRN lisinopril 2.5 mg See Protocol PO DAILY metoprolol succinate ER 50 mg PO DAILY mexiletine 150 mg PO BID montelukast (Singulair) 10 mg PO BEDTIME nebulizers (Sidestream misc) As directed sennosides (Natural Senna Laxative) 8.6 mg PO BEDTIME PRN spironolactone 25 mg PO DAILY torsemide 40 mg PO DAILY warfarin See Protocol 2.5 mg orally 3 DAYS/ 3.75MG X 4 DAYS; Nursing Note INR 2.2 out of therapeutic range Medications and supplements reviewed Patient status: S/P OCCIPITAL LOBE CVA - LOST PARTIAL VISION POSSIBLY R/ T THE TIME SHE HELD HER WARFARIN FOR A PROCEDURE FEW WKS AGO- UNKNOWN TO [facility], T/C TO CARDIOLOGY: PROCEDURED MIQUEL- HAS F/U APPT WITH CARDIOLOGY 01/04/24 OW BEING TREATED FOR STREP THROAT ON AMOXICILLIN OF YESTERDAY- HAS GI UPSET- ENC TO CALL MD IT MAY BE R/T ANTBX Medications or supplements: AMOXICILLIN 500MG PO BID Diet: OK , SLIGHT GI UPSET ? AMOXICILLIN Denies any signs and symptoms of bleeding or clotting or unusual bruising Bleeding, bruising, clotting discussed Nutritional guidance given: AVOID GREENS TODAY , THEN RESUME USUAL DIET Dose: BOOST TODAY ONLY DUE TO RECENT STROKE 3.7MG X 5 DAYS THIS WEEKM THEN 3.75MG X 4 DAYS/ 2.5MG MWF F/U INR Date : 01/02/24 ?? Patient verbalizing understanding of instructions given. 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
== END 2023-12-29 10:36 | disposition home or self-care (01) ==
LOC: HO.ACS 10:00
PROVIDERS: PCP Internal Medicine; Visit Provider Internal Medicine
DX: Z79.01 Long term (current) use of anticoagulants (principal)

== ENCOUNTER → 2023-12-29 10:00 | Outpatient (BNVA) | payer OTHER, SELFPAY | PROVIDERS: PCP Internal Medicine; Visit Provider Internal Medicine | DX: Z95.2 Presence of prosthetic heart valve (principal); Z51.81 Encounter for therapeutic drug level monitoring; Z79.01 Long term (current) use of anticoagulants | CPT/HCPCS: 85610; 99211 ==

== ENCOUNTER 2024-01-03 10:06 | Outpatient (AMB) | payer OTHER, SELFPAY ==
--- NOTE | 2024-01-03 10:15 | MHC.OFFVISCO ---
Intake Intake Visit Reasons: Anticoagulation Allergies codeine Allergy (Mild, Verified 01/03/24 10:06) Anxiety Medication List - Last Reconciled 01/03/24 by Radha Hines RN albuterol sulfate 90 mcg/actuation (ProAir HFA) 2 puffs inhalation Q4H PRN amoxicillin 500 mg PO BID ascorbic acid (vitamin C) 250 mg PO BID aspirin 81 mg PO DAILY atorvastatin 20 mg PO QAM calcium carbonate 600 mg PO BID cholecalciferol (vitamin D3) (Vitamin D3) 50 mcg PO DAILY docusate sodium 100 mg PO BID empagliflozin (Jardiance) 10 mg PO DAILY ferrous sulfate (FeroSul) 325 mg PO DAILY fluoxetine 20 mg PO DAILY fluticasone propion-salmeterol 250-50 mcg/dose 1 ea PO BID ipratropium-albuterol 0.5 mg-3 mg(2.5 mg base)/3 mL 3 mL inhalation QID PRN lisinopril 2.5 mg See Protocol PO DAILY metoprolol succinate ER 50 mg PO DAILY mexiletine 150 mg PO BID montelukast (Singulair) 10 mg PO BEDTIME nebulizers (Sidestream misc) As directed sennosides (Natural Senna Laxative) 8.6 mg PO BEDTIME PRN spironolactone 25 mg PO DAILY torsemide 40 mg PO DAILY warfarin See Protocol 2.5 mg orally 3 DAYS/ 3.75MG X 4 DAYS; Nursing Note INR: 3.1- in therapeutic range of 2.5-3.5 Medications and supplements reviewed- amoxicillin 500mg bid for 10 days for strep throat pt states has been taking the amox daily instead of bid, prescription bottle with instructions for bid No changes in health, diet, medications, or supplements, Denies any signs and symptoms of bleeding or bruising or clotting. Bleeding, bruising, clotting discussed Nutritional guidance given - eat greens while on the antibiotics Dose: reduce dose on sat to 2.5mg otherwise cont reg dosing 2.5mg x 3, 3.75mg x 4 F/U INR: 1 week Patient verbalizes understanding of instructions given pt recent [place] [facility] [place]- acute infarct right occipital lobe - visual deficits left eye pt amb with walker Anti-Coag Initial Assessment Social Hx Patient Tobacco Use Status: Former Tobacco user Quit Date: 15 Tobacco use type: Cigarette Smoking packs per day: 1 alcohol intake: former Alcohol intake frequency: does not drink Coding Level of Care Code Est Patient Level 2 Diagnoses Current use of anticoagulant therapy Z79.01 Assessment & Plan Assessment & Plan (1) Current use of anticoagulant therapy: Code(s): Z79.01 - halfway (current) use of anticoagulants Category: Medical
[2024-01-03 10:16] LABS: Prothrombin Time Whole Bld POC 37.3 sec (11.1-13.5); ~PT, ~INR - Anti Coag Clinic 3.1 (0.9-1.1)
== END 2024-01-03 10:34 | disposition home or self-care (01) ==
LOC: HO.ACS 10:06
PROVIDERS: PCP Internal Medicine; Visit Provider Internal Medicine
DX: Z79.01 Long term (current) use of anticoagulants (principal)

== ENCOUNTER → 2024-01-03 10:06 | Outpatient (BNVA) | payer OTHER, SELFPAY | PROVIDERS: PCP Internal Medicine; Visit Provider Internal Medicine | DX: Z95.2 Presence of prosthetic heart valve (principal); Z79.01 Long term (current) use of anticoagulants; Z51.81 Encounter for therapeutic drug level monitoring | CPT/HCPCS: 85610; 99212 ==

== ENCOUNTER 2024-01-08 10:00 | Outpatient (AMB) | payer OTHER, SELFPAY ==
[2024-01-08 10:08] LABS: Prothrombin Time Whole Bld POC 32.2 sec (11.1-13.5); ~PT, ~INR - Anti Coag Clinic 2.7 (0.9-1.1)
--- NOTE | 2024-01-08 10:15 | MHC.OFFVISCO ---
Intake Intake Visit Reasons: Anticoagulation Allergies codeine Allergy (Mild, Verified 01/08/24 10:03) Anxiety Medication List - Last Reconciled 01/08/24 by Sonja Madison RN albuterol sulfate 90 mcg/actuation (ProAir HFA) 2 puffs inhalation Q4H PRN amoxicillin 500 mg PO BID ascorbic acid (vitamin C) 250 mg PO BID aspirin 81 mg PO DAILY atorvastatin 20 mg PO QAM calcium carbonate 600 mg PO BID cholecalciferol (vitamin D3) (Vitamin D3) 50 mcg PO DAILY docusate sodium 100 mg PO BID empagliflozin (Jardiance) 10 mg PO DAILY ferrous sulfate (FeroSul) 325 mg PO DAILY fluoxetine 20 mg PO DAILY fluticasone propion-salmeterol 250-50 mcg/dose 1 ea PO BID ipratropium-albuterol 0.5 mg-3 mg(2.5 mg base)/3 mL 3 mL inhalation QID PRN lisinopril 2.5 mg See Protocol PO DAILY metoprolol succinate ER 50 mg PO DAILY mexiletine 150 mg PO BID montelukast (Singulair) 10 mg PO BEDTIME nebulizers (Sidestream misc) As directed sennosides (Natural Senna Laxative) 8.6 mg PO BEDTIME PRN spironolactone 25 mg PO DAILY torsemide 40 mg PO DAILY warfarin See Protocol 2.5 mg orally 3 DAYS/ 3.75MG X 4 DAYS; Nursing Note INR: 2.7 in therapeutic range OF 2.5-3.5 Medications and supplements reviewed: CONTINUES ON AMOXICILLAN FOR STREP THROAT. HAS 3 MORE DAYS TO COMPLETE. No changes in health, diet, medications, or supplements, Denies any signs and symptoms of bleeding or bruising or clotting. Bleeding, bruising, clotting discussed Nutritional guidance given TO CONTINUE TO BALANCE REDS AND GREENS. ENCOURAGED TO HAVE MORE GREENS WHILE ANTIBIOTIC BUT PT DOESN'T LIKE GREENS SO DOSE DECREASED BY 1.25MG THIS WEEK. 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
== END 2024-01-08 10:23 | disposition home or self-care (01) ==
LOC: HO.ACS 10:00
PROVIDERS: PCP Internal Medicine; Visit Provider Internal Medicine
DX: Z79.01 Long term (current) use of anticoagulants (principal)

== ENCOUNTER → 2024-01-08 10:00 | Outpatient (BNVA) | payer OTHER, SELFPAY | PROVIDERS: PCP Internal Medicine; Visit Provider Internal Medicine | DX: Z95.2 Presence of prosthetic heart valve (principal) | CPT/HCPCS: 85610; 99211 ==

== ENCOUNTER 2024-01-11 10:05 | Outpatient (AMB) | payer OTHER, SELFPAY ==
--- NOTE | 2024-01-11 10:34 | MHC.OFFVIS ---
Vital Signs 01/11/24 10:35 Height 4 ft 6 in Weight 185 lb 3.013 oz BMI 44.6 BP 104/70 Blood Pressure Location Lt brachial Position Sitting Pulse 76 Pulse Source Pulse Oximeter Pulse Oximetry (%) 95 Oxygen Delivery Method Room Air Intake Visit Reasons: COPD Intake Note: pt is here for follow up and states she was in for mini-stroke, and her breathing is stable. 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 Allergies codeine Allergy (Mild, Verified 01/11/24 12:04) Anxiety Medication List - Last Reconciled 01/11/24 by Audrey Jarquin MD albuterol sulfate 90 mcg/actuation (ProAir HFA) 2 puffs inhalation Q4H PRN amoxicillin 500 mg PO BID ascorbic acid (vitamin C) 250 mg PO BID aspirin 81 mg PO DAILY atorvastatin 20 mg PO QAM calcium carbonate 600 mg PO BID cholecalciferol (vitamin D3) (Vitamin D3) 50 mcg PO DAILY docusate sodium 100 mg PO BID empagliflozin (Jardiance) 10 mg PO DAILY ferrous sulfate (FeroSul) 325 mg PO DAILY fluoxetine 20 mg PO DAILY fluticasone propion-salmeterol 250-50 mcg/dose 1 ea PO BID ipratropium-albuterol 0.5 mg-3 mg(2.5 mg base)/3 mL 3 mL inhalation QID PRN lisinopril 2.5 mg See Protocol PO DAILY metoprolol succinate ER 50 mg PO DAILY mexiletine 150 mg PO BID montelukast (Singulair) 10 mg PO BEDTIME nebulizers (Sidestream misc) As directed sennosides (Natural Senna Laxative) 8.6 mg PO BEDTIME PRN spironolactone 25 mg PO DAILY torsemide 40 mg PO DAILY warfarin See Protocol 2.5 mg orally 3 DAYS/ 3.75MG X 4 DAYS; Do you need a note to return to daycare/school/sports/work: No HPI HPI COPD: Details: This 58 years old pleasant female is of a short stature, morbidly obese with BMI of 45, comes for follow-up. Recent admission to the [facility] with sudden left charbel anopsia, secondary to stroke, she also had mild hemiparesis which has resolved, but the [facility] and has not come back. She is known to have my moderate degree of COPD, treated with meds. .She is nonsmoker She has had obstructive sleep apnea and used up until about a year ago, then the CPAP was taken away because of noncompliance. Presently she feels tired during the daytime, complains of difficulty in sleeping at night, she does have some gasping like breathing. And has frequent awakenings, she wants to go back to using CPAP. Breathing has remained stable with the use of Wixela and DuoNeb updrafts. [facility] Medical History (Updated 01/11/24 @ 12:15 by Audrey Jarquin MD) Somnolence COPD (chronic obstructive pulmonary disease) CHF (congestive heart failure) HANS (obstructive sleep apnea) Pacemaker Restrictive lung disease Morbid obesity Surgical History History of prosthetic mitral valve Hx of section Hx of heart bypass surgery Family History Mother Diabetes Heart disease Father Diabetes Heart attack Maternal Aunt Diabetes Maternal Uncle Diabetes Maternal Grandfather Diabetes Maternal Grandmother Diabetes Paternal Grandfather Heart disease Paternal Grandmother Heart disease Daughter Bipolar 1 disorder Brother Lung cancer Maternal Uncle Lung cancer Social History Household Members: Significant Other Housing: Apartment Are you a primary healthcare financial analyst to a significant other at home: Yes (Grandkids) Do you presently have visiting nurse or other home services: No Alcohol intake: former Comment: refusing alarm Patient Tobacco Use Status: Former Tobacco user Quit Date: 15 Tobacco use type: Cigarette Cigarette Packs Per Day: 1 Years Smoked: 32 Second Hand Smoke Exposure: Yes Advance Directives Date on File: 05/29/23 service: No Current occupational status: retired and disabled Review of Systems Const All systems reviewed & are unremarkable except as noted in HPI and below Eyes Reports no additional complaints ENT Reports no additional complaints and Reports nasal congestion (Mild off and on, mostly controlled) Card Denies chest pain, Denies irregular heart rhythm and Denies leg edema Resp Reports as per HPI GI Reports no additional complaints Musc Reports no additional complaints Neuro Reports no additional complaints Psych Reports depression (MILD ,CONTROLLED WITH MEDICINE ) Endo Reports no additional complaints Physical Exam Vital Signs: Last Vital Signs Pulse 76 01/11/24 10:35 BP 104/70 01/11/24 10:35 Pulse Ox 95 01/11/24 10:35 Oxygen Delivery Method Room Air 01/11/24 10:35 BMI result Body Mass Index 44.6 Const General: comfortable, no acute distress, alert and awake Orientation/consciousness: patient oriented x3 HEENT Head: Yes normal to inspection General nose exam: No nasal polyps present, No nasal discharge present and Other nasal findings present (Chronic nasal congestion) Face and sinus: Yes sinuses nontender Mouth: oropharynx normal Throat: Yes posterior oropharynx normal Eyes General: appearance normal, both eyes and all related structures Neck Neck: Yes normal visual inspection, Yes no lymphadenopathy, Yes trachea midline and Yes no JVD Thyroid: Thyroid normal Chest Chest palpation & inspection: normal inspection of the chest, normal palpation of entire chest wall and no tenderness Resp Other: PERCUSSION NOTE RESONANT, BREATH SOUNDS ARE DECREASED OVER THE BASILAR AREAS, NO WHEEZES RHONCHI OR CREPITATIONS ARE HEARD. Cardio Palpation: normal PMI Rate: regular rate Rhythm: regular rhythm Heart sounds: no gallops and no murmurs GI Inspection: Yes other (ABDOMEN IS MODERATELY OBESE AND PROTUBERANT) Palpation (GI): Soft to palpation, nontender, No hepatosplenomegaly present and no masses Auscultation: normal bowel sounds Back/Spine/Pelvis Thoracic/Lumbar Spine: thoracic and lumbar spine normal to inspection Skin General skin exam: no rashes or lesions noted Neuro General: patient oriented x3, No gait normal (GAIT IMPAIRED AND SHE USES WALKER) and no focal motor deficits Cranial nerves: Yes CN's II-XII intact bilaterally Extrem General: Yes normal to inspection, Yes no clubbing, cyanosis or edema and Yes no calf tenderness Psych Appearance: grossly normal and well kempt Speech and movement: Normal speech and movement present Assessment & Plan Assessment & Plan (1) Morbid obesity: Comment: This patient is of his short stature. She remains morbidly obese, as it is difficult for her to lose weight. Code(s): E66.01 - Morbid (severe) obesity due to excess calories Category: Medical Plan: Advised to stay as active as possible, and she is already on diabetic diet (2) HANS on CPAP: Comment: SHE HAS NOT USED CPAP FOR MORE THAN A YEAR. SHE DOES HAVE SYMPTOMS OF OBSTRUCTIVE SLEEP APNEA. SHE ALSO HAS MULTIPLE COMORBIDITIES INCLUDING RECENT STROKE, CARDIAC DISEASE, HYPERTENSION, DIABETES, DEPRESSION. AND IT IS VERY IMPORTANT FOR HER TO USE THE CPAP. Code(s): G47.33 - Obstructive sleep apnea (adult) (pediatric); Z99.89 - Dependence on other enabling machines and devices Category: Medical Plan: TO START HER ON CPAP NOW SHE WOULD NEED AN IN-LAB POLYSOMNOGRAM STUDY WHICH IS BEING ORDERED ONCE AGAIN. (3) Restrictive lung disease: Comment: SHE HAS MILD RESTRICTIVE PATTERN BECAUSE OF HER MORBID OBESITY. Code(s): J98.4 - Other disorders of lung Category: Medical Plan: ADVISE THE PATIENT THAT SHE SHOULD DO DEEP BREATHING EXERCISES MUCH POSSIBLE (4) COPD (chronic obstructive pulmonary disease): Comment: SHE HAS SYMPTOMS SUGGESTIVE OF CHRONIC OBSTRUCTIVE PULMONARY DISEASE. DOING VERY WELL WITH HER CURRENT REGIMEN, ADVISED TO KEEP ON USING THE SAME. Code(s): J44.9 - Chronic obstructive pulmonary disease, unspecified Category: Medical Plan: WIXELA 250-51 INHALATION B.I.D. IPRATROPIUM-ALBUTEROL SOLUTION IN THE NEBULIZER Q I.D. P.R.N. Orders: Orders RT PSG in-lab sleep study Today E66.01 - Morbid (severe) obesity due to excess calories, G47.33 - Obstructive sleep apnea (adult) (pediatric), R40.0 - Somnolence Coding Level of Care Code Est Pt Level 4 (01319) Diagnoses Morbid obesity E66.01 HANS on CPAP G47.33; Z99.89 Restrictive lung disease J98.4 COPD (chronic obstructive pulmonary disease) J44.9
[2024-01-11 10:35] VITALS: BP 104/70; PULSE 76; O2SAT 95; BMI 44.6
== END 2024-01-11 11:06 | disposition home or self-care (01) ==
PROVIDERS: PCP Internal Medicine; Visit Provider Internal Medicine
DX: E66.01 Morbid (severe) obesity due to excess calories (principal); G47.33 Obstructive sleep apnea (adult) (pediatric); Z99.89 Dependence on other enabling machines and devices; J98.4 Other disorders of lung; J44.9 Chronic obstructive pulmonary disease, unspecified
CPT/HCPCS: 99214

== ENCOUNTER → 2024-01-11 10:05 | Outpatient (BNVA) | payer OTHER, SELFPAY | PROVIDERS: PCP Internal Medicine; Visit Provider Internal Medicine | DX: J44.9 Chronic obstructive pulmonary disease, unspecified (principal); J98.4 Other disorders of lung; G47.33 Obstructive sleep apnea (adult) (pediatric); E66.01 Morbid (severe) obesity due to excess calories; Z99.89 Dependence on other enabling machines and devices; Z68.41 Body mass index [BMI] 40.0-44.9, adult | CPT/HCPCS: 99212 ==

== ENCOUNTER 2024-01-17 09:46 | Outpatient (AMB) | payer OTHER, SELFPAY ==
--- NOTE | 2024-01-17 10:04 | MHC.OFFVISCO ---
Intake Intake Visit Reasons: Anticoagulation Allergies codeine Allergy (Mild, Verified 01/17/24 09:59) Anxiety Medication List - Last Reconciled 01/17/24 by Radha Hines RN albuterol sulfate 90 mcg/actuation (ProAir HFA) 2 puffs inhalation Q4H PRN amoxicillin 500 mg PO BID ascorbic acid (vitamin C) 250 mg PO BID aspirin 81 mg PO DAILY atorvastatin 20 mg PO QAM calcium carbonate 600 mg PO BID cholecalciferol (vitamin D3) (Vitamin D3) 50 mcg PO DAILY docusate sodium 100 mg PO BID empagliflozin (Jardiance) 10 mg PO DAILY ferrous sulfate (FeroSul) 325 mg PO DAILY fluoxetine 20 mg PO DAILY fluticasone propion-salmeterol 250-50 mcg/dose 1 ea PO BID ipratropium-albuterol 0.5 mg-3 mg(2.5 mg base)/3 mL 3 mL inhalation QID PRN lisinopril 2.5 mg See Protocol PO DAILY metoprolol succinate ER 50 mg PO DAILY mexiletine 150 mg PO BID montelukast (Singulair) 10 mg PO BEDTIME nebulizers (Sidestream misc) As directed sennosides (Natural Senna Laxative) 8.6 mg PO BEDTIME PRN spironolactone 25 mg PO DAILY torsemide 40 mg PO DAILY warfarin See Protocol 2.5 mg orally 3 DAYS/ 3.75MG X 4 DAYS; Nursing Note INR: 2.8- in therapeutic range of 2.5-3.5 pt ran out of warfarin and missed dose on monday, took 2.5mg on mon, called acs and was instructed to take 5mg on Medications and supplements reviewed- no changes No changes in health, diet, medications, or supplements, Denies any signs and symptoms of bleeding or bruising or clotting. Bleeding, bruising, clotting discussed Nutritional guidance given Dose: 2.5mg x 3, 3,75mg x 4 F/U INR: 1 week Patient verbalizes understanding of instructions given Anti-Coag Initial Assessment Social Hx Patient Tobacco Use Status: Former Tobacco user Quit Date: 15 Tobacco use type: Cigarette Smoking packs per day: 1 alcohol intake: former Alcohol intake frequency: does not drink Coding Level of Care Code Est Patient Level 1 Diagnoses Current use of anticoagulant therapy Z79.01 Assessment & Plan Assessment & Plan (1) Current use of anticoagulant therapy: Code(s): Z79.01 - assisted (current) use of anticoagulants Category: Medical
[2024-01-17 10:06] LABS: Prothrombin Time Whole Bld POC 33.5 sec (11.1-13.5); ~PT, ~INR - Anti Coag Clinic 2.8 (0.9-1.1)
== END 2024-01-17 10:12 | disposition home or self-care (01) ==
LOC: HO.ACS 09:46
PROVIDERS: PCP Internal Medicine; Visit Provider Internal Medicine
DX: Z79.01 Long term (current) use of anticoagulants (principal)

== ENCOUNTER → 2024-01-17 09:46 | Outpatient (BNVA) | payer OTHER, SELFPAY | PROVIDERS: PCP Internal Medicine; Visit Provider Internal Medicine | DX: Z95.2 Presence of prosthetic heart valve (principal); Z79.01 Long term (current) use of anticoagulants; Z51.81 Encounter for therapeutic drug level monitoring | CPT/HCPCS: 85610; 99211 ==

== ENCOUNTER 2024-01-24 09:55 | Outpatient (AMB) | payer OTHER, SELFPAY ==
[2024-01-24 10:07] LABS: Prothrombin Time Whole Bld POC 47.3 sec (11.1-13.5); ~PT, ~INR - Anti Coag Clinic 3.9 (0.9-1.1)
--- NOTE | 2024-01-24 10:19 | MHC.OFFVISCO ---
Intake Intake Visit Reasons: Anticoagulation Allergies codeine Allergy (Mild, Verified 01/24/24 10:02) Anxiety Medication List - Last Reconciled 01/24/24 by Karla Moreno RN albuterol sulfate 90 mcg/actuation (ProAir HFA) 2 puffs inhalation Q4H PRN ascorbic acid (vitamin C) 250 mg PO BID aspirin 81 mg PO DAILY atorvastatin 20 mg PO QAM calcium carbonate 600 mg PO BID cholecalciferol (vitamin D3) (Vitamin D3) 50 mcg PO DAILY docusate sodium 100 mg PO BID empagliflozin (Jardiance) 10 mg PO DAILY ferrous sulfate (FeroSul) 325 mg PO DAILY fluoxetine 20 mg PO DAILY fluticasone propion-salmeterol 250-50 mcg/dose 1 ea PO BID ipratropium-albuterol 0.5 mg-3 mg(2.5 mg base)/3 mL 3 mL inhalation QID PRN lisinopril 2.5 mg See Protocol PO DAILY metoprolol succinate ER 50 mg PO DAILY mexiletine 150 mg PO BID montelukast (Singulair) 10 mg PO BEDTIME nebulizers (Sidestream misc) As directed sennosides (Natural Senna Laxative) 8.6 mg PO BEDTIME PRN spironolactone 25 mg PO DAILY torsemide 40 mg PO DAILY warfarin See Protocol 2.5 mg orally 3 DAYS/ 3.75MG X 4 DAYS; Nursing Note PT.CONTINUES TO HAVE INCREASED STRESS DUE TO FAMILY SITUATION. NO CP,SOB,DIET/MED CHANGES,FALLS OR SX OF BLEEDING. HOLD WARFARIN TODAY THEN RESUME USUAL DOSE AND FOLLOW-UP IN 1 WEEK. GOOD UNDERSTANDING OF DOSING INSTR. Anti-Coag Initial Assessment Social Hx Patient Tobacco Use Status: Former Tobacco user Tobacco use type: Cigarette Smoking packs per day: 1 alcohol intake: former Alcohol intake frequency: does not drink Coding Level of Care Code Est Patient Level 1 Diagnoses Current use of anticoagulant therapy Z79.01 Assessment & Plan Assessment & Plan (1) Current use of anticoagulant therapy: Code(s): Z79.01 - nursing home (current) use of anticoagulants Category: Medical
== END 2024-01-24 10:20 | disposition home or self-care (01) ==
LOC: HO.ACS 09:55
PROVIDERS: PCP Internal Medicine; Visit Provider Internal Medicine
DX: Z79.01 Long term (current) use of anticoagulants (principal)

== ENCOUNTER → 2024-01-24 09:55 | Outpatient (BNVA) | payer OTHER, SELFPAY | PROVIDERS: PCP Internal Medicine; Visit Provider Internal Medicine | DX: Z95.2 Presence of prosthetic heart valve (principal); Z79.01 Long term (current) use of anticoagulants; Z51.81 Encounter for therapeutic drug level monitoring | CPT/HCPCS: 85610; 99211 ==

== ENCOUNTER 2024-01-31 10:04 | Outpatient (AMB) | payer OTHER, SELFPAY ==
[2024-01-31 10:28] LABS: Prothrombin Time Whole Bld POC 52.5 sec (11.1-13.5); ~PT, ~INR - Anti Coag Clinic 4.4 (0.9-1.1)
--- NOTE | 2024-01-31 10:46 | MHC.OFFVISCO ---
Intake Intake Visit Reasons: Anticoagulation Allergies codeine Allergy (Mild, Verified 01/31/24 10:23) Anxiety Medication List - Last Reconciled 01/31/24 by Karla Mroeno RN albuterol sulfate 90 mcg/actuation (ProAir HFA) 2 puffs inhalation Q4H PRN ascorbic acid (vitamin C) 250 mg PO BID aspirin 81 mg PO DAILY atorvastatin 20 mg PO QAM calcium carbonate 600 mg PO BID cholecalciferol (vitamin D3) (Vitamin D3) 50 mcg PO DAILY docusate sodium 100 mg PO BID empagliflozin (Jardiance) 10 mg PO DAILY ferrous sulfate (FeroSul) 325 mg PO DAILY fluoxetine 20 mg PO DAILY fluticasone propion-salmeterol 250-50 mcg/dose 1 ea PO BID ipratropium-albuterol 0.5 mg-3 mg(2.5 mg base)/3 mL 3 mL inhalation QID PRN lisinopril 2.5 mg See Protocol PO DAILY metoprolol succinate ER 50 mg PO DAILY mexiletine 150 mg PO BID montelukast (Singulair) 10 mg PO BEDTIME nebulizers (Sidestream misc) As directed sennosides (Natural Senna Laxative) 8.6 mg PO BEDTIME PRN spironolactone 25 mg PO DAILY torsemide 40 mg PO DAILY warfarin See Protocol 2.5 mg orally 3 DAYS/ 3.75MG X 4 DAYS; Nursing Note PT.STATES THAT SHE HAS HAD LARGE AMTS.OF FRESH FRUITS(MELONS AND STRAWBERRIES) NO CP,SOB OR MED CHANGES. SHE NOTES SOME MORE BRUISING THAN USUAL RECENTLY. HOLD WARFARIN TOMORROW(TOOK 2.5MGM TODAY)THEN REDUCE WEEKLY DOSE AND FOLLOW-UP IN 1 WEEK GOOD UNDERSTANDING OF DOSING INSTR. 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
== END 2024-01-31 10:51 | disposition home or self-care (01) ==
LOC: HO.ACS 10:04
PROVIDERS: PCP Internal Medicine; Visit Provider Internal Medicine
DX: Z79.01 Long term (current) use of anticoagulants (principal)

== ENCOUNTER → 2024-01-31 10:04 | Outpatient (BNVA) | payer OTHER, SELFPAY | PROVIDERS: PCP Internal Medicine; Visit Provider Internal Medicine | DX: Z95.2 Presence of prosthetic heart valve (principal); Z79.01 Long term (current) use of anticoagulants; Z51.81 Encounter for therapeutic drug level monitoring | CPT/HCPCS: 85610; 99211 ==

== ENCOUNTER 2024-02-07 10:00 | Outpatient (AMB) | payer OTHER, SELFPAY ==
--- NOTE | 2024-02-07 10:32 | MHC.OFFVISCO ---
Intake Intake Visit Reasons: Anticoagulation Allergies codeine Allergy (Mild, Verified 02/07/24 10:15) Anxiety Medication List - Last Reconciled 02/07/24 by Karla Moreno RN albuterol sulfate 90 mcg/actuation (ProAir HFA) 2 puffs inhalation Q4H PRN ascorbic acid (vitamin C) 250 mg PO BID aspirin 81 mg PO DAILY atorvastatin 20 mg PO QAM calcium carbonate 600 mg PO BID cholecalciferol (vitamin D3) (Vitamin D3) 50 mcg PO DAILY docusate sodium 100 mg PO BID empagliflozin (Jardiance) 10 mg PO DAILY ferrous sulfate (FeroSul) 325 mg PO DAILY fluoxetine 20 mg PO DAILY fluticasone propion-salmeterol 250-50 mcg/dose 1 ea PO BID ipratropium-albuterol 0.5 mg-3 mg(2.5 mg base)/3 mL 3 mL inhalation QID PRN lisinopril 2.5 mg See Protocol PO DAILY metoprolol succinate ER 50 mg PO DAILY mexiletine 150 mg PO BID montelukast (Singulair) 10 mg PO BEDTIME nebulizers (Sidestream misc) As directed sennosides (Natural Senna Laxative) 8.6 mg PO BEDTIME PRN spironolactone 25 mg PO DAILY torsemide 40 mg PO DAILY warfarin See Protocol 2.5 mg orally 3 DAYS/ 3.75MG X 4 DAYS; Nursing Note NO CP,SOB,DIET/MED CHANGES,FALLS OR SX OF BLEEDING. WILL RESUME PREVIOUS DOSING AND FOLLOW-UP IN 1 WEEK. NO GREENS 1-2 DAYS GOOD UNDERSTANDING OF DOSING INSTR. 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
[2024-02-07 14:39] LABS: Prothrombin Time Whole Bld POC 27.9 sec (11.1-13.5); ~PT, ~INR - Anti Coag Clinic 2.3 (0.9-1.1)
== END 2024-02-07 10:34 | disposition home or self-care (01) ==
LOC: HO.ACS 10:00
PROVIDERS: PCP Internal Medicine; Visit Provider Internal Medicine
DX: Z79.01 Long term (current) use of anticoagulants (principal)

== ENCOUNTER → 2024-02-07 10:00 | Outpatient (BNVA) | payer OTHER, SELFPAY | PROVIDERS: PCP Internal Medicine; Visit Provider Internal Medicine | DX: Z95.2 Presence of prosthetic heart valve (principal); Z79.01 Long term (current) use of anticoagulants; Z51.81 Encounter for therapeutic drug level monitoring | CPT/HCPCS: 85610; 99211 ==

== ENCOUNTER 2024-02-14 09:35 | Outpatient (AMB) | payer OTHER, SELFPAY ==
[2024-02-14 09:48] LABS: Prothrombin Time Whole Bld POC 52.9 sec (11.1-13.5); ~PT, ~INR - Anti Coag Clinic 4.4 (0.9-1.1)
--- NOTE | 2024-02-14 09:51 | MHC.OFFVISCO ---
Intake Intake Visit Reasons: Anticoagulation Allergies codeine Allergy (Mild, Verified 02/14/24 09:42) Anxiety Medication List - Last Reconciled 02/14/24 by Karla Moreno RN albuterol sulfate 90 mcg/actuation (ProAir HFA) 2 puffs inhalation Q4H PRN ascorbic acid (vitamin C) 250 mg PO BID aspirin 81 mg PO DAILY atorvastatin 20 mg PO QAM calcium carbonate 600 mg PO BID cholecalciferol (vitamin D3) (Vitamin D3) 50 mcg PO DAILY docusate sodium 100 mg PO BID empagliflozin (Jardiance) 10 mg PO DAILY ferrous sulfate (FeroSul) 325 mg PO DAILY fluoxetine 20 mg PO DAILY fluticasone propion-salmeterol 250-50 mcg/dose 1 ea PO BID ipratropium-albuterol 0.5 mg-3 mg(2.5 mg base)/3 mL 3 mL inhalation QID PRN lisinopril 2.5 mg See Protocol PO DAILY metoprolol succinate ER 50 mg PO DAILY mexiletine 150 mg PO BID montelukast (Singulair) 10 mg PO BEDTIME nebulizers (Sidestream misc) As directed sennosides (Natural Senna Laxative) 8.6 mg PO BEDTIME PRN spironolactone 25 mg PO DAILY torsemide 40 mg PO DAILY warfarin See Protocol 2.5 mg orally 3 DAYS/ 3.75MG X 4 DAYS; Nursing Note PT.CONTINUES TO HAVE INCREASED STRESS WITH FAMILY ISSUES. NO CP,SOB,DIET/MED CHANGES,FALLS OR SX OF BLEEDING. HOLD WARFARIN TODAY THEN RESUME USUAL DOSE AND FOLLOW-UP IN 1 WEEK GREENS TODAY Anti-Coag Initial Assessment Social Hx Patient Tobacco Use Status: Former Tobacco user Tobacco use type: Cigarette Smoking packs per day: 1 alcohol intake: former Alcohol intake frequency: does not drink Coding Level of Care Code Est Patient Level 1 Diagnoses Current use of anticoagulant therapy Z79.01 Assessment & Plan Assessment & Plan (1) Current use of anticoagulant therapy: Code(s): Z79.01 - [facility] (current) use of anticoagulants Category: Medical
== END 2024-02-14 09:53 | disposition home or self-care (01) ==
LOC: HO.ACS 09:35
PROVIDERS: PCP Internal Medicine; Visit Provider Internal Medicine
DX: Z79.01 Long term (current) use of anticoagulants (principal)

== ENCOUNTER → 2024-02-14 09:35 | Outpatient (BNVA) | payer OTHER, SELFPAY | PROVIDERS: PCP Internal Medicine; Visit Provider Internal Medicine | DX: Z95.2 Presence of prosthetic heart valve (principal); Z79.01 Long term (current) use of anticoagulants; Z51.81 Encounter for therapeutic drug level monitoring | CPT/HCPCS: 85610; 99211 ==

== ENCOUNTER 2024-02-21 09:44 | Outpatient (AMB) | payer OTHER, SELFPAY ==
[2024-02-21 09:51] LABS: Prothrombin Time Whole Bld POC 48.5 sec (11.1-13.5)
--- NOTE | 2024-02-21 10:01 | MHC.OFFVISCO ---
Intake Intake Visit Reasons: Anticoagulation Allergies codeine Allergy (Mild, Verified 02/21/24 09:46) Anxiety Medication List - Last Reconciled 02/21/24 by Karla Moreno RN albuterol sulfate 90 mcg/actuation (ProAir HFA) 2 puffs inhalation Q4H PRN ascorbic acid (vitamin C) 250 mg PO BID aspirin 81 mg PO DAILY atorvastatin 20 mg PO QAM calcium carbonate 600 mg PO BID cholecalciferol (vitamin D3) (Vitamin D3) 50 mcg PO DAILY docusate sodium 100 mg PO BID empagliflozin (Jardiance) 10 mg PO DAILY ferrous sulfate (FeroSul) 325 mg PO DAILY fluoxetine 20 mg PO DAILY fluticasone propion-salmeterol 250-50 mcg/dose 1 ea PO BID ipratropium-albuterol 0.5 mg-3 mg(2.5 mg base)/3 mL 3 mL inhalation QID PRN lisinopril 2.5 mg See Protocol PO DAILY metoprolol succinate ER 50 mg PO DAILY mexiletine 150 mg PO BID montelukast (Singulair) 10 mg PO BEDTIME nebulizers (Sidestream misc) As directed sennosides (Natural Senna Laxative) 8.6 mg PO BEDTIME PRN spironolactone 25 mg PO DAILY torsemide 40 mg PO DAILY warfarin See Protocol 2.5 mg orally 3 DAYS/ 3.75MG X 4 DAYS; Nursing Note NO CP,SOB,DIET/MED CHANGES,FALLS OR SX OF BLEEDING. HOLD WARFARIN TODAY THEN REDUCE WEEKLY DOSE SLIGHTLY AND FOLLOW-UP ON 03/04. GOOD UNDERSTANDING OF DOSING INSTR. Anti-Coag Initial Assessment Social Hx Patient Tobacco Use Status: Former Tobacco user Tobacco use type: Cigarette Smoking packs per day: 1 alcohol intake: former Alcohol intake frequency: does not drink Coding Level of Care Code Est Patient Level 1 Diagnoses Current use of anticoagulant therapy Z79.01 Assessment & Plan Assessment & Plan (1) Current use of anticoagulant therapy: Code(s): Z79.01 - halfway (current) use of anticoagulants Category: Medical
== END 2024-02-21 10:04 | disposition home or self-care (01) ==
LOC: HO.ACS 09:44
PROVIDERS: PCP Internal Medicine; Visit Provider Internal Medicine
DX: Z79.01 Long term (current) use of anticoagulants (principal)

== ENCOUNTER → 2024-02-21 09:44 | Outpatient (BNVA) | payer OTHER, SELFPAY | PROVIDERS: PCP Internal Medicine; Visit Provider Internal Medicine | DX: Z95.2 Presence of prosthetic heart valve (principal); Z51.81 Encounter for therapeutic drug level monitoring; Z79.01 Long term (current) use of anticoagulants | CPT/HCPCS: 85610; 99211 ==

== ENCOUNTER 2024-03-01 08:57 | Outpatient (AMB) | payer OTHER, SELFPAY ==
[2024-03-01 09:30] LABS: Prothrombin Time Whole Bld POC 39.6 sec (11.1-13.5); ~PT, ~INR - Anti Coag Clinic 3.3 (0.9-1.1)
--- NOTE | 2024-03-01 09:37 | MHC.OFFVISCO ---
Intake Intake Visit Reasons: Anticoagulation Allergies codeine Allergy (Mild, Verified 03/01/24 09:20) Anxiety Medication List - Last Reconciled 03/01/24 by Gregoria Caballero RN albuterol sulfate 90 mcg/actuation (ProAir HFA) 2 puffs inhalation Q4H PRN ascorbic acid (vitamin C) 250 mg PO BID aspirin 81 mg PO DAILY atorvastatin 20 mg PO QAM calcium carbonate 600 mg PO BID cholecalciferol (vitamin D3) (Vitamin D3) 50 mcg PO DAILY docusate sodium 100 mg PO BID empagliflozin (Jardiance) 10 mg PO DAILY ferrous sulfate (FeroSul) 325 mg PO DAILY fluoxetine 20 mg PO DAILY fluticasone propion-salmeterol 250-50 mcg/dose 1 ea PO BID ipratropium-albuterol 0.5 mg-3 mg(2.5 mg base)/3 mL 3 mL inhalation QID PRN lisinopril 2.5 mg See Protocol PO DAILY metoprolol succinate ER 50 mg PO DAILY mexiletine 150 mg PO BID montelukast (Singulair) 10 mg PO BEDTIME nebulizers (Sidestream misc) As directed sennosides (Natural Senna Laxative) 8.6 mg PO BEDTIME PRN spironolactone 25 mg PO DAILY torsemide 40 mg PO DAILY warfarin See Protocol 2.5 mg orally 3 DAYS/ 3.75MG X 4 DAYS; Nursing Note INR: 3.3 in therapeutic range Medications and supplements reviewed No changes in health, diet, medications, or supplements, Denies any signs and symptoms of bleeding or bruising or clotting. Bleeding, bruising, clotting discussed Nutritional guidance given - EAT A MIX OF FRUITS AND VEGETABLES Dose: KEEP SAME DOSE FOR NOW 3.75MG X 3 DAYS/ 2.5MG X 4 DAYS F/U INR: 2 WEEKS Patient verbalizes understanding of instructions given Anti-Coag Initial Assessment Social Hx Patient Tobacco Use Status: Former Tobacco user Tobacco use type: Cigarette Smoking packs per day: 1 alcohol intake: former Alcohol intake frequency: does not drink Coding Level of Care Code Est Patient Level 1 Diagnoses Current use of anticoagulant therapy Z79.01 Results AMB INR Fingerstick AMB INR Fingerstick 3.3 Last Edit by Gregoria Caballero RN on 03/01/24 09:31 manual entry Assessment & Plan Assessment & Plan (1) Current use of anticoagulant therapy: Code(s): Z79.01 - alf (current) use of anticoagulants Category: Medical
== END 2024-03-01 09:39 | disposition home or self-care (01) ==
LOC: HO.ACS 08:57
PROVIDERS: PCP Internal Medicine; Visit Provider Internal Medicine
DX: Z79.01 Long term (current) use of anticoagulants (principal)

== ENCOUNTER → 2024-03-01 08:57 | Outpatient (BNVA) | payer OTHER, SELFPAY | PROVIDERS: PCP Internal Medicine; Visit Provider Internal Medicine | DX: Z95.2 Presence of prosthetic heart valve (principal); Z79.01 Long term (current) use of anticoagulants; Z51.81 Encounter for therapeutic drug level monitoring | CPT/HCPCS: 85610; 99211 ==

== ENCOUNTER 2024-03-06 12:49 | Emergency (ER) | payer OTHER, SELFPAY ==
--- NOTE | ~2024-03-06 | XR_ITS ---
EXAMINATION: XR CHEST CLINICAL INFORMATION: Syncope COMPARISON: 05/28/2023 TECHNIQUE: Frontal view of the chest was obtained. FINDINGS: Heart size normal. Slight distention of the pulmonary vessels possibly technical. No significant change. Lungs grossly are clear. There is a left-sided pacer and other cardiac devices overlying the chest wall. Sternal wires present. XR/XR chest 1V IMPRESSION: No active disease.
--- NOTE | 2024-03-06 12:54 | ECG_ITS ---
Test Reason : VTAC Blood Pressure : / mmHG Vent. Rate : 122 BPM Atrial Rate : 122 BPM P-R Int : 000 ms QRS Dur : 134 ms QT Int : 334 ms P-R-T Axes : 000 099 -29 degrees QTc Int : 475 ms Sinus tachycardia with intermittent ventricular-paced complexes Biventricular pacemaker detected Abnormal ECG When compared with ECG of 25-DEC-2023 11:50, Vent. rate has increased BY 48 BPM Referred By: Generic ED Physician Electronically Signed By:ADRYAN NAVAS MD
--- NOTE | 2024-03-06 13:04 | ED_ITS ---
HPI - General Adult General Chief complaint: Arrhythmia/Palpitations Stated complaint: SYNCOAL EPISODE @ CLINIC PER EMS Time Seen by Provider: 03/06/24 13:04 History of Present Illness ED Provider: Jose VACA narrative: The patient is a 58-year-old female with a history of a severe cardiomyopathy. She has an AICD. [place] started to feel somewhat unwell. Her family drove her to the hospital. Just as they arrived here her AICD started going off and she was emergency room. On arrival here she was found to have a fever. The patient says that she has been having a cough for the last week but no other particular symptoms. She does not think that she had a fever before she was found to be febrile here in the emergency room. She has not had any chest pain although she has been coughing a lot. No abdominal pain. No particular nausea or vomiting. No urinary discomfort. Related Data Home Medications ?Medication ?Instructions ?Recorded ?Confirmed aspirin 81 mg tablet,delayed 81 mg PO DAILY 09/23/20 03/01/24 release atorvastatin 20 mg tablet 20 mg PO QAM 09/23/20 03/01/24 fluoxetine 20 mg capsule 20 mg PO DAILY 11/20/20 03/01/24 ipratropium 0.5 mg-albuterol 3 mg 3 ml inhalation QID PRN Shortness 11/20/20 03/01/24 (2.5 mg base)/3 mL nebulization Of Breath Or Wheezing soln montelukast 10 mg tablet 10 mg PO BEDTIME 11/20/20 03/01/24 (Singulair) nebulizers (Sidestream misc) #1 ea 10/05/21 03/01/24 ferrous sulfate 325 mg (65 mg 325 mg PO DAILY 12/22/21 03/01/24 iron) tablet (FeroSul) empagliflozin 10 mg tablet 10 mg PO DAILY 10/07/22 03/01/24 (Jardiance) metoprolol succinate 50 mg 50 mg PO DAILY 10/07/22 03/01/24 tablet,extended release 24 hr albuterol sulfate 90 mcg/actuation 2 puff inhalation Q4H PRN 10/09/22 03/01/24 aerosol inhaler (ProAir HFA) shortness of breath or wheezing ascorbic acid (vitamin C) 250 mg 250 mg PO BID 02/16/23 03/01/24 tablet calcium carbonate 600 mg PO BID 06/07/23 03/01/24 docusate sodium 100 mg capsule 100 mg PO BID 06/07/23 03/01/24 torsemide 20 mg tablet 40 mg PO DAILY 12/15/23 03/01/24 sennosides 8.6 mg tablet (Natural 8.6 mg PO BEDTIME PRN constipation 12/25/23 03/01/24 Senna Laxative) spironolactone 25 mg tablet 25 mg PO DAILY 12/25/23 03/01/24 warfarin 2.5 mg tablet 2.5 mg PO .COMPLEX 12/29/23 03/01/24 Previous Rx's ?Medication ?Instructions ?Recorded lisinopril 2.5 mg tablet 2.5 mg PO DAILY #30 tabs 06/06/23 mexiletine 150 mg capsule 150 mg PO BID #60 caps 06/06/23 fluticasone 250 mcg-salmeterol 50 1 ea PO BID #60 ea 07/24/23 mcg/dose blistr powdr for inhalation cholecalciferol (vitamin D3) 50 50 mcg PO DAILY #90 caps 11/27/23 mcg (2,000 unit) capsule (Vitamin D3) Allergies Allergy/AdvReac Type Severity Reaction Status Date / Time codeine Allergy Mild Anxiety Verified 03/06/24 13:12 Review of Systems 2 Review of Systems: Yes all other systems are reviewed and are negative [facility] Past Medical History Medical History (Updated 03/06/24 @ 16:04 by Saeed Garcia MD) Biventricular ICD (implantable cardioverter-defibrillator) in place Somnolence COPD (chronic obstructive pulmonary disease) CHF (congestive heart failure) HANS (obstructive sleep apnea) Restrictive lung disease Morbid obesity Surgical History (Updated 03/06/24 @ 14:19 by Cholo Delgadillo MD) History of prosthetic mitral valve Hx of section Hx of heart bypass surgery Family History Family History Mother Diabetes Heart disease Father Diabetes Heart attack Maternal Aunt Diabetes Maternal Uncle Diabetes Maternal Grandfather Diabetes Maternal Grandmother Diabetes Paternal Grandfather Heart disease Paternal Grandmother Heart disease Daughter Bipolar 1 disorder Brother Lung cancer Maternal Uncle Lung cancer Social History Social History Household Members: Significant Other Housing: Apartment Are you a primary director of managed care to a significant other at home: Yes (Grandkids) Do you presently have visiting nurse or other home services: No Alcohol intake: former Comment: refusing alarm Patient Tobacco Use Status: Former Tobacco user Tobacco use type: Cigarette Cigarette Packs Per Day: 1 Years Smoked: 32 Smoked in Last 30 Days: No Second Hand Smoke Exposure: Yes Use of substances other than those prescribed or required for medical reasons: No Advance Directives: Yes Advance Directives on File: Yes Advance Directives Date on File: 05/29/23 Do you have a plan to hurt others: No Plan Patient : No service: No Current occupational status: retired and disabled Physical Exam ED Vital Signs: Vital Signs - 24 hr 03/06/24 13:10 03/06/24 14:01 03/06/24 15:55 Temperature 103.8 F H 100.3 F 98.2 F Pulse Rate 96 85 Respiratory Rate 34 H 32 H 20 Blood Pressure 93/65 121/83 94/70 Pulse Oximetry 94 96 98 Oxygen Delivery Method Nasal Cannula Nasal Cannula Nasal Cannula Oxygen Flow Rate 3 3 BMI result Body Mass Index 45.8 Const Other: The patient is a 58-year-old woman who was awake and alert. She looks chronically ill. She seems fatigued but answers questions appropriately, she does not appear short of breath, she does not appear in pain or discomfort HENMT Other: Face is symmetrical. Mucous membranes moist Eyes Other: Pupils are round equal, conjunctivae are clear Neck Other: Neck is fairly thick. No obvious JVD. Moving her neck easily Resp Other: Lungs are clear bilaterally Effort & Inspection: normal respiratory effort Auscultation: clear to auscultation bilaterally Cardio Other: Initially the patient had a very rapid heart rate. Later the patient had a more regular rate and rhythm without definite murmur GI Other: The patient has a large, protuberant abdomen which is soft and nontender Skin Other: Skin is pale and dry Neuro Other: The patient is fatigued but arousable to verbal stimuli. She seems awake and alert and appropriate. Extrem Other: No calf swelling or tenderness, no asymmetry Medications Administered Discontinued Medications Generic Name Dose Route Start Last Admin Trade Name Freq PRN Reason Stop Dose Admin Acetaminophen 650 mg 03/06/24 13:12 03/06/24 13:20 Acetaminophen 325 Mg Tablet PO 03/06/24 13:13 650 mg ONCE ONE Administration Magnesium Sulfate 2 gm in 50 mls @ 150 mls/hr 03/06/24 13:05 03/06/24 13:48 Magnesium Sulfate/H2o IV 03/06/24 13:24 Infused ONCE ONE Infusion Amiodarone HCl 150 mg/ 103 mls @ 618 mls/hr 03/06/24 13:08 03/06/24 13:48 Dextrose IV 03/06/24 13:17 Infused ONCE ONE Infusion Piperacillin Sod/Tazobactam 100 mls @ 200 mls/hr 03/06/24 13:23 03/06/24 14:57 Sod 4.5 gm/ Sodium Chloride IV 03/06/24 13:52 Infused ONCE ONE Infusion Vancomycin HCl 2,000 mg in 500 mls @ 250 mls/hr 03/06/24 13:24 03/06/24 14:52 Vancomycin/Ns IV 03/06/24 15:23 250 mls/hr ONCE ONE Administration Sodium Chloride 1,000 mls @ 999 mls/hr 03/06/24 13:30 03/06/24 14:57 Ns IV 03/06/24 14:30 Infused .Q1H1M BOBO Infusion Metoprolol Tartrate 5 mg 03/06/24 13:05 03/06/24 13:09 Metoprolol Tartrate 5 Mg/5 Ml Vial IVPUSH 03/06/24 13:06 5 mg ONCE ONE Administration Protocol Medical Decision Making Medical Decision Making [facility] Narrative: The patient is a 58-year-old woman with a history of a cardiomyopathy and an AICD who started to feel unwell not long before coming to the hospital. She fairly suddenly felt weak and was driven to the emergency room by her family. At that point her AICD started going off. At the time that I saw her her AICD had gone off several times. She was given 5 mg of IV metoprolol and 2 g of magnesium. An initial EKG seemed to suggest atrial fibrillation. I consulted Cardiology who recommended loading the patient with amiodarone. The patient was given 150 mg of IV amiodarone as well. As part of her initial evaluation she was found to have a fever with a temperature of 103 degrees. Her viral swabs are negative. Her white count is very elevated at 29,000 nine thousand but the stress of the shocks might have elevated her white count. She gives off recently but her chest x-ray does not show pneumonia. She has had no abdominal pain or vomiting. She has no abdominal tenderness. I do not think she has an intra-abdominal process. Her urinalysis shows no signs of infection. The patient was started on antibiotics empirically. She was started on piperacillin/tazobactam and vancomycin. She was given IV fluids. She is also being started on an amiodarone drip. Fortunately after her initial dose of metoprolol and magnesium she has not had any additional dysrhythmias and no additional AICD events. Dr. Delgadillo of Cardiology interrogated the device and apparently did device fired 11 times. Given the degree of her cardiomyopathy and the number of AICD events Dr. Delgadillo felt the patient should be admitted to [facility] cardiac intensive care unit and consulted with Dr. Pleitez who has accepted the patient in transfer. Lab Data 03/06/24 13:05 03/06/24 13:05 Labs: Lab Results 03/06/24 03/06/24 03/06/24 Range/Units 13:05 13:50 14:53 WBC 29.5 H (4.8-10.8) X10*3/uL RBC 5.32 (4.20-5.50) X10*6/uL Hgb 16.0 (12.0-16.0) g/dl Hct 46.6 (37.0-47.0) % MCV 87.6 (80.0-98.0) fL MCH 30.1 (27.0-33.0) pg MCHC 34.3 (31.0-35.0) g/dl RDW 15.7 (11.0-16.0) % Plt Count 299 (160-400) X10*3/uL MPV 10.9 (9.4-12.3) fL Immature Gran % (Auto) 1.3 H (0.0-0.4) % Neut % (Auto) 89.1 H (45-73) % Lymph % (Auto) 4.3 L (20-40) % Caldwell % (Auto) 4.9 (2-11) % Eos % (Auto) 0.0 (0-4) % Baso % (Auto) 0.4 (0-2) % Lymph # (Auto) 1.3 (1.2-4.9) X10*3/uL Caldwell # (Auto) 1.5 H (0.1-1.2) X10*3/uL Eos # (Auto) 0.0 (0.0-0.4) X10*3/uL Baso # (Auto) 0.1 (0.0-0.2) X10*3/uL Abs Immat Gran (auto) 0.38 H (0.00-0.03) X10*3/uL Absolute Neuts (auto) 26.3 H (2.0-8.3) x10*3/uL Absolute Nucleated RBC 0.000 (0.0-0.012) X10*3/uL Nucleated RBC % (auto) 0.0 (0.0-0.2) /100WBC Smear Tech's Comments VERIFIED Hold Blue Top SEE NOTE Sodium 135 (135-145) mmol/L Potassium 3.3 (3.3-5.1) mmol/L Chloride 91 L (96-108) mmol/L Carbon Dioxide 28 (22-29) mmol/L Anion Gap 19 (12-20) BUN 13 (9-16) mg/dL Creatinine 0.97 (0.5-1.4) mg/dL Estim Creat Clear Calc 53.3 Estimated GFR 59 Random Glucose 214 H (60-115) mg/dL Lactic Acid 3.1 H* (0.5-2.0) mmol/L Calcium 9.6 (8.4-10.2) mg/dL Magnesium 1.9 (1.6-2.6) mg/dL Total Bilirubin 1.4 H (0.0-1.0) mg/dL AST 22 (5-31) U/L ALT 18 (0-31) U/L Alkaline Phosphatase 117 (39-117) U/L Troponin I High Sens 20.6 H (<3.5-17.0) ng/L B-Natriuretic Peptide 301 H (<100) pg/mL Total Protein 8.2 H (6.5-8.0) g/dL Albumin 3.9 (3.5-5.0) g/dL Urine Color Dark Yellow Urine Appearance Cloudy Urine pH 5.5 (5.0-9.0) Ur Specific Jackson 1.025 (1.005-1.025) Urine Protein 300 (3+) H (Neg-Trace) mg/dL Urine Glucose (UA) >=1000 H (Negative) mg/dL Urine Ketones Trace (Negative) mg/dL Urine Blood Trace H (Negative) Urine Nitrite Negative (Negative) Ur Leukocyte Esterase Negative (Negative) Urine RBC 0-2 (0-2) /HPF Urine WBC 0-5 (0-5) /HPF Ur Squamous Epith Cells 6-10 (0-2) /HPF Urine Bacteria None Seen (None Seen) Hyaline Casts 3-5 (0-2) /LPF Influenza Type A (PCR) NEGATIVE (Negative) Influenza Type B (PCR) NEGATIVE (Negative) RSV RNA Qual (PCR) NEGATIVE (Negative) SARS-CoV-2 RNA (RT-PCR) NEGATIVE (Negative) Critical Care Time Critical Care Time Critical Care Time: Yes Total Critical Care Time: 35 Attestation: The patient was critically ill with a high probability of imminent or life- threatening deterioration. ?I spent greater than 30 minutes of discontinuous time evaluating the patient, delivering critical care at the bedside, discussing evaluating data with consultants. ?Critical care time does not include time spent performing separately billable procedures or teaching. ?Time spent performing critical care with 35 minutes. Discharge Plan Discharge Clinical Impression: Fever, Ventricular dysrhythmia Patient Disposition: [facility] Transfer Details: [facility] cardiac intensive care unit Prescriptions: No Action fluticasone propion-salmeterol 250-50 mcg/dose blister with device 1 ea PO BID Qty: 60 5RF cholecalciferol (vitamin D3) [Vitamin D3] 50 mcg (2,000 unit) Capsule 50 mcg PO DAILY Qty: 90 4RF albuterol sulfate [ProAir HFA] 90 mcg/actuation HFA aerosol inhaler 2 puff inhalation Q4H PRN (Reason: shortness of breath or wheezing) spironolactone 25 mg tablet 25 mg PO DAILY sennosides [Natural Senna Laxative] 8.6 mg tablet 8.6 mg PO BEDTIME PRN (Reason: constipation) warfarin 2.5 mg tablet 2.5 mg PO .COMPLEX Protocol: Dose Management Condition: Monday (Week One) Dose/Route: 2.5 mg Instruction: 1 x 2.5 mg tablet Condition: Monday Dose/Route: 3.75 mg Instruction: 1.5 x 2.5 mg tablets Condition: Monday Dose/Route: 2.5 mg Instruction: 1 x 2.5 mg tablet Condition: Monday Dose/Route: 3.75 mg Instruction: 1.5 x 2.5 mg tablets Condition: Dose/Route: 2.5 mg Instruction: 1 x 2.5 mg tablet Condition: Monday Dose/Route: 3.75 mg Instruction: 1.5 x 2.5 mg tablets Condition: Monday Dose/Route: 2.5 mg Instruction: 1 x 2.5 mg tablet Condition: Monday (Week Two) Dose/Route: 2.5 mg Instruction: 1 x 2.5 mg tablet Condition: Monday Dose/Route: 3.75 mg Instruction: 1.5 x 2.5 mg tablets Condition: Monday Dose/Route: 2.5 mg Instruction: 1 x 2.5 mg tablet Condition: Monday Dose/Route: 3.75 mg Instruction: 1.5 x 2.5 mg tablets Condition: Dose/Route: 2.5 mg Instruction: 1 x 2.5 mg tablet Condition: Monday Dose/Route: 3.75 mg Instruction: 1.5 x 2.5 mg tablets Condition: Monday Dose/Route: 2.5 mg Instruction: 1 x 2.5 mg tablet Protocol Text: Adjustment Start Date: Monday03/01/24 INR Value: 3.3 INR Date: 03/01/24 Recheck Date: 03/15/24 Additional Instructions: REVIEW FOOD LIST WEEKLY, EAT A MIX OF FRUITS AND VEGETABLES Rx Instructions: 2.5 mg orally 3 DAYS/ 3.75MG X 4 DAYS; mexiletine 150 mg Capsule 150 mg PO BID Qty: 60 0RF lisinopril 2.5 mg Tablet 2.5 mg PO DAILY Qty: 30 0RF Protocol: Hold for SBP< HOLD for SBP < : 90 aspirin 81 mg tablet,delayed release (DR/EC) 81 mg PO DAILY atorvastatin 20 mg tablet 20 mg PO QAM ipratropium-albuterol 0.5 mg-3 mg(2.5 mg base)/3 mL solution for nebulization 3 ml inhalation QID PRN (Reason: Shortness Of Breath Or Wheezing) fluoxetine 20 mg capsule 20 mg PO DAILY montelukast [Singulair] 10 mg tablet 10 mg PO BEDTIME Jardiance 10 mg tablet 10 mg PO DAILY metoprolol succinate 50 mg tablet extended release 24 hr 50 mg PO DAILY (DME) Sidestream Misc See Rx Instructions .ROUTE DIRECTED Qty: 1 Rx Instructions: As directed ferrous sulfate [FeroSul] 325 mg (65 mg iron) tablet 325 mg PO DAILY ascorbic acid (vitamin C) 250 mg tablet 250 mg PO BID docusate sodium 100 mg capsule 100 mg PO BID calcium carbonate 600 mg calcium (1,500 mg) tablet 600 mg PO BID torsemide 20 mg tablet 40 mg PO DAILY Patient 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
[2024-03-06] MEDS: Metoprolol Tartrate 5 MG/5 ML VIAL IVPUSH (13:09)
[2024-03-06 13:10] VITALS: BP 93/65; RESP 34; TEMP 39.9; O2SAT 94; BMI 45.8
[2024-03-06] MEDS: Magnesium Sulfate/H2O 2 GM/50 ML PIGGYBACK IV (13:10)
[2024-03-06 13:11] LABS: Basophils Absolute Auto 0.1 X10*3/uL (0.0-0.2); Basophils Percent Auto 0.4 % (0-2); Hematocrit 46.6 % (37.0-47.0); Imm Gran Abs Auto 0.38 X10*3/uL (0.00-0.03); Imm Gran Pct Auto 1.3 % (0.0-0.4); Lymphocytes Absolute Auto 1.3 X10*3/uL (1.2-4.9); Lymphocytes Percent Auto 4.3 % (20-40); MANUAL DIFF FLAG SCAN; Mean Corpuscular HGB Conc 34.3 g/dl (31.0-35.0); Mean Corpuscular Hemoglobin 30.1 pg (27.0-33.0); Mean Corpuscular Volume 87.6 fL (80.0-98.0); Mean Platelet Volume 10.9 fL (9.4-12.3); Monocytes Absolute Auto 1.5 X10*3/uL (0.1-1.2); Monocytes Percent Auto 4.9 % (2-11); Neutrophils Absolute Auto 26.3 x10*3/uL (2.0-8.3); Neutrophils Percent Auto 89.1 % (45-73); Platelet Count 299 X10*3/uL (160-400); Red Blood Count 5.32 X10*6/uL (4.20-5.50); Red Cell Distribution Width 15.7 % (11.0-16.0); SCAN SMEAR FLAG 1; White Blood Count 29.5 X10*3/uL (4.8-10.8)
[2024-03-06] MEDS: Acetaminophen 325 MG TABLET 650 MG PO (13:20)
[2024-03-06 13:27] LABS: Alanine Aminotransferase 18 U/L (0-31); Albumin Level 3.9 g/dL (3.5-5.0); Alkaline Phosphatase 117 U/L (39-117); Anion Gap 19 (12-20); Aspartate Amino Transferase 22 U/L (5-31); Bilirubin Total 1.4 mg/dL (0.0-1.0); Blood Urea Nitrogen 13 mg/dL (9-16); Calcium 9.6 mg/dL (8.4-10.2); Carbon Dioxide 28 mmol/L (22-29); Chloride 91 mmol/L (96-108); Creatinine Clr Calc Pharmacy 53.3; Estimated Glomerular Filt Rate 59; Glucose Random 214 mg/dL (60-115); Potassium 3.3 mmol/L (3.3-5.1); Sodium 135 mmol/L (135-145); Total Protein 8.2 g/dL (6.5-8.0)
[2024-03-06 13:33] LABS: B Type Natriuretic Peptide 301 pg/mL (<100)
[2024-03-06 13:34] LABS: SLIDE REVIEW VERIFIED; Troponin-I High Sensitivity 20.6 ng/L (<3.5-17.0)
[2024-03-06] MEDS: 0.9 % Sodium Chloride 1,000 ML 999 ML IV (13:43)
[2024-03-06 13:57] LABS: Magnesium 1.9 mg/dL (1.6-2.6)
[2024-03-06] MEDS: Piperacillin Sodium/Tazobactam 4.5 GM in 0.9 % Sodium Chloride 100 ML IV (13:59)
[2024-03-06 14:01] VITALS: BP 121/83; PULSE 96; RESP 32; TEMP 37.9; O2SAT 96
--- NOTE | 2024-03-06 14:11 | PM.CNCAR ---
History of Present Illness History of Present Illness Date of Service: 03/06/24 Requesting physician: Saeed Garcia Consult reason: other (VT storm) Chief complaint: SYNCOAL EPISODE @ CLINIC PER EMS Narrative: I was consulted to see Татьяна on an emergent basis given multiple ICD shocks while in the ED. history was obtained from the chart as well as prior records, patient is somnolent but provides adequate history when asked. 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 Last seen advanced heart failure physician 2 days ago and was felt that she should be referred to palliative care at that time. She has had poor tolerance to neurohormonal modulation and does also history of noncompliance. Today patient was found by a bystander outside staggering and subsequently going down and the EMS was called. Seems like patient had a syncopal episode. Patient does not recall any of this. She says she has had cough for the last few days. She had denied any fever or chills at home. Denies any abdominal pain or urinary symptoms. She denies any recent dental work. She came to the ED and was brought to the ED and while in the ED had multiple polymorphic VT episodes which were appropriately treated with ICD discharge. She had 5 discharges in the ED and I was called for further management. Patient was given 1 dose of magnesium. Patient is also noted to have significantly elevated temperature at 103 degrees F and white cell count of 29,000. The no obvious clear localizing sign. She since the last discharge he is noted to be in sinus tachycardia with Bi V pacing. I interrogated the device at bedside which shows a Medtronic biventricular ICD in place with total of 13 VF episodes delivering 11 appropriate shocks all converting into sinus rhythm. There were no clear other atrial arrhythmias noted. Patient's current atrial and ventricular sensing is adequate. Atrial and biventricular pacing thresholds adequate. Patient denies any shortness of breath. Denies any recent abdominal distension or leg edema. She says she has been compliant with her medications. Review of Systems Review of Systems: Yes Unobtainable due to mental status PMFSH Past Medical History Medical History (Updated 03/06/24 @ 14:19 by Cholo Delgadillo MD) Biventricular ICD (implantable cardioverter-defibrillator) in place Somnolence COPD (chronic obstructive pulmonary disease) CHF (congestive heart failure) HANS (obstructive sleep apnea) Restrictive lung disease Morbid obesity Family History Family History Mother Diabetes Heart disease Father Diabetes Heart attack Maternal Aunt Diabetes Maternal Uncle Diabetes Maternal Grandfather Diabetes Maternal Grandmother Diabetes Paternal Grandfather Heart disease Paternal Grandmother Heart disease Daughter Bipolar 1 disorder Brother Lung cancer Maternal Uncle Lung cancer Surgical History Surgical History (Updated 03/06/24 @ 14:19 by Cholo Delgadillo MD) History of prosthetic mitral valve Hx of section Hx of heart bypass surgery Social History Social History Household Members: Significant Other Housing: Apartment Are you a primary long term acute care registered nurse to a significant other at home: Yes (Grandkids) Do you presently have visiting nurse or other home services: No Alcohol intake: former Comment: refusing alarm Patient Tobacco Use Status: Former Tobacco user Tobacco use type: Cigarette Cigarette Packs Per Day: 1 Years Smoked: 32 Smoked in Last 30 Days: No Second Hand Smoke Exposure: Yes Use of substances other than those prescribed or required for medical reasons: No Advance Directives: Yes Advance Directives on File: Yes Advance Directives Date on File: 05/29/23 Do you have a plan to hurt others: No Plan Patient : No service: No Current occupational status: retired and disabled Meds Allergies Allergy/AdvReac Type Severity Reaction Status Date / Time codeine Allergy Mild Anxiety Verified 03/06/24 13:12 Active Medications: Current Medications Vancomycin HCl (Vancomycin/Ns) 2,000 mg in 500 mls @ 250 mls/hr IV ONCE ONE Stop: 03/06/24 15:23 Sodium Chloride (Ns) 1,000 mls @ 999 mls/hr IV .Q1H1M BOBO Stop: 03/06/24 14:30 Last Admin: 03/06/24 13:43 Dose: 999 mls/hr Home Medications ?Medication ?Instructions ?Recorded ?Confirmed ?Last Taken ?Type aspirin 81 mg tablet,delayed 81 mg PO DAILY 09/23/20 03/01/24 12/24/23 History release atorvastatin 20 mg tablet 20 mg PO QAM 09/23/20 03/01/24 12/24/23 History fluoxetine 20 mg capsule 20 mg PO DAILY 11/20/20 03/01/24 12/24/23 History ipratropium 0.5 mg-albuterol 3 mg 3 ml inhalation QID PRN Shortness 11/20/20 03/01/24 10/08/22 History (2.5 mg base)/3 mL nebulization Of Breath Or Wheezing soln montelukast 10 mg tablet 10 mg PO BEDTIME 11/20/20 03/01/24 12/24/23 History (Singulair) [place] [place] 10/05/21 03/01/24 Unknown History ferrous sulfate 325 mg (65 mg 325 mg PO DAILY 12/22/21 03/01/24 12/24/23 History iron) tablet (FeroSul) empagliflozin 10 mg tablet 10 mg PO DAILY 10/07/22 03/01/24 12/24/23 History (Jardiance) metoprolol succinate 50 mg 50 mg PO DAILY 10/07/22 03/01/24 12/24/23 History tablet,extended release 24 hr albuterol sulfate 90 mcg/actuation 2 puff inhalation Q4H PRN 10/09/22 03/01/24 10/09/22 History aerosol inhaler (ProAir HFA) shortness of breath or wheezing ascorbic acid (vitamin C) 250 mg 250 mg PO BID 02/16/23 03/01/24 12/24/23 History tablet calcium carbonate 600 mg PO BID 06/07/23 03/01/24 12/24/23 History docusate sodium 100 mg capsule 100 mg PO BID 06/07/23 03/01/24 12/24/23 History torsemide 20 mg tablet 40 mg PO DAILY 12/15/23 03/01/24 12/24/23 History sennosides 8.6 mg tablet (Natural 8.6 mg PO BEDTIME PRN constipation 12/25/23 03/01/24 Unknown History Senna Laxative) spironolactone 25 mg tablet 25 mg PO DAILY 12/25/23 03/01/24 12/24/23 History warfarin 2.5 mg tablet 2.5 mg PO .COMPLEX 12/29/23 03/01/24 Unknown History Physical Exam Vital Signs: Vital Signs: Last Vital Signs Temp 100.3 F 03/06/24 14:01 Pulse 96 03/06/24 14:01 Resp 32 H 03/06/24 14:01 BP 121/83 03/06/24 14:01 Pulse Ox 96 03/06/24 14:01 O2 Del Method Nasal Cannula 03/06/24 14:01 O2 Flow Rate 3 03/06/24 14:01 Oxygen Flow Rate 5 03/06/24 13:10 BMI result Body Mass Index 45.8 Const: General: cooperative, in distress mild and respiratory, ill appearing and lethargic (But arousable) Nutritional Appearance: obese Orientation/consciousness: lethargic (But arousable) Limitations: altered mental status HEENT: Head: Yes normocephalic and Yes atraumatic Neck: Neck: Yes trachea midline, Yes supple and Yes no JVD Resp: Effort & Inspection: decreased respiratory effort Auscultation: wheezes throughout Cardio: Jugular venous distension: no JVD Rate: tachycardic Rhythm: regular rhythm Heart sounds: S2 normal heart sound present, no gallops, no rubs and Other heart sounds present ([place] opening and closing click of [place] mitral valve) Peripheral pulses: Peripheral pulses 2+ throughout GI: Auscultation: normal bowel sounds Skin: General skin exam: no rashes or lesions noted Neuro: General: moves all extremities Extrem: General: Yes no clubbing, cyanosis or edema Objective Labs and Meds 03/06/24 13:05 03/06/24 13:05 Lab results: Laboratory Results - last 24 hr 03/06/24 13:05 WBC 29.5 H RBC 5.32 Hgb 16.0 Hct 46.6 MCV 87.6 MCH 30.1 MCHC 34.3 RDW 15.7 Plt Count 299 MPV 10.9 Immature Gran % (Auto) 1.3 H Neut % (Auto) 89.1 H Lymph % (Auto) 4.3 L [place] % (Auto) 4.9 Eos % (Auto) 0.0 Baso % (Auto) 0.4 Lymph # (Auto) 1.3 [place] # (Auto) 1.5 H Eos # (Auto) 0.0 Baso # (Auto) 0.1 Abs Immat Gran (auto) 0.38 H Absolute Neuts (auto) 26.3 H Absolute Nucleated RBC 0.000 Nucleated RBC % (auto) 0.0 Smear Tech's Comments VERIFIED Hold Blue Top SEE NOTE Sodium 135 Potassium 3.3 Chloride 91 L Carbon Dioxide 28 Anion Gap 19 BUN 13 Creatinine 0.97 Estim Creat Clear Calc 53.3 Estimated GFR 59 Random Glucose 214 H Calcium 9.6 Magnesium 1.9 Total Bilirubin 1.4 H AST 22 ALT 18 Alkaline Phosphatase 117 Troponin I High Sens 20.6 H B-Natriuretic Peptide 301 H Total Protein 8.2 H Albumin 3.9 ECG Pacemaker model: Medtronic biventricular ICD in place. Pacemaker function: other (Multiple VF episodes with appropriate therapy. Device function otherwise appears adequate) Assessment and Plan (1) Ventricular tachycardia, incessant: Status: Acute Patient presents with VT/VF storm question related to underlying sepsis syndrome. I am not sure about her compliance with medications especially mexiletine. For now patient has not had much more VT storm. Device is appropriate discharging although would like to avoid further episodes. Check electrolytes. She has already been given a dose of magnesium. Check potassium and replace as needed. Will start on IV amiodarone drip after boluses. Given her advanced cardiovascular dysfunction and advanced cardiac issues will transfer her to [facility]. I did discuss with her primary recovery engineer and CCU attending who has accepted the patient to the CCU Service. Needs supportive care. If patient continues to persistent ventricular arrhythmias will start her on IV lidocaine drip. For now follow-up labs and replace as need be. (2) Sepsis: Status: Acute Patient marked leukocytosis as well as fever of 103 along with tachycardia with VF episodes as well as encephalopathy. Overall suggestive of sepsis syndrome. Unclear etiology. She does have a mechanical mitral valve as well as Bi V ICD which could both be source of infection. Other possible sources include pneumonia given her symptoms of cough and/or UTI. This needs to be investigated. Patient to be treated aggressively for sepsis protocol by the ED team. Subsequently to be transferred to [facility] critical care unit. (3) Cardiomyopathy: Status: Acute Severe cardiomyopathy with advanced heart failure syndrome, clinically currently does not appear to be in heart failure but has diffuse bronchospastic wheezing probably related to underlying COPD. Does appear to be in overt heart failure. Can continue fluid resuscitation and follow clinically. (4) History of prosthetic mitral valve: Status: Acute Mechanical mitral valve in place. Currently on warfarin therapy. INRs pending. Maintain INR between 2.5 and 3.5. Patient was stable and to be transferred to tertiary care center for further treatment options. Arrangements are being made. COVID testing to be performed. Greater than 1 hour of critical time was spent in coordinating her care. Procedures Date of Service Date of Service: 03/06/24
[2024-03-06 14:13] LABS: Lactic Acid 3.1 mmol/L (0.5-2.0)
[2024-03-06 14:41] LABS: Influenza A PCR NEGATIVE (Negative); Influenza B PCR NEGATIVE (Negative); Resp Syncy Virus RNA Qual PCR NEGATIVE (Negative); SARS COV2 PCR INHOUSE NEGATIVE (Negative)
[2024-03-06] MEDS: vancomycin/NS 2,000 MG/500 ML PLAST..BAG 250 MG IV (14:52)
[2024-03-06 15:05] LABS: Appearance Urine Cloudy; Color Urine Dark Yellow; Glucose Urine UA >=1000 mg/dL (Negative); Leukocyte Esterase Urine Negative (Negative); Nitrite Urine Negative (Negative); PH 5.5 (5.0-9.0); Specific Gravity - Urine 1.025 (1.005-1.025); UMIC TRIGGER UACC YES; Urine Blood Trace (Negative); Urine Ketones Trace mg/dL (Negative); Urine Protein 300 (3+) mg/dL (Neg-Trace)
[2024-03-06 15:07] LABS: Bacteria Urine None Seen (None Seen); RBC Urine 0-2 /HPF (0-2); WBC Urine 0-5 /HPF (0-5)
--- NOTE | 2024-03-06 15:08 | PC.NURSE ---
[place]ers after a syncopal episode, upon arrival to emergency department EMS reports that patient's AICD had fired multiple times after pulling into the ambulance bay. patient placed on personnel monitor in ed bed 1 where AICD was noted to fire several more times w/ patient being in both vfib and vtach. patient was awake and speaking to this RN during these events. felt the pacer go off each time jumping with the defib. EKG ordered and done, bilateral 20 IV's placed. placed on 5L nasal cannula. patient remained easily arousable to verbal stimuli. provider at bedside and ordered 5gm lopressor and 2 gm magnesium, medicated per the OCT. s/p medication administration to this time (1514) patient has not had any firing of the AICD. 150mg of amiodarone administered. cardiology to bedside to interrogate device finding patient has had 11 successful firings of the AICD. blood cultures and lactic acid obtained, antibiotics infusing. remains alert and oriented, denied any pain throughout with the exception of the firing of device. titrated down to 3L nasal cannula. 16FR saunders inserted w/out issue.
--- NOTE | 2024-03-06 15:08 | MHC.EDTECH ---
this tech took over care at this time, upon rounding on the pt the pt was asleep/resting with equal chest rise present. appears to be in no apparent distress
--- NOTE | 2024-03-06 15:46 | PC.NURSE ---
report given to [facility]
[2024-03-06 15:54] LABS: Reflex Lactate? Lactic Acid Added
[2024-03-06 15:55] VITALS: BP 94/70; PULSE 85; RESP 20; TEMP 36.8; O2SAT 98
[2024-03-06] MEDS: Amiodarone HCL 900 MG in 0.9 % Sodium Chloride 500 ML 34.53 MG IVCONT (16:29)
[2024-03-06 18:36] VITALS: BP 101/63; PULSE 92; RESP 20; TEMP 36.8; O2SAT 95
[2024-03-06 20:09] LABS: C Reactive Protein 17.06 mg/dL (< or = 0.50)
== END 2024-03-06 18:37 | disposition short-term general hospital (02) ==
PROVIDERS: Emergency Provider Emergency Medicine; PCP Internal Medicine
DX: R50.9 Fever, unspecified (principal); I47.29 Other ventricular tachycardia; I49.8 Other specified cardiac arrhythmias; A41.9 Sepsis, unspecified organism; I42.9 Cardiomyopathy, unspecified; I50.9 Heart failure, unspecified; J44.9 Chronic obstructive pulmonary disease, unspecified; E66.9 Obesity, unspecified; Z68.42 Body mass index [BMI] 45.0-49.9, adult; Z95.2 Presence of prosthetic heart valve; Z79.82 Long term (current) use of aspirin; Z79.02 Long term (current) use of antithrombotics/antiplatelets; Z79.899 Other long term (current) drug therapy; Z87.891 Personal history of nicotine dependence; Z03.818 Encounter for observation for suspected exposure to other biological agents ruled out; R05.9 Cough, unspecified
CPT/HCPCS: 0241U; 36415; 71045; 80053; 81001; 81003; 83605; 83735; 83880; 84484; 85025; 86140; 87040; 93005; 96361; 96365; 96366; 96367; 96375; 99285; 99291; J0282; J2543; J3370; J3475

== ENCOUNTER → 2024-03-06 13:57 | Outpatient (BNV) | payer OTHER, SELFPAY | PROVIDERS: Emergency Provider Emergency Medicine; PCP Internal Medicine; Visit Provider Internal Medicine Cardiovascular Disease | DX: I47.29 Other ventricular tachycardia (principal); A41.9 Sepsis, unspecified organism; I42.9 Cardiomyopathy, unspecified; Z95.2 Presence of prosthetic heart valve | CPT/HCPCS: 93010; 99291 ==